=== PATIENT | male | born 1950 | race Hispanic/Latino ===

== ENCOUNTER 2017-11-06 19:49 | Inpatient (IN) | payer BC, MEDICARE ==
[2017-11-06 19:57] VITALS: BMI 20.7
[2017-11-06] MEDS ORDERED: Nitroglycerin 2% Ointment Foilpak UD TOP STA (20:05)
[2017-11-06] MEDS ORDERED: Morphine 2 mg/ml ISec IVP STA ×2 (20:05→22:05)
--- NOTE | 2017-11-06 20:23 | ED PDOC ---
Arrival/HPI - General Chief Complaint: Chest Pain Time Seen by Provider: 11/06/17 19:56 Historian: Patient - Critical Care Critical Care Minutes: 30 minutes - History of Present Illness Narrative History of Present Illness (Text): 11/06/17 20:10 66 year old male, whose PMH includes renal failure, PNA, CAD, and hypertension, renal insufficiency who presents to the emergency department complaining of intermittent chest pain throughout the day. Patient reports pain radiates to his left shoulder and arm. He also states having similar symptoms this past week , but today the chest pain became more persistent.Pt. currently on Zithromax just started by his PMD for pneumonia. Patient denies shortness of breath, fever , chills, nausea, vomiting, diarrhea, cough, or other complaints. Time/Duration: < week Symptom Onset: Gradual Symptom Course: Worsening Past Medical History - Provider Review Nursing Documentation Reviewed: Yes - Infectious Disease Hx of Infectious Diseases: None - Tetanus Immunization Tetanus Immunization: Unknown - Cardiac Hx Hypertension: Yes - Pulmonary Hx Respiratory Disorders: Yes Hx Pneumonia: Yes (DOUBLE PNEUMONIA 10-17-14) - Neurological Hx Paralysis: No (HX PAST R HEMIPARESIS) - HEENT Hx HEENT Disorder: (WEARS RX GLASSES) - Renal Hx Renal Failure: Yes - Hematological/Oncological Hx Blood Transfusions: No Hx Blood Transfusion Reaction: No - Integumentary Hx Dermatological Disorder: No - Musculoskeletal/Rheumatological Hx Musculoskeletal Disorders: No - Gastrointestinal Hx Gastrointestinal Disorders: Yes (GI BLEED 01-11-15) - Genitourinary/Gynecological Hx Genitourinary Disorders: No - Psychiatric Hx Emotional Abuse: No Hx Physical Abuse: No Hx Substance Use: No - Past Surgical History Past Surgical History: No Previous - Anesthesia Hx Anesthesia Reactions: No Hx Malignant Hyperthermia: No - Suicidal Assessment Feels Threatened In Home Enviroment: No Family/Social History - Physician Review Nursing Documentation Reviewed: Yes Family/Social History: Unknown Family HX Smoking Status: Former Smoker Hx Alcohol Use: No Hx Substance Use: No Hx Substance Use Treatment: No Allergies/Home Meds Allergies/Adverse Reactions: Allergies azithromycin [From Zithromax] Allergy (Severe, Verified 07/29/15 09:57) SWELLING UNKNOWN ANTIBIOTIC Allergy (Uncoded 08/07/15 07:03) SHORTNESS OF BREATH Home Medications: Home Meds Medication Instructions Recorded Confirmed Carvedilol [Coreg] 6.25 mg PO BID 07/29/15 08/17/17 LORazepam [Ativan] 0.5 mg PO DAILY PRN 08/07/15 08/17/17 Calcium Acetate [Phoslo] 667 mg PO DAILY 08/17/17 08/17/17 Sodium Bicarbonate 325 mg PO DAILY 08/17/17 08/17/17 Review of Systems - Physician Review All systems were reviewed & negative as marked: Yes - Review of Systems Constitutional: absent: Fevers Respiratory: absent: SOB Cardiovascular: Chest Pain (radiates to left shoulder and arm ) Gastrointestinal: absent: Vomiting Physical Exam Vital Signs Reviewed: Yes Vital Signs Temp Pulse Resp BP Pulse Ox 11/06/17 23:25 97.8 F 108 H 18 170/82 H 95 11/06/17 23:10 97.8 F 115 H 24 170/82 H 80 L 11/06/17 22:00 103 H 18 169/92 H 96 11/06/17 21:40 86 20 158/71 H 94 L 11/06/17 21:20 88 18 169/92 H 95 11/06/17 21:00 87 18 160/63 H 95 11/06/17 20:37 96 H 11/06/17 20:00 97 H 18 161/73 H 97 11/06/17 19:57 97.6 F 110 H 19 185/92 H 99 Temperature: Afebrile Blood Pressure: Hypertensive Pulse: Tachycardic Respiratory Rate: Normal Appearance: Positive for: Well-Appearing, Non-Toxic, Comfortable Pain Distress: None Mental Status: Positive for: Alert and Oriented X 3 - Systems Exam Head: Present: Atraumatic, Normocephalic Pupils: Present: PERRL Extroacular Muscles: Present: EOMI Conjunctiva: Present: Normal Ears: Present: NORMAL TM Pharnyx: Present: Normal Neck: Present: Normal Range of Motion Respiratory/Chest: Present: Good Air Exchange, Rhonchi (right lung field). No: Respiratory Distress, Accessory Muscle Use, Wheezes, Decreased Breath Sounds, Rales, Retracting Cardiovascular: Present: Tachycardic. No: Regular Rate and Rhythm, Murmurs Abdomen: Present: Normal Bowel Sounds. No: Tenderness, Distention, Peritoneal Signs, Rebound, Guarding Lower Extremity: Present: Normal Inspection, NORMAL PULSES, Normal ROM, Neurovascularly Intact, Capillary Refill < 2 s. No: Edema, Gopal's Sign, Erythema, Deformity Neurological: Present: GCS=15, CN II-XII Intact, Speech Normal, Motor Func Grossly Intact, Normal Sensory Function Skin: Present: Warm, Dry, Normal Color. No: Rashes Psychiatric: Present: Alert, Oriented x 3, Normal Insight, Normal Concentration Medical Decision Making ED Course and Treatment: 11/06/17 Impression: 66 year old male with tachycardia complaining of persistent chest pain. Plan: -- EKG -- Chest X-ray -- Labs -- Aspirin, Metoprolol, Morphine, Nitroglycerin -- Reassess and disposition Progress Notes: EKG: Ordered, reviewed, and independently interpreted the EKG. Rate : 111 BPM Rhythm : tachycardia Interpretation : ST depression lateral leads. 11/06/17 21:[address] Gao, requests ICU evaluation. Pt will require transfusion, antibiotics, and monitoring, renal/cardiac consults 11/06/17 21:[address] Mora, block greaser, who will evaluate pt in ER, accepts for ICU admission. Pt will be admitted to the ICU for ACS, renal failure, pneumonia, and anemia under Dr. Gao's service. - Lab Interpretations Lab Results: 11/06/17 20:23 11/06/17 20:23 Lab Results 11/06/17 22:00: Blood Type B POSITIVE, Antibody Screen Negative, Crossmatch See Detail, BBK History Checked Patient has bt 11/06/17 22:00: pO2 224 H, VBG pH 7.26 L, VBG pCO2 32.0 L, VBG HCO3 14.4 L, VBG Total CO2 15.4 L, VBG O2 Sat (Calc) 100.1 H, VBG Base Excess -11.5 L, VBG Potassium 7.4 H*, Glucose 95, Lactate 0.8, FiO2 21.0, Sodium 135.0, Chloride 109.0 H, Venous Blood Potassium 7.4 H* 11/06/17 20:23: NT-Pro-B Natriuret Pep 29950 H 11/06/17 20:23: D-Dimer, Quantitative 576 H 11/06/17 20:23: WBC 10.1 D, RBC 2.56 L, Hgb 7.7 L, Hct 22.2 L, MCV 86.7, MCH 30.1, MCHC 34.7, RDW 13.6, Plt Count 356, MPV 8.4 11/06/17 20:23: Sodium 140, Potassium 5.2 H, Chloride 107, Carbon Dioxide 13 L, Anion Gap 25 H, BUN 94 H, Creatinine 10.0 H*, Est GFR ( Amer) 6, Est GFR (Non-Af Amer) 5, Random Glucose 114 H, Calcium 8.9, Total Bilirubin 0.6, AST 12 L, ALT 15, Alkaline Phosphatase 72, Lactate Dehydrogenase 467, Total Creatine Kinase 46, Troponin I 0.01 D, Total Protein 7.4, Albumin 4.4, Globulin 3.0, Albumin/Globulin Ratio 1.4 11/06/17 20:23: PT 10.7, INR 0.94, APTT 31.2 I have reviewed the lab results: Yes - RAD Interpretation Radiology Orders: 11/06/17 20:06 CHEST PORTABLE [RAD] Stat Director Of Land: Radiologist - EKG Interpretation Interpreted by ED Physician: Yes Type: 12 lead EKG - Medication Orders Current Medication Orders: Albuterol/Ipratropium (Duoneb 3 Mg/0.5 Mg (3 Ml) Ud) 3 ml IH [id number] IRMA Last Admin: 11/07/17 04:02 Dose: 3 ml Aspirin (Aspirin Chewable) 81 mg PO DAILY IRMA Vancomycin HCl (Vancomycin 500mg In Ns) 500 mg in 100 mls @ 200 mls/hr IVPB DAILY IRMA PRN Reason: Protocol Piperacillin Sod/Tazobactam Sod (Zosyn 2.25 Gm In 0.9% 100 Ml) 2.25 gm in 100 mls @ 100 mls/hr IVPB Q8H IRMA PRN Reason: Protocol Stop: 11/07/17 09:14 Last Admin: 11/07/17 03:59 Dose: 100 mls/hr eMAR Start Stop Document 11/07/17 03:59 PD (Rec: 11/07/17 03:59 PD [id number]) Intravenous Solution Start Date 11/07/17 Start Time 03:59 Labetalol HCl (Trandate) 5 mg IV Q6H PRN PRN Reason: Systolic Blood Pressure Morphine Sulfate (Morphine) 2 mg IVP Q4H PRN PRN Reason: Pain, severe (8-10) Pantoprazole Sodium (Protonix Inj) 40 mg IVP DAILY IRMA Discontinued Medications Aspirin (Aspirin) 325 mg PO ONCE STA Stop: 11/06/17 20:06 Last Admin: 11/06/17 20:37 Dose: 325 mg Ceftriaxone Sodium (Rocephin 1 Gram Ivpb) 1 gm in 100 mls @ 200 mls/hr IV ONCE STA PRN Reason: Protocol Stop: 11/06/17 22:00 Last Admin: 11/06/17 22:00 Dose: 200 mls/hr eMAR Start Stop Document 11/06/17 22:00 (Rec: 11/06/17 22:26 [id number] Intravenous Solution Start Date 11/06/17 Start Time 21:45 Vancomycin HCl (Vancomycin 1gm) 1 gm in 250 mls @ 167 mls/hr IVPB ONCE ONE PRN Reason: Protocol Stop: 11/07/17 05:14 Last Admin: 11/07/17 03:53 Dose: 167 mls/hr eMAR Start Stop Document 11/07/17 03:53 PD (Rec: 11/07/17 03:53 PD [id number]) Intravenous Solution Start Date 11/07/17 Start Time 03:53 Metoprolol Tartrate (Lopressor) 25 mg PO ONCE STA Stop: 11/06/17 20:06 Last Admin: 11/06/17 20:37 Dose: 25 mg MAR Pulse and Blood Pressure Document 11/06/17 20:37 (Rec: 11/06/17 20:37 [id number]) Pulse Pulse Rate (60-90) 96 Morphine Sulfate (Morphine) 2 mg IVP STAT STA Stop: 11/06/17 20:06 Last Admin: 11/06/17 20:36 Dose: 2 mg MAR Pain Assessment Document 11/06/17 20:36 (Rec: 11/06/17 20:37 [id number]) Pain Reassessment Is this a pain reassessment? Yes IVP Administration Document 11/06/17 20:36 (Rec: 11/06/17 20:37 [id number]) Charges for Administration # of IVP Administrations 1 Morphine Sulfate (Morphine) 2 mg IVP STAT STA Stop: 11/06/17 22:06 Last Admin: 11/06/17 22:05 Dose: 2 mg MAR Pain Assessment Document 11/06/17 22:05 (Rec: 11/07/17 05:23 RG [id number]) Pain Reassessment Is this a pain reassessment? Yes Sleep Is patient sleeping during reassessment? No Presence of Pain Presence of Pain Yes Pain Scale Used Pain Scale Used Numeric Location Left, Right or Bilateral Bilateral Upper or Lower Upper Pain Location Body Site Chest Description Description Pressure Intensity of Pain at present 6 Pain Behavior Rubbing Site IVP Administration Document 11/06/17 22:05 RG (Rec: 11/07/17 05:23 RG [id number]) Charges for Administration # of IVP Administrations 1 Nitroglycerin (Nitro-Bid 2% Oint) 1 ea TOP ONCE STA Stop: 11/06/17 20:06 Last Admin: 11/06/17 20:37 Dose: 1 ea Sodium Bicarbonate (Sodium Bicarbonate 8.4% (50 Meq) Syringe) 50 meq IVP ONCE ONE Stop: 11/06/17 22:47 Last Admin: 11/06/17 23:20 Dose: 50 meq IVP Administration Document 11/06/17 23:20 RG (Rec: 11/06/17 23:27 [facility]-[id number]) Charges for Administration # of IVP Administrations 1 - Scribe Statement The provider has reviewed the documentation as recorded by the Leydi Hager Provider Scribe Attestation: All medical record entries made by the Scribe were at my direction and personally dictated by me. I have reviewed the chart and agree that the record accurately reflects my personal performance of the history, physical exam, medical decision making, and the department course for this patient. I have also personally directed, reviewed, and agree with the discharge instructions and disposition. Disposition/Present on Arrival - Present on Arrival Any Indicators Present on Arrival: No History of DVT/PE: No History of Uncontrolled Diabetes: No Urinary Catheter: No History of Decub. Ulcer: No History Surgical Site Infection Following: None - Disposition Have Diagnosis and Disposition been Completed?: Yes Diagnosis: Acute coronary syndrome, Acute renal failure (ARF), Pneumonia, Anemia Disposition: HOSPITALIZED Disposition Time: 22:05 Patient Plan: Admission Condition: SERIOUS
[2017-11-06 20:51] LABS: HEMOGLOBIN 7.7 g/dL (14.0-18.0); MEAN CELL VOLUME 86.7 fl (80.0-105.0); MEAN CORPUSCULAR HEMOGLOBIN 30.1 pg (25.0-35.0); MEAN CORPUSCULAR HGB CONC 34.7 g/dl (31.0-37.0); MEAN PLATELET VOLUME 8.4 fl (7.0-11.0); RBC 2.56 10^6/uL (3.5-6.1); RED CELL DISTRIBUTION WIDTH 13.6 % (11.5-14.5); WHITE BLOOD COUNT 10.1 10^3/ul (4.5-11.0)
[2017-11-06 20:58] LABS: TROPONIN I 0.01 ng/mL
[2017-11-06 21:08] LABS: ALB/GLOB RATIO 1.4 (1.1-1.8); ALBUMIN 4.4 g/dL (3.0-4.8); CALCIUM 8.9 mg/dL (8.4-10.5)
[2017-11-06 21:10] LABS: INR 0.94 (0.93-1.08); PARTIAL THROMBOPLASTIN TIME 31.2 Seconds (25.1-36.5); PROTHROMBIN TIME 10.7 SECONDS (9.4-12.5)
[2017-11-06] MEDS ORDERED: cefTRIAXone 1 gm 1 GM/100 ML BAG IV STA (21:31)
[2017-11-06 22:18] LABS: VENOUS BLOOD GAS BASE EXCESS -11.5 mmol/L (0.0-2.0); VENOUS BLOOD GAS PO2 224 mm/Hg (30-55); VENOUS BLOOD PH 7.26 (7.32-7.43)
[2017-11-06] MEDS ORDERED: Sodium Bicarbonate (8.4%) 50 Meq Syringe IVP ONE (22:46)
[2017-11-06] MEDS ORDERED: Albuterol-Ipratrop 3 mg / 0.5 (3 ml) UD ONE (23:13)
--- NOTE | 2017-11-06 23:17 | CP.PCM.HP ---
<Landon Ford - Last Filed: 11/07/17 06:21> History of Present Illness - History of Present Illness History of Present Illness: Landon Ford D.O. PGY-1, Internal Medicine Resident, History and Physical Note for Dr Mora. 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 Today the pt had 5- 6 episodes of chest pain which each last about 2-3 mins. These episodes have become increasingly worse. Previously the pain was relieved with Alleve, this did not help today, which prompted him to come to the ED. Pt reports pain is relieved in the ED by morphine, he was also given nitro. Pt states these episodes are also associated with SOB and diaphoresis, pt is dry heaving during the hisoty and physical. He reports nausea and requests an emesis basin. Pt reports that a similar but less intense episode occurred about 2 months ago. Pt has been coughing up about a teaspoon of blood for the past 3 days. Pt denies numbness, tingling, abdominal pain, BRBPR, subjective fever. Pt was treated for double PNA in September 2014. In December 2014 pt admitted to [facility] with Kidney failure. He was found to be anemic at that time and transfused 2 units of blood. At this time, his AV fistula was put in. Shortly after this pt had a left frontotemporal intraparenchymal hemorrhage resulting in right arm and leg weakness. A kidney bioptsy was done and the pt was then diagnosed with Lynnette's. 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 In January 2015 pt received dialysis at [facility] where he received dialysis twice a week. In October 2016 pt moved back to [place] and went for dialysis, the residential mortgage manager said pt "levels are not bad enough to require dialysis". PMH: renal failure, PNA, CAD, hypertension, and Lynnette's, hemorrhagic stroke PSH: fistula left arm, cataract eye surgery 2016 Social: lives with in [place], 75 pack year smoker quit 3 years ago, quit drinking 7 years ago, no illegal drugs Family History: mother 2017, cancer, polyps, HTN, DM, heart condition. Father: Allergies: Moxifloxin - achilles tendonitis, possibly Azithromycin - ear fullness/ear pain PMD: Dr Anatoly Gao [facility] Vat Worker: Dr Diane Zacarias Fistula Surgeon: Jim Present on Admission - Present on Admission Any Indicators Present on Admission: No Review of Systems - Review of Systems Systems not reviewed;Unavailable: Respiratory Distress - Constitutional Constitutional: Excessive Sweating. absent: Headache - EENT Eyes: absent: Blurred Vision Ears: absent: Decreased Hearing - Cardiovascular Cardiovascular: Chest Pain, Chest Pain at Rest, Diaphoresis, Dyspnea, Rapid Heart Rate - Respiratory Respiratory: Hemoptysis - Gastrointestinal Gastrointestinal: Nausea. absent: Abdominal Pain, Change in Stool Character, Diarrhea Past Patient History - Infectious Disease Hx of Infectious Diseases: None - Tetanus Immunizations Tetanus Immunization: Unknown - Past Social History Smoking Status: Former Smoker - CARDIAC Hx Hypertension: Yes - PULMONARY Hx Respiratory Disorders: Yes Hx Pneumonia: Yes (DOUBLE PNEUMONIA 10-17-14) - NEUROLOGICAL Hx Paralysis: No (HX PAST R HEMIPARESIS) - HEENT Hx HEENT Problems: (WEARS RX GLASSES) - RENAL Hx Renal Failure: Yes - HEMATOLOGICAL/ONCOLOGICAL Hx Blood Transfusions: No Hx Blood Transfusion Reaction: No - INTEGUMENTARY Hx Dermatological Problems: No - MUSCULOSKELETAL/RHEUMATOLOGICAL Hx Musculoskeletal Disorders: No - GASTROINTESTINAL Hx Gastrointestinal Disorders: Yes (GI BLEED 01-11-15) - GENITOURINARY/GYNECOLOGICAL Hx Genitourinary Disorders: No - PSYCHIATRIC Hx Emotional Abuse: No Hx Physical Abuse: No Hx Substance Use: No - SURGICAL HISTORY Hx Surgeries: Yes (TONSILLECTOMY) - ANESTHESIA Hx Anesthesia Reactions: No Hx Malignant Hyperthermia: No Meds Allergies/Adverse Reactions: Allergies Allergy/AdvReac Type Severity Reaction Status Date / Time azithromycin [From Zithromax] Allergy Severe SWELLING Verified 07/29/15 09:57 UNKNOWN ANTIBIOTIC Allergy SHORTNESS Uncoded 08/07/15 07:03 OF BREATH Physical Exam - Constitutional Appears: In Acute Distress - Head Exam Head Exam: ATRAUMATIC, NORMOCEPHALIC - Eye Exam Eye Exam: EOMI, PERRL - ENT Exam ENT Exam: Mucous Membranes Moist - Neck Exam Neck exam: Positive for: Full Rom, Normal Inspection - Respiratory Exam Respiratory Exam: NORMAL BREATHING PATTERN - Cardiovascular Exam Cardiovascular Exam: Tachycardia, REGULAR RHYTHM, +S2 - GI/Abdominal Exam GI & Abdominal Exam: Normal Bowel Sounds, Soft - Extremities Exam Extremities exam: Positive for: normal inspection - Neurological Exam Neurological exam: Alert, CN II-XII Intact, Oriented x3 - Psychiatric Exam Psychiatric exam: Normal Affect - Skin Skin Exam: Normal Color Results - Vital Signs Recent Vital Signs: Last Vital Signs Temp 97.6 F 11/06/17 19:57 Pulse 96 H 11/06/17 20:37 Resp 19 11/06/17 19:57 BP 185/92 H 11/06/17 19:57 Pulse Ox 99 11/06/17 19:57 - Labs Result Diagrams: 11/06/17 20:23 11/06/17 20:23 Assessment & Plan - Assessment and Plan (Free Text) Assessment: Pt is a 66 year old male with a PMH that includes renal failure, PNA, CAD, hypertension, and Lynnette's who presents to the emergency department complaining of 9/10 intermittent crushing left-sided chest pain, occurring at rest, which radiates to his left shoulder, arm, and jaw which first began 3 days. Plan: Neuro: -AOx3 Cardio: -Chest Pain, rule out ACS -Troponins: 0.01, continue to trend -CKMB: -EKG: -ProBNP 73099 -HTN, start Labetalol 5mg IV q6 prn when Sys >160, hold when HR <55 -will consider nitro drip if blood pressure cannot be controlled -Ordered TSH, Lipid panel, A1C -Begin ASA 81mg -cardio consulted, Dr Palumbo Pulm: -Hemoptysis -Hypoxia -possible PE -D-Dimer elevated, 576 -unable to order CT because of pt renal failure -V/Q scan: Nuclear Plant Construction Worker discussed with radiologist who stated likely low probability for PE however study not very reliable - however patient with hx of hemorrhagic stroke thus will hold therapeutic PE treatment at this time. -start duoneb -Stat Duplex scan, to rule out DVT -VBG ordered Renal: -Uremic Renal Failure -Metabolic Acidosis -Cr 10 -pt not currently on HD -Nuclear Plant Construction Worker, Dr Mora, discussed with residential mortgage manager Dr Zacarias who stated emergent dialysis not necessary overnight and that patient will receive HD in the morning. -strict I+O -Nephrology consulted, Dr Zacarias ID: -[id number] -start vanc and zosyn -Procal: -blood cultures ordered -urine c/s ordered -MRSA ordered Heme: -Anemic, Hgb 7.7, transfuse 2 units -likely of chronic disease, likely component of Anemia of renal disease -FOBT: -Iron panel: -reticulocyte count: dispo: <Jonas Mora MD - Last Filed: 11/07/17 09:15> Results - Vital Signs Recent Vital Signs: Last Vital Signs Temp 97.6 F 11/07/17 02:03 Pulse 80 11/07/17 06:14 Resp 20 11/07/17 07:15 BP 180/84 H 11/07/17 06:14 Pulse Ox 95 11/06/17 23:25 - Labs Result Diagrams: 11/07/17 05:50 11/07/17 05:50 Labs: Laboratory Results - last 24 hr 11/06/17 11/06/17 11/07/17 23:24 23:42 05:45 WBC RBC Hgb Hct MCV MCH MCHC RDW Plt Count MPV Gran % Lymph % (Auto) [place] % (Auto) Eos % (Auto) Baso % (Auto) Gran # Lymph # (Auto) [place] # (Auto) Eos # (Auto) Baso # (Auto) Neutrophils % (Manual) Lymphocytes % (Manual) Monocytes % (Manual) Platelet Evaluation Retic Count pCO2 28 L pO2 66.0 L HCO3 16.2 L ABG pH 7.37 ABG Total CO2 17.1 L ABG O2 Saturation 97.3 ABG Base Excess -7.6 L ABG Potassium 4.6 VBG pH VBG pCO2 VBG HCO3 VBG Total CO2 VBG O2 Sat (Calc) VBG Base Excess VBG Potassium Sodium 139.0 Chloride 109.0 H Glucose 144 H Lactate 1.0 FiO2 100.0 Potassium Carbon Dioxide Anion Gap BUN Creatinine Est GFR ( Amer) Est GFR (Non-Af Amer) Random Glucose Calcium Phosphorus Magnesium Iron TIBC % Saturation Total Bilirubin AST ALT Alkaline Phosphatase Troponin I NT-Pro-B Natriuret Pep Total Protein Albumin Globulin Albumin/Globulin Ratio Triglycerides Cholesterol LDL Cholesterol Direct HDL Cholesterol Free T4 1.69 TSH 3rd Generation 1.20 Arterial Blood Potassium 4.6 Venous Blood Potassium Urine Color Yellow Urine Appearance Clear Urine pH 6.5 Ur Specific [place] 1.015 Urine Protein 100 H Urine Glucose (UA) 100 H Urine Ketones Negative Urine Blood Trace-intact H Urine Nitrate Negative Urine Bilirubin Negative Urine Urobilinogen 0.2 Ur Leukocyte Esterase Negative Urine RBC 0 - 2 Urine WBC 0 - 2 Ur Epithelial Cells 0 - 2 Urine Bacteria Rare 11/07/17 11/07/17 11/07/17 05:45 05:50 05:50 WBC 16.4 H D RBC 3.71 Hgb 11.1 L D Hct 31.8 L MCV 85.7 MCH 29.9 MCHC 34.9 RDW 14.4 Plt Count 342 MPV 8.9 Gran % 90.6 H Lymph % (Auto) 7.0 L [place] % (Auto) 2.1 Eos % (Auto) 0.1 L Baso % (Auto) 0.2 Gran # 14.84 H Lymph # (Auto) 1.1 L [place] # (Auto) 0.3 Eos # (Auto) 0.0 Baso # (Auto) 0.04 Neutrophils % (Manual) 92 H Lymphocytes % (Manual) 7 L Monocytes % (Manual) 1 Platelet Evaluation Normal Retic Count 1.43 pCO2 pO2 HCO3 ABG pH ABG Total CO2 ABG O2 Saturation ABG Base Excess ABG Potassium VBG pH VBG pCO2 VBG HCO3 VBG Total CO2 VBG O2 Sat (Calc) VBG Base Excess VBG Potassium Sodium 143 Chloride 108 H Glucose Lactate FiO2 Potassium 5.6 H* Carbon Dioxide 16 L Anion Gap 25 H BUN 93 H Creatinine 9.5 H* Est GFR ( Amer) 7 Est GFR (Non-Af Amer) 6 Random Glucose 134 H Calcium 8.8 Phosphorus 5.4 H Magnesium 2.0 Iron 135 TIBC 250 L % Saturation 54 Total Bilirubin 1.0 AST 24 ALT 14 Alkaline Phosphatase 74 Troponin I 0.16 H* D NT-Pro-B Natriuret Pep 14193 H Total Protein 7.7 Albumin 4.5 Globulin 3.3 Albumin/Globulin Ratio 1.4 Triglycerides 111 Cholesterol 223 H LDL Cholesterol Direct 120 HDL Cholesterol 44 Free T4 TSH 3rd Generation Arterial Blood Potassium Venous Blood Potassium Urine Color Urine Appearance Urine pH Ur Specific [place] Urine Protein Urine Glucose (UA) Urine Ketones Urine Blood Urine Nitrate Urine Bilirubin Urine Urobilinogen Ur Leukocyte Esterase Urine RBC Urine WBC Ur Epithelial Cells Urine Bacteria 11/07/17 06:18 WBC RBC Hgb Hct MCV MCH MCHC RDW Plt Count MPV Gran % Lymph % (Auto) [place] % (Auto) Eos % (Auto) Baso % (Auto) Gran # Lymph # (Auto) [place] # (Auto) Eos # (Auto) Baso # (Auto) Neutrophils % (Manual) Lymphocytes % (Manual) Monocytes % (Manual) Platelet Evaluation Retic Count pCO2 pO2 42 HCO3 ABG pH ABG Total CO2 ABG O2 Saturation ABG Base Excess ABG Potassium VBG pH 7.23 L VBG pCO2 39.0 L VBG HCO3 16.3 L VBG Total CO2 17.5 L VBG O2 Sat (Calc) 81.3 H VBG Base Excess -10.6 L VBG Potassium 5.6 H Sodium 138.0 Chloride 109.0 H Glucose 141 H Lactate 1.1 FiO2 21.0 Potassium Carbon Dioxide Anion Gap BUN Creatinine Est GFR ( Amer) Est GFR (Non-Af Amer) Random Glucose Calcium Phosphorus Magnesium Iron TIBC % Saturation Total Bilirubin AST ALT Alkaline Phosphatase Troponin I NT-Pro-B Natriuret Pep Total Protein Albumin Globulin Albumin/Globulin Ratio Triglycerides Cholesterol LDL Cholesterol Direct HDL Cholesterol Free T4 TSH 3rd Generation Arterial Blood Potassium Venous Blood Potassium 5.6 H Urine Color Urine Appearance Urine pH Ur Specific [place] Urine Protein Urine Glucose (UA) Urine Ketones Urine Blood Urine Nitrate Urine Bilirubin Urine Urobilinogen Ur Leukocyte Esterase Urine RBC Urine WBC Ur Epithelial Cells Urine Bacteria Addendum Addendum: PLEASE DISREGARD THIS H&P AND INSTEAD REFER TO ICU CONSULT NOTE
[2017-11-06 23:27] LABS: ARTERIAL BLOOD GAS HCO3 16.2 mmol/L (21-28); ARTERIAL BLOOD GAS O2 SAT 97.3 % (95-98); ARTERIAL BLOOD GAS PCO2 28 mm/Hg (35-45); ARTERIAL BLOOD GAS PH 7.37 (7.35-7.45); ARTERIAL BLOOD GAS TCO2 17.1 mmol.L (22-28)
[2017-11-06] MEDS ORDERED: Labetalol 5 mg/ml Inj 20ML IV PRN (23:55)
[2017-11-07] MEDS ORDERED: Vancomycin 1gm in NS 250ml 1 GM/250 ML BAG IVPB ONE ×2 (00:11→03:45)
[2017-11-07 01:57] LABS: PH,URINE 6.5 (4.7-8.0); URINE APPEARANCE CLEAR (CLEAR); URINE BILIRUBIN NEGATIVE (NEGATIVE); URINE BLOOD TRACE-INTACT (NEGATIVE); URINE COLOR YELLOW (YELLOW); URINE GLUCOSE (UA) 100 mg/dL (NEGATIVE); URINE LEUKOCYTE ESTERASE NEGATIVE Leu/uL (NEGATIVE); URINE PROTEIN 100 mg/dL (<30 mg/dL); URINE UROBILINOGEN 0.2 E.U./dL (<1 E.U./dL)
[2017-11-07 02:17] LABS: URINE BACTERIA RARE (NEG); URINE EPITHELIAL CELLS 0 - 2 /hpf (0-5); URINE RBC 0 - 2 /hpf (0-2); URINE WBC 0 - 2 /hpf (0-6)
[2017-11-07] MEDS: Piperacillin/Tazobact 2.25gm 2.25 GM/100 ML BAG IVPB SCH ×2 (03:59→12:56)
[2017-11-07] MEDS: Albuterol-Ipratrop 3 mg / 0.5 (3 ml) UD IH SCH ×6 (04:02→23:47)
[2017-11-07 06:47] LABS: VENOUS BLOOD GAS BASE EXCESS -10.6 mmol/L (0.0-2.0); VENOUS BLOOD GAS PO2 42 mm/Hg (30-55); VENOUS BLOOD PH 7.23 (7.32-7.43)
--- NOTE | 2017-11-07 06:48 | CP.PCM.CON ---
<Landon Ford - Last Filed: 11/07/17 06:49> History of Present Illness - History of Present Illness History of Present Illness: Landon Ford D.O. PGY-1, Internal Medicine Resident, consult Note for Dr Mora. 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 Today the pt had 5- 6 episodes of chest pain which each last about 2-3 mins. These episodes have become increasingly worse. Previously the pain was relieved with Alleve, this did not help today, which prompted him to come to the ED. Pt reports pain is relieved in the ED by morphine, he was also given nitro. Pt states these episodes are also associated with SOB and diaphoresis, pt is dry heaving during the hisoty and physical. He reports nausea and requests an emesis basin. Pt reports that a similar but less intense episode occurred about 2 months ago. Pt has been coughing up about a teaspoon of blood for the past 3 days. Pt denies numbness, tingling, abdominal pain, BRBPR, subjective fever. Pt was treated for double PNA in September 2014. In December 2014 pt admitted to [facility] with Kidney failure. He was found to be anemic at that time and transfused 2 units of blood. At this time, his AV fistula was put in. Shortly after this pt had a left frontotemporal intraparenchymal hemorrhage resulting in right arm and leg weakness. A kidney bioptsy was done and the pt was then diagnosed with Lynnette's. 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 In January 2015 pt received dialysis at [facility] where he received dialysis twice a week. In October 2016 pt moved back to [place] and went for dialysis, the railroad repairer said pt "levels are not bad enough to require dialysis". PMH: renal failure, PNA, CAD, hypertension, and Lynnette's, hemorrhagic stroke PSH: fistula left arm, cataract eye surgery 2016 Social: lives with in [place], 75 pack year smoker quit 3 years ago, quit drinking 7 years ago, no illegal drugs Family History: mother 2016, cancer, polyps, HTN, DM, heart condition. Father: Allergies: Moxifloxin - achilles tendonitis, possibly Azithromycin - ear fullness/ear pain PMD: Dr Anatoly Gao Insurance Processing Clerk: Dr Diane Zacarias Fistula Surgeon: Jim Present on Admission - Present on Admission Any Indicators Present on Admission: No Review of Systems - Review of Systems Systems not reviewed;Unavailable: Respiratory Distress - Constitutional Constitutional: Excessive Sweating. absent: Headache - EENT Eyes: absent: Blurred Vision Ears: absent: Decreased Hearing - Cardiovascular Cardiovascular: Chest Pain, Chest Pain at Rest, Diaphoresis, Dyspnea, Rapid Heart Rate - Respiratory Respiratory: Hemoptysis - Gastrointestinal Gastrointestinal: Nausea. absent: Abdominal Pain, Change in Stool Character, Diarrhea Past Patient History - Infectious Disease Hx of Infectious Diseases: None - Tetanus Immunizations Tetanus Immunization: Unknown - Past Social History Smoking Status: Former Smoker - CARDIAC Hx Hypertension: Yes - PULMONARY Hx Respiratory Disorders: Yes Hx Pneumonia: Yes (DOUBLE PNEUMONIA 10-17-14) - NEUROLOGICAL Hx Paralysis: No (HX PAST R HEMIPARESIS) - HEENT Hx HEENT Problems: (WEARS RX GLASSES) - RENAL Hx Renal Failure: Yes - HEMATOLOGICAL/ONCOLOGICAL Hx Blood Transfusions: No Hx Blood Transfusion Reaction: No - INTEGUMENTARY Hx Dermatological Problems: No - MUSCULOSKELETAL/RHEUMATOLOGICAL Hx Musculoskeletal Disorders: No - GASTROINTESTINAL Hx Gastrointestinal Disorders: Yes (GI BLEED 01-11-15) - GENITOURINARY/GYNECOLOGICAL Hx Genitourinary Disorders: No - PSYCHIATRIC Hx Emotional Abuse: No Hx Physical Abuse: No Hx Substance Use: No - SURGICAL HISTORY Hx Surgeries: Yes (TONSILLECTOMY) - ANESTHESIA Hx Anesthesia Reactions: No Hx Malignant Hyperthermia: No Meds Allergies/Adverse Reactions: Allergies Allergy/AdvReac Type Severity Reaction Status Date / Time azithromycin [From Zithromax] Allergy Severe SWELLING Verified 07/29/15 09:57 UNKNOWN ANTIBIOTIC Allergy SHORTNESS Uncoded 08/07/15 07:03 OF BREATH Physical Exam - Constitutional Appears: In Acute Distress - Head Exam Head Exam: ATRAUMATIC, NORMOCEPHALIC - Eye Exam Eye Exam: EOMI, PERRL - ENT Exam ENT Exam: Mucous Membranes Moist - Neck Exam Neck exam: Positive for: Full Rom, Normal Inspection - Respiratory Exam Respiratory Exam: NORMAL BREATHING PATTERN - Cardiovascular Exam Cardiovascular Exam: Tachycardia, REGULAR RHYTHM, +S2 - GI/Abdominal Exam GI & Abdominal Exam: Normal Bowel Sounds, Soft - Extremities Exam Extremities exam: Positive for: normal inspection - Neurological Exam Neurological exam: Alert, CN II-XII Intact, Oriented x3 - Psychiatric Exam Psychiatric exam: Normal Affect - Skin Skin Exam: Normal Color Results - Vital Signs Recent Vital Signs: Last Vital Signs Temp 97.6 F 11/06/17 19:57 Pulse 96 H 11/06/17 20:37 Resp 19 11/06/17 19:57 BP 185/92 H 11/06/17 19:57 Pulse Ox 99 11/06/17 19:57 - Labs Result Diagrams: 11/06/17 20:23 11/06/17 20:23 Assessment & Plan - Assessment and Plan (Free Text) Assessment: Pt is a 66 year old male with a PMH that includes renal failure, PNA, CAD, hypertension, and Lynnette's who presents to the emergency department complaining of 9/10 intermittent crushing left-sided chest pain, occurring at rest, which radiates to his left shoulder, arm, and jaw which first began 3 days. Plan: Neuro: -AOx3 Cardio: -Chest Pain, rule out ACS -Troponins: 0.01, continue to trend -CKMB: -EKG: -ProBNP 74585 -HTN, start Labetalol 5mg IV q6 prn when Sys >160, hold when HR <55 -will consider nitro drip if blood pressure cannot be controlled -Ordered TSH, Lipid panel, A1C -Begin ASA 81mg -cardio consulted, Dr Palumbo Pulm: -Hemoptysis -Hypoxia -possible PE -D-Dimer elevated, 576 -unable to order CT because of pt renal failure -V/Q scan: Exhibit Artist discussed with radiologist who stated likely low probability for PE however study not very reliable - however patient with hx of hemorrhagic stroke thus will hold therapeutic PE treatment at this time. -start duoneb -Stat Duplex scan, to rule out DVT -VBG ordered Renal: -Uremic Renal Failure -Metabolic Acidosis -Cr 10 -pt not currently on HD -Exhibit Artist, Dr Mora, discussed with railroad repairer Dr Zacarias who stated emergent dialysis not necessary overnight and that patient will receive HD in the morning. -strict I+O -Nephrology consulted, Dr Zacarias ID: -Sepsis -start vanc and zosyn -Procal: -blood cultures ordered -urine c/s ordered -MRSA ordered Heme: -Anemic, Hgb 7.7, transfuse 2 units -likely of chronic disease, likely component of Anemia of renal disease -FOBT: -Iron panel: -reticulocyte count: dispo: Past Patient History - Infectious Disease Hx of Infectious Diseases: None - Tetanus Immunizations Tetanus Immunization: Unknown - Past Social History Smoking Status: Former Smoker - CARDIAC Hx Hypertension: Yes - PULMONARY Hx Respiratory Disorders: Yes Hx Pneumonia: Yes (DOUBLE PNEUMONIA 10-17-14) - NEUROLOGICAL Hx Paralysis: No (HX PAST R HEMIPARESIS) - HEENT Hx HEENT Problems: (WEARS RX GLASSES) - RENAL Hx Renal Failure: Yes - HEMATOLOGICAL/ONCOLOGICAL Hx Blood Transfusions: No Hx Blood Transfusion Reaction: No - INTEGUMENTARY Hx Dermatological Problems: No - MUSCULOSKELETAL/RHEUMATOLOGICAL Hx Musculoskeletal Disorders: No - GASTROINTESTINAL Hx Gastrointestinal Disorders: Yes (GI BLEED 01-11-15) - GENITOURINARY/GYNECOLOGICAL Hx Genitourinary Disorders: No - PSYCHIATRIC Hx Emotional Abuse: No Hx Physical Abuse: No Hx Substance Use: No - SURGICAL HISTORY Hx Surgeries: Yes (TONSILLECTOMY) - ANESTHESIA Hx Anesthesia Reactions: No Hx Malignant Hyperthermia: No Meds Allergies/Adverse Reactions: Allergies Allergy/AdvReac Type Severity Reaction Status Date / Time azithromycin [From Zithromax] Allergy Severe SWELLING Verified 07/29/15 09:57 UNKNOWN ANTIBIOTIC Allergy SHORTNESS Uncoded 08/07/15 07:03 OF BREATH - Medications Medications: Current Medications Albuterol/Ipratropium (Duoneb 3 Mg/0.5 Mg (3 Ml) Ud) 3 ml IH [id number] [facility] Last Admin: 11/07/17 04:02 Dose: 3 ml Aspirin (Aspirin Chewable) 81 mg PO DAILY [facility] Vancomycin HCl (Vancomycin 500mg In Ns) 500 mg in 100 mls @ 200 mls/hr IVPB DAILY [facility] PRN Reason: Protocol Piperacillin Sod/Tazobactam Sod (Zosyn 2.25 Gm In 0.9% 100 Ml) 2.25 gm in 100 mls @ 100 mls/hr IVPB Q8H [facility] PRN Reason: Protocol Stop: 11/07/17 09:14 Last Admin: 11/07/17 03:59 Dose: 100 mls/hr Labetalol HCl (Trandate) 5 mg IV Q6H PRN PRN Reason: Systolic Blood Pressure Last Admin: 11/07/17 06:14 Dose: 5 mg Morphine Sulfate (Morphine) 2 mg IVP Q4H PRN PRN Reason: Pain, severe (8-10) Pantoprazole Sodium (Protonix Inj) 40 mg IVP DAILY [facility] Results - Vital Signs Recent Vital Signs: Last Vital Signs Temp 97.6 F 11/07/17 02:03 Pulse 80 11/07/17 06:14 Resp 15 11/07/17 02:03 BP 180/84 H 11/07/17 06:14 Pulse Ox 95 11/06/17 23:25 - Labs Result Diagrams: 11/06/17 20:23 11/06/17 20:23 Labs: Laboratory Results - last 24 hr 11/06/17 11/06/17 23:24 23:42 pCO2 28 L pO2 66.0 L HCO3 16.2 L ABG pH 7.37 ABG Total CO2 17.1 L ABG O2 Saturation 97.3 ABG Base Excess -7.6 L ABG Potassium 4.6 Sodium 139.0 Chloride 109.0 H Glucose 144 H Lactate 1.0 FiO2 100.0 Arterial Blood Potassium 4.6 Urine Color Yellow Urine Appearance Clear Urine pH 6.5 Ur Specific [place] 1.015 Urine Protein 100 H Urine Glucose (UA) 100 H Urine Ketones Negative Urine Blood Trace-intact H Urine Nitrate Negative Urine Bilirubin Negative Urine Urobilinogen 0.2 Ur Leukocyte Esterase Negative Urine RBC 0 - 2 Urine WBC 0 - 2 Ur Epithelial Cells 0 - 2 Urine Bacteria Rare <Abby DICK,Jonas - Last Filed: 11/07/17 09:11> Meds - Medications Medications: Current Medications Albuterol/Ipratropium (Duoneb 3 Mg/0.5 Mg (3 Ml) Ud) 3 ml [id number] [facility] Last Admin: 11/07/17 07:17 Dose: 3 ml Aspirin (Aspirin Chewable) 81 mg PO DAILY [facility] Vancomycin HCl (Vancomycin 500mg In Ns) 500 mg in 100 mls @ 200 mls/hr IVPB DAILY [facility] PRN Reason: Protocol Cefepime HCl (Maxipime 1gm) 1 gm in 100 mls @ 100 mls/hr IVPB Q24H [facility] PRN Reason: Protocol Doxycycline Hyclate 100 mg/ (Sodium Chloride) 100 mls @ 100 mls/hr IVPB Q12 [facility] PRN Reason: Protocol Labetalol HCl (Trandate) 5 mg IV Q6H PRN PRN Reason: Systolic Blood Pressure Last Admin: 11/07/17 06:14 Dose: 5 mg Methylprednisolone (Solu-Medrol) 20 mg IVP Q12 [facility] Morphine Sulfate (Morphine) 2 mg IVP Q4H PRN PRN Reason: Pain, severe (8-10) Pantoprazole Sodium (Protonix Inj) 40 mg IVP DAILY [facility] Results - Vital Signs Recent Vital Signs: Last Vital Signs Temp 97.6 F 11/07/17 02:03 Pulse 80 11/07/17 06:14 Resp 20 11/07/17 07:15 BP 180/84 H 11/07/17 06:14 Pulse Ox 95 11/06/17 23:25 - Labs Result Diagrams: 11/07/17 05:50 11/07/17 05:50 Labs: Laboratory Results - last 24 hr 11/06/17 11/06/17 11/07/17 23:24 23:42 05:45 WBC RBC Hgb Hct MCV MCH MCHC RDW Plt Count MPV Gran % Lymph % (Auto) [place] % (Auto) Eos % (Auto) Baso % (Auto) Gran # Lymph # (Auto) [place] # (Auto) Eos # (Auto) Baso # (Auto) Neutrophils % (Manual) Lymphocytes % (Manual) Monocytes % (Manual) Platelet Evaluation Retic Count pCO2 28 L pO2 66.0 L HCO3 16.2 L ABG pH 7.37 ABG Total CO2 17.1 L ABG O2 Saturation 97.3 ABG Base Excess -7.6 L ABG Potassium 4.6 VBG pH VBG pCO2 VBG HCO3 VBG Total CO2 VBG O2 Sat (Calc) VBG Base Excess VBG Potassium Sodium 139.0 Chloride 109.0 H Glucose 144 H Lactate 1.0 FiO2 100.0 Potassium Carbon Dioxide Anion Gap BUN Creatinine Est GFR ( Amer) Est GFR (Non-Af Amer) Random Glucose Calcium Phosphorus Magnesium Iron TIBC % Saturation Total Bilirubin AST ALT Alkaline Phosphatase Troponin I NT-Pro-B Natriuret Pep Total Protein Albumin Globulin Albumin/Globulin Ratio Triglycerides Cholesterol LDL Cholesterol Direct HDL Cholesterol Free T4 1.69 TSH 3rd Generation 1.20 Arterial Blood Potassium 4.6 Venous Blood Potassium Urine Color Yellow Urine Appearance Clear Urine pH 6.5 Ur Specific [place] 1.015 Urine Protein 100 H Urine Glucose (UA) 100 H Urine Ketones Negative Urine Blood Trace-intact H Urine Nitrate Negative Urine Bilirubin Negative Urine Urobilinogen 0.2 Ur Leukocyte Esterase Negative Urine RBC 0 - 2 Urine WBC 0 - 2 Ur Epithelial Cells 0 - 2 Urine Bacteria Rare 11/07/17 11/07/17 11/07/17 05:45 05:50 05:50 WBC 16.4 H D RBC 3.71 Hgb 11.1 L D Hct 31.8 L MCV 85.7 MCH 29.9 MCHC 34.9 RDW 14.4 Plt Count 342 MPV 8.9 Gran % 90.6 H Lymph % (Auto) 7.0 L [place] % (Auto) 2.1 Eos % (Auto) 0.1 L Baso % (Auto) 0.2 Gran # 14.84 H Lymph # (Auto) 1.1 L [place] # (Auto) 0.3 Eos # (Auto) 0.0 Baso # (Auto) 0.04 Neutrophils % (Manual) 92 H Lymphocytes % (Manual) 7 L Monocytes % (Manual) 1 Platelet Evaluation Normal Retic Count 1.43 pCO2 pO2 HCO3 ABG pH ABG Total CO2 ABG O2 Saturation ABG Base Excess ABG Potassium VBG pH VBG pCO2 VBG HCO3 VBG Total CO2 VBG O2 Sat (Calc) VBG Base Excess VBG Potassium Sodium 143 Chloride 108 H Glucose Lactate FiO2 Potassium 5.6 H* Carbon Dioxide 16 L Anion Gap 25 H BUN 93 H Creatinine 9.5 H* Est GFR ( Amer) 7 Est GFR (Non-Af Amer) 6 Random Glucose 134 H Calcium 8.8 Phosphorus 5.4 H Magnesium 2.0 Iron 135 TIBC 250 L % Saturation 54 Total Bilirubin 1.0 AST 24 ALT 14 Alkaline Phosphatase 74 Troponin I 0.16 H* D NT-Pro-B Natriuret Pep 24854 H Total Protein 7.7 Albumin 4.5 Globulin 3.3 Albumin/Globulin Ratio 1.4 Triglycerides 111 Cholesterol 223 H LDL Cholesterol Direct 120 HDL Cholesterol 44 Free T4 TSH 3rd Generation Arterial Blood Potassium Venous Blood Potassium Urine Color Urine Appearance Urine pH Ur Specific [place] Urine Protein Urine Glucose (UA) Urine Ketones Urine Blood Urine Nitrate Urine Bilirubin Urine Urobilinogen Ur Leukocyte Esterase Urine RBC Urine WBC Ur Epithelial Cells Urine Bacteria 11/07/17 06:18 WBC RBC Hgb Hct MCV MCH MCHC RDW Plt Count MPV Gran % Lymph % (Auto) [place] % (Auto) Eos % (Auto) Baso % (Auto) Gran # Lymph # (Auto) [place] # (Auto) Eos # (Auto) Baso # (Auto) Neutrophils % (Manual) Lymphocytes % (Manual) Monocytes % (Manual) Platelet Evaluation Retic Count pCO2 pO2 42 HCO3 ABG pH ABG Total CO2 ABG O2 Saturation ABG Base Excess ABG Potassium VBG pH 7.23 L VBG pCO2 39.0 L VBG HCO3 16.3 L VBG Total CO2 17.5 L VBG O2 Sat (Calc) 81.3 H VBG Base Excess -10.6 L VBG Potassium 5.6 H Sodium 138.0 Chloride 109.0 H Glucose 141 H Lactate 1.1 FiO2 21.0 Potassium Carbon Dioxide Anion Gap BUN Creatinine Est GFR ( Amer) Est GFR (Non-Af Amer) Random Glucose Calcium Phosphorus Magnesium Iron TIBC % Saturation Total Bilirubin AST ALT Alkaline Phosphatase Troponin I NT-Pro-B Natriuret Pep Total Protein Albumin Globulin Albumin/Globulin Ratio Triglycerides Cholesterol LDL Cholesterol Direct HDL Cholesterol Free T4 TSH 3rd Generation Arterial Blood Potassium Venous Blood Potassium 5.6 H Urine Color Urine Appearance Urine pH Ur Specific [place] Urine Protein Urine Glucose (UA) Urine Ketones Urine Blood Urine Nitrate Urine Bilirubin Urine Urobilinogen Ur Leukocyte Esterase Urine RBC Urine WBC Ur Epithelial Cells Urine Bacteria Attending/Attestation - Attestation I have personally seen and examined this patient.: Yes I have fully participated in the care of the patient.: Yes I have reviewed all pertinent clinical information: Yes Notes (Text): -I agree with the above ICU consult note completed by the resident physician with the following additions and/or changes: IMPRESSION: 1. Uremic Renal Failure (acute on chronic)(likely due to lack of HD for past year) 2. Metabolic Acidosis with Increased Anion Gap (due to uremia +/- sepsis) 3. Unstable Angina 4. Sepsis (due to pneumonia) 4. Bilateral Pneumonia (R>L) 5. Hypoxia (ddx: pneumonia vs acute PE) 6. Acute Hemoptysis (ddx: acute PE vs granulomatosis with polyangitis) 7. Uncontrolled Hypertension 8. Normocytic Anemia (likely due to ESRD) PLAN: -Per nephrology (Dr. Zacarias) recommendations, immediate dialysis overnight unnecessary and will be done in morning. Of note, bruit and thrill both appreciated on patients left arm AVF. Cardiology (Dr. Palumbo) also consulted. Given patients relative contraindication to anticoagulation (due to history of ICH), will not start it empirically (especially since first troponin is negative ). Serial trops and EKGs ordered as well as daily ASA. V/Q scan shows low probability for PE (bilateral leg Doppler U/S still pending). 2units PRBCs ordered in ED for symptomatic relief of anemia. High flow oxygen for hypoxia treatment as well as empiric IV Antibiotics (with almonte-cultures and procalcitonin sent) and Duo-nebs ATC Q4hrs. PRN IV Labetalol for blood pressure control overnight. Will start Nicardipine or NTG drip if needed. Appreciate both cardiology and nephrology assistance.
[2017-11-07 06:56] LABS: ALB/GLOB RATIO 1.4 (1.1-1.8); ALBUMIN 4.5 g/dL (3.0-4.8); CALCIUM 8.8 mg/dL (8.4-10.5)
[2017-11-07 07:06] LABS: FREE T4 1.69 ng/dL (0.78-2.19)
[2017-11-07 07:10] LABS: IRON 135 ug/dL (45-180)
[2017-11-07 07:12] LABS: TROPONIN I 0.16 ng/mL
[2017-11-07 07:19] LABS: % IRON SATURATION 54 % (20-55); TOTAL IRON BINDING CAPACITY 250 ug/dL (261-462)
[2017-11-07 07:52] LABS: BASO # 0.04 K/mm3 (0.0-2.0); BASO % 0.2 % (0.0-3.0); EOS % 0.1 % (1.5-5.0); GRAN # 14.84 (1.4-6.5); GRAN % 90.6 % (50.0-68.0); LYMPH # 1.1 (1.2-3.4); MEAN CELL VOLUME 85.7 fl (80.0-105.0); MEAN CORPUSCULAR HEMOGLOBIN 29.9 pg (25.0-35.0); MEAN CORPUSCULAR HGB CONC 34.9 g/dl (31.0-37.0); MEAN PLATELET VOLUME 8.9 fl (7.0-11.0); MONO # 0.3 (0.1-0.6); MONO % 2.1 % (1.0-6.0); PLATELET COUNT 342 10^3/uL (120.0-450.0); RBC 3.71 10^6/uL (3.5-6.1); RED CELL DISTRIBUTION WIDTH 14.4 % (11.5-14.5); WHITE BLOOD COUNT 16.4 10^3/ul (4.5-11.0)
[2017-11-07 07:53] LABS: HEMOGLOBIN 11.1 g/dL (14.0-18.0)
[2017-11-07] MEDS ORDERED: Dextrose 50% SYRINGE Inj (50 ml) IVP ONE (07:58)
[2017-11-07] MEDS ORDERED: Insulin Regular 1 UNITS/0.01 ML ML SC STA (07:58)
[2017-11-07 08:20] LABS: LYMPHOCYTE 7 % (22.0-35.0); MONOCYTE 1 % (1.0-6.0); NEUTROPHIL 92 % (50.0-70.0); PLATELET ESTIMATE NORMAL (NORMAL)
--- NOTE | 2017-11-07 08:53 | RAD ---
Date of service: 11/06/2017 HISTORY: pain COMPARISON: 06/08/2016 FINDINGS: LUNGS: There is a diffuse interstitial and alveolar infiltrate in the right lung consistent with pneumonia. The left lung is clear PLEURA: No significant pleural effusion identified, no pneumothorax apparent. CARDIOVASCULAR: Normal. OSSEOUS STRUCTURES: No significant abnormalities. VISUALIZED UPPER ABDOMEN: Normal. OTHER FINDINGS: None. IMPRESSION: There is a diffuse interstitial and alveolar infiltrate in the right lung consistent with pneumonia. The left lung is clear
[2017-11-07] MEDS ORDERED: Cefepime 1gm in NS 100ml 1 GM/100 ML BAG IVPB SCH (09:00)
[2017-11-07] MEDS: Cefepime 1gm in NS 100ml 1 GM/100 ML BAG IVPB SCH (09:06)
[2017-11-07] MEDS ORDERED: Vancomycin 500mg in NS 500 MG/100 ML BAG IVPB SCH (10:00)
[2017-11-07] MEDS ORDERED: Azithromycin 500MG/NS 250ml 500 MG/250 ML BAG IVPB SCH (10:00)
[2017-11-07] MEDS: Linezolid 600 mg in D5W 300 ml 600 MG/300 ML BAG IVPB SCH ×2 (10:15→21:33)
[2017-11-07] MEDS: MethylPREDNISolone 40 mg Vial IVP SCH ×2 (10:15→21:31)
--- NOTE | 2017-11-07 10:16 | CARD ---
APPROVED REPORT Date of service: 11/07/2017 EKG Measurement Heart [id number] ID [id number] <Conclusion> Sinus rhythm. Non Specific ST_T Changes.
--- NOTE | 2017-11-07 11:06 | CARD ---
APPROVED REPORT Date of service: 11/07/2017 EKG Measurement Heart [id number] <Conclusion> Normal sinus rhythm Normal ECG
--- NOTE | 2017-11-07 11:39 | CP.CCUPN ---
<Chemo Petersen - Last Filed: 11/07/17 13:16> CCU Subjective - Physician Review Subjective (Free Text): Chemo Petersen, PGY1 Critical Care Progress Note for Dr. Pickard Patient was seen and examined at bedside this morning. Patient was on High Flow oxygen (42%). Patient denied fever, lightheadedness, dizziness, weakness, chest pain, shortness of breath, abdominal pain, dysuria, hematuria. Patient had an episode of one teaspoon of hemoptysis earlier in the morning and had one episode of vomiting after breakfast. A Full 12 point ROS was reviewed and unremarkable except as stated above. CCU Objective - Vital Signs / Intake & Output Intake and Output (Last 8hrs): Intake & Output 11/06/17 11/07/17 11/07/17 22:59 06:59 14:59 Intake Total 953 Output Total 450 Balance 503 Weight 67.132 kg Intake: IV 953 Right Forearm 953 Output: Urine 450 Urine, Voided 450 Other: # Voids Urine, Voided 2 - Physical Exam Head: Positive for: Atraumatic, Normocephalic Pupils: Positive for: PERRL Extroacular Muscles: Positive for: EOMI Conjunctiva: Positive for: Normal Ears: Positive for: NORMAL TM Mouth: Positive for: Moist Mucous Membranes Pharnyx: Positive for: Normal Nose (External): Positive for: Other (High Flow oxygen (42%)) Neck: Positive for: Normal Range of Motion Respiratory/Chest: Positive for: Good Air Exchange, Other (Diffuse crackles bilaterally ). Negative for: Respiratory Distress, Accessory Muscle Use, Wheezes, Decreased Breath Sounds, Rales, Retracting Cardiovascular: Positive for: Regular Rate and Rhythm, Normal S1, S2. Negative for: Murmurs Abdomen: Positive for: Normal Bowel Sounds. 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 Negative for: Cyanosis, Edema Lower Extremity: Positive for: Normal Inspection, NORMAL PULSES, Normal ROM, Neurovascularly Intact, Capillary Refill < 2 s. Negative for: Edema, CALF TENDERNESS, Gopal's Sign, Erythema, Deformity Neurological: Positive for: Speech Normal Skin: Positive for: Warm, Dry, Normal Color. Negative for: Rashes Psychiatric: Positive for: Alert, Oriented x 3 - Medications Active Medications: Active Medications Generic Name Dose Route Start Last Admin Trade Name Freq PRN Reason Stop Dose Admin Albuterol/Ipratropium 3 ml 11/07/17 03:30 11/07/17 07:17 Duoneb 3 Mg/0.5 Mg (3 Ml) Ud IH 3 ml [id number] IRMA Administration Aspirin 81 mg 11/07/17 10:00 11/07/17 10:14 Aspirin Chewable PO 81 mg DAILY IRMA Administration Atorvastatin Calcium 40 mg 11/07/17 17:00 Lipitor PO DIN IRMA Cefepime HCl 1 gm in 100 mls @ 100 mls/hr 11/07/17 09:00 11/07/17 09:06 Maxipime 1gm IVPB 100 mls/hr Q24H IRMA Administration Protocol Doxycycline Hyclate 100 mg/ 100 mls @ 100 mls/hr 11/07/17 10:00 11/07/17 10: 16 Sodium Chloride IVPB 100 mls/hr Q12 IRMA Administration Protocol Linezolid 600 mg in 300 mls @ 200 mls/hr 11/07/17 10:00 11/07/17 10:15 Zyvox 600mg/300ml D5w IVPB 11/14/17 10:01 200 mls/hr Q12 IRMA Administration Protocol Labetalol HCl 5 mg 11/06/17 23:55 11/07/17 06:14 Trandate IV 5 mg Q6H PRN Administration Systolic Blood Pressure Methylprednisolone 20 mg 11/07/17 10:00 11/07/17 10:15 Solu-Medrol IVP 20 mg Q12 IRMA Administration Morphine Sulfate 2 mg 11/06/17 23:59 Morphine IVP Q4H PRN Pain, severe (8-10) Pantoprazole Sodium 40 mg 11/07/17 10:00 11/07/17 10:15 Protonix Inj IVP 40 mg DAILY IRMA Administration - Patient Studies Lab Studies: Lab Studies 11/07/17 11/07/17 11/07/17 Range/Units 06:18 05:50 05:50 WBC 16.4 H D (4.5-11.0) 10^3/ul RBC 3.71 (3.5-6.1) 10^6/uL Hgb 11.1 L D (14.0-18.0) g/dL Hct 31.8 L (42.0-52.0) % MCV 85.7 (80.0-105.0) fl MCH 29.9 (25.0-35.0) pg MCHC 34.9 (31.0-37.0) g/dl RDW 14.4 (11.5-14.5) % Plt Count 342 (120.0-450.0) 10^3/uL MPV 8.9 (7.0-11.0) fl Gran % 90.6 H (50.0-68.0) % Lymph % (Auto) 7.0 L (22.0-35.0) % [place] % (Auto) 2.1 (1.0-6.0) % Eos % (Auto) 0.1 L (1.5-5.0) % Baso % (Auto) 0.2 (0.0-3.0) % Gran # 14.84 H (1.4-6.5) Lymph # (Auto) 1.1 L (1.2-3.4) [place] # (Auto) 0.3 (0.1-0.6) Eos # (Auto) 0.0 (0.0-0.7) Baso # (Auto) 0.04 (0.0-2.0) K/mm3 Neutrophils % (Manual) 92 H (50.0-70.0) % Lymphocytes % (Manual) 7 L (22.0-35.0) % Monocytes % (Manual) 1 (1.0-6.0) % Platelet Evaluation Normal (NORMAL) ESR 50 H (0.00-15.0) mm/hr Retic Count 1.43 (0.5-1.5) % pCO2 (35-45) mm/Hg pO2 42 (80-100) mm/Hg HCO3 (21-28) mmol/L ABG pH (7.35-7.45) ABG Total CO2 (22-28) mmol.L ABG O2 Saturation (95-98) % ABG Base Excess (-2.0-3.0) mmol/L ABG Potassium (3.6-5.2) mmol/L VBG pH 7.23 L (7.32-7.43) VBG pCO2 39.0 L (40-60) VBG HCO3 16.3 L (21-28) mmol/l VBG Total CO2 17.5 L (22-28) mmol.L VBG O2 Sat (Calc) 81.3 H (40-65) % VBG Base Excess -10.6 L (0.0-2.0) mmol/L VBG Potassium 5.6 H (3.6-5.2) mmol/L Sodium 138.0 (132-148) mmol/L Chloride 109.0 H (98-107) mmol/L Glucose 141 H (75-110) mg/dl Lactate 1.1 (0.7-2.1) mmol/L FiO2 21.0 % Potassium (3.6-5.0) mmol/L Carbon Dioxide (21-33) mmol/L Anion Gap (10-20) BUN (7-21) mg/dL Creatinine (0.8-1.5) mg/dl Est GFR ( Amer) Est GFR (Non-Af Amer) Random Glucose (70-110) mg/dL Calcium (8.4-10.5) mg/dL Phosphorus (2.5-4.5) mg/dL Magnesium (1.7-2.2) mg/dL Iron (45-180) ug/dL TIBC (261-462) ug/dL % Saturation (20-55) % Total Bilirubin (0.2-1.3) mg/dL AST (17-59) U/L ALT (7-56) U/L Alkaline Phosphatase (38-126) U/L Total Creatine Kinase (35-230) U/L CK-MB (CK-2) % Troponin I ng/mL NT-Pro-B Natriuret Pep (0-450) pg/mL Total Protein (5.8-8.3) g/dL Albumin (3.0-4.8) g/dL Globulin gm/dL Albumin/Globulin Ratio (1.1-1.8) Triglycerides (35-160) mg/dL Cholesterol (130-200) mg/dL LDL Cholesterol Direct (0-129) mg/dL HDL Cholesterol (29-60) mg/dL Free T4 (0.78-2.19) ng/dL TSH 3rd Generation (0.46-4.68) mIU/mL Arterial Blood Potassium (3.6-5.2) mmol/L Venous Blood Potassium 5.6 H (3.6-5.2) mmol/L Urine Color (YELLOW) Urine Appearance (CLEAR) Urine pH (4.7-8.0) Ur Specific [place] (1.005-1.035) Urine Protein (<30 mg/dL) mg/dL Urine Glucose (UA) (NEGATIVE) mg/dL Urine Ketones (NEGATIVE) mg/dL Urine Blood (NEGATIVE) Urine Nitrate (NEGATIVE) Urine Bilirubin (NEGATIVE) Urine Urobilinogen (<1 E.U./dL) E.U./dL Ur Leukocyte Esterase (NEGATIVE) Derik/uL Urine RBC (0-2) /hpf Urine WBC (0-6) /hpf Ur Epithelial Cells (0-5) /hpf Urine Bacteria (NEG) 11/07/17 11/07/17 11/07/17 Range/Units 05:50 05:45 05:45 WBC (4.5-11.0) 10^3/ul RBC (3.5-6.1) 10^6/uL Hgb (14.0-18.0) g/dL Hct (42.0-52.0) % MCV (80.0-105.0) fl MCH (25.0-35.0) pg MCHC (31.0-37.0) g/dl RDW (11.5-14.5) % Plt Count (120.0-450.0) 10^3/uL MPV (7.0-11.0) fl Gran % (50.0-68.0) % Lymph % (Auto) (22.0-35.0) % [place] % (Auto) (1.0-6.0) % Eos % (Auto) (1.5-5.0) % Baso % (Auto) (0.0-3.0) % Gran # (1.4-6.5) Lymph # (Auto) (1.2-3.4) [place] # (Auto) (0.1-0.6) Eos # (Auto) (0.0-0.7) Baso # (Auto) (0.0-2.0) K/mm3 Neutrophils % (Manual) (50.0-70.0) % Lymphocytes % (Manual) (22.0-35.0) % Monocytes % (Manual) (1.0-6.0) % Platelet Evaluation (NORMAL) ESR (0.00-15.0) mm/hr Retic Count (0.5-1.5) % pCO2 (35-45) mm/Hg pO2 (80-100) mm/Hg HCO3 (21-28) mmol/L ABG pH (7.35-7.45) ABG Total CO2 (22-28) mmol.L ABG O2 Saturation (95-98) % ABG Base Excess (-2.0-3.0) mmol/L ABG Potassium (3.6-5.2) mmol/L VBG pH (7.32-7.43) VBG pCO2 (40-60) VBG HCO3 (21-28) mmol/l VBG Total CO2 (22-28) mmol.L VBG O2 Sat (Calc) (40-65) % VBG Base Excess (0.0-2.0) mmol/L VBG Potassium (3.6-5.2) mmol/L Sodium 143 (132-148) mmol/L Chloride 108 H (98-107) mmol/L Glucose (75-110) mg/dl Lactate (0.7-2.1) mmol/L FiO2 % Potassium 5.6 H* (3.6-5.0) mmol/L Carbon Dioxide 16 L (21-33) mmol/L Anion Gap 25 H (10-20) BUN 93 H (7-21) mg/dL Creatinine 9.5 H* (0.8-1.5) mg/dl Est GFR ( Amer) 7 Est GFR (Non-Af Amer) 6 Random Glucose 134 H (70-110) mg/dL Calcium 8.8 (8.4-10.5) mg/dL Phosphorus 5.4 H (2.5-4.5) mg/dL Magnesium 2.0 (1.7-2.2) mg/dL Iron 135 (45-180) ug/dL TIBC 250 L (261-462) ug/dL % Saturation 54 (20-55) % Total Bilirubin 1.0 (0.2-1.3) mg/dL AST 24 (17-59) U/L ALT 14 (7-56) U/L Alkaline Phosphatase 74 (38-126) U/L Total Creatine Kinase 59 (35-230) U/L CK-MB (CK-2) % Cancelled Troponin I 0.16 H* D ng/mL NT-Pro-B Natriuret Pep 56989 H (0-450) pg/mL Total Protein 7.7 (5.8-8.3) g/dL Albumin 4.5 (3.0-4.8) g/dL Globulin 3.3 gm/dL Albumin/Globulin Ratio 1.4 (1.1-1.8) Triglycerides 111 (35-160) mg/dL Cholesterol 223 H (130-200) mg/dL LDL Cholesterol Direct 120 (0-129) mg/dL HDL Cholesterol 44 (29-60) mg/dL Free T4 1.69 (0.78-2.19) ng/dL TSH 3rd Generation 1.20 (0.46-4.68) mIU/mL Arterial Blood Potassium (3.6-5.2) mmol/L Venous Blood Potassium (3.6-5.2) mmol/L Urine Color (YELLOW) Urine Appearance (CLEAR) Urine pH (4.7-8.0) Ur Specific [place] (1.005-1.035) Urine Protein (<30 mg/dL) mg/dL Urine Glucose (UA) (NEGATIVE) mg/dL Urine Ketones (NEGATIVE) mg/dL Urine Blood (NEGATIVE) Urine Nitrate (NEGATIVE) Urine Bilirubin (NEGATIVE) Urine Urobilinogen (<1 E.U./dL) E.U./dL Ur Leukocyte Esterase (NEGATIVE) Derik/uL Urine RBC (0-2) /hpf Urine WBC (0-6) /hpf Ur Epithelial Cells (0-5) /hpf Urine Bacteria (NEG) 11/06/17 11/06/17 Range/Units 23:42 23:24 WBC (4.5-11.0) 10^3/ul RBC (3.5-6.1) 10^6/uL Hgb (14.0-18.0) g/dL Hct (42.0-52.0) % MCV (80.0-105.0) fl MCH (25.0-35.0) pg MCHC (31.0-37.0) g/dl RDW (11.5-14.5) % Plt Count (120.0-450.0) 10^3/uL MPV (7.0-11.0) fl Gran % (50.0-68.0) % Lymph % (Auto) (22.0-35.0) % [place] % (Auto) (1.0-6.0) % Eos % (Auto) (1.5-5.0) % Baso % (Auto) (0.0-3.0) % Gran # (1.4-6.5) Lymph # (Auto) (1.2-3.4) [place] # (Auto) (0.1-0.6) Eos # (Auto) (0.0-0.7) Baso # (Auto) (0.0-2.0) K/mm3 Neutrophils % (Manual) (50.0-70.0) % Lymphocytes % (Manual) (22.0-35.0) % Monocytes % (Manual) (1.0-6.0) % Platelet Evaluation (NORMAL) ESR (0.00-15.0) mm/hr Retic Count (0.5-1.5) % pCO2 28 L (35-45) mm/Hg pO2 66.0 L (80-100) mm/Hg HCO3 16.2 L (21-28) mmol/L ABG pH 7.37 (7.35-7.45) ABG Total CO2 17.1 L (22-28) mmol.L ABG O2 Saturation 97.3 (95-98) % ABG Base Excess -7.6 L (-2.0-3.0) mmol/L ABG Potassium 4.6 (3.6-5.2) mmol/L VBG pH (7.32-7.43) VBG pCO2 (40-60) VBG HCO3 (21-28) mmol/l VBG Total CO2 (22-28) mmol.L VBG O2 Sat (Calc) (40-65) % VBG Base Excess (0.0-2.0) mmol/L VBG Potassium (3.6-5.2) mmol/L Sodium 139.0 (132-148) mmol/L Chloride 109.0 H (98-107) mmol/L Glucose 144 H (75-110) mg/dl Lactate 1.0 (0.7-2.1) mmol/L FiO2 100.0 % Potassium (3.6-5.0) mmol/L Carbon Dioxide (21-33) mmol/L Anion Gap (10-20) BUN (7-21) mg/dL Creatinine (0.8-1.5) mg/dl Est GFR ( Amer) Est GFR (Non-Af Amer) Random Glucose (70-110) mg/dL Calcium (8.4-10.5) mg/dL Phosphorus (2.5-4.5) mg/dL Magnesium (1.7-2.2) mg/dL Iron (45-180) ug/dL TIBC (261-462) ug/dL % Saturation (20-55) % Total Bilirubin (0.2-1.3) mg/dL AST (17-59) U/L ALT (7-56) U/L Alkaline Phosphatase (38-126) U/L Total Creatine Kinase (35-230) U/L CK-MB (CK-2) % Troponin I ng/mL NT-Pro-B Natriuret Pep (0-450) pg/mL Total Protein (5.8-8.3) g/dL Albumin (3.0-4.8) g/dL Globulin gm/dL Albumin/Globulin Ratio (1.1-1.8) Triglycerides (35-160) mg/dL Cholesterol (130-200) mg/dL LDL Cholesterol Direct (0-129) mg/dL HDL Cholesterol (29-60) mg/dL Free T4 (0.78-2.19) ng/dL TSH 3rd Generation (0.46-4.68) mIU/mL Arterial Blood Potassium 4.6 (3.6-5.2) mmol/L Venous Blood Potassium (3.6-5.2) mmol/L Urine Color Yellow (YELLOW) Urine Appearance Clear (CLEAR) Urine pH 6.5 (4.7-8.0) Ur Specific [place] 1.015 (1.005-1.035) Urine Protein 100 H (<30 mg/dL) mg/dL Urine Glucose (UA) 100 H (NEGATIVE) mg/dL Urine Ketones Negative (NEGATIVE) mg/dL Urine Blood Trace-intact H (NEGATIVE) Urine Nitrate Negative (NEGATIVE) Urine Bilirubin Negative (NEGATIVE) Urine Urobilinogen 0.2 (<1 E.U./dL) E.U./dL Ur Leukocyte Esterase Negative (NEGATIVE) Derik/uL Urine RBC 0 - 2 (0-2) /hpf Urine WBC 0 - 2 (0-6) /hpf Ur Epithelial Cells 0 - 2 (0-5) /hpf Urine Bacteria Rare (NEG) Laboratory Results - last 24 hr 11/06/17 11/06/17 11/07/17 23:24 23:42 05:45 WBC RBC Hgb Hct MCV MCH MCHC RDW Plt Count MPV Gran % Lymph % (Auto) [place] % (Auto) Eos % (Auto) Baso % (Auto) Gran # Lymph # (Auto) [place] # (Auto) Eos # (Auto) Baso # (Auto) Neutrophils % (Manual) Lymphocytes % (Manual) Monocytes % (Manual) Platelet Evaluation ESR Retic Count pCO2 28 L pO2 66.0 L HCO3 16.2 L ABG pH 7.37 ABG Total CO2 17.1 L ABG O2 Saturation 97.3 ABG Base Excess -7.6 L ABG Potassium 4.6 VBG pH VBG pCO2 VBG HCO3 VBG Total CO2 VBG O2 Sat (Calc) VBG Base Excess VBG Potassium Sodium 139.0 Chloride 109.0 H Glucose 144 H Lactate 1.0 FiO2 100.0 Potassium Carbon Dioxide Anion Gap BUN Creatinine Est GFR ( Amer) Est GFR (Non-Af Amer) Random Glucose Calcium Phosphorus Magnesium Iron TIBC % Saturation Total Bilirubin AST ALT Alkaline Phosphatase Total Creatine Kinase CK-MB (CK-2) % Troponin I NT-Pro-B Natriuret Pep Total Protein Albumin Globulin Albumin/Globulin Ratio Triglycerides Cholesterol LDL Cholesterol Direct HDL Cholesterol Free T4 1.69 TSH 3rd Generation 1.20 Arterial Blood Potassium 4.6 Venous Blood Potassium Urine Color Yellow Urine Appearance Clear Urine pH 6.5 Ur Specific [place] 1.015 Urine Protein 100 H Urine Glucose (UA) 100 H Urine Ketones Negative Urine Blood Trace-intact H Urine Nitrate Negative Urine Bilirubin Negative Urine Urobilinogen 0.2 Ur Leukocyte Esterase Negative Urine RBC 0 - 2 Urine WBC 0 - 2 Ur Epithelial Cells 0 - 2 Urine Bacteria Rare 11/07/17 11/07/17 11/07/17 05:45 05:50 05:50 WBC 16.4 H D RBC 3.71 Hgb 11.1 L D Hct 31.8 L MCV 85.7 MCH 29.9 MCHC 34.9 RDW 14.4 Plt Count 342 MPV 8.9 Gran % 90.6 H Lymph % (Auto) 7.0 L [place] % (Auto) 2.1 Eos % (Auto) 0.1 L Baso % (Auto) 0.2 Gran # 14.84 H Lymph # (Auto) 1.1 L [place] # (Auto) 0.3 Eos # (Auto) 0.0 Baso # (Auto) 0.04 Neutrophils % (Manual) 92 H Lymphocytes % (Manual) 7 L Monocytes % (Manual) 1 Platelet Evaluation Normal ESR Retic Count 1.43 pCO2 pO2 HCO3 ABG pH ABG Total CO2 ABG O2 Saturation ABG Base Excess ABG Potassium VBG pH VBG pCO2 VBG HCO3 VBG Total CO2 VBG O2 Sat (Calc) VBG Base Excess VBG Potassium Sodium 143 Chloride 108 H Glucose Lactate FiO2 Potassium 5.6 H* Carbon Dioxide 16 L Anion Gap 25 H BUN 93 H Creatinine 9.5 H* Est GFR ( Amer) 7 Est GFR (Non-Af Amer) 6 Random Glucose 134 H Calcium 8.8 Phosphorus 5.4 H Magnesium 2.0 Iron 135 TIBC 250 L % Saturation 54 Total Bilirubin 1.0 AST 24 ALT 14 Alkaline Phosphatase 74 Total Creatine Kinase 59 CK-MB (CK-2) % Cancelled Troponin I 0.16 H* D NT-Pro-B Natriuret Pep 67475 H Total Protein 7.7 Albumin 4.5 Globulin 3.3 Albumin/Globulin Ratio 1.4 Triglycerides 111 Cholesterol 223 H LDL Cholesterol Direct 120 HDL Cholesterol 44 Free T4 TSH 3rd Generation Arterial Blood Potassium Venous Blood Potassium Urine Color Urine Appearance Urine pH Ur Specific [place] Urine Protein Urine Glucose (UA) Urine Ketones Urine Blood Urine Nitrate Urine Bilirubin Urine Urobilinogen Ur Leukocyte Esterase Urine RBC Urine WBC Ur Epithelial Cells Urine Bacteria 11/07/17 11/07/17 05:50 06:18 WBC RBC Hgb Hct MCV MCH MCHC RDW Plt Count MPV Gran % Lymph % (Auto) [place] % (Auto) Eos % (Auto) Baso % (Auto) Gran # Lymph # (Auto) [place] # (Auto) Eos # (Auto) Baso # (Auto) Neutrophils % (Manual) Lymphocytes % (Manual) Monocytes % (Manual) Platelet Evaluation ESR 50 H Retic Count pCO2 pO2 42 HCO3 ABG pH ABG Total CO2 ABG O2 Saturation ABG Base Excess ABG Potassium VBG pH 7.23 L VBG pCO2 39.0 L VBG HCO3 16.3 L VBG Total CO2 17.5 L VBG O2 Sat (Calc) 81.3 H VBG Base Excess -10.6 L VBG Potassium 5.6 H Sodium 138.0 Chloride 109.0 H Glucose 141 H Lactate 1.1 FiO2 21.0 Potassium Carbon Dioxide Anion Gap BUN Creatinine Est GFR ( Amer) Est GFR (Non-Af Amer) Random Glucose Calcium Phosphorus Magnesium Iron TIBC % Saturation Total Bilirubin AST ALT Alkaline Phosphatase Total Creatine Kinase CK-MB (CK-2) % Troponin I NT-Pro-B Natriuret Pep Total Protein Albumin Globulin Albumin/Globulin Ratio Triglycerides Cholesterol LDL Cholesterol Direct HDL Cholesterol Free T4 TSH 3rd Generation Arterial Blood Potassium Venous Blood Potassium 5.6 H Urine Color Urine Appearance Urine pH Ur Specific [place] Urine Protein Urine Glucose (UA) Urine Ketones Urine Blood Urine Nitrate Urine Bilirubin Urine Urobilinogen Ur Leukocyte Esterase Urine RBC Urine WBC Ur Epithelial Cells Urine Bacteria EKG/Cardiology Studies: Cardiology / EKG Studies 11/07/17 04:00 EKG [ELECTROCARDIOGRAM] Routine Comment: Reason For Exam: chest pain 11/07/17 12:00 EKG [ELECTROCARDIOGRAM] DAILY Comment: Reason For Exam: chest pain Review of Systems - Review of Systems All systems: reviewed and no additional remarkable complaints except (as per HPI.) Critical Care Progress Note - Extremities/Vascular Does the Patient have a Central Venous Catheter?: No Does the Patient need a Central Venous Catheter?: No Does the Patient have a [place] Catheter?: No Does the Patient need a [place] Catheter?: No - Prophylaxis GI Prophylaxis GI: PPI - Prophylaxis DVT Prophylaxis DVT: Ambulatory - Nutrition Nutrition: Nutrition Category Date Time Status Heart Healthy Diet [DIET] Diets 11/07/17 Breakfast Active Assessment/Plan - Assessment and Plan (Free Text) Assessment: Patient is a 66 y/o M with PMHx of Lynnette's Granulomatosis, Renal failure ( previously on HD one year ago), CAD, HTN, and history of PNA who presented to the ED c/o worsening left-sided intermittent crushing chest pain occurring at rest. Patient has also been coughing up a teaspoon of blood x3 days prior to admission. Patient was admitted to [facility] [place] in December 2014 where he was found to be in kidney failure and received an AV fistula for hemod[facility] 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 During recent admission, patient had V/Q scan that indicated low probability for DVT/PE. However, CXR showed diffuse infiltrate on the right lung consistent with pneumonia and clear left lung. Patient also presented with low Hgb (7.7) and was transfused x2 pRBCs. Patient has been admitted to the ICU for management of community acquired pneumonia and renal failure. Patient does not have any acute issues at this time and is safe for transfer to telemetry. Plan: Neuro: - AAOx3 - Maintain normothermia Cardio: - No complaints of chest pain at this time - Troponins elevated (.16) possible due to renal failure, cannot r/o cardiac origin - EKG (11/07): NSR, no ST elevations, depression, or T wave inversion. - f/u ECHO - c/w Labetalol 5mg for BP control - f/u TSH, Lipid panel, A1C - c/w ASA 80 mg - Cardio consulted (Dr Palumbo), f/u recs - ProBNP [id number] Pulm: - Likely Community Acquired Pneumonia (CAP) - Consider pulmonary consult to r/o Diffuse Alveolar Hemorrhage 2/2 Lynnette's in the setting of hemoptysis - CXR (11/06): diffuse infiltrate on R-lung consistent with Pneumonia. Left lung clear. - V/Q scan (11/06): low probability for PE - ABG and VBG within normal limits - Maintain SaO2 > 92% - c/w High Flow oxygen - c/w duoneb - c/w antibiotic coverage GI: - Protonix ppx - HHD Renal: - Uremic Renal Failure - Monitor K: recent was 5.6 - BUN/Cr 93/9.5 - Patient not currently on HD but as per nephro, emergent dialysis not required at this time. - Nephro (Dr. Zacarias) consulted, f/u recs - Patient is making urine: 450 cc/24h ID: - c/w vanc and zosyn - pancultures: pending result - MRSA ordered Heme: - Anemic, Hgb 7.7, given x2 pRBCs, new H/H is 11.1/31.8 - Anemia likely due to Anemia of renal disease - Patient is not actively bleeding - f/u FOBT, Iron panel, retic count Endo: - Maintain euglycemia Dispo: Patient does not have any acute issues at this time. Patient is hemodynamically stable and safe for transfer to telemetry. Case was reviewed and discussed with Attending Physician Dr. Pickard. <Toro Pickard - Last Filed: 11/07/17 15:48> CCU Objective - Vital Signs / Intake & Output Intake and Output (Last 8hrs): Intake & Output 11/07/17 11/07/17 11/07/17 06:59 14:59 22:59 Intake Total 953 Output Total 450 Balance 503 Weight 148 lb Intake: IV 953 Right Forearm 953 Output: Urine 450 Urine, Voided 450 Other: # Voids Urine, Voided 2 - Medications Active Medications: Active Medications Generic Name Dose Route Start Last Admin Trade Name Freq PRN Reason Stop Dose Admin Albuterol/Ipratropium 3 ml 11/07/17 03:30 11/07/17 15:37 Duoneb 3 Mg/0.5 Mg (3 Ml) Ud IH 3 ml [id number] IRMA Administration Aspirin 81 mg 11/07/17 10:00 11/07/17 10:14 Aspirin Chewable PO 81 mg DAILY IRMA Administration Atorvastatin Calcium 40 mg 11/07/17 17:00 Lipitor PO DIN IRMA Cefepime HCl 1 gm in 100 mls @ 100 mls/hr 11/07/17 09:00 11/07/17 09:06 Maxipime 1gm IVPB 100 mls/hr Q24H IRMA Administration Protocol Doxycycline Hyclate 100 mg/ 100 mls @ 100 mls/hr 11/07/17 10:00 11/07/17 10: 16 Sodium Chloride IVPB 100 mls/hr Q12 IRMA Administration Protocol Linezolid 600 mg in 300 mls @ 200 mls/hr 11/07/17 10:00 11/07/17 10:15 Zyvox 600mg/300ml D5w IVPB 11/14/17 10:01 200 mls/hr Q12 IRMA Administration Protocol Labetalol HCl 5 mg 11/06/17 23:55 11/07/17 06:14 Trandate IV 5 mg Q6H PRN Administration Systolic Blood Pressure Methylprednisolone 20 mg 11/07/17 10:00 11/07/17 10:15 Solu-Medrol IVP 20 mg Q12 IRMA Administration Morphine Sulfate 2 mg 11/06/17 23:59 Morphine IVP Q4H PRN Pain, severe (8-10) Pantoprazole Sodium 40 mg 11/08/17 07:30 Protonix Ec Tab PO ACB IRMA - Patient Studies Lab Studies: Lab Studies 11/07/17 11/07/17 11/07/17 Range/Units 08:22 06:18 05:50 WBC (4.5-11.0) 10^3/ul RBC (3.5-6.1) 10^6/uL Hgb (14.0-18.0) g/dL Hct (42.0-52.0) % MCV (80.0-105.0) fl MCH (25.0-35.0) pg MCHC (31.0-37.0) g/dl RDW (11.5-14.5) % Plt Count (120.0-450.0) 10^3/uL MPV (7.0-11.0) fl Gran % (50.0-68.0) % Lymph % (Auto) (22.0-35.0) % [place] % (Auto) (1.0-6.0) % Eos % (Auto) (1.5-5.0) % Baso % (Auto) (0.0-3.0) % Gran # (1.4-6.5) Lymph # (Auto) (1.2-3.4) [place] # (Auto) (0.1-0.6) Eos # (Auto) (0.0-0.7) Baso # (Auto) (0.0-2.0) K/mm3 Neutrophils % (Manual) (50.0-70.0) % Lymphocytes % (Manual) (22.0-35.0) % Monocytes % (Manual) (1.0-6.0) % Platelet Evaluation (NORMAL) ESR 50 H (0.00-15.0) mm/hr Retic Count (0.5-1.5) % pCO2 (35-45) mm/Hg pO2 42 (80-100) mm/Hg HCO3 (21-28) mmol/L ABG pH (7.35-7.45) ABG Total CO2 (22-28) mmol.L ABG O2 Saturation (95-98) % ABG Base Excess (-2.0-3.0) mmol/L ABG Potassium (3.6-5.2) mmol/L VBG pH 7.23 L (7.32-7.43) VBG pCO2 39.0 L (40-60) VBG HCO3 16.3 L (21-28) mmol/l VBG Total CO2 17.5 L (22-28) mmol.L VBG O2 Sat (Calc) 81.3 H (40-65) % VBG Base Excess -10.6 L (0.0-2.0) mmol/L VBG Potassium 5.6 H (3.6-5.2) mmol/L Sodium 138.0 (132-148) mmol/L Chloride 109.0 H (98-107) mmol/L Glucose 141 H (75-110) mg/dl Lactate 1.1 (0.7-2.1) mmol/L FiO2 21.0 % Potassium (3.6-5.0) mmol/L Carbon Dioxide (21-33) mmol/L Anion Gap (10-20) BUN (7-21) mg/dL Creatinine (0.8-1.5) mg/dl Est GFR ( Amer) Est GFR (Non-Af Amer) Random Glucose (70-110) mg/dL Hemoglobin A1c (4.2-6.5) % Calcium (8.4-10.5) mg/dL Phosphorus (2.5-4.5) mg/dL Magnesium (1.7-2.2) mg/dL Iron (45-180) ug/dL TIBC (261-462) ug/dL % Saturation (20-55) % Ferritin ng/mL Total Bilirubin (0.2-1.3) mg/dL AST (17-59) U/L ALT (7-56) U/L Alkaline Phosphatase (38-126) U/L Total Creatine Kinase (35-230) U/L CK-MB (CK-2) % Troponin I ng/mL C-Reactive Protein 8.80 (0.0-9.9) mg/L NT-Pro-B Natriuret Pep (0-450) pg/mL Total Protein (5.8-8.3) g/dL Albumin (3.0-4.8) g/dL Globulin gm/dL Albumin/Globulin Ratio (1.1-1.8) Triglycerides (35-160) mg/dL Cholesterol (130-200) mg/dL LDL Cholesterol Direct (0-129) mg/dL HDL Cholesterol (29-60) mg/dL Free T4 (0.78-2.19) ng/dL TSH 3rd Generation (0.46-4.68) mIU/mL Arterial Blood Potassium (3.6-5.2) mmol/L Venous Blood Potassium 5.6 H (3.6-5.2) mmol/L Urine Color (YELLOW) Urine Appearance (CLEAR) Urine pH (4.7-8.0) Ur Specific [place] (1.005-1.035) Urine Protein (<30 mg/dL) mg/dL Urine Glucose (UA) (NEGATIVE) mg/dL Urine Ketones (NEGATIVE) mg/dL Urine Blood (NEGATIVE) Urine Nitrate (NEGATIVE) Urine Bilirubin (NEGATIVE) Urine Urobilinogen (<1 E.U./dL) E.U./dL Ur Leukocyte Esterase (NEGATIVE) Derik/uL Urine RBC (0-2) /hpf Urine WBC (0-6) /hpf Ur Epithelial Cells (0-5) /hpf Urine Bacteria (NEG) 11/07/17 11/07/17 11/07/17 Range/Units 05:50 05:50 05:45 WBC 16.4 H D (4.5-11.0) 10^3/ul RBC 3.71 (3.5-6.1) 10^6/uL Hgb 11.1 L D (14.0-18.0) g/dL Hct 31.8 L (42.0-52.0) % MCV 85.7 (80.0-105.0) fl MCH 29.9 (25.0-35.0) pg MCHC 34.9 (31.0-37.0) g/dl RDW 14.4 (11.5-14.5) % Plt Count 342 (120.0-450.0) 10^3/uL MPV 8.9 (7.0-11.0) fl Gran % 90.6 H (50.0-68.0) % Lymph % (Auto) 7.0 L (22.0-35.0) % [place] % (Auto) 2.1 (1.0-6.0) % Eos % (Auto) 0.1 L (1.5-5.0) % Baso % (Auto) 0.2 (0.0-3.0) % Gran # 14.84 H (1.4-6.5) Lymph # (Auto) 1.1 L (1.2-3.4) [place] # (Auto) 0.3 (0.1-0.6) Eos # (Auto) 0.0 (0.0-0.7) Baso # (Auto) 0.04 (0.0-2.0) K/mm3 Neutrophils % (Manual) 92 H (50.0-70.0) % Lymphocytes % (Manual) 7 L (22.0-35.0) % Monocytes % (Manual) 1 (1.0-6.0) % Platelet Evaluation Normal (NORMAL) ESR (0.00-15.0) mm/hr Retic Count 1.43 (0.5-1.5) % pCO2 (35-45) mm/Hg pO2 (80-100) mm/Hg HCO3 (21-28) mmol/L ABG pH (7.35-7.45) ABG Total CO2 (22-28) mmol.L ABG O2 Saturation (95-98) % ABG Base Excess (-2.0-3.0) mmol/L ABG Potassium (3.6-5.2) mmol/L VBG pH (7.32-7.43) VBG pCO2 (40-60) VBG HCO3 (21-28) mmol/l VBG Total CO2 (22-28) mmol.L VBG O2 Sat (Calc) (40-65) % VBG Base Excess (0.0-2.0) mmol/L VBG Potassium (3.6-5.2) mmol/L Sodium 143 (132-148) mmol/L Chloride 108 H (98-107) mmol/L Glucose (75-110) mg/dl Lactate (0.7-2.1) mmol/L FiO2 % Potassium 5.6 H* (3.6-5.0) mmol/L Carbon Dioxide 16 L (21-33) mmol/L Anion Gap 25 H (10-20) BUN 93 H (7-21) mg/dL Creatinine 9.5 H* (0.8-1.5) mg/dl Est GFR ( Amer) 7 Est GFR (Non-Af Amer) 6 Random Glucose 134 H (70-110) mg/dL Hemoglobin A1c (4.2-6.5) % Calcium 8.8 (8.4-10.5) mg/dL Phosphorus 5.4 H (2.5-4.5) mg/dL Magnesium 2.0 (1.7-2.2) mg/dL Iron 135 (45-180) ug/dL TIBC 250 L (261-462) ug/dL % Saturation 54 (20-55) % Ferritin 872.0 ng/mL Total Bilirubin 1.0 (0.2-1.3) mg/dL AST 24 (17-59) U/L ALT 14 (7-56) U/L Alkaline Phosphatase 74 (38-126) U/L Total Creatine Kinase 59 (35-230) U/L CK-MB (CK-2) % Cancelled Troponin I 0.16 H* D ng/mL C-Reactive Protein (0.0-9.9) mg/L NT-Pro-B Natriuret Pep 02277 H (0-450) pg/mL Total Protein 7.7 (5.8-8.3) g/dL Albumin 4.5 (3.0-4.8) g/dL Globulin 3.3 gm/dL Albumin/Globulin Ratio 1.4 (1.1-1.8) Triglycerides 111 (35-160) mg/dL Cholesterol 223 H (130-200) mg/dL LDL Cholesterol Direct 120 (0-129) mg/dL HDL Cholesterol 44 (29-60) mg/dL Free T4 (0.78-2.19) ng/dL TSH 3rd Generation (0.46-4.68) mIU/mL Arterial Blood Potassium (3.6-5.2) mmol/L Venous Blood Potassium (3.6-5.2) mmol/L Urine Color (YELLOW) Urine Appearance (CLEAR) Urine pH (4.7-8.0) Ur Specific [place] (1.005-1.035) Urine Protein (<30 mg/dL) mg/dL Urine Glucose (UA) (NEGATIVE) mg/dL Urine Ketones (NEGATIVE) mg/dL Urine Blood (NEGATIVE) Urine Nitrate (NEGATIVE) Urine Bilirubin (NEGATIVE) Urine Urobilinogen (<1 E.U./dL) E.U./dL Ur Leukocyte Esterase (NEGATIVE) Derik/uL Urine RBC (0-2) /hpf Urine WBC (0-6) /hpf Ur Epithelial Cells (0-5) /hpf Urine Bacteria (NEG) 11/07/17 11/07/17 11/06/17 Range/Units 05:45 05:45 23:42 WBC (4.5-11.0) 10^3/ul RBC (3.5-6.1) 10^6/uL Hgb (14.0-18.0) g/dL Hct (42.0-52.0) % MCV (80.0-105.0) fl MCH (25.0-35.0) pg MCHC (31.0-37.0) g/dl RDW (11.5-14.5) % Plt Count (120.0-450.0) 10^3/uL MPV (7.0-11.0) fl Gran % (50.0-68.0) % Lymph % (Auto) (22.0-35.0) % [place] % (Auto) (1.0-6.0) % Eos % (Auto) (1.5-5.0) % Baso % (Auto) (0.0-3.0) % Gran # (1.4-6.5) Lymph # (Auto) (1.2-3.4) [place] # (Auto) (0.1-0.6) Eos # (Auto) (0.0-0.7) Baso # (Auto) (0.0-2.0) K/mm3 Neutrophils % (Manual) (50.0-70.0) % Lymphocytes % (Manual) (22.0-35.0) % Monocytes % (Manual) (1.0-6.0) % Platelet Evaluation (NORMAL) ESR (0.00-15.0) mm/hr Retic Count (0.5-1.5) % pCO2 (35-45) mm/Hg pO2 (80-100) mm/Hg HCO3 (21-28) mmol/L ABG pH (7.35-7.45) ABG Total CO2 (22-28) mmol.L ABG O2 Saturation (95-98) % ABG Base Excess (-2.0-3.0) mmol/L ABG Potassium (3.6-5.2) mmol/L VBG pH (7.32-7.43) VBG pCO2 (40-60) VBG HCO3 (21-28) mmol/l VBG Total CO2 (22-28) mmol.L VBG O2 Sat (Calc) (40-65) % VBG Base Excess (0.0-2.0) mmol/L VBG Potassium (3.6-5.2) mmol/L Sodium (132-148) mmol/L Chloride (98-107) mmol/L Glucose (75-110) mg/dl Lactate (0.7-2.1) mmol/L FiO2 % Potassium (3.6-5.0) mmol/L Carbon Dioxide (21-33) mmol/L Anion Gap (10-20) BUN (7-21) mg/dL Creatinine (0.8-1.5) mg/dl Est GFR ( Amer) Est GFR (Non-Af Amer) Random Glucose (70-110) mg/dL Hemoglobin A1c 5.3 (4.2-6.5) % Calcium (8.4-10.5) mg/dL Phosphorus (2.5-4.5) mg/dL Magnesium (1.7-2.2) mg/dL Iron (45-180) ug/dL TIBC (261-462) ug/dL % Saturation (20-55) % Ferritin ng/mL Total Bilirubin (0.2-1.3) mg/dL AST (17-59) U/L ALT (7-56) U/L Alkaline Phosphatase (38-126) U/L Total Creatine Kinase (35-230) U/L CK-MB (CK-2) % Troponin I ng/mL C-Reactive Protein (0.0-9.9) mg/L NT-Pro-B Natriuret Pep (0-450) pg/mL Total Protein (5.8-8.3) g/dL Albumin (3.0-4.8) g/dL Globulin gm/dL Albumin/Globulin Ratio (1.1-1.8) Triglycerides (35-160) mg/dL Cholesterol (130-200) mg/dL LDL Cholesterol Direct (0-129) mg/dL HDL Cholesterol (29-60) mg/dL Free T4 1.69 (0.78-2.19) ng/dL TSH 3rd Generation 1.20 (0.46-4.68) mIU/mL Arterial Blood Potassium (3.6-5.2) mmol/L Venous Blood Potassium (3.6-5.2) mmol/L Urine Color Yellow (YELLOW) Urine Appearance Clear (CLEAR) Urine pH 6.5 (4.7-8.0) Ur Specific [place] 1.015 (1.005-1.035) Urine Protein 100 H (<30 mg/dL) mg/dL Urine Glucose (UA) 100 H (NEGATIVE) mg/dL Urine Ketones Negative (NEGATIVE) mg/dL Urine Blood Trace-intact H (NEGATIVE) Urine Nitrate Negative (NEGATIVE) Urine Bilirubin Negative (NEGATIVE) Urine Urobilinogen 0.2 (<1 E.U./dL) E.U./dL Ur Leukocyte Esterase Negative (NEGATIVE) Derik/uL Urine RBC 0 - 2 (0-2) /hpf Urine WBC 0 - 2 (0-6) /hpf Ur Epithelial Cells 0 - 2 (0-5) /hpf Urine Bacteria Rare (NEG) 11/06/17 Range/Units 23:24 WBC (4.5-11.0) 10^3/ul RBC (3.5-6.1) 10^6/uL Hgb (14.0-18.0) g/dL Hct (42.0-52.0) % MCV (80.0-105.0) fl MCH (25.0-35.0) pg MCHC (31.0-37.0) g/dl RDW (11.5-14.5) % Plt Count (120.0-450.0) 10^3/uL MPV (7.0-11.0) fl Gran % (50.0-68.0) % Lymph % (Auto) (22.0-35.0) % [place] % (Auto) (1.0-6.0) % Eos % (Auto) (1.5-5.0) % Baso % (Auto) (0.0-3.0) % Gran # (1.4-6.5) Lymph # (Auto) (1.2-3.4) [place] # (Auto) (0.1-0.6) Eos # (Auto) (0.0-0.7) Baso # (Auto) (0.0-2.0) K/mm3 Neutrophils % (Manual) (50.0-70.0) % Lymphocytes % (Manual) (22.0-35.0) % Monocytes % (Manual) (1.0-6.0) % Platelet Evaluation (NORMAL) ESR (0.00-15.0) mm/hr Retic Count (0.5-1.5) % pCO2 28 L (35-45) mm/Hg pO2 66.0 L (80-100) mm/Hg HCO3 16.2 L (21-28) mmol/L ABG pH 7.37 (7.35-7.45) ABG Total CO2 17.1 L (22-28) mmol.L ABG O2 Saturation 97.3 (95-98) % ABG Base Excess -7.6 L (-2.0-3.0) mmol/L ABG Potassium 4.6 (3.6-5.2) mmol/L VBG pH (7.32-7.43) VBG pCO2 (40-60) VBG HCO3 (21-28) mmol/l VBG Total CO2 (22-28) mmol.L VBG O2 Sat (Calc) (40-65) % VBG Base Excess (0.0-2.0) mmol/L VBG Potassium (3.6-5.2) mmol/L Sodium 139.0 (132-148) mmol/L Chloride 109.0 H (98-107) mmol/L Glucose 144 H (75-110) mg/dl Lactate 1.0 (0.7-2.1) mmol/L FiO2 100.0 % Potassium (3.6-5.0) mmol/L Carbon Dioxide (21-33) mmol/L Anion Gap (10-20) BUN (7-21) mg/dL Creatinine (0.8-1.5) mg/dl Est GFR ( Amer) Est GFR (Non-Af Amer) Random Glucose (70-110) mg/dL Hemoglobin A1c (4.2-6.5) % Calcium (8.4-10.5) mg/dL Phosphorus (2.5-4.5) mg/dL Magnesium (1.7-2.2) mg/dL Iron (45-180) ug/dL TIBC (261-462) ug/dL % Saturation (20-55) % Ferritin ng/mL Total Bilirubin (0.2-1.3) mg/dL AST (17-59) U/L ALT (7-56) U/L Alkaline Phosphatase (38-126) U/L Total Creatine Kinase (35-230) U/L CK-MB (CK-2) % Troponin I ng/mL C-Reactive Protein (0.0-9.9) mg/L NT-Pro-B Natriuret Pep (0-450) pg/mL Total Protein (5.8-8.3) g/dL Albumin (3.0-4.8) g/dL Globulin gm/dL Albumin/Globulin Ratio (1.1-1.8) Triglycerides (35-160) mg/dL Cholesterol (130-200) mg/dL LDL Cholesterol Direct (0-129) mg/dL HDL Cholesterol (29-60) mg/dL Free T4 (0.78-2.19) ng/dL TSH 3rd Generation (0.46-4.68) mIU/mL Arterial Blood Potassium 4.6 (3.6-5.2) mmol/L Venous Blood Potassium (3.6-5.2) mmol/L Urine Color (YELLOW) Urine Appearance (CLEAR) Urine pH (4.7-8.0) Ur Specific [place] (1.005-1.035) Urine Protein (<30 mg/dL) mg/dL Urine Glucose (UA) (NEGATIVE) mg/dL Urine Ketones (NEGATIVE) mg/dL Urine Blood (NEGATIVE) Urine Nitrate (NEGATIVE) Urine Bilirubin (NEGATIVE) Urine Urobilinogen (<1 E.U./dL) E.U./dL Ur Leukocyte Esterase (NEGATIVE) Derik/uL Urine RBC (0-2) /hpf Urine WBC (0-6) /hpf Ur Epithelial Cells (0-5) /hpf Urine Bacteria (NEG) Laboratory Results - last 24 hr 11/06/17 11/06/17 11/07/17 23:24 23:42 05:45 WBC RBC Hgb Hct MCV MCH MCHC RDW Plt Count MPV Gran % Lymph % (Auto) [place] % (Auto) Eos % (Auto) Baso % (Auto) Gran # Lymph # (Auto) [place] # (Auto) Eos # (Auto) Baso # (Auto) Neutrophils % (Manual) Lymphocytes % (Manual) Monocytes % (Manual) Platelet Evaluation ESR Retic Count pCO2 28 L pO2 66.0 L HCO3 16.2 L ABG pH 7.37 ABG Total CO2 17.1 L ABG O2 Saturation 97.3 ABG Base Excess -7.6 L ABG Potassium 4.6 VBG pH VBG pCO2 VBG HCO3 VBG Total CO2 VBG O2 Sat (Calc) VBG Base Excess VBG Potassium Sodium 139.0 Chloride 109.0 H Glucose 144 H Lactate 1.0 FiO2 100.0 Potassium Carbon Dioxide Anion Gap BUN Creatinine Est GFR ( Amer) Est GFR (Non-Af Amer) Random Glucose Hemoglobin A1c 5.3 Calcium Phosphorus Magnesium Iron TIBC % Saturation Ferritin Total Bilirubin AST ALT Alkaline Phosphatase Total Creatine Kinase CK-MB (CK-2) % Troponin I C-Reactive Protein NT-Pro-B Natriuret Pep Total Protein Albumin Globulin Albumin/Globulin Ratio Triglycerides Cholesterol LDL Cholesterol Direct HDL Cholesterol Free T4 TSH 3rd Generation Arterial Blood Potassium 4.6 Venous Blood Potassium Urine Color Yellow Urine Appearance Clear Urine pH 6.5 Ur Specific [place] 1.015 Urine Protein 100 H Urine Glucose (UA) 100 H Urine Ketones Negative Urine Blood Trace-intact H Urine Nitrate Negative Urine Bilirubin Negative Urine Urobilinogen 0.2 Ur Leukocyte Esterase Negative Urine RBC 0 - 2 Urine WBC 0 - 2 Ur Epithelial Cells 0 - 2 Urine Bacteria Rare 11/07/17 11/07/17 11/07/17 05:45 05:45 05:50 WBC RBC Hgb Hct MCV MCH MCHC RDW Plt Count MPV Gran % Lymph % (Auto) [place] % (Auto) Eos % (Auto) Baso % (Auto) Gran # Lymph # (Auto) [place] # (Auto) Eos # (Auto) Baso # (Auto) Neutrophils % (Manual) Lymphocytes % (Manual) Monocytes % (Manual) Platelet Evaluation ESR Retic Count pCO2 pO2 HCO3 ABG pH ABG Total CO2 ABG O2 Saturation ABG Base Excess ABG Potassium VBG pH VBG pCO2 VBG HCO3 VBG Total CO2 VBG O2 Sat (Calc) VBG Base Excess VBG Potassium Sodium 143 Chloride 108 H Glucose Lactate FiO2 Potassium 5.6 H* Carbon Dioxide 16 L Anion Gap 25 H BUN 93 H Creatinine 9.5 H* Est GFR ( Amer) 7 Est GFR (Non-Af Amer) 6 Random Glucose 134 H Hemoglobin A1c Calcium 8.8 Phosphorus 5.4 H Magnesium 2.0 Iron 135 TIBC 250 L % Saturation 54 Ferritin 872.0 Total Bilirubin 1.0 AST 24 ALT 14 Alkaline Phosphatase 74 Total Creatine Kinase 59 CK-MB (CK-2) % Cancelled Troponin I 0.16 H* D C-Reactive Protein NT-Pro-B Natriuret Pep 74593 H Total Protein 7.7 Albumin 4.5 Globulin 3.3 Albumin/Globulin Ratio 1.4 Triglycerides 111 Cholesterol 223 H LDL Cholesterol Direct 120 HDL Cholesterol 44 Free T4 1.69 TSH 3rd Generation 1.20 Arterial Blood Potassium Venous Blood Potassium Urine Color Urine Appearance Urine pH Ur Specific [place] Urine Protein Urine Glucose (UA) Urine Ketones Urine Blood Urine Nitrate Urine Bilirubin Urine Urobilinogen Ur Leukocyte Esterase Urine RBC Urine WBC Ur Epithelial Cells Urine Bacteria 11/07/17 11/07/17 11/07/17 05:50 05:50 06:18 WBC 16.4 H D RBC 3.71 Hgb 11.1 L D Hct 31.8 L MCV 85.7 MCH 29.9 MCHC 34.9 RDW 14.4 Plt Count 342 MPV 8.9 Gran % 90.6 H Lymph % (Auto) 7.0 L [place] % (Auto) 2.1 Eos % (Auto) 0.1 L Baso % (Auto) 0.2 Gran # 14.84 H Lymph # (Auto) 1.1 L [place] # (Auto) 0.3 Eos # (Auto) 0.0 Baso # (Auto) 0.04 Neutrophils % (Manual) 92 H Lymphocytes % (Manual) 7 L Monocytes % (Manual) 1 Platelet Evaluation Normal ESR 50 H Retic Count 1.43 pCO2 pO2 42 HCO3 ABG pH ABG Total CO2 ABG O2 Saturation ABG Base Excess ABG Potassium VBG pH 7.23 L VBG pCO2 39.0 L VBG HCO3 16.3 L VBG Total CO2 17.5 L VBG O2 Sat (Calc) 81.3 H VBG Base Excess -10.6 L VBG Potassium 5.6 H Sodium 138.0 Chloride 109.0 H Glucose 141 H Lactate 1.1 FiO2 21.0 Potassium Carbon Dioxide Anion Gap BUN Creatinine Est GFR ( Amer) Est GFR (Non-Af Amer) Random Glucose Hemoglobin A1c Calcium Phosphorus Magnesium Iron TIBC % Saturation Ferritin Total Bilirubin AST ALT Alkaline Phosphatase Total Creatine Kinase CK-MB (CK-2) % Troponin I C-Reactive Protein NT-Pro-B Natriuret Pep Total Protein Albumin Globulin Albumin/Globulin Ratio Triglycerides Cholesterol LDL Cholesterol Direct HDL Cholesterol Free T4 TSH 3rd Generation Arterial Blood Potassium Venous Blood Potassium 5.6 H Urine Color Urine Appearance Urine pH Ur Specific [place] Urine Protein Urine Glucose (UA) Urine Ketones Urine Blood Urine Nitrate Urine Bilirubin Urine Urobilinogen Ur Leukocyte Esterase Urine RBC Urine WBC Ur Epithelial Cells Urine Bacteria 11/07/17 08:22 WBC RBC Hgb Hct MCV MCH MCHC RDW Plt Count MPV Gran % Lymph % (Auto) [place] % (Auto) Eos % (Auto) Baso % (Auto) Gran # Lymph # (Auto) [place] # (Auto) Eos # (Auto) Baso # (Auto) Neutrophils % (Manual) Lymphocytes % (Manual) Monocytes % (Manual) Platelet Evaluation ESR Retic Count pCO2 pO2 HCO3 ABG pH ABG Total CO2 ABG O2 Saturation ABG Base Excess ABG Potassium VBG pH VBG pCO2 VBG HCO3 VBG Total CO2 VBG O2 Sat (Calc) VBG Base Excess VBG Potassium Sodium Chloride Glucose Lactate FiO2 Potassium Carbon Dioxide Anion Gap BUN Creatinine Est GFR ( Amer) Est GFR (Non-Af Amer) Random Glucose Hemoglobin A1c Calcium Phosphorus Magnesium Iron TIBC % Saturation Ferritin Total Bilirubin AST ALT Alkaline Phosphatase Total Creatine Kinase CK-MB (CK-2) % Troponin I C-Reactive Protein 8.80 NT-Pro-B Natriuret Pep Total Protein Albumin Globulin Albumin/Globulin Ratio Triglycerides Cholesterol LDL Cholesterol Direct HDL Cholesterol Free T4 TSH 3rd Generation Arterial Blood Potassium Venous Blood Potassium Urine Color Urine Appearance Urine pH Ur Specific [place] Urine Protein Urine Glucose (UA) Urine Ketones Urine Blood Urine Nitrate Urine Bilirubin Urine Urobilinogen Ur Leukocyte Esterase Urine RBC Urine WBC Ur Epithelial Cells Urine Bacteria EKG/Cardiology Studies: Cardiology / EKG Studies 11/07/17 04:00 EKG [ELECTROCARDIOGRAM] Routine Comment: Reason For Exam: chest pain 11/07/17 12:00 EKG [ELECTROCARDIOGRAM] DAILY Comment: Reason For Exam: chest pain Critical Care Progress Note - Nutrition Nutrition: Nutrition Category Date Time Status Heart Healthy Diet [DIET] Diets 11/07/17 Breakfast Active Attending/Attestation - Attestation I have fully participated in the care of the patient.: Yes I have reviewed all pertinent clinical information: Yes Notes (Text): 11/07/17 15:43 66 yo male with cardiac pain, but only mild trop elevation and no ischemic changes on ECG, on asa, bb, statins. TAC is withheld due to recent mild hemoptysis, cardio--no intervention, echo is pending. B/l infiltrate (R>L)--> CAP vs DAH, vs CHF. Abx, septic workup, rheumo screen, small dose steroids-->if clinics worsened despite abx and septic w/u is non-diagnostic-->will consider pulse dose steroids, BAL. Meanwhile, will touch base with nephro about declining renal function. Echo is pending ccm time 40 min
--- NOTE | 2017-11-07 12:35 | CARD ---
APPROVED REPORT Date of service: 11/06/2017 EKG Measurement Heart [id number] <Conclusion> Sinus tachycardia Rightward axis ST depression, consider subendocardial injury or digitalis effect Abnormal ECG
--- NOTE | 2017-11-07 13:39 | NM ---
Date of service: 11/06/2017 COMPARISON: November 06, 2017. Chest x-ray TECHNIQUE: 35.0 mCi technetium 99-m DTPA aerosol. 4.0 mCI technetium 99-m MAA administered intravenously. FINDINGS: VENTILATION COMPONENT: Markedly heterogeneous ventilation particularly in the right lung corresponding to findings on recent chest radiograph Retention of radionuclide in the tracheobronchial tree and ingestion of radionuclide in the stomach, incidental findings PERFUSION COMPONENT: Heterogeneous distribution of radionuclide. No geographic, segmental, lobar abnormalities apparent on the present examination. IMPRESSION: Low probability ventilation perfusion scan for pulmonary embolism.
--- NOTE | 2017-11-07 14:09 | CP.PCM.CON ---
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 He also had chills but denies having outright fever. He saw his PMD about 3 days ago and was prescribed unrecalled antibiotics which apparently did not help him. He denies travel outside of [place] in the past 3 months, has not been out of the country in his lifetime, denies animal contacts, has not been to wooded areas, denies insect or tick bites. He denies known TB contacts. He has a girlfriend who just arrived from [facility] after he started having symptoms. He denies night sweats, no chronic cough, no weight loss, no headache or dizziness, no nausea or vomiting, no abdominal pain, no sore throat, no rhinorrhea, no diarrhea, no dysuria. CXR is showing left sided infiltrates. Infectious diseases consult is requested to further evaluate and manage. Review of Systems - Review of Systems All systems: reviewed and no additional remarkable complaints except (as per HPI ) Past Patient History - Infectious Disease Hx of Infectious Diseases: None - Tetanus Immunizations Tetanus Immunization: Unknown - Past Social History Smoking Status: Former Smoker - CARDIAC Hx Hypertension: Yes - PULMONARY Hx Respiratory Disorders: Yes Hx Pneumonia: Yes (DOUBLE PNEUMONIA 10-17-14) - NEUROLOGICAL Hx Paralysis: No (HX PAST R HEMIPARESIS) - HEENT Hx HEENT Problems: (WEARS RX GLASSES) - RENAL Hx Renal Failure: Yes - HEMATOLOGICAL/ONCOLOGICAL Hx Blood Transfusions: No Hx Blood Transfusion Reaction: No - INTEGUMENTARY Hx Dermatological Problems: No - MUSCULOSKELETAL/RHEUMATOLOGICAL Hx Musculoskeletal Disorders: No - GASTROINTESTINAL Hx Gastrointestinal Disorders: Yes (GI BLEED 01-11-15) - GENITOURINARY/GYNECOLOGICAL Hx Genitourinary Disorders: No - PSYCHIATRIC Hx Emotional Abuse: No Hx Physical Abuse: No Hx Substance Use: No - SURGICAL HISTORY Hx Surgeries: Yes (TONSILLECTOMY) - ANESTHESIA Hx Anesthesia Reactions: No Hx Malignant Hyperthermia: No Meds Allergies/Adverse Reactions: Allergies Allergy/AdvReac Type Severity Reaction Status Date / Time azithromycin [From Zithromax] Allergy Severe SWELLING Verified 07/29/15 09:57 UNKNOWN ANTIBIOTIC Allergy SHORTNESS Uncoded 08/07/15 07:03 OF BREATH - Medications Medications: Current Medications Albuterol/Ipratropium (Duoneb 3 Mg/0.5 Mg (3 Ml) Ud) 3 ml IH [id number] IRMA Last Admin: 11/07/17 07:17 Dose: 3 ml Aspirin (Aspirin Chewable) 81 mg PO DAILY IRMA Vancomycin HCl (Vancomycin 500mg In Ns) 500 mg in 100 mls @ 200 mls/hr IVPB DAILY IRMA PRN Reason: Protocol Cefepime HCl (Maxipime 1gm) 1 gm in 100 mls @ 100 mls/hr IVPB Q24H IRMA PRN Reason: Protocol Last Admin: 11/07/17 09:06 Dose: 100 mls/hr Doxycycline Hyclate 100 mg/ (Sodium Chloride) 100 mls @ 100 mls/hr IVPB Q12 IRMA PRN Reason: Protocol Labetalol HCl (Trandate) 5 mg IV Q6H PRN PRN Reason: Systolic Blood Pressure Last Admin: 11/07/17 06:14 Dose: 5 mg Methylprednisolone (Solu-Medrol) 20 mg IVP Q12 IRMA Morphine Sulfate (Morphine) 2 mg IVP Q4H PRN PRN Reason: Pain, severe (8-10) Pantoprazole Sodium (Protonix Inj) 40 mg IVP DAILY [facility] Physical Exam - Constitutional Appears: Chronically Ill, Other (on high flow oxygen) - Head Exam Head Exam: NORMAL INSPECTION - Neck Exam Neck exam: Negative for: Meningismus - Respiratory Exam Respiratory Exam: Decreased Breath Sounds, Rales (on the left lung reese) - Cardiovascular Exam Cardiovascular Exam: +S1, +S2 - GI/Abdominal Exam GI & Abdominal Exam: Soft. absent: Tenderness Results - Vital Signs Recent Vital Signs: Last Vital Signs Temp 97.6 F 11/07/17 02:03 Pulse 80 11/07/17 06:14 Resp 20 11/07/17 07:15 BP 180/84 H 11/07/17 06:14 Pulse Ox 95 11/06/17 23:25 - Labs Result Diagrams: 11/07/17 05:50 11/07/17 05:50 Labs: Laboratory Results - last 24 hr 11/06/17 11/06/1718 23:24 23:42 05:45 WBC RBC Hgb Hct MCV MCH MCHC RDW Plt Count MPV Gran % Lymph % (Auto) Lincoln % (Auto) Eos % (Auto) Baso % (Auto) Gran # Lymph # (Auto) Lincoln # (Auto) Eos # (Auto) Baso # (Auto) Neutrophils % (Manual) Lymphocytes % (Manual) Monocytes % (Manual) Platelet Evaluation ESR Retic Count pCO2 28 L pO2 66.0 L HCO3 16.2 L ABG pH 7.37 ABG Total CO2 17.1 L ABG O2 Saturation 97.3 ABG Base Excess -7.6 L ABG Potassium 4.6 VBG pH VBG pCO2 VBG HCO3 VBG Total CO2 VBG O2 Sat (Calc) VBG Base Excess VBG Potassium Sodium 139.0 Chloride 109.0 H Glucose 144 H Lactate 1.0 FiO2 100.0 Potassium Carbon Dioxide Anion Gap BUN Creatinine Est GFR ( Amer) Est GFR (Non-Af Amer) Random Glucose Calcium Phosphorus Magnesium Iron TIBC % Saturation Total Bilirubin AST ALT Alkaline Phosphatase Troponin I NT-Pro-B Natriuret Pep Total Protein Albumin Globulin Albumin/Globulin Ratio Triglycerides Cholesterol LDL Cholesterol Direct HDL Cholesterol Free T4 1.69 TSH 3rd Generation 1.20 Arterial Blood Potassium 4.6 Venous Blood Potassium Urine Color Yellow Urine Appearance Clear Urine pH 6.5 Ur Specific Lebec 1.015 Urine Protein 100 H Urine Glucose (UA) 100 H Urine Ketones Negative Urine Blood Trace-intact H Urine Nitrate Negative Urine Bilirubin Negative Urine Urobilinogen 0.2 Ur Leukocyte Esterase Negative Urine RBC 0 - 2 Urine WBC 0 - 2 Ur Epithelial Cells 0 - 2 Urine Bacteria Rare 11/07/17 11/07/17 11/07/17 05:45 05:50 05:50 WBC 16.4 H D RBC 3.71 Hgb 11.1 L D Hct 31.8 L MCV 85.7 MCH 29.9 MCHC 34.9 RDW 14.4 Plt Count 342 MPV 8.9 Gran % 90.6 H Lymph % (Auto) 7.0 L Lincoln % (Auto) 2.1 Eos % (Auto) 0.1 L Baso % (Auto) 0.2 Gran # 14.84 H Lymph # (Auto) 1.1 L Lincoln # (Auto) 0.3 Eos # (Auto) 0.0 Baso # (Auto) 0.04 Neutrophils % (Manual) 92 H Lymphocytes % (Manual) 7 L Monocytes % (Manual) 1 Platelet Evaluation Normal ESR Retic Count 1.43 pCO2 pO2 HCO3 ABG pH ABG Total CO2 ABG O2 Saturation ABG Base Excess ABG Potassium VBG pH VBG pCO2 VBG HCO3 VBG Total CO2 VBG O2 Sat (Calc) VBG Base Excess VBG Potassium Sodium 143 Chloride 108 H Glucose Lactate FiO2 Potassium 5.6 H* Carbon Dioxide 16 L Anion Gap 25 H BUN 93 H Creatinine 9.5 H* Est GFR ( Amer) 7 Est GFR (Non-Af Amer) 6 Random Glucose 134 H Calcium 8.8 Phosphorus 5.4 H Magnesium 2.0 Iron 135 TIBC 250 L % Saturation 54 Total Bilirubin 1.0 AST 24 ALT 14 Alkaline Phosphatase 74 Troponin I 0.16 H* D NT-Pro-B Natriuret Pep 27007 H Total Protein 7.7 Albumin 4.5 Globulin 3.3 Albumin/Globulin Ratio 1.4 Triglycerides 111 Cholesterol 223 H LDL Cholesterol Direct 120 HDL Cholesterol 44 Free T4 TSH 3rd Generation Arterial Blood Potassium Venous Blood Potassium Urine Color Urine Appearance Urine pH Ur Specific [place]bec Urine Protein Urine Glucose (UA) Urine Ketones Urine Blood Urine Nitrate Urine Bilirubin Urine Urobilinogen Ur Leukocyte Esterase Urine RBC Urine WBC Ur Epithelial Cells Urine Bacteria 11/07/17 11/07/17 05:50 06:18 WBC RBC Hgb Hct MCV MCH MCHC RDW Plt Count MPV Gran % Lymph % (Auto) Lincoln % (Auto) Eos % (Auto) Baso % (Auto) Gran # Lymph # (Auto) Lincoln # (Auto) Eos # (Auto) Baso # (Auto) Neutrophils % (Manual) Lymphocytes % (Manual) Monocytes % (Manual) Platelet Evaluation ESR 50 H Retic Count pCO2 pO2 42 HCO3 ABG pH ABG Total CO2 ABG O2 Saturation ABG Base Excess ABG Potassium VBG pH 7.23 L VBG pCO2 39.0 L VBG HCO3 16.3 L VBG Total CO2 17.5 L VBG O2 Sat (Calc) 81.3 H VBG Base Excess -10.6 L VBG Potassium 5.6 H Sodium 138.0 Chloride 109.0 H Glucose 141 H Lactate 1.1 FiO2 21.0 Potassium Carbon Dioxide Anion Gap BUN Creatinine Est GFR ( Amer) Est GFR (Non-Af Amer) Random Glucose Calcium Phosphorus Magnesium Iron TIBC % Saturation Total Bilirubin AST ALT Alkaline Phosphatase Troponin I NT-Pro-B Natriuret Pep Total Protein Albumin Globulin Albumin/Globulin Ratio Triglycerides Cholesterol LDL Cholesterol Direct HDL Cholesterol Free T4 TSH 3rd Generation Arterial Blood Potassium Venous Blood Potassium 5.6 H Urine Color Urine Appearance Urine pH Ur Specific [place] Urine Protein Urine Glucose (UA) Urine Ketones Urine Blood Urine Nitrate Urine Bilirubin Urine Urobilinogen Ur Leukocyte Esterase Urine RBC Urine WBC Ur Epithelial Cells Urine Bacteria Assessment & Plan - Assessment and Plan (Free Text) Plan: Assessment Severe sepsis with hypoxic respiratory failure due to left sided severe community-acquired pneumonia Christopher's granulomatosis with renal failure now on dialysis history of CVA history of pneumonia CAD HTN significant smoking history Plan Started Zyvox, Cefepime and Doxycycline pending blood, sputum cx, PCT, urine Legionella Ag; reviewed CXR - will get CT chest as well patient has blood in sputum but his history and presentation makes TB unlikely will monitor clinical response
[2017-11-07] MEDS: Nitroglycerin 2% Ointment Foilpak UD TOP SCH ×2 (16:57→21:31)
--- NOTE | 2017-11-07 18:39 | US ---
HISTORY: Leg pain and swelling. Evaluate for DVT PHYSICIAN(S): Mark Mosley MD. TECHNIQUE: Duplex sonography and color-flow Doppler with graded compression were used to evaluate the deep venous systems of both lower extremities. FINDINGS: The visualized deep venous systems of both lower extremities are sonographically normal and compressible. Normal wave forms and augmentation are seen. There is no sonographic evidence for deep venous thrombosis in the visualized segments of both lower extremities. IMPRESSION: No sonographic evidence for deep venous thrombosis in the visualized segments of both lower extremities.
--- NOTE | 2017-11-07 19:05 | CARD ---
APPROVED REPORT Date of service: 11/07/2017 EXAM: Two-dimensional and M-mode echocardiogram with Doppler and color Doppler. INDICATION Congestive Heart Failure 2D DIMENSIONS Left Atrium (2D)4.0 (1.6-4.0cm)IVSd1.2 (0.7-1.1cm) LVDd5.9 (3.9-5.9cm)PWd1.2 (0.7-1.1cm) LVDs4.6 (2.5-4.0cm)FS (%) 21.7 % LVEF (%)43.2 (>50%) M-Mode DIMENSIONS Aortic Root2.80 (2.2-3.7cm)Aortic Cusp Exc.2.10 (1.5-2.0cm) Aortic Valve AoV Peak [id number]/Kenny Peak GR.10mmHg Mitral Valve E/A ratio0.0 TDI E/Lateral E'0.0E/Medial E'0.0 Tricuspid Valve TR Peak [id number] [id number] Peak Gr.48mmHg [id number] LEFT VENTRICLE The left ventricle is normal size. There is mild concentric left ventricular hypertrophy. The systolic function is mildly impaired.EF-45% There is mild to moderate hypokinesis in the apical anterior wall. The left ventricular diastolic function is normal. No left ventricle thrombus noted on this study. There is no ventricular septal defect visualized. There is no left ventricular aneurysm. There is no mass noted in the left ventricle. RIGHT VENTRICLE The right ventricle is normal size. There is normal right ventricular wall thickness. The right ventricular systolic function is normal. ATRIA The left atrium is mildly dilated. The right atrium size is normal. The interatrial septum is intact with no evidence for an atrial septal defect. AORTIC VALVE The aortic valve is thickened but opens well. There is trace to mild aortic regurgitation. There is no aortic valvular stenosis. There is no aortic valvular vegetation. MITRAL VALVE The mitral valve is thickened but opens well. Mitral regurgitation is mild to moderate. There is no mitral valve stenosis. There is no evidence of mitral valve prolapse. TRICUSPID VALVE The tricuspid valve leaflets are thickened , but open well. There is moderate tricuspid regurgitation.RVSP-58 mofHg. There is no tricuspid valve stenosis. There is no tricuspid valve prolapse or vegetation. PULMONIC VALVE The pulmonary valve is normal in structure. There is trace pulmonic valvular regurgitation. There is no pulmonic valvular stenosis. GREAT VESSELS The aortic root is normal in size. The ascending aorta is normal in size. The pulmonary artery is normal. The IVC is normal in size and collapses >50% with inspiration. PERICARDIAL EFFUSION There is no pleural effusion. There is no pericardial effusion. <Conclusion> The left ventricle is normal size. There is mild concentric left ventricular hypertrophy. The systolic function is mildly impaired.EF-45% There is trace to mild aortic regurgitation. Mitral regurgitation is mild to moderate. There is moderate tricuspid regurgitation.RVSP-58 mofHg. The IVC is normal in size and collapses >50% with inspiration. There is no pericardial effusion. No thrombus or vegetation noted.
[2017-11-07] MEDS ORDERED: Albuterol 0.083% Inhal Sol (2.5 mg/3 mL) UD IH STA (20:00)
[2017-11-07 20:45] LABS: TROPONIN I 0.09 ng/mL
--- NOTE | 2017-11-07 23:52 | CON ---
DATE: 11/07/2017 HISTORY OF PRESENT ILLNESS: This is a 66-year-old gentleman with history of Christopher granulomatosis diagnosed in 2015 after kidney biopsy performed here at [facility] and pathology reviewed. The patient has been treated with cyclophosphamide orally (unclear if completed course, but has not been on maintenance immunosuppresives anyway) and was under care of Dr. Zacarias and Dr. Gao. He did undergo hemodialysis for a certain period of time; however, later on, he was lost to follow up as he relocated to [place] and stopped HD for more then a year. Surprisingly, his renal function was maintained somehow without maintainance immunosupression and without HD. He does have a history of coronary artery disease as well. Three days ago, he had an episode of mild hemoptysis which was treated with erythromycin and it cleared. Starting about a day after, he experienced some pressure-like left-sided chest pain which was episodic and each episode lasted 2 to 3 minutes. It was radiating to the back and left shoulder. It was alleviated with Aleve and taking a short period of rest. However, yesterday the pain became more frequent and did not go away with Aleve or rest. He was advised to go to [facility] ER by his girlfriend. Here at [facility], he was found to have bilateral pneumonia with right more than left, and even though initial troponin level was negative, the second troponin value came back slightly elevated. At the present time, he is pain free, and Cardiology service (Dr. Palumbo), recommended no cardiac intervention. No fever, no chills, no sweats. No nausea, no vomiting, no diarrhea, no constipation. Of note, even though his creatinine was found to be highly elevated, he is voiding well and does not have signs of end-organ dysfunction due to uremia. PAST MEDICAL HISTORY: Christopher granulomatosis with some renal insufficiency, and coronary artery disease. FAMILY HISTORY: Noncontributory. ALLERGIES: AZITHROMYCIN. SOCIAL HISTORY: The patient is an ex-smoker. No alcohol or illicit drug abuse. HOME MEDICATION: Coreg, PhosLo, sodium bicarbonate. FAMILY HISTORY: Noncontributory. REVIEW OF SYSTEM: Review of 12-organ system other than mentioned in history of present illness is negative. PHYSICAL EXAMINATION: VITAL SIGNS: The patient is on high-flow 50 liters per minute and FiO2 of 40% high flow oxygen saturation 94% to 95%. LABORATORY DATA: WBC 16.4, hemoglobin 11.1, platelet count 342. His ESR is slightly elevated up to 15. Sodium 143, potassium 5.6, chloride 108, carbon dioxide 16, BUN 93, creatinine 9.5, glucose 134. Troponin 0.16. ProBNP 21,100. Blood potassium 5.6, down from 7.4. VBG showed lactic acid 1.1. ABG is 7.37, with pCO2 of 28. INR 0.94. D-dimer is 576. Of note, the patient has a V/Q scan which was low probability, and lower extremities venous Doppler which was negative for DVT. Urinalysis showed negativity for leukocyte esterase and nitrates, 100 protein, 100 glucose, 0 to 2 rbc's and wbc's, and epithelial cells. DIAGNOSTICS: Chest x-ray showed bilateral infiltrates, right more than left. Bedside echocardiogram showed fairly preserved left ventricular systolic function; however, formal echocardiogram is pending. IVC is collapsed with inspiration more than 60%. Right ventricle appears to be having preserved systolic function and not dilated. MEDICATIONS: That was started in the hospital includes DuoNeb, aspirin, doxycycline, labetalol p.r.n., cefepime, Solu-Medrol 20 mg IV every 12, morphine p.r.n., Protonix, Zyvox. ASSESSMENT AND PLAN: This is a 66-year-old gentleman who presented with what appears to be cardiac chest pain with very minor elevation of the troponin without specific ischemic changes on EKG. At present time, chest pain has gone. Cardiology service is following the patient and the patient was put on aspirin and beta-blockers. Due to recent episode of mild hemoptysis, therapeutic anticoagulation was withheld. The patient is on statins as well. Echocardiogram is pending. Other problems that the patient has, include community-acquired pneumonia with bilateral infiltrate visible on chest x-ray with right more than left. I will proceed with cefepime and doxycycline. I agree with linezolid. Blood and urine culture were ordered. Urine for Legionella and streptococcal antigen were ordered. Infectious Disease service is following the patient as well. Procalcitonin is pending. Possibility of noninfectious etiology of infiltrate cannot be ruled out as well. However, as the patient is clinically and respiratory-ruiz fairly stable, I have low suspicion for diffuse alveolar hemorrhage even though the patient carries diagnosis of Christopher granulomatosis. 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 I will discuss with Dr. Zacarias need to review slides from renal biopsy 3 years ago by pathologist again and if diagnosis is in doubt consider to re-do biopsy. That however will be deferred to nephrology and PMD service. I will order rheumatoid factor, EVELIA and ESR as a rheumatology screen as well. I will start the patient on low dose Solu-Medrol forpresumed severe community-acquired pneumonia. The patient does not require high FiO2 supplementation, very comfortable, protecting airways,talks full sentences, is not in respiratory distress. From my perspective,he would be okay downgrading to telemetry, especially provided that cardiology service does not plan on doing cardiac cath. We will continue targeteuvolemia, euglycemia, and normothermia, and oxygen saturation more than 90%. ccm time 40 min Toro Pickard MD NISHA
--- NOTE | 2017-11-08 01:17 | CON ---
DATE: 11/07/2017 REASON FOR CONSULTATION: Shortness of breath, chest tightness, severe anemia, advanced chronic kidney disease stage 5/ESRD. HISTORY OF PRESENTING ILLNESS: A 66-year-old male, known to me from prior dialysis. The patient has a history of rapidly progressive glomerulonephritis. The patient was on dialysis. One year ago, the patient stopped coming to dialysis. He presented to the emergency room yesterday with complaints of some left-sided chest pain, left arm pain, some shortness of breath. In the emergency room, he was found to have hemoglobin of 7.7, potassium of 5.2, BUN of 94 and a creatinine of 10. Consultation is requested for advanced renal insufficiency, hyperkalemia. PAST MEDICAL AND SURGICAL HISTORY: Rapidly progressive glomerulonephritis, pneumonia, CAD, hypertension, ESRD, severe anemia, left AV fistula, cataract surgery in 2016. FAMILY HISTORY: History of hypertension, diabetes, heart condition in mother. SOCIAL HISTORY: [id number] smoking history, quit 3 years ago, alcohol use in the past. ALLERGIES: MOXIFLOXACIN. MEDICATIONS AT HOME: Coreg 6.25 b.i.d. REVIEW OF SYSTEMS: All systems reviewed. Pertinent positives are mentioned in the history of presenting illness, rest unremarkable. PHYSICAL EXAMINATION: GENERAL: Elderly male, lying in the bed in the CCU in mild respiratory distress. VITAL SIGNS: Blood pressure 170/82, heart rate 82, respiratory rate 20, temperature 97.6. HEENT: Normocephalic, atraumatic. Positive pallor. NECK: Supple. No JVD. LUNGS: Bilateral rhonchi. Bilateral equal expansion. Bilateral basal rales. HEART: S1 and S2. Regular rate and rhythm. No murmur. No rub. ABDOMEN: Obese, distended, soft, nontender. Bowel sounds present. EXTREMITIES: No lower extremity edema. INTAKE AND OUTPUT: 953/415. LABORATORY DATA: WBC 16, hemoglobin 11, hematocrit 32, platelets 342. Sodium 143, potassium 5.6, chloride 108, CO2 of 16, BUN 93, creatinine 9.5, glucose 134, calcium 8.8, phosphorus 5.4, magnesium 2, iron saturation 54, iron 135, ferritin 872, troponin 0.16, BNP 21,100. CURRENT MEDICATIONS: Hydralazine 25 t.i.d., aspirin 81, doxycycline 100 every 12, DuoNeb, Imdur 60, Lipitor 40, cefepime 1 g daily, morphine, amlodipine 10, Protonix 40, Solu-Medrol 20, Trandate 5, Zyvox 600. ASSESSMENT: 1. Chronic kidney disease 5/end-stage renal disease. The patient discontinued dialysis on his own 1 year ago. 2. Hyperkalemia. 3. Chest pain/acute coronary syndrome. 4. Severe uncontrolled hypertension. 5. Anion gp metabolic acidosis. 6. Severe anemia, status post 2 units of blood transfusion. 7. Hemoptysis, hypoxia, ? pulmonary embolism. PLAN: 1. Long discussion with the patient regarding importance of compliance with dialysis. I have discussed with him that he needs dialysis 3 times a week. The patient has a very poor understanding or is very stubborn. He thinks that he does not need dialysis. He reports that he has been okay for 1 year without dialysis. His creatinine has been hanging around at 7. Only lately in the last 1 week, he is feeling bad. So he will come for dialysis once a month if necessary. 2. Treat hyperkalemia with albuterol. 3. Start sodium bicarbonate. 4. Continue hydralazine for BP control. 5. The patient is willing for dialysis intermittently, so we will arrange for dialysis tomorrow. 6. Management of acute coronary syndrome as per Cardiology. 7. Continue empiric antibiotics as per ID recommendations. 8. Dose all antibiotics for creatinine clearance less than 10. 9. Case discussed with Dialysis staff, ICU staff, ICU care professionals last night. Thank you for the courtesy of this consultation. More than 35 minutes spent in the care of this critically ill patient. Diane Zacarias MD
--- NOTE | 2017-11-08 03:27 | CON ---
DATE: 11/07/2017 REASON FOR CONSULTATION: Followup cardiac evaluation, admitted with chest pain, acute kidney injury, severe anemia, borderline troponin positive. BRIEF CLINICAL HISTORY: This is a 66-year-old male with a past medical history significant for chronic renal insufficiency, coronary artery disease, hypertension, hyperlipidemia, history of end-stage renal disease on dialysis, dialyzed for 2 years and off dialysis for more than 1 year, admitted with left-sided chest pain, shortness of breath, pain in the left shoulder and arm, found to be severely anemic, and acute kidney injury and chronic renal insufficiency. Patient recently had bronchitis, is being treated with Zithromax. Denies any dyspnea on exertion or chest pain on exertion prior to this event. PAST MEDICAL HISTORY: Significant for coronary artery disease, history of end-stage renal disease, on dialysis for 2 years and off dialysis since more than 1 year ago, Christopher granulomatosis, pneumonia, COPD. SOCIAL HISTORY: Denies any smoking. Denies any history of alcohol abuse. Quit smoking many years ago. CURRENT MEDICATIONS: Patient was taking at home sodium bicarbonate, Ativan, Coreg 6.25 mg, and PhosLo. RECENT CARDIAC WORKUP: As follows, patient had stress test, nuclear, 08/17/2017, by Dr. Massey, that shows probably abnormal myocardial perfusion study, fixed apical defect since the previous injury, ejection fraction 50%. No reversible ischemia noted. Patient had echocardiography done on 01/16/2015 that showed normal LV size, trace aortic incompetence, mild mitral regurgitation, mild to moderate tricuspid regurgitation, RV systolic pressure 58 suggestive of pulmonary hypertension, read by Dr. Judd. REVIEW OF SYSTEMS: As per HPI. PHYSICAL EXAMINATION: VITAL SIGNS: Height of the patient is 5 feet 9 inches, weight of the patient is 148 pounds, body mass index 21.9 kg/m2. Temperature afebrile, heart rate , blood pressure 180/84. HEENT: PERRLA. Extraocular muscles intact. NECK: Supple. No carotid bruit or thyromegaly. CHEST: Clear to auscultation. HEART: S1 and S2, regular. ABDOMEN: Soft. EXTREMITIES: Clubbing and cyanosis negative. LABORATORY DATA: EKG shows sinus tachycardia, ST-T changes consistent with ischemia. Blood workup as follows. hematocrit 31.8, platelet count 342. Chemistry shows sodium 140, potassium 5, chloride 108, carbon dioxide 16, anion gap of 25, BUN 90, creatinine 9.5. Troponin first 0.01, repeat troponin 0.16, BNP 21,100. IMPRESSION: Borderline troponin positive, could be secondary to non-ST segment myocardial infarction, acute coronary syndrome versus secondary to chronic renal insufficiency, acute kidney injury and chronic renal insufficiency. History of dialysis 2 years ago, diabetes, hypertension, hyperlipidemia, multivessel coronary artery disease, though recent stress test a month ago was fixed defect. RECOMMENDATIONS: Follow up BUN and creatinine. Follow up troponin trend. If the troponin trend keeps mounting or patient develops chest pain, consider cardiac catheterization; otherwise, we will wait till the patient either starts dialysis or renal function improve. Discussed with the patient at length. Continue Coreg, continue beta-yordy. We will follow with you. We will get echo to assess LV function, lipid profile, TSH, hemoglobin A1c. In the interim, continue baby aspirin, continue Coreg or metoprolol. Patient was at home on Coreg; now, we started metoprolol, we will leave it for now. Patient is severely anemic, status post multiple transfusions. Stool guaiac to rule out any acute bleeding. Further recommendations depending on hospital course. If the active bleeding is ruled out and renal function improves, consider cardiac catheterization. Otherwise, we will treat medically. We will follow with you. We will also start low dose nitrate. They will put half an inch of nitro paste tonight and an inch of nitro paste starting from tomorrow. We will repeat troponin in the morning. We will get EKG in the morning as well. Thank you, Dr. Gao, for providing us the opportunity in taking care of the patient, Robel Mckeon. Eleno Palumbo MD
[2017-11-08] MEDS: Albuterol-Ipratrop 3 mg / 0.5 (3 ml) UD IH SCH ×2 (04:48→07:13)
[2017-11-08 06:21] LABS: BASO # 0.01 K/mm3 (0.0-2.0); BASO % 0.1 % (0.0-3.0); GRAN # 9.82 (1.4-6.5); GRAN % 92.5 % (50.0-68.0); LYMPH # 0.7 (1.2-3.4); LYMPH % 6.2 % (22.0-35.0); MEAN CELL VOLUME 85.5 fl (80.0-105.0); MEAN CORPUSCULAR HEMOGLOBIN 29.4 pg (25.0-35.0); MEAN CORPUSCULAR HGB CONC 34.4 g/dl (31.0-37.0); MEAN PLATELET VOLUME 8.6 fl (7.0-11.0); MONO # 0.1 (0.1-0.6); MONO % 1.2 % (1.0-6.0); RBC 2.82 10^6/uL (3.5-6.1); RED CELL DISTRIBUTION WIDTH 14.9 % (11.5-14.5); WHITE BLOOD COUNT 10.6 10^3/ul (4.5-11.0)
[2017-11-08 06:26] LABS: HEMOGLOBIN 8.3 g/dL (14.0-18.0)
[2017-11-08 06:55] LABS: TROPONIN I 0.06 ng/mL
[2017-11-08 07:30] LABS: ALB/GLOB RATIO 1.3 (1.1-1.8); ALBUMIN 3.4 g/dL (3.0-4.8); CALCIUM 8.3 mg/dL (8.4-10.5)
[2017-11-08] MEDS: Pantoprazole 40 mg EC Tab PO SCH (08:04)
--- NOTE | 2017-11-08 09:23 | CARD ---
APPROVED REPORT Date of service: 11/08/2017 EKG Measurement Heart [id number] <Conclusion> Normal sinus rhythm Normal ECG
[2017-11-08] MEDS: MethylPREDNISolone 40 mg Vial IVP SCH ×2 (09:46→23:02)
[2017-11-08] MEDS: Linezolid 600 mg in D5W 300 ml 600 MG/300 ML BAG IVPB SCH (09:48)
[2017-11-08] MEDS ORDERED: Albuterol-Ipratrop 3 mg / 0.5 (3 ml) UD IH PRN (10:15)
[2017-11-08] MEDS ORDERED: Nitroglycerin 50mg in D5W 50 MG/250 ML BOTTLE IV ONE (10:26)
[2017-11-08] MEDS ORDERED: Nitroglycerin 50mg in D5W 50 MG/250 ML BOTTLE IV PRN (10:38)
--- NOTE | 2017-11-08 12:44 | CON ---
DATE: HISTORY OF PRESENT ILLNESS: This is a 66-year-old gentleman in the intensive care unit. He is feeling better today. The patient has a diagnosis of Christopher's granulomatosis diagnosis in 2014. He had a kidney biopsy at that time. He has been followed by Dr. Zacarias. He was on cyclophosphamide in the past. He need a dialysis for short period of time, but improved. He came to the hospital with chest pain of unknown etiology. It was thought to be cardiac syndrome. The patient has a history of coronary artery disease. More recently, the patient had a history of mild hemoptysis, which resolved with the institution of antibiotic using erythromycin. The patient is comfortable at this time. Chest pain is resolved. The etiology of the patient's problem needs further evaluation. Cardiology, Dr. Palumbo has been seeing this patient. His hemoptysis has resolved. The patient is comfortable in the intensive care unit. PAST HISTORY: As described above: 1. Christopher's granulomatosis. 2. Renal insufficiency. 3. Coronary artery disease. FAMILY HISTORY: Noncontributory. SOCIAL HISTORY: Former smoker. No alcohol or illicit drugs. HOME MEDICATIONS: Coreg, sodium bicarbonate, PhosLo. REVIEW OF SYSTEMS: No additional findings noted other than described above of chest discomfort, history of hemoptysis and shortness of breath. All other systems negative. PHYSICAL EXAMINATION: GENERAL: The patient is comfortable, in no acute distress. VITAL SIGNS: He is on room air and his saturation is 96%, blood pressure 120/70, heart rate 70, respiratory rate 16. NECK: Supple. No jugular venous tension. No lymphadenopathy. No bruit. No JVD. CHEST: Minimal rhonchi throughout both lung reese. No wheezing appreciated. HEART: Regular rhythm. S1, S2. Soft systolic ejection murmur at the lower left sternal border. ABDOMEN: Soft. Bowel sounds normoactive without mass, guarding, rebound, organomegaly. EXTREMITIES: No clubbing, cyanosis or edema. There is no Homans sign. Lymphadenopathy is not present. NEUROLOGIC: Awake, alert, oriented. No focal findings. LABORATORY DATA: Shows a white count of 16,000, sed rate of 15. Electrolytes are normal. BNP 21,000. ABG originally pH 7.37, pCO2 of 28, pO2 of 87, D-dimer 576. V/Q scan was done which showed no evidence of pulmonary embolism. Extremity showed Dopplers were negative for DVT. Chest x-ray, bilateral pulmonary infiltrates, left greater than right. Acute infection versus chronic Christopher's granulomatosis. ASSESSMENT: 1. Status post hemoptysis. 2. Christopher's granulomatosis. 3. Chronic renal insufficiency with elevated BNP 4. Community-acquired pneumonia, bilateral infiltrates. PLAN: Continue vigorous antibiotic therapy, inhalation treatments as required. Further evaluation of the Christopher's is essential. Since the patient is now in this area, we will suggest further pulmonary intervention as necessary. A CAT scan of the chest when he is more stable and out of the intensive care unit is appropriate. We will follow closely with you and decide on the need for further intervention based on clinical findings. Theo Kaufman MD [facility]
--- NOTE | 2017-11-08 13:03 | PN ---
DATE: 11/08/2017 REASON FOR THE CONSULTATION AND FOLLOWUP: Cardiac evaluation, admitted with chest pain, borderline troponin positive, acute kidney injury, severe anemia. SUBJECTIVE: The patient denies any chest pain. After I saw, the patient had a pain in the left arm, radiated to shoulder and the chest. EKG showed no acute ST-T changes noted. OBJECTIVE: GENERAL: Not in any apparent distress, awaiting to go for dialysis today possibly. VITAL SIGNS: Temperature is afebrile, heart rate 84, blood pressure 123/40. HEENT: PERRLA. Extraocular muscles intact. NECK: Supple. No carotid bruits or thyromegaly. CHEST: Clear to auscultation. HEART: S1 and S2 regular. ABDOMEN: Soft. EXTREMITIES: Clubbing and cyanosis negative. LABORATORY DATA: Blood workup: WBC 10.6, hemoglobin 8.3, hematocrit 24.1, platelet count 279. Chemistry shows sodium 130, potassium 5.2, chloride 106, carbon dioxide 15, anion gap of 21, BUN 97, creatinine 9.7. Troponin 0.06. IMPRESSION: Acute kidney injury on chronic renal insufficiency, rule out gastrointestinal bleed; dropping hemoglobin and hematocrit, status post two units of packed red blood cells, went to 11, now dropped again to 8.4, on for dialysis possibly tomorrow. Had a stress test on 08/17/2017, fixed defect, no reversible ischemia. The patient had an echo on 01/16/2015, showed normal left ventricular size, trace aortic insufficiency, mild mitral regurgitation, [id number] tricuspid regurgitation, right ventricular systolic pressure of 58. The patient had a repeat echocardiography done yesterday that revealed ejection fraction 45%, trace to mild aortic regurgitation, [id number] mitral regurgitation, moderate tricuspid regurgitation, right ventricular systolic pressure of 58. Repeat troponin trend down to 0.06. This morning, the patient had again episode of the chest pain, maximum troponin 0.16. PLAN: To rule out any active GI bleed, the patient has dropping H and H. If guaiac remains negative after the dialysis, consider cardiac catheterization provided if H and H remains stable. In the interim, continue beta-yordy, nitrate and hydralazine p.r.n. We will try to avoid large dose of longstanding antihypertensive medication because the patient is going for dialysis, now the blood pressure is 120. Post dialysis, the patient may drop the blood pressure, so be cautioned with antihypertensive medication. Discussed with the patient, we will start Plavix loading and see if the patient's H and H remains stable, possible cardiac catheterization on because the patient is having recurrent chest pain. We will follow closely. We will repeat EKG in the morning. This morning, EKG looks okay, no acute ST-T changes noted. Eleno Palumbo MD
--- NOTE | 2017-11-08 14:14 | CP.CCUPN ---
<Chemo Petersen - Last Filed: 11/08/17 14:11> CCU Subjective - Physician Review Subjective (Free Text): Chemo Petersen PGY1 Critical Care Progress Note for Dr. Grey Patient was seen and examined at bedside this morning. Patient denied fever, hemoptysis, lightheadedness, dizziness, weakness, shortness of breath, abdominal pain, dysuria, hematuria. Patient did have some chest pain radiating to shoulder, relieved by nitro. Otherwise, no overnight changes. A Full 12 point ROS was reviewed and unremarkable except as stated above. CCU Objective - Vital Signs / Intake & Output Intake and Output (Last 8hrs): Intake & Output 11/07/17 11/08/17 11/08/17 22:59 06:59 14:59 Intake Total 825 600 Output Total 900 350 Balance -75 250 Intake: IV 400 Right Upper arm 400 Oral 825 200 Output: Urine 900 350 Urine, Voided 900 350 Other: # Voids Urine, Voided 4 - Physical Exam Head: Positive for: Atraumatic, Normocephalic Pupils: Positive for: PERRL Extroacular Muscles: Positive for: EOMI Conjunctiva: Positive for: Normal Ears: Positive for: NORMAL TM Mouth: Positive for: Moist Mucous Membranes Pharnyx: Positive for: Normal Nose (External): Positive for: Other (Nasal cannula ) Neck: Positive for: Normal Range of Motion Respiratory/Chest: Positive for: Good Air Exchange, Other (Diffuse crackles bilaterally ). Negative for: Respiratory Distress, Accessory Muscle Use, Wheezes, Decreased Breath Sounds, Rales, Retracting Cardiovascular: Positive for: Regular Rate and Rhythm, Normal S1, S2. Negative for: Murmurs Abdomen: Positive for: Normal Bowel Sounds. 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 Negative for: Cyanosis, Edema Lower Extremity: Positive for: Normal Inspection, NORMAL PULSES, Normal ROM, Neurovascularly Intact, Capillary Refill < 2 s. Negative for: Edema, CALF TENDERNESS, Gopal's Sign, Erythema, Deformity Neurological: Positive for: Speech Normal Skin: Positive for: Warm, Dry, Normal Color. Negative for: Rashes Psychiatric: Positive for: Alert, Oriented x 3 - Medications Active Medications: Active Medications Generic Name Dose Route Start Last Admin Trade Name Freq PRN Reason Stop Dose Admin Albuterol/Ipratropium 3 ml 11/08/17 10:15 Duoneb 3 Mg/0.5 Mg (3 Ml) Ud IH [id number] PRN Shortness of Breath Amlodipine Besylate 10 mg 11/08/17 10:00 11/08/17 09:45 Norvasc PO 10 mg DAILY IRMA Administration Aspirin 81 mg 11/07/17 10:00 11/08/17 09:45 Aspirin Chewable PO 81 mg DAILY IRMA Administration Atorvastatin Calcium 40 mg 11/07/17 17:00 11/07/17 16:57 Lipitor PO 40 mg DIN IRMA Administration Clopidogrel Bisulfate 75 mg 11/09/17 10:00 Plavix PO DAILY IRMA Hydralazine HCl 25 mg 11/08/17 10:00 11/08/17 09:46 Apresoline PO 25 mg TID IRMA Administration Cefepime HCl 1 gm in 100 mls @ 100 mls/hr 11/07/17 09:00 11/07/17 09:06 Maxipime 1gm IVPB 100 mls/hr Q24H IRMA Administration Protocol Doxycycline Hyclate 100 mg/ 100 mls @ 100 mls/hr 11/07/17 10:00 11/08/17 10: 23 Sodium Chloride IVPB 100 mls/hr Q12 IRMA Administration Protocol Linezolid 600 mg in 300 mls @ 200 mls/hr 11/07/17 10:00 11/08/17 09:48 Zyvox 600mg/300ml D5w IVPB 11/14/17 10:01 200 mls/hr Q12 IRMA Administration Protocol Nitroglycerin/Dextrose 50 mg in 250 mls @ 1.5 mls/hr 11/08/17 10:38 Nitroglycerin 50 Mg/250 Ml D5w IV .Q24H PRN chest pain Protocol 5 MCG/MIN Isosorbide Mononitrate 60 mg 11/08/17 10:00 11/08/17 09:45 Imdur PO 60 mg DAILY IRMA Administration Labetalol HCl 5 mg 11/06/17 23:55 11/07/17 06:14 Trandate IV 5 mg Q6H PRN Administration Systolic Blood Pressure Methylprednisolone 20 mg 11/07/17 10:00 11/08/17 09:46 Solu-Medrol IVP 20 mg Q12 IRMA Administration Morphine Sulfate 2 mg 11/06/17 23:59 Morphine IVP Q4H PRN Pain, severe (8-10) Pantoprazole Sodium 40 mg 11/08/17 07:30 11/08/17 08:04 Protonix Ec Tab PO 40 mg ACB IRMA Administration Sodium Bicarbonate 650 mg 11/07/17 22:00 11/08/17 05:31 Sodium Bicarbonate Tab PO 650 mg Q8 IRMA Administration - Patient Studies Lab Studies: Microbiology Studies 11/06/17 23:42 Urine Culture - Final Urine No Growth (<1,000 CFU/ML) 11/06/17 22:20 Blood Culture - Preliminary Blood NO GROWTH AFTER 24 HOURS Lab Studies 11/08/17 11/08/17 11/08/17 Range/Units 10:06 09:46 06:29 WBC (4.5-11.0) 10^3/ul RBC (3.5-6.1) 10^6/uL Hgb (14.0-18.0) g/dL Hct (42.0-52.0) % MCV (80.0-105.0) fl MCH (25.0-35.0) pg MCHC (31.0-37.0) g/dl RDW (11.5-14.5) % Plt Count (120.0-450.0) 10^3/uL MPV (7.0-11.0) fl Gran % (50.0-68.0) % Lymph % (Auto) (22.0-35.0) % Crook % (Auto) (1.0-6.0) % Eos % (Auto) (1.5-5.0) % Baso % (Auto) (0.0-3.0) % Gran # (1.4-6.5) Lymph # (Auto) (1.2-3.4) Crook # (Auto) (0.1-0.6) Eos # (Auto) (0.0-0.7) Baso # (Auto) (0.0-2.0) K/mm3 D-Dimer, Quantitative 770 H (0-243) ng/mL Sodium (132-148) mmol/L Potassium (3.6-5.0) mmol/L Chloride (98-107) mmol/L Carbon Dioxide (21-33) mmol/L Anion Gap (10-20) BUN (7-21) mg/dL Creatinine (0.8-1.5) mg/dl Est GFR ( Amer) Est GFR (Non-Af Amer) Random Glucose (70-110) mg/dL Calcium (8.4-10.5) mg/dL Phosphorus (2.5-4.5) mg/dL Magnesium (1.7-2.2) mg/dL Total Bilirubin (0.2-1.3) mg/dL AST (17-59) U/L ALT (7-56) U/L Alkaline Phosphatase (38-126) U/L Lactate Dehydrogenase (333-699) U/L Total Creatine Kinase (35-230) U/L Troponin I 0.05 ng/mL Total Protein (5.8-8.3) g/dL Albumin (3.0-4.8) g/dL Globulin gm/dL Albumin/Globulin Ratio (1.1-1.8) Rheumatoid Arth Interp (NEGATIVE) Ur L.pneumophila Ag Negative (NEGATIVE) 11/08/17 11/08/17 11/07/17 Range/Units 05:10 05:10 20:14 WBC 10.6 D (4.5-11.0) 10^3/ul RBC 2.82 L (3.5-6.1) 10^6/uL Hgb 8.3 L D (14.0-18.0) g/dL Hct 24.1 L (42.0-52.0) % MCV 85.5 (80.0-105.0) fl MCH 29.4 (25.0-35.0) pg MCHC 34.4 (31.0-37.0) g/dl RDW 14.9 H (11.5-14.5) % Plt Count 279 (120.0-450.0) 10^3/uL MPV 8.6 (7.0-11.0) fl Gran % 92.5 H (50.0-68.0) % Lymph % (Auto) 6.2 L (22.0-35.0) % Crook % (Auto) 1.2 (1.0-6.0) % Eos % (Auto) 0.0 L (1.5-5.0) % Baso % (Auto) 0.1 (0.0-3.0) % Gran # 9.82 H (1.4-6.5) Lymph # (Auto) 0.7 L (1.2-3.4) Crook # (Auto) 0.1 (0.1-0.6) Eos # (Auto) 0.0 (0.0-0.7) Baso # (Auto) 0.01 (0.0-2.0) K/mm3 D-Dimer, Quantitative (0-243) ng/mL Sodium 137 (132-148) mmol/L Potassium 5.2 H (3.6-5.0) mmol/L Chloride 106 (98-107) mmol/L Carbon Dioxide 15 L (21-33) mmol/L Anion Gap 21 H (10-20) BUN 97 H (7-21) mg/dL Creatinine 9.4 H* (0.8-1.5) mg/dl Est GFR ( Amer) 7 Est GFR (Non-Af Amer) 6 Random Glucose 142 H (70-110) mg/dL Calcium 8.3 L (8.4-10.5) mg/dL Phosphorus 5.0 H (2.5-4.5) mg/dL Magnesium 1.8 (1.7-2.2) mg/dL Total Bilirubin 0.5 (0.2-1.3) mg/dL AST 19 (17-59) U/L ALT 17 (7-56) U/L Alkaline Phosphatase 48 (38-126) U/L Lactate Dehydrogenase 444 499 (333-699) U/L Total Creatine Kinase 29 L 51 (35-230) U/L Troponin I 0.06 D 0.09 D ng/mL Total Protein 6.0 (5.8-8.3) g/dL Albumin 3.4 (3.0-4.8) g/dL Globulin 2.6 gm/dL Albumin/Globulin Ratio 1.3 (1.1-1.8) Rheumatoid Arth Interp (NEGATIVE) Ur L.pneumophila Ag (NEGATIVE) 11/07/17 Range/Units 08:20 WBC (4.5-11.0) 10^3/ul RBC (3.5-6.1) 10^6/uL Hgb (14.0-18.0) g/dL Hct (42.0-52.0) % MCV (80.0-105.0) fl MCH (25.0-35.0) pg MCHC (31.0-37.0) g/dl RDW (11.5-14.5) % Plt Count (120.0-450.0) 10^3/uL MPV (7.0-11.0) fl Gran % (50.0-68.0) % Lymph % (Auto) (22.0-35.0) % Crook % (Auto) (1.0-6.0) % Eos % (Auto) (1.5-5.0) % Baso % (Auto) (0.0-3.0) % Gran # (1.4-6.5) Lymph # (Auto) (1.2-3.4) Crook # (Auto) (0.1-0.6) Eos # (Auto) (0.0-0.7) Baso # (Auto) (0.0-2.0) K/mm3 D-Dimer, Quantitative (0-243) ng/mL Sodium (132-148) mmol/L Potassium (3.6-5.0) mmol/L Chloride (98-107) mmol/L Carbon Dioxide (21-33) mmol/L Anion Gap (10-20) BUN (7-21) mg/dL Creatinine (0.8-1.5) mg/dl Est GFR ( Amer) Est GFR (Non-Af Amer) Random Glucose (70-110) mg/dL Calcium (8.4-10.5) mg/dL Phosphorus (2.5-4.5) mg/dL Magnesium (1.7-2.2) mg/dL Total Bilirubin (0.2-1.3) mg/dL AST (17-59) U/L ALT (7-56) U/L Alkaline Phosphatase (38-126) U/L Lactate Dehydrogenase (333-699) U/L Total Creatine Kinase (35-230) U/L Troponin I ng/mL Total Protein (5.8-8.3) g/dL Albumin (3.0-4.8) g/dL Globulin gm/dL Albumin/Globulin Ratio (1.1-1.8) Rheumatoid Arth Interp Negative (NEGATIVE) Ur L.pneumophila Ag (NEGATIVE) Laboratory Results - last 24 hr 11/07/17 11/07/17 11/08/17 08:20 20:14 05:10 WBC 10.6 D RBC 2.82 L Hgb 8.3 L D Hct 24.1 L MCV 85.5 MCH 29.4 MCHC 34.4 RDW 14.9 H Plt Count 279 MPV 8.6 Gran % 92.5 H Lymph % (Auto) 6.2 L Crook % (Auto) 1.2 Eos % (Auto) 0.0 L Baso % (Auto) 0.1 Gran # 9.82 H Lymph # (Auto) 0.7 L Crook # (Auto) 0.1 Eos # (Auto) 0.0 Baso # (Auto) 0.01 D-Dimer, Quantitative Sodium Potassium Chloride Carbon Dioxide Anion Gap BUN Creatinine Est GFR ( Amer) Est GFR (Non-Af Amer) Random Glucose Calcium Phosphorus Magnesium Total Bilirubin AST ALT Alkaline Phosphatase Lactate Dehydrogenase 499 Total Creatine Kinase 51 Troponin I 0.09 D Total Protein Albumin Globulin Albumin/Globulin Ratio Rheumatoid Arth Interp Negative Ur L.pneumophila Ag 11/08/17 11/08/17 11/08/17 05:10 06:29 09:46 WBC RBC Hgb Hct MCV MCH MCHC RDW Plt Count MPV Gran % Lymph % (Auto) Crook % (Auto) Eos % (Auto) Baso % (Auto) Gran # Lymph # (Auto) Crook # (Auto) Eos # (Auto) Baso # (Auto) D-Dimer, Quantitative 770 H Sodium 137 Potassium 5.2 H Chloride 106 Carbon Dioxide 15 L Anion Gap 21 H BUN 97 H Creatinine 9.4 H* Est GFR ( Amer) 7 Est GFR (Non-Af Amer) 6 Random Glucose 142 H Calcium 8.3 L Phosphorus 5.0 H Magnesium 1.8 Total Bilirubin 0.5 AST 19 ALT 17 Alkaline Phosphatase 48 Lactate Dehydrogenase 444 Total Creatine Kinase 29 L Troponin I 0.06 D Total Protein 6.0 Albumin 3.4 Globulin 2.6 Albumin/Globulin Ratio 1.3 Rheumatoid Arth Interp Ur L.pneumophila Ag Negative 11/08/17 10:06 WBC RBC Hgb Hct MCV MCH MCHC RDW Plt Count MPV Gran % Lymph % (Auto) Crook % (Auto) Eos % (Auto) Baso % (Auto) Gran # Lymph # (Auto) Crook # (Auto) Eos # (Auto) Baso # (Auto) D-Dimer, Quantitative Sodium Potassium Chloride Carbon Dioxide Anion Gap BUN Creatinine Est GFR ( Amer) Est GFR (Non-Af Amer) Random Glucose Calcium Phosphorus Magnesium Total Bilirubin AST ALT Alkaline Phosphatase Lactate Dehydrogenase Total Creatine Kinase Troponin I 0.05 Total Protein Albumin Globulin Albumin/Globulin Ratio Rheumatoid Arth Interp Ur L.pneumophila Ag EKG/Cardiology Studies: Cardiology / EKG Studies 11/08/17 07:00 ELECTROCARDIOGRAM Routine Comment: Reason For Exam: CAD PRE OP:: N Does Patient Have a Pacemaker?: No 11/08/17 08:45 EKG [ELECTROCARDIOGRAM] Stat Comment: Reason For Exam: chest pain Does Patient Have a Pacemaker?: No 11/09/17 07:00 ELECTROCARDIOGRAM Routine Comment: Reason For Exam: CAD PRE OP:: N Does Patient Have a Pacemaker?: No Review of Systems - Review of Systems All systems: reviewed and no additional remarkable complaints except (as per HPI.) Critical Care Progress Note - Extremities/Vascular Does the Patient have a Central Venous Catheter?: No Does the Patient need a Central Venous Catheter?: No Does the Patient have a Riojas Catheter?: No Does the Patient need a Riojas Catheter?: No - Prophylaxis GI Prophylaxis GI: PPI - Prophylaxis DVT Prophylaxis DVT: Ambulatory - Nutrition Nutrition: Nutrition Category Date Time Status Heart Healthy Diet [DIET] Diets 11/07/17 Breakfast Active Assessment/Plan - Assessment and Plan (Free Text) Assessment: Patient is a 66 y/o M with PMHx of Lynnette's Granulomatosis, Renal failure ( previously on HD one year ago), CAD, HTN, and history of PNA who presented to the ED c/o worsening left-sided intermittent crushing chest pain occurring at rest. Patient has also been coughing up a teaspoon of blood x3 days prior to admission. Patient was admitted to [facility] [place] in December 2014 where he was found to be in kidney failure and received an AV fistula for hemodialysis (2x per week at [facility]). 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 During recent admission, patient had V/Q scan that indicated low probability for DVT/PE. However, CXR showed diffuse infiltrate on the right lung consistent with pneumonia and clear left lung. Patient also presented with low Hgb (7.7) and was transfused x2 pRBCs. Patient has been admitted to the ICU for management of community acquired pneumonia and renal failure. Patient does not have any acute issues at this time and has been transferred to telemetry. Patient will also be starting on dialysis. Plan: Neuro: - AAOx3 - Maintain normothermia Cardio: - Patient had chest pain, resolved with nitro - EKG (11/08): NSR, no ST elevations or depression - Negative troponins (11/08) - EKG (11/07): NSR, no ST elevations, depression, or T wave inversion. - ECHO: LV normal size. Mild LV hypertrophy. EF 45%. Mild AR. - c/w Labetalol 5mg for BP control - c/w ASA 80 mg - Cardio consulted (Dr Palumbo), f/u recs - ProBNP 23333 Pulm: - Saturating well on nasal cannula - Likely Community Acquired Pneumonia (CAP) - Consider pulmonary consult to r/o Diffuse Alveolar Hemorrhage 2/2 Lynnette's in the setting of hemoptysis - CXR (11/06): diffuse infiltrate on R-lung consistent with Pneumonia. Left lung clear. - V/Q scan (11/06): low probability for PE - ABG and VBG within normal limits - Maintain SaO2 > 92% - c/w duoneb - c/w antibiotic coverage GI: - Protonix ppx - HHD Renal: - Uremic Renal Failure - Scheduled for hemodialysis - Patient will receive dialysis today - Nephro (Dr. 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 Patient has been transferred to telemetry. Patient will also be scheduled for dialysis today. Case was reviewed and discussed with Attending Physician Dr. Grey. <Robel Grey - Last Filed: 11/08/17 14:43> CCU Objective - Vital Signs / Intake & Output Intake and Output (Last 8hrs): Intake & Output 11/07/17 11/08/17 11/08/17 22:59 06:59 14:59 Intake Total 825 600 Output Total 900 350 Balance -75 250 Intake: IV 400 Right Upper arm 400 Oral 825 200 Output: Urine 900 350 Urine, Voided 900 350 Other: # Voids Urine, Voided 4 - Medications Active Medications: Active Medications Generic Name Dose Route Start Last Admin Trade Name Freq PRN Reason Stop Dose Admin Albuterol/Ipratropium 3 ml 11/08/17 10:15 Duoneb 3 Mg/0.5 Mg (3 Ml) Ud IH [id number] PRN Shortness of Breath Amlodipine Besylate 10 mg 11/08/17 10:00 11/08/17 09:45 Norvasc PO 10 mg DAILY IRMA Administration Aspirin 81 mg 11/07/17 10:00 11/08/17 09:45 Aspirin Chewable PO 81 mg DAILY IRMA Administration Atorvastatin Calcium 40 mg 11/07/17 17:00 11/07/17 16:57 Lipitor PO 40 mg DIN IRMA Administration Clopidogrel Bisulfate 75 mg 11/09/17 10:00 Plavix PO DAILY IRMA Hydralazine HCl 25 mg 11/08/17 10:00 11/08/17 09:46 Apresoline PO 25 mg TID IRMA Administration Cefepime HCl 1 gm in 100 mls @ 100 mls/hr 11/07/17 09:00 11/07/17 09:06 Maxipime 1gm IVPB 100 mls/hr Q24H IRMA Administration Protocol Doxycycline Hyclate 100 mg/ 100 mls @ 100 mls/hr 11/07/17 10:00 11/08/17 10: 23 Sodium Chloride IVPB 100 mls/hr Q12 IRMA Administration Protocol Linezolid 600 mg in 300 mls @ 200 mls/hr 11/07/17 10:00 11/08/17 09:48 Zyvox 600mg/300ml D5w IVPB 11/14/17 10:01 200 mls/hr Q12 IRMA Administration Protocol Nitroglycerin/Dextrose 50 mg in 250 mls @ 1.5 mls/hr 11/08/17 10:38 Nitroglycerin 50 Mg/250 Ml D5w IV .Q24H PRN chest pain Protocol 5 MCG/MIN Isosorbide Mononitrate 60 mg 11/08/17 10:00 11/08/17 09:45 Imdur PO 60 mg DAILY IRMA Administration Labetalol HCl 5 mg 11/06/17 23:55 11/07/17 06:14 Trandate IV 5 mg Q6H PRN Administration Systolic Blood Pressure Methylprednisolone 20 mg 11/07/17 10:00 11/08/17 09:46 Solu-Medrol IVP 20 mg Q12 IRMA Administration Morphine Sulfate 2 mg 11/06/17 23:59 Morphine IVP Q4H PRN Pain, severe (8-10) Mupirocin 0 gm 11/08/17 18:00 Bactroban Ointment NS 11/13/17 10:01 BID IRMA Pantoprazole Sodium 40 mg 11/08/17 07:30 11/08/17 08:04 Protonix Ec Tab PO 40 mg ACB IRMA Administration Sodium Bicarbonate 650 mg 11/07/17 22:00 11/08/17 05:31 Sodium Bicarbonate Tab PO 650 mg Q8 IRMA Administration - Patient Studies Lab Studies: Microbiology Studies 11/07/17 00:30 MRSA Culture (Admit) - Final Nose MRSA DETECTED 11/06/17 23:42 Urine Culture - Final Urine No Growth (<1,000 CFU/ML) 11/06/17 22:20 Blood Culture - Preliminary Blood NO GROWTH AFTER 24 HOURS Lab Studies 11/08/17 11/08/17 11/08/17 Range/Units 10:06 09:46 06:29 WBC (4.5-11.0) 10^3/ul RBC (3.5-6.1) 10^6/uL Hgb (14.0-18.0) g/dL Hct (42.0-52.0) % MCV (80.0-105.0) fl MCH (25.0-35.0) pg MCHC (31.0-37.0) g/dl RDW (11.5-14.5) % Plt Count (120.0-450.0) 10^3/uL MPV (7.0-11.0) fl Gran % (50.0-68.0) % Lymph % (Auto) (22.0-35.0) % Crook % (Auto) (1.0-6.0) % Eos % (Auto) (1.5-5.0) % Baso % (Auto) (0.0-3.0) % Gran # (1.4-6.5) Lymph # (Auto) (1.2-3.4) Crook # (Auto) (0.1-0.6) Eos # (Auto) (0.0-0.7) Baso # (Auto) (0.0-2.0) K/mm3 D-Dimer, Quantitative 770 H (0-243) ng/mL Sodium (132-148) mmol/L Potassium (3.6-5.0) mmol/L Chloride (98-107) mmol/L Carbon Dioxide (21-33) mmol/L Anion Gap (10-20) BUN (7-21) mg/dL Creatinine (0.8-1.5) mg/dl Est GFR ( Amer) Est GFR (Non-Af Amer) Random Glucose (70-110) mg/dL Calcium (8.4-10.5) mg/dL Phosphorus (2.5-4.5) mg/dL Magnesium (1.7-2.2) mg/dL Total Bilirubin (0.2-1.3) mg/dL AST (17-59) U/L ALT (7-56) U/L Alkaline Phosphatase (38-126) U/L Lactate Dehydrogenase (333-699) U/L Total Creatine Kinase (35-230) U/L Troponin I 0.05 ng/mL Total Protein (5.8-8.3) g/dL Albumin (3.0-4.8) g/dL Globulin gm/dL Albumin/Globulin Ratio (1.1-1.8) Rheumatoid Arth Interp (NEGATIVE) Ur L.pneumophila Ag Negative (NEGATIVE) 11/08/17 11/08/17 11/07/17 Range/Units 05:10 05:10 20:14 WBC 10.6 D (4.5-11.0) 10^3/ul RBC 2.82 L (3.5-6.1) 10^6/uL Hgb 8.3 L D (14.0-18.0) g/dL Hct 24.1 L (42.0-52.0) % MCV 85.5 (80.0-105.0) fl MCH 29.4 (25.0-35.0) pg MCHC 34.4 (31.0-37.0) g/dl RDW 14.9 H (11.5-14.5) % Plt Count 279 (120.0-450.0) 10^3/uL MPV 8.6 (7.0-11.0) fl Gran % 92.5 H (50.0-68.0) % Lymph % (Auto) 6.2 L (22.0-35.0) % Crook % (Auto) 1.2 (1.0-6.0) % Eos % (Auto) 0.0 L (1.5-5.0) % Baso % (Auto) 0.1 (0.0-3.0) % Gran # 9.82 H (1.4-6.5) Lymph # (Auto) 0.7 L (1.2-3.4) Crook # (Auto) 0.1 (0.1-0.6) Eos # (Auto) 0.0 (0.0-0.7) Baso # (Auto) 0.01 (0.0-2.0) K/mm3 D-Dimer, Quantitative (0-243) ng/mL Sodium 137 (132-148) mmol/L Potassium 5.2 H (3.6-5.0) mmol/L Chloride 106 (98-107) mmol/L Carbon Dioxide 15 L (21-33) mmol/L Anion Gap 21 H (10-20) BUN 97 H (7-21) mg/dL Creatinine 9.4 H* (0.8-1.5) mg/dl Est GFR ( Amer) 7 Est GFR (Non-Af Amer) 6 Random Glucose 142 H (70-110) mg/dL Calcium 8.3 L (8.4-10.5) mg/dL Phosphorus 5.0 H (2.5-4.5) mg/dL Magnesium 1.8 (1.7-2.2) mg/dL Total Bilirubin 0.5 (0.2-1.3) mg/dL AST 19 (17-59) U/L ALT 17 (7-56) U/L Alkaline Phosphatase 48 (38-126) U/L Lactate Dehydrogenase 444 499 (333-699) U/L Total Creatine Kinase 29 L 51 (35-230) U/L Troponin I 0.06 D 0.09 D ng/mL Total Protein 6.0 (5.8-8.3) g/dL Albumin 3.4 (3.0-4.8) g/dL Globulin 2.6 gm/dL Albumin/Globulin Ratio 1.3 (1.1-1.8) Rheumatoid Arth Interp (NEGATIVE) Ur L.pneumophila Ag (NEGATIVE) 11/07/17 Range/Units 08:20 WBC (4.5-11.0) 10^3/ul RBC (3.5-6.1) 10^6/uL Hgb (14.0-18.0) g/dL Hct (42.0-52.0) % MCV (80.0-105.0) fl MCH (25.0-35.0) pg MCHC (31.0-37.0) g/dl RDW (11.5-14.5) % Plt Count (120.0-450.0) 10^3/uL MPV (7.0-11.0) fl Gran % (50.0-68.0) % Lymph % (Auto) (22.0-35.0) % Crook % (Auto) (1.0-6.0) % Eos % (Auto) (1.5-5.0) % Baso % (Auto) (0.0-3.0) % Gran # (1.4-6.5) Lymph # (Auto) (1.2-3.4) Crook # (Auto) (0.1-0.6) Eos # (Auto) (0.0-0.7) Baso # (Auto) (0.0-2.0) K/mm3 D-Dimer, Quantitative (0-243) ng/mL Sodium (132-148) mmol/L Potassium (3.6-5.0) mmol/L Chloride (98-107) mmol/L Carbon Dioxide (21-33) mmol/L Anion Gap (10-20) BUN (7-21) mg/dL Creatinine (0.8-1.5) mg/dl Est GFR ( Amer) Est GFR (Non-Af Amer) Random Glucose (70-110) mg/dL Calcium (8.4-10.5) mg/dL Phosphorus (2.5-4.5) mg/dL Magnesium (1.7-2.2) mg/dL Total Bilirubin (0.2-1.3) mg/dL AST (17-59) U/L ALT (7-56) U/L Alkaline Phosphatase (38-126) U/L Lactate Dehydrogenase (333-699) U/L Total Creatine Kinase (35-230) U/L Troponin I ng/mL Total Protein (5.8-8.3) g/dL Albumin (3.0-4.8) g/dL Globulin gm/dL Albumin/Globulin Ratio (1.1-1.8) Rheumatoid Arth Interp Negative (NEGATIVE) Ur L.pneumophila Ag (NEGATIVE) Laboratory Results - last 24 hr 11/07/17 11/07/17 11/08/17 08:20 20:14 05:10 WBC 10.6 D RBC 2.82 L Hgb 8.3 L D Hct 24.1 L MCV 85.5 MCH 29.4 MCHC 34.4 RDW 14.9 H Plt Count 279 MPV 8.6 Gran % 92.5 H Lymph % (Auto) 6.2 L Crook % (Auto) 1.2 Eos % (Auto) 0.0 L Baso % (Auto) 0.1 Gran # 9.82 H Lymph # (Auto) 0.7 L [place] # (Auto) 0.1 Eos # (Auto) 0.0 Baso # (Auto) 0.01 D-Dimer, Quantitative Sodium Potassium Chloride Carbon Dioxide Anion Gap BUN Creatinine Est GFR ( Amer) Est GFR (Non-Af Amer) Random Glucose Calcium Phosphorus Magnesium Total Bilirubin AST ALT Alkaline Phosphatase Lactate Dehydrogenase 499 Total Creatine Kinase 51 Troponin I 0.09 D Total Protein Albumin Globulin Albumin/Globulin Ratio Rheumatoid Arth Interp Negative Ur L.pneumophila Ag 11/08/17 11/08/17 11/08/17 05:10 06:29 09:46 WBC RBC Hgb Hct MCV MCH MCHC RDW Plt Count MPV Gran % Lymph % (Auto) Crook % (Auto) Eos % (Auto) Baso % (Auto) Gran # Lymph # (Auto) Crook # (Auto) Eos # (Auto) Baso # (Auto) D-Dimer, Quantitative 770 H Sodium 137 Potassium 5.2 H Chloride 106 Carbon Dioxide 15 L Anion Gap 21 H BUN 97 H Creatinine 9.4 H* Est GFR ( Amer) 7 Est GFR (Non-Af Amer) 6 Random Glucose 142 H Calcium 8.3 L Phosphorus 5.0 H Magnesium 1.8 Total Bilirubin 0.5 AST 19 ALT 17 Alkaline Phosphatase 48 Lactate Dehydrogenase 444 Total Creatine Kinase 29 L Troponin I 0.06 D Total Protein 6.0 Albumin 3.4 Globulin 2.6 Albumin/Globulin Ratio 1.3 Rheumatoid Arth Interp Ur L.pneumophila Ag Negative 11/08/17 10:06 WBC RBC Hgb Hct MCV MCH MCHC RDW Plt Count MPV Gran % Lymph % (Auto) Cro[place] % (Auto) Eos % (Auto) Baso % (Auto) Gran # Lymph # (Auto) Crook # (Auto) Eos # (Auto) Baso # (Auto) D-Dimer, Quantitative Sodium Potassium Chloride Carbon Dioxide Anion Gap BUN Creatinine Est GFR ( Amer) Est GFR (Non-Af Amer) Random Glucose Calcium Phosphorus Magnesium Total Bilirubin AST ALT Alkaline Phosphatase Lactate Dehydrogenase Total Creatine Kinase Troponin I 0.05 Total Protein Albumin Globulin Albumin/Globulin Ratio Rheumatoid Arth Interp Ur L.pneumophila Ag EKG/Cardiology Studies: Cardiology / EKG Studies 11/08/17 07:00 ELECTROCARDIOGRAM Routine Comment: Reason For Exam: CAD PRE OP:: N Does Patient Have a Pacemaker?: No 11/08/17 08:45 EKG [ELECTROCARDIOGRAM] Stat Comment: Reason For Exam: chest pain Does Patient Have a Pacemaker?: No 11/09/17 07:00 ELECTROCARDIOGRAM Routine Comment: Reason For Exam: CAD PRE OP:: N Does Patient Have a Pacemaker?: No Critical Care Progress Note - Nutrition Nutrition: Nutrition Category Date Time Status Heart Healthy Diet [DIET] Diets 11/07/17 Breakfast Active Attending/Attestation - Attestation I have personally seen and examined this patient.: Yes I have fully participated in the care of the patient.: Yes I have reviewed all pertinent clinical information: Yes Notes (Text): 11/08/17 14:38 The patient was seen and examined at the bedside. Patient care was discussed with resident Medical records, lab studies, and imaging were reviewed and management issues were discussed and formulated. Last 24H events reviewed. Agree with above treatment plans as outlined in 's note with addition of the following: Respiratory Insufficiency \ Hypoxemia \ Chest Pain \ CKD on HD \ HTN \ Sepsis \ PNA \ -hemodynamic monitoring to maintain MAP>65; f\u serial CE and ECG; continue tridil drip as per cardio team; continue ASA and Plavix -o2 supplementation to maintain Spo2 90-92 Pao2>60; currently on NC; no hemoptysis overnight -continue nebs and steroids -continue Abx as per ID team and f\u cultures -f\u Bun\Cr and U\o; HD today as per renal team -PO diet and aspiration precautions -DVT \ PUD prophylaxis CCM f\u time 26min
[2017-11-08] MEDS: Cefepime 1gm in NS 100ml 1 GM/100 ML BAG IVPB SCH (15:03)
--- NOTE | 2017-11-08 15:30 | CP.PCM.CON ---
<Shorty Maravilla - Last Filed: 11/08/17 17:34> History of Present Illness - History of Present Illness History of Present Illness: PGY-4 GI Fellow Consult Note Mr. Mckeon is a 66 yo WM with h/o Christopher's c/b CKD (previously on HD, recently restarted HD this admission), CAD, HTN, Hemorrhagic CVA who was admitted on 11/06 with complaints of chest pain and hemoptysis. Since admission, he has been treated for CAP, KINGSLEY on CKD requiring HD as well as possible ACS with aspirin and clopidogrel. On admission, his Hgb was 7.7 (not recent lab values, but previously ~8-9 baseline) and he received 2 units PRBCs with hyper-response to 11.1, with subsequent drop to Hgb 8.3. GI consulted for concerns of GI Bleed due to plans for cardiac cath. Pt states that he has never had any EGD/CSPY before. States his last bowel movement was a few days ago and described as dark liao. He states he had an episode of emesis the other day that consisted of his PO food intake and was brown colored. He denies any melena, hematochezia, hematemesis, abd pain. MHx: See above SurgHx: L AVF, cataract Meds: Bicarb, lorazepam, carvedilol, calcium acetate per home med chart review, inpatient meds reviewed FamHx: Mother with CA, h/o polyps SocHx: 75 pack year tobacco abuse, quit 2014; denies EtOH/Illicits All: Moxifloxacin-Achilles tendonitis, Azithromycin - ear pain Past Patient History - Infectious Disease Hx of Infectious Diseases: None - Tetanus Immunizations Tetanus Immunization: Unknown - Past Social History Smoking Status: Former Smoker - CARDIAC Hx Hypertension: Yes - PULMONARY Hx Respiratory Disorders: Yes Hx Pneumonia: Yes (DOUBLE PNEUMONIA 10-17-14) - NEUROLOGICAL Hx Paralysis: No (HX PAST R HEMIPARESIS) - HEENT Hx HEENT Problems: (WEARS RX GLASSES) - RENAL Hx Renal Failure: Yes - HEMATOLOGICAL/ONCOLOGICAL Hx Blood Transfusions: No Hx Blood Transfusion Reaction: No - INTEGUMENTARY Hx Dermatological Problems: No - MUSCULOSKELETAL/RHEUMATOLOGICAL Hx Musculoskeletal Disorders: No - GASTROINTESTINAL Hx Gastrointestinal Disorders: Yes (GI BLEED 01-11-15) - GENITOURINARY/GYNECOLOGICAL Hx Genitourinary Disorders: No - PSYCHIATRIC Hx Emotional Abuse: No Hx Physical Abuse: No Hx Substance Use: No - SURGICAL HISTORY Hx Surgeries: Yes (TONSILLECTOMY) - ANESTHESIA Hx Anesthesia Reactions: No Hx Malignant Hyperthermia: No Meds Allergies/Adverse Reactions: Allergies Allergy/AdvReac Type Severity Reaction Status Date / Time azithromycin [From Zithromax] Allergy Severe SWELLING Verified 07/29/15 09:57 UNKNOWN ANTIBIOTIC Allergy SHORTNESS Uncoded 08/07/15 07:03 OF BREATH - Medications Medications: Current Medications Albuterol/Ipratropium (Duoneb 3 Mg/0.5 Mg (3 Ml) Ud) 3 ml IH [id number] PRN PRN Reason: Shortness of Breath Amlodipine Besylate (Norvasc) 10 mg PO DAILY [facility] Last Admin: 11/08/17 09:45 Dose: 10 mg Aspirin (Aspirin Chewable) 81 mg PO DAILY [facility] Last Admin: 11/08/17 09:45 Dose: 81 mg Atorvastatin Calcium (Lipitor) 40 mg PO DIN [facility] Last Admin: 11/07/17 16:57 Dose: 40 mg Clopidogrel Bisulfate (Plavix) 75 mg PO DAILY [facility] Hydralazine HCl (Apresoline) 25 mg PO TID [facility] Last Admin: 11/08/17 15:03 Dose: 25 mg Cefepime HCl (Maxipime 1gm) 1 gm in 100 mls @ 100 mls/hr IVPB Q24H IRMA PRN Reason: Protocol Last Admin: 11/08/17 15:03 Dose: 100 mls/hr Doxycycline Hyclate 100 mg/ (Sodium Chloride) 100 mls @ 100 mls/hr IVPB Q12 IR[facility] PRN Reason: Protocol Last Admin: 11/08/17 10:23 Dose: 100 mls/hr Linezolid (Zyvox 600mg/300ml D5w) 600 mg in 300 mls @ 200 mls/hr IVPB Q12 IRMA PRN Reason: Protocol Stop: 11/14/17 10:01 Last Admin: 11/08/17 09:48 Dose: 200 mls/hr Nitroglycerin/Dextrose (Nitroglycerin 50 Mg/250 Ml D5w) 50 mg in 250 mls @ 1.5 mls/hr IV .Q24H PRN; Protocol; 5 MCG/MIN PRN Reason: chest pain Isosorbide Mononitrate (Imdur) 60 mg PO DAILY [facility] Last Admin: 11/08/17 09:45 Dose: 60 mg Labetalol HCl (Trandate) 5 mg IV Q6H PRN PRN Reason: Systolic Blood Pressure Last Admin: 11/07/17 06:14 Dose: 5 mg Methylprednisolone (Solu-Medrol) 20 mg IVP Q12 [facility] Last Admin: 11/08/17 09:46 Dose: 20 mg Morphine Sulfate (Morphine) 2 mg IVP Q4H PRN PRN Reason: Pain, severe (8-10) Mupirocin (Bactroban Ointment) 0 gm NS BID [facility] Stop: 11/13/17 10:01 Pantoprazole Sodium (Protonix Ec Tab) 40 mg PO ACB [facility] Last Admin: 11/08/17 08:04 Dose: 40 mg Sodium Bicarbonate (Sodium Bicarbonate Tab) 650 mg PO Q8 [facility] Last Admin: 11/08/17 05:31 Dose: 650 mg Physical Exam - Constitutional Appears: Well, Non-toxic - Head Exam Head Exam: ATRAUMATIC, NORMOCEPHALIC - Eye Exam Eye Exam: EOMI. absent: Conjunctival injection, Scleral icterus - ENT Exam ENT Exam: Mucous Membranes Moist, Normal External Ear Exam - Respiratory Exam Respiratory Exam: NORMAL BREATHING PATTERN. absent: Accessory Muscle Use, Prolonged Expiratory Phase, Respiratory Distress - Cardiovascular Exam Cardiovascular Exam: REGULAR RHYTHM. absent: Bradycardia, Tachycardia - GI/Abdominal Exam GI & Abdominal Exam: Soft. absent: Distended, Firm, Guarding, Rebound, Rigid, Tenderness - Rectal Exam Rectal Exam: Deferred - Neurological Exam Neurological exam: Alert, CN II-XII Intact, Oriented x3 - Psychiatric Exam Psychiatric exam: Normal Affect, Normal Mood - Skin Skin Exam: Intact, Normal Color Additional comments: MANDIE MICHAEL Results - Vital Signs Recent Vital Signs: Last Vital Signs Temp 97.4 F L 11/08/17 04:00 Pulse 94 H 11/08/17 15:03 Resp 17 11/08/17 05:50 BP 147/48 L 11/08/17 15:03 Pulse Ox 98 11/08/17 05:50 - Labs Result Diagrams: 11/08/17 05:10 11/08/17 05:10 Labs: Laboratory Results - last 24 hr 11/07/17 11/07/17 11/08/17 08:20 20:14 05:10 WBC 10.6 D RBC 2.82 L Hgb 8.3 L D Hct 24.1 L MCV 85.5 MCH 29.4 MCHC 34.4 RDW 14.9 H Plt Count 279 MPV 8.6 Gran % 92.5 H Lymph % (Auto) 6.2 L Fallon % (Auto) 1.2 Eos % (Auto) 0.0 L Baso % (Auto) 0.1 Gran # 9.82 H Lymph # (Auto) 0.7 L Fallon # (Auto) 0.1 Eos # (Auto) 0.0 Baso # (Auto) 0.01 D-Dimer, Quantitative Sodium Potassium Chloride Carbon Dioxide Anion Gap BUN Creatinine Est GFR ( Amer) Est GFR (Non-Af Amer) Random Glucose Calcium Phosphorus Magnesium Total Bilirubin AST ALT Alkaline Phosphatase Lactate Dehydrogenase 499 Total Creatine Kinase 51 Troponin I 0.09 D Total Protein Albumin Globulin Albumin/Globulin Ratio Rheumatoid Arth Interp Negative Ur L.pneumophila Ag 11/08/17 11/08/17 11/08/17 05:10 06:29 09:46 WBC RBC Hgb Hct MCV MCH MCHC RDW Plt Count MPV Gran % Lymph % (Auto) Fallon % (Auto) Eos % (Auto) Baso % (Auto) Gran # Lymph # (Auto) Fallon # (Auto) Eos # (Auto) Baso # (Auto) D-Dimer, Quantitative 770 H Sodium 137 Potassium 5.2 H Chloride 106 Carbon Dioxide 15 L Anion Gap 21 H BUN 97 H Creatinine 9.4 H* Est GFR ( Amer) 7 Est GFR (Non-Af Amer) 6 Random Glucose 142 H Calcium 8.3 L Phosphorus 5.0 H Magnesium 1.8 Total Bilirubin 0.5 AST 19 ALT 17 Alkaline Phosphatase 48 Lactate Dehydrogenase 444 Total Creatine Kinase 29 L Troponin I 0.06 D Total Protein 6.0 Albumin 3.4 Globulin 2.6 Albumin/Globulin Ratio 1.3 Rheumatoid Arth Interp Ur L.pneumophila Ag Negative 11/08/17 10:06 WBC RBC Hgb Hct MCV MCH MCHC RDW Plt Count MPV Gran % Lymph % (Auto) Fallon % (Auto) Eos % (Auto) Baso % (Auto) Gran # Lymph # (Auto) Fallon # (Auto) Eos # (Auto) Baso # (Auto) D-Dimer, Quantitative Sodium Potassium Chloride Carbon Dioxide Anion Gap BUN Creatinine Est GFR ( Amer) Est GFR (Non-Af Amer) Random Glucose Calcium Phosphorus Magnesium Total Bilirubin AST ALT Alkaline Phosphatase Lactate Dehydrogenase Total Creatine Kinase Troponin I 0.05 Total Protein Albumin Globulin Albumin/Globulin Ratio Rheumatoid Arth Interp Ur L.pneumophila Ag Assessment & Plan - Assessment and Plan (Free Text) Assessment: # Acute on Chronic Normocytic Anemia: Hgb on admission 7.7 -> 2 units PRBCs -> 11.1 then to 8.3. No previous EGD/CSPY on file. Iron studies not consistent with Fe def anemia. Reticulocyte index 0.7% indicating an inappropriate response to anemia. Therefore, may benefit from EPO though defer to Nephrology. 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 If there is source, pt would likely benefit from bare metal rather than drug eluding stent placement if needed, though defer to cardiology # Possible ACS: Cardiology following and pt loading with clopidogrel today, ASA plans for cath on 11/10. Plan: - Abd/Pelvis CT with PO contrast tonight with gastrograffin - NPO at NM for EGD tomorrow - Monitor Hgb daily - Consider EPO - Continue with PPI ppx Thank you for the consult Pt seen and examined with Dr. Ornelas <Bernabe Ornelas V - Last Filed: 11/08/17 22:25> Meds - Medications Medications: Current Medications Albuterol/Ipratropium (Duoneb 3 Mg/0.5 Mg (3 Ml) Ud) 3 ml IH [id number] PRN PRN Reason: Shortness of Breath Amlodipine Besylate (Norvasc) 10 mg PO DAILY [facility] Last Admin: 11/08/17 09:45 Dose: 10 mg Aspirin (Aspirin Chewable) 81 mg PO DAILY [facility] Last Admin: 11/08/17 09:45 Dose: 81 mg Atorvastatin Calcium (Lipitor) 40 mg PO DIN [facility] Last Admin: 11/08/17 18:14 Dose: 40 mg Calcium Acetate (Phoslo) 667 mg PO WM [facility] Last Admin: 11/08/17 18:28 Dose: 667 mg Clopidogrel Bisulfate (Plavix) 75 mg PO DAILY [facility] Doxycycline Hyclate (Doryx) 100 mg PO Q12 [facility] PRN Reason: Protocol Stop: 11/15/17 22:01 Hydralazine HCl (Apresoline) 25 mg PO TID [facility] Last Admin: 11/08/17 18:25 Dose: 25 mg Cefepime HCl (Maxipime 1gm) 1 gm in 100 mls @ 100 mls/hr IVPB Q24H IRMA PRN Reason: Protocol Last Admin: 11/08/17 15:03 Dose: 100 mls/hr Nitroglycerin/Dextrose (Nitroglycerin 50 Mg/250 Ml D5w) 50 mg in 250 mls @ 1.5 mls/hr IV .Q24H PRN; Protocol; 5 MCG/MIN PRN Reason: chest pain Last Admin: 11/08/17 18:23 Dose: 5 mcg/min, 1.5 mls/hr Isosorbide Mononitrate (Imdur) 60 mg PO DAILY [facility] Last Admin: 11/08/17 09:45 Dose: 60 mg Labetalol HCl (Trandate) 5 mg IV Q6H PRN PRN Reason: Systolic Blood Pressure Last Admin: 11/07/17 06:14 Dose: 5 mg Methylprednisolone (Solu-Medrol) 20 mg IVP Q12 [facility] Last Admin: 11/08/17 09:46 Dose: 20 mg Morphine Sulfate (Morphine) 2 mg IVP Q4H PRN PRN Reason: Pain, severe (8-10) Last Admin: 11/08/17 18:52 Dose: 2 mg Mupirocin (Bactroban Ointment) 0 gm NS BID [facility] Stop: 11/13/17 10:01 Last Admin: 11/08/17 18:14 Dose: 1 oin Pantoprazole Sodium (Protonix Ec Tab) 40 mg PO ACB [facility] Last Admin: 11/08/17 08:04 Dose: 40 mg Results - Vital Signs Recent Vital Signs: Last Vital Signs Temp 97.9 F 11/08/17 16:00 Pulse 107 H 11/08/17 18:25 Resp 17 11/08/17 05:50 BP 164/75 H 11/08/17 18:25 Pulse Ox 98 11/08/17 05:50 - Labs Result Diagrams: 11/08/17 05:10 11/08/17 05:10 Labs: Laboratory Results - last 24 hr 11/07/17 11/08/17 11/08/17 08:20 05:10 05:10 WBC 10.6 D RBC 2.82 L Hgb 8.3 L D Hct 24.1 L MCV 85.5 MCH 29.4 MCHC 34.4 RDW 14.9 H Plt Count 279 MPV 8.6 Gran % 92.5 H Lymph % (Auto) 6.2 L Fallon % (Auto) 1.2 Eos % (Auto) 0.0 L Baso % (Auto) 0.1 Gran # 9.82 H Lymph # (Auto) 0.7 L Fallon # (Auto) 0.1 Eos # (Auto) 0.0 Baso # (Auto) 0.01 D-Dimer, Quantitative Sodium 137 Potassium 5.2 H Chloride 106 Carbon Dioxide 15 L Anion Gap 21 H BUN 97 H Creatinine 9.4 H* Est GFR ( Amer) 7 Est GFR (Non-Af Amer) 6 Random Glucose 142 H Calcium 8.3 L Phosphorus 5.0 H Magnesium 1.8 Total Bilirubin 0.5 AST 19 ALT 17 Alkaline Phosphatase 48 Lactate Dehydrogenase 444 Total Creatine Kinase 29 L Troponin I 0.06 D Total Protein 6.0 Albumin 3.4 Globulin 2.6 Albumin/Globulin Ratio 1.3 Rheumatoid Arth Interp Negative Ur L.pneumophila Ag 11/08/17 11/08/17 11/08/17 06:29 09:46 10:06 WBC RBC Hgb Hct MCV MCH MCHC RDW Plt Count MPV Gran % Lymph % (Auto) Fallon % (Auto) Eos % (Auto) Baso % (Auto) Gran # Lymph # (Auto) Fallon # (Auto) Eos # (Auto) Baso # (Auto) D-Dimer, Quantitative 770 H Sodium Potassium Chloride Carbon Dioxide Anion Gap BUN Creatinine Est GFR ( Amer) Est GFR (Non-Af Amer) Random Glucose Calcium Phosphorus Magnesium Total Bilirubin AST ALT Alkaline Phosphatase Lactate Dehydrogenase Total Creatine Kinase Troponin I 0.05 Total Protein Albumin Globulin Albumin/Globulin Ratio Rheumatoid Arth Interp Ur L.pneumophila Ag Negative 11/08/17 20:30 WBC RBC Hgb Hct MCV MCH MCHC RDW Plt Count MPV Gran % Lymph % (Auto) Fallon % (Auto) Eos % (Auto) Baso % (Auto) Gran # Lymph # (Auto) Fallon # (Auto) Eos # (Auto) Baso # (Auto) D-Dimer, Quantitative Sodium Potassium Chloride Carbon Dioxide Anion Gap BUN Creatinine Est GFR ( Amer) Est GFR (Non-Af Amer) Random Glucose Calcium Phosphorus Magnesium Total Bilirubin AST ALT Alkaline Phosphatase Lactate Dehydrogenase Total Creatine Kinase 43 Troponin I 0.05 Total Protein Albumin Globulin Albumin/Globulin Ratio Rheumatoid Arth Interp Ur L.pneumophila Ag Attending/Attestation - Attestation I have personally seen and examined this patient.: Yes I have fully participated in the care of the patient.: Yes I have reviewed all pertinent clinical information: Yes Notes (Text): This is an addendum to GI consult report dictated by the GI Fellow.The patient was seen and examined earlier. Medical records, lab studies, imagings were reviewed. Last 24 hours events reviewed. Agreed with the above treatment plan as outlined in GI Fellow 's notes the with the addition of the following History of chronic anemia, end-stage renal disease , Wagners granulomatosis, noncompliant Significant drop in blood count Admitted with chest pain Planned for cardiac catheter would recommend follow-up of hemoglobin and hematocrit empiric PPI therapy CT of the abdomen and pelvis with only by mouth contrast EGD to rule out any peptic ulcer disease or upper GI source of bleeding Consider bare metal stent inserted of drug-eluting stent in view of the significant anemia dropping Hct and possible additional GI source of blood loss 11/08/17 22:19
[2017-11-08] MEDS ORDERED: Darbepoetin Alfa 60 mcg/ml Inj IV ONE (15:40)
[2017-11-08] MEDS ORDERED: Darbepoetin Alfa 100 mcg/ml Inj IVP ONE (15:45)
--- NOTE | 2017-11-08 16:45 | PN ---
DATE: 11/08/2017 SUBJECTIVE: The patient is currently seen with dialysis being initiated. This is the patient's first dialysis in approximately 1 year. The patient had an episode of crushing chest pain this morning. He is scheduled for cardiac catheterization on . The patient states that he plans on traveling back to [place] once he leaves the hospital. MEDICATIONS: Medication list reviewed. The patient is currently on hydralazine, aspirin, mupirocin, doxycycline, albuterol and ipratropium, Imdur, Lipitor, Maxipime, morphine, nitroglycerin drip, Norvasc, Plavix, Protonix, Solu-Medrol, sodium bicarb tablets, Trandate, and Zyvox. PHYSICAL EXAMINATION: INTAKE AND OUTPUT: Intake is 1425 and output is 1250, all urine. VITAL SIGNS: Blood pressure 147/48, temperature is 97.4, pulse is 94 with a respiratory rate of 17. Pulse ox is 98%. HEENT: Shows him to be normocephalic, atraumatic. Conjunctivae are pale. Sclerae are nonicteric. NECK: Supple. No neck vein distention. CHEST: Clear to auscultation and percussion with mild rhonchi in the right lung field. No rales or wheezing. CARDIOVASCULAR: Shows a regular rate and rhythm. AI/MR/TR. No rub. ABDOMEN: Soft. Bowel sounds normal. No rebound, guarding, or masses. EXTREMITIES: Show no lower extremity cyanosis, clubbing, or edema. Positive cannulated left upper extremity AV fistula, on dialysis. NEUROLOGIC: Shows him to be alert, oriented with no focal deficits. No asterixis. LABORATORY DATA AND IMAGING: CBC: White blood cell count 10.6; hemoglobin is 8.3, post 2 units of packed red blood cells, admitting hemoglobin was 7.7. Platelet count is 279,000. Coag show a normal PT/PTT, elevated D-dimer. V/Q scan showed low probability for pulmonary embolism. Yesterday's blood gas, pH 7.23 with a pO2 of 42 and a pCO2 of 39, that was venous blood gas. Chemistries today showed a sodium of 137; potassium 5.2, down from 5.6. Chloride is 106, CO2 is 15. Anion gap is 21. BUN 97 with a creatinine of 9.4. Glucose is 142. Calcium is 8.3. Phosphorus is elevated at 5. Magnesium is 1.8. Liver enzymes are normal. CPK values are all normal. Troponin was initially 0.01, james to 0.16 and now is 0.05. CPK-MB is nondetectable. BNP was 21,100. Albumin level was 3.4. TSH level was normal. Urine showed 2-3+ protein. Microbiology: MRSA detected in the nose. Urine cultures are negative. Blood cultures are negative at 24 hours. The patient is status post 2 units of packed red blood cells as noted above. ASSESSMENT: 1. History of chronic kidney disease stage 5. The patient apparently had been away from health care for 7 months. He did not see a steward/stewardess third for 7 months in [place] where he is living presently. He did come up to [place] for a short period of time, had the above-mentioned episode of shortness of breath and chest pain and came to the hospital. The patient once again shows renal parameters that are consistent with a need for chronic dialysis. The patient did have rapidly progressive glomerulonephritis at the time of initiation of dialysis back in [place] several years ago. The patient is agreeable to do dialysis in [place]. He states he will not remain in [place] as an outpatient. 2. History of atherosclerotic heart disease. The patient had crushing chest pain earlier this morning. He is scheduled for a cardiac catheterization. His cardiac enzymes are not consistent with an acute myocardial event. There was a mild elevation of troponin, but that might be secondary to his chronic kidney disease. CPK values were all normal. EKG showed no acute ST or T-wave changes. The patient is being followed by Cardiology, he remains on Tridil. He will receive the cardiac catheterization in 2 days. 3. History of hypertension. Blood pressure control is acceptable on current medications. Once the patient gets back into the dialysis pattern, his blood pressures will likely fall as we keep him close to his dry weight. 4. History of severe anemia. The patient is status post 2 units of packed red blood cells. The patient will receive Aranesp with dialysis. His iron saturations were 54% but this might have been done post transfusions. 5. Right lung pneumonia. The patient will continue empiric antibiotic therapy. 6. Positive methicillin-resistant Staphylococcus aureus in the nasal passages. The patient is on appropriate therapy for this. 7. Secondary hyperparathyroidism. The patient will start binder therapy and remain on a renal diet. 8. History of cataract surgery in 2016. PLAN: 1. The patient is currently receiving his first dialysis and tolerating well. Again, he was a chronic dialysis patient approximately 1 year ago. He was noncompliant with his dialysis treatments at that time. 2. Continue blood pressure medications. Over time, will likely be able to wean him off of many blood pressure medications. 3. Decrease steroids when able. 4. Complete course of antibiotics for his right lung pneumonia and for treatment of the MRSA in his nasal passages. 5. Agree with plans for cardiac catheterization in light of his crushing chest pain this morning and possible acute coronary syndrome. 6. Erythropoietin/Aranesp with dialysis. 7. Close renal followup. 8. Will assist the patient in making plans for transfer for outpatient hemodialysis to [place] as he plans on going back home post the hospitalization. Greater than 35 minutes spent in the care of this patient. Doug Vazquez MD
[2017-11-08] MEDS ORDERED: Mupirocin 2% Ointment 15 GM TUBE NS SCH (18:00)
[2017-11-08] MEDS: Mupirocin 2% Ointment 15 GM TUBE NS SCH (18:14)
[2017-11-08] MEDS: Morphine 2 mg/ml ISec IVP PRN ×2 (18:52→23:01)
[2017-11-08 21:05] LABS: TROPONIN I 0.05 ng/mL
--- NOTE | 2017-11-09 01:03 | PN ---
DATE: 11/08/2017 SUBJECTIVE: The patient was seen this Tuesday at the noontime hour in room CCU, bed 5. Apparently, quite a few events occurred during the course of this morning. Initially, yesterday, he was thought by the resident staff to be readied to go leave ICU, but then, he developed chest pain. He ruled in for myocardial infarction with positive troponins and stayed in ICU. Again, later the patient developed crushing upper chest pain. EKGs were done. Labs were repeated. Nitrates were given with relief of the symptoms. So, he was started on IV Tridil/nitroglycerin as a drip and is obviously staying in ICU. homemaking rehabilitation consultant Dr. Palumbo has been notified. PHYSICAL EXAMINATION: GENERAL: The patient was seen this Tuesday in CCU, bed 5. Awake, alert, and clear. Recognizes me and in good spirits. HEENT: Unremarkable. Conjunctivae pink. Mucous membranes are moist. NECK: Supple without masses. LUNGS: Show good aeration right and left. HEART: Regular, not tachycardiac. ABDOMEN: Soft and nontender. EXTREMITIES: Show no edema. MEDICATIONS: Review of meds shows he is still on Maxipime and Solu-Medrol 20 mg IV every 12 hours. LABORATORY DATA: Review of labs shows his white count is down to normal today at 10.6, H and H are 8.3 and 24 related to his underlying renal disease. Chemistry showed potassium of 5.2, BUN of 97, and creatinine stable at 9.4. Random glucose was 142. Troponins were normal this morning after a peak of 0.16 yesterday as mentioned above. Legionella was negative. Rheumatoid factor was negative. IMPRESSION: 1. Chest pain on presentation with positive troponin x1. 2. Severe anemia related to underlying renal disease. 3. Renal failure with a creatinine of baseline 7 due to history of Christopher granulomatosis. 4. History of Christopher granulomatosis. 5. History of chronic obstructive pulmonary disease. 6. History of tobacco use. 7. Pneumonia with hemoptysis on presentation to the office 2 days prior to this admission. PLAN: Continuing antibiotics. We will need to discuss with Cardiology about options for intervention. Obviously, there is increased risk of catheterization and use of dye given underlying frail renal state. I will need to discuss with Renal and Cardiology. We will need to lay out options for what would be our best next step. Zaki Gao MD [facility]
[2017-11-09] MEDS ORDERED: Barium Sulfate Susp 2.1% w/v, 2.0% w/w 450 mL Bottle PO ONE (06:46)
[2017-11-09] MEDS: Pantoprazole 40 mg EC Tab PO SCH (06:54)
[2017-11-09 07:00] LABS: BASO # 0.01 K/mm3 (0.0-2.0); BASO % 0.1 % (0.0-3.0); GRAN # 12.37 (1.4-6.5); GRAN % 89.2 % (50.0-68.0); HEMOGLOBIN 8.6 g/dL (14.0-18.0); LYMPH % 6.8 % (22.0-35.0); MEAN CELL VOLUME 85.9 fl (80.0-105.0); MEAN CORPUSCULAR HEMOGLOBIN 29.6 pg (25.0-35.0); MEAN CORPUSCULAR HGB CONC 34.4 g/dl (31.0-37.0); MEAN PLATELET VOLUME 8.4 fl (7.0-11.0); MONO # 0.5 (0.1-0.6); MONO % 3.9 % (1.0-6.0); RBC 2.91 10^6/uL (3.5-6.1); RED CELL DISTRIBUTION WIDTH 14.8 % (11.5-14.5)
[2017-11-09 07:19] LABS: TROPONIN I 0.06 ng/mL
[2017-11-09 07:20] LABS: WHITE BLOOD COUNT 13.9 10^3/ul (4.5-11.0)
[2017-11-09 07:27] LABS: ALB/GLOB RATIO 1.4 (1.1-1.8); ALBUMIN 3.6 g/dL (3.0-4.8); CALCIUM 8.4 mg/dL (8.4-10.5)
[2017-11-09] MEDS: Mupirocin 2% Ointment 15 GM TUBE NS SCH ×2 (09:44→18:17)
[2017-11-09] MEDS: Cefepime 1gm in NS 100ml 1 GM/100 ML BAG IVPB SCH (09:45)
[2017-11-09] MEDS: MethylPREDNISolone 40 mg Vial IVP SCH ×2 (09:46→21:05)
--- NOTE | 2017-11-09 10:48 | CT ---
Date of service: 11/09/2017 PROCEDURE: CT Chest without contrast HISTORY: Recurrent chest pain COMPARISON: 01/12/2015 TECHNIQUE: Contiguous axial images were obtained through the chest without intravenous contrast enhancement. Sagittal and coronal reconstructions were performed. Radiation dose (DLP): 335 mGy-cm. This CT exam was performed using one or more of the following dose reduction techniques: Automated exposure control, adjustment of the mA and/or kV according to patient size, and/or use of iterative reconstruction technique. FINDINGS: LUNGS: There is a right upper lobe infiltrate and bilateral lower lobe infiltrates. There are small bilateral pleural effusions. There is some chronic scarring in the lingular segment of the left upper lobe MEDIASTINUM: Unremarkable thoracic aorta. No aneurysm. Coronary artery calcifications Main pulmonary artery unremarkable. No vascular congestion. No lymphadenopathy. PLEURA: No pleural fluid. No pneumothorax. BONES: No fracture. No destructive lesion. UPPER ABDOMEN: There is a right adrenal mass measuring 2 x 4 cm. This is unchanged. OTHER FINDINGS: None. IMPRESSION: Right upper lobe and bilateral lower lobe infiltrates consistent with pneumonia versus CHF. Small pleural effusions
--- NOTE | 2017-11-09 12:10 | CARD ---
APPROVED REPORT Date of service: 11/09/2017 EKG Measurement Heart [id number] <Conclusion> Normal sinus rhythm Normal ECG
--- NOTE | 2017-11-09 12:12 | PN ---
DATE: 11/09/2017 REASON FOR CONSULTATION AND FOLLOWUP: Cardiac evaluation, admitted with chest pain, borderline first troponin positive, acute kidney injury, severe anemia. SUBJECTIVE: The patient denies any chest pain. After I saw yesterday, the patient developed chest pain on nitro. Chest pain appears to be more atypical. Subsequent troponin remains negative in spite of renal failure. No acute ST-T changes noted. Denies any chest pain, shortness of breath or any palpitations. OBJECTIVE: GENERAL: Not in apparent distress. VITAL SIGNS: Temperature afebrile, heart rate 80, blood pressure 130/80. HEENT: PERRLA. Extraocular muscles intact. NECK: Supple. No carotid bruits or thyromegaly. CHEST: Clear to auscultation. HEART: S1 and S2 regular. ABDOMEN: Soft. EXTREMITIES: Clubbing and cyanosis negative. LABORATORY DATA: Blood workup: WBC 13.9, hemoglobin 8.6, hematocrit 25, platelet count 259. Chemistry shows sodium 137, potassium 4.4, chloride 97, carbon dioxide 26, anion gap of 18, BUN 54, creatinine 5.5. Troponin remains flat. First troponin on admission 0.16 with creatinine of 9.5. Subsequent troponin is 0.09, 0.06, 0.05, 0.06 essentially negative. IMPRESSION AND PLAN: A 66-year-old male with past medical history significant for Christopher granulomatosis, chronic kidney disease, acute kidney injury secondary to granulomatosis, severe anemia, admitted with anemia, history of hemoptysis and pneumonia prior to coming here in the office with Dr. Gao, complaining of recurrent chest pain. Though troponin remains flat, but the patient has dropping hemoglobin and hematocrit. Yesterday, called [facility], discussed in length with Dr. Ornelas. He is going to do endoscopy today to see any active ulcer or bleeding. Also, I ordered CAT scan of the chest to rule out any abnormality, history of hemoptysis. If CAT scan is negative and endoscopy is negative, we will do the cardiac catheterization tomorrow, discussed with the patient and if endoscopy shows some ulcer, then we will put bare-metal stent if needed. We will discuss with you. I discussed with the patient, discussed with nursing staff and discussed with Dr. Pickard and Dr. Ornelas. For now, continue baby aspirin, continue Plavix, continue nitrate, n.p.o. after midnight for cardiac catheterization tomorrow. Eleno Palumbo MD
--- NOTE | 2017-11-09 12:49 | CARD ---
APPROVED REPORT Date of service: 11/08/2017 EKG Measurement Heart [id number] <Conclusion> Normal sinus rhythm Nonspecific ST and T wave abnormality
--- NOTE | 2017-11-09 13:03 | PN ---
DATE: 11/09/2017 PULMONARY PROGRESS NOTE SUBJECTIVE: The patient was seen in the Intensive Care Unit. He is currently on DuoNeb inhalation and multiple antibiotic including doxycycline, cefepime as well as Solu-Medrol. PHYSICAL EXAMINATION: VITAL SIGNS: Temperature is 97.9, pulse 100, respirations 24, pulse oximetry is 99 on nasal cannula, blood pressure 160/60. GENERAL: Physical findings stable. The patient is status post endoscopy to evaluate for source of acute bleeding. HEAD, EARS, NOSE AND THROAT: Within normal limits. NECK: Supple with no jugular vein distention. CARDIOVASCULAR: S1, S2, no S3. Regular. PULMONARY: Diminished breath sounds at both bases, otherwise clear. ABDOMEN: Soft, nontender, no organomegaly. EXTREMITIES: No pedal edema. SKIN: No acute skin rash. NEUROLOGICAL: Limited at present time. LABORATORY DATA: WBC is 13.9, RBC is 2.91, hemoglobin of 8.6, moderate anemia. Sodium is 137, potassium 4.4, chloride 97. I had an opportunity to review the initial films of his CT chest. The report is not available yet. His chest x-ray revealed slight elevation of both diaphragms with possible subpulmonic effusions. Review of the CT scan revealed moderate effusion on the right side with multifocal infiltrates and mild effusion on the left side. This is consistent with multifocal pneumonitis and bilateral pleural effusions. ASSESSMENT: 1. Bilateral pleural effusions. 2. Positive troponin. 3. Severe anemia. 4. Chronic renal disease. 5. Christopher's granulomatosis. 6. Chronic obstructive pulmonary disease. 7. History of tobacco use. 8. Pneumonia. I will continue his current antibiotic therapy. In my opinion, the patient's condition needs to be stabilized prior to consideration for cardiac catheterization. His chest x-ray reveals bilateral pleural effusions that could be cardiac in origin. Doubt parapneumonic effusions. The lung infiltrations are relatively modest compared to the size of effusions. BNP repeat should be ordered. Raheem Guevara MD [facility]
--- NOTE | 2017-11-09 13:16 | PN ---
DATE: 11/09/2017 SUBJECTIVE: The patient is seen and examined at bedside. He does not have any chest pain; however, he is on nitroglycerin drip. He had an uneventful night and tolerated hemodialysis yesterday well. VS 150/80, RR 18, HR 95 HEENT: head and neck is atraumatic Lungs clear to auscultation b/l abdo: soft, NT, ND MUSCULOSKELETAL: No C/C/E. NEUROLOGIC: The patient moves all extremities spontaneously. SKIN: Moist. PSYCHIATRIC: The patient is alert, awake and oriented x3. LABORATORY DATA: WBC 13.9, hemoglobin 8.6, platelet count 259. Sodium 137, potassium 4.4, chloride 97, carbon dioxide 26, BUN 54, creatinine 5.5, glucose 137. Troponin 0.06. MEDICATIONS: DuoNeb p.r.n., Norvasc, aspirin, Lipitor, PhosLo, Plavix, Aranesp, Doryx, hydralazine, isosorbide mononitrate, labetalol p.r.n., cefepime, Solu-Medrol 20 mg IV every 12 hours, morphine p.r.n., Protonix and nitroglycerin. ASSESSMENT AND PLAN: This is a 66-year-old gentleman who presented with cardiac chest pain. He was treated conservatively; however, his chest pain returned and he was started on nitroglycerin drip. At present time, he is going for endoscopy as he dropped hemoglobin at some point, even though his hemoptysis was minor and in fact stopped several days ago. Once peptic ulcer disease as a source of anemia ruled out, the patient will go to cardiac catheterization and if clinically significant coronary artery disease found, he will be stented with subsequent initiation of dual antiplatelet therapy. Currently however, patient tolerated his first hemodialysis session well. He is alert, awake, oriented, protecting airways and hemodynamically relatively stable. His respiratory status substantially improved and his pneumonia appears to be getting better. We will continue with antibiotics. Blood culture and urine culture were negative. Urine for Legionella pneumophila antigen negative. Rheumatoid factor negative. Streptococcal urine antigen is pending. Echocardiogram revealed slightly impaired left ventricular systolic function and he is on isosorbide mononitrate and hydralazine for afterload reduction. Cardiology service is following him as well. He is on Plavix, aspirin, beta-blockers, and statins. We will continue with deep venous thrombosis and gastrointestinal prophylaxis. ccm time 40 min Toro Pickard MD [facility]
--- NOTE | 2017-11-09 13:47 | CP.PCM.PN ---
Subjective - Date & Time of Evaluation Date of Evaluation: 11/09/17 Time of Evaluation: 09:20 - Subjective Subjective: Breathing better, no fevers, improved cough, no nausea or diarrhea, no more hemoptysis. Objective - Vital Signs/Intake and Output Vital Signs (last 24 hours): Temp Pulse Resp BP Pulse Ox 97.9 F 76 28 H 131/48 L 99 11/08/17 16:00 11/09/17 02:40 11/09/17 02:40 11/09/17 02:00 11/09/17 02:40 Intake and Output: 11/08/17 11/09/17 18:59 06:59 Intake Total 1125 Output Total 325 Balance 800 - Medications Medications: Current Medications Albuterol/Ipratropium (Duoneb 3 Mg/0.5 Mg (3 Ml) Ud) 3 ml IH [id number] PRN PRN Reason: Shortness of Breath Amlodipine Besylate (Norvasc) 10 mg PO DAILY [facility] Last Admin: 11/08/17 09:45 Dose: 10 mg Aspirin (Aspirin Chewable) 81 mg PO DAILY [facility] Last Admin: 11/08/17 09:45 Dose: 81 mg Atorvastatin Calcium (Lipitor) 40 mg PO DIN [facility] Last Admin: 11/08/17 18:14 Dose: 40 mg Calcium Acetate (Phoslo) 667 mg PO WM [facility] Last Admin: 11/08/17 18:28 Dose: 667 mg Clopidogrel Bisulfate (Plavix) 75 mg PO DAILY [facility] Doxycycline Hyclate (Doryx) 100 mg PO Q12 [facility] PRN Reason: Protocol Stop: 11/15/17 22:01 Last Admin: 11/08/17 23:02 Dose: 100 mg Hydralazine HCl (Apresoline) 25 mg PO TID [facility] Last Admin: 11/08/17 18:25 Dose: 25 mg Cefepime HCl (Maxipime 1gm) 1 gm in 100 mls @ 100 mls/hr IVPB Q24H [facility]MA PRN Reason: Protocol Last Admin: 11/08/17 15:03 Dose: 100 mls/hr Nitroglycerin/Dextrose (Nitroglycerin 50 Mg/250 Ml D5w) 50 mg in 250 mls @ 1.5 mls/hr IV .Q24H PRN; Protocol; 5 MCG/MIN PRN Reason: chest pain Last Admin: 11/08/17 18:23 Dose: 5 mcg/min, 1.5 mls/hr Isosorbide Mononitrate (Imdur) 60 mg PO DAILY [facility] Last Admin: 11/08/17 09:45 Dose: 60 mg Labetalol HCl (Trandate) 5 mg IV Q6H PRN PRN Reason: Systolic Blood Pressure Last Admin: 11/07/17 06:14 Dose: 5 mg Methylprednisolone (Solu-Medrol) 20 mg IVP Q12 [facility] Last Admin: 11/08/17 23:02 Dose: 20 mg Morphine Sulfate (Morphine) 2 mg IVP Q4H PRN PRN Reason: Pain, severe (8-10) Last Admin: 11/08/17 23:01 Dose: 2 mg Mupirocin (Bactroban Ointment) 0 gm NS BID [facility] Stop: 11/13/17 10:01 Last Admin: 11/08/17 18:14 Dose: 1 oin Pantoprazole Sodium (Protonix Ec Tab) 40 mg PO ACB [facility] Last Admin: 11/08/17 08:04 Dose: 40 mg - Labs Labs: 11/08/17 05:10 11/08/17 05:10 PT 10.7 SECONDS (9.4-12.5) 11/06/17 20:23 INR 0.94 (0.93-1.08) 11/06/17 20:23 APTT 31.2 Seconds (25.1-36.5) 11/06/17 20:23 - Constitutional Appears: Non-toxic, Chronically Ill - Head Exam Head Exam: NORMAL INSPECTION - ENT Exam ENT Exam: Mucous Membranes Moist - Neck Exam Neck Exam: absent: Meningismus - Respiratory Exam Respiratory Exam: Decreased Breath Sounds - Cardiovascular Exam Cardiovascular Exam: +S1, +S2 - GI/Abdominal Exam GI & Abdominal Exam: Soft. absent: Tenderness Assessment and Plan - Assessment and Plan (Free Text) Plan: Assessment Severe sepsis with hypoxic respiratory failure due to left sided severe community-acquired pneumonia, clinically improving Christopher's granulomatosis with renal failure now on dialysis history of CVA history of pneumonia CAD HTN significant smoking history Plan cultures have been negative - continue Cefepime and Doxycycline day 3 patient has blood in sputum but his history and presentation makes TB unlikely will continue to monitor clinically
[2017-11-09] MEDS ORDERED: Etomidate 20 mg/10ml Inj IV ONE (14:37)
[2017-11-09] MEDS ORDERED: Propofol 10 mg/ml Inj (20 ML) ONE (14:38)
--- NOTE | 2017-11-09 20:30 | PN ---
DATE: 11/09/2017 SUBJECTIVE: The patient is seen in the endoscopy suite. He is awake. He is alert. He appears mildly short of breath. He denies any chest pain, but he did have severe left-sided chest pain yesterday. He denies any nausea or vomiting. He did have dialysis yesterday. He is currently on a nitroglycerin drip. PHYSICAL EXAMINATION: GENERAL: Elderly male lying in bed. VITAL SIGNS: Blood pressure 153/68, heart rate 96, respiratory rate 18, temperature 98.5. HEENT: Normocephalic, atraumatic, positive pallor. NECK: Supple, no JVD. LUNGS: Bilateral equal air entry, bilateral equal expansion, no rales appreciated anteriorly. CARDIAC: S1 and S2, regular rate and rhythm, no murmur, no rub. ABDOMEN: Obese, distended, soft, nontender, bowel sounds present. EXTREMITIES: No lower extremity edema. INTAKE AND OUTPUT: 253/240. LABORATORY DATA: WBC 13.9, hemoglobin 8.6, hematocrit 25, platelets 259. Sodium 137, potassium 4.4, chloride 97, CO2 of 26, BUN 54, creatinine 5.5, glucose 137, calcium 8.4, phosphorus 5.1, magnesium 1.7. AST 25, ALT 16. Troponin 0.09, 0.06, 0.05, 0.05. Rheumatoid factor negative. EVELIA negative. Hepatitis surface antigen negative. Urinalysis: Protein 100, glucose 100, blood trace intact. CURRENT MEDICATIONS: Apresoline 25 t.i.d., aspirin, Bactroban, doxycycline 100 every 12 hours, DuoNeb, Imdur 60, Lipitor 40, cefepime 1 g daily, morphine 2 mg every 4 hours p.r.n., amlodipine 10, PhosLo 667 with meals, Plavix 75, Protonix, Solu-Medrol 20 IV every 12 hours, and Trandate p.r.n. IMAGING STUDIES: CT of the chest, right upper lobe and bilateral lower lobe infiltrates consistent with pneumonia versus CHF, right adrenal mass measuring 2 x 4 cm. Echocardiogram: Left ventricular size normal, mild concentric left ventricular hypertrophy, impaired EF 45%, [id number] mitral regurg, moderate tricuspid regurg. ASSESSMENT: 1. Chronic kidney disease stage 5 with acute kidney injury? 2. Hyperkalemia. 3. Severe anemia. 4. Left-sided chest pain,? demand ischemia. 5. History of Christopher granulomatosis. 6. History of being on dialysis a year ago. 7. Hypertension, uncontrolled. 8. Lack of insight on the patient's part. PLAN: 1. Case discussed with at bedside at length. The patient needs to be on renal replacement therapy. The patient is not accepting this recommendation. The patient thinks he can get around with dialysis once a month! 2. The patient had stable dialysis treatment yesterday. 3. Follow up endoscopy report. 4. Plan is for cardiac catheterization tomorrow. 5. Continue current antihypertensives. 6. Check ESR, ANCA, PTH levels. 7. Case discussed with Dr. Pickard. Plan is to have kidney biopsy done from 01/2015 reviewed again. More than 35 minutes was spent in the care of this critically ill patient. Diane Zacarias MD
[2017-11-10] MEDS ORDERED: Lidocaine 2 GM/50 ML Vial (4%) IV ONE (07:27)
[2017-11-10] MEDS ORDERED: Iodixanol 320 MG/ML 200 ML BOTTLE IV ONE (07:33)
[2017-11-10] MEDS ORDERED: Phenylephrine 10 mg/ml Inj ONE (08:13)
[2017-11-10] MEDS ORDERED: Midazolam 2 MG/2 ML VIAL ONE (08:16)
[2017-11-10] MEDS ORDERED: Iodixanol 320 MG/ML 100 ML BOTTLE IV ONE (08:47)
--- NOTE | 2017-11-10 09:42 | CPOSTOP ---
DATE: 11/10/2017 CARDIOVASCULAR LAB POST PROCEDURE NOTE DICTATING PHYSICIAN: Eleno Palumbo MD. 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 TYPE OF ANESTHESIA: Moderate consciousness sedation, total 2 mg of Versed, 100 of fentanyl given, periodically started at 1 mg of Versed and 50 of fentanyl. PRE-PROCEDURE DIAGNOSES: Unstable angina, [id number] myocardial infarction. PROCEDURE PERFORMED: Left heart catheterization. FINDINGS: Nonobstructive coronary artery disease. FINAL DIAGNOSIS: Nonobstructive coronary artery disease. VASCULAR ACCESS: Right femoral artery. CLOSURE DEVICE: Mynx applied. TOTAL RADIATION DOSE: 7067.68 milligray unit. FLUORO TIME: 8.8 minutes. Eleno Palumbo MD
[2017-11-10 09:49] LABS: HEMOGLOBIN 8.7 g/dL (14.0-18.0); MEAN CORPUSCULAR HEMOGLOBIN 29.8 pg (25.0-35.0); MEAN CORPUSCULAR HGB CONC 34.3 g/dl (31.0-37.0); MEAN PLATELET VOLUME 8.8 fl (7.0-11.0); RBC 2.92 10^6/uL (3.5-6.1); RED CELL DISTRIBUTION WIDTH 14.4 % (11.5-14.5); WHITE BLOOD COUNT 10.8 10^3/ul (4.5-11.0)
[2017-11-10 10:05] LABS: ALB/GLOB RATIO 1.3 (1.1-1.8); ALBUMIN 3.3 g/dL (3.0-4.8); CALCIUM 8.3 mg/dL (8.4-10.5)
[2017-11-10] MEDS: Mupirocin 2% Ointment 15 GM TUBE NS SCH ×2 (10:06→17:34)
[2017-11-10] MEDS: MethylPREDNISolone 40 mg Vial IVP SCH ×2 (10:10→21:54)
[2017-11-10] MEDS: Cefepime 1gm in NS 100ml 1 GM/100 ML BAG IVPB SCH (10:10)
[2017-11-10] MEDS: Pantoprazole 40 mg EC Tab PO SCH (10:12)
--- NOTE | 2017-11-10 10:30 | CP.CCUPN ---
<Chemo Petersen - Last Filed: 11/10/17 13:19> CCU Subjective - Physician Review Subjective (Free Text): Chemo Petersen, PGY1 Critical Care Progress Note for Dr. Grey Patient was seen and examined at bedside this morning. Patient denied fever, lightheadedness, dizziness, weakness, shortness of breath, hemoptysis, chest pain, abdominal pain, dysuria, hematuria. Chest pain was relived, no longer on nitro. No overnight changes. Patient had endoscopy yesterday, which showed gastritis. Also tolerated his recent dialysis. Patient went for cardiac cath earlier today. Patient is now s/p cardiac cath, which showed no obstructive CAD ; no stents placed. Doing well after procedure. A Full 12 point ROS was reviewed and unremarkable except as stated above. CCU Objective - Vital Signs / Intake & Output Vital Signs (Last 4 hours): Vital Signs Pulse Resp BP Pulse Ox 11/10/17 10:08 84 181/78 H 11/10/17 10:07 181/78 H 11/10/17 10:06 87 181/78 H 11/10/17 06:30 83 16 149/81 97 Intake and Output (Last 8hrs): Intake & Output 11/09/17 11/10/17 11/10/17 22:59 06:59 14:59 Intake Total 460 Output Total 120 Balance 340 Intake: Oral 460 Output: Urine 120 Urine, Voided 120 - Physical Exam Head: Positive for: Atraumatic, Normocephalic Pupils: Positive for: PERRL Extroacular Muscles: Positive for: EOMI Conjunctiva: Positive for: Normal Ears: Positive for: NORMAL TM Mouth: Positive for: Moist Mucous Membranes Pharnyx: Positive for: Normal Nose (External): Positive for: Other (Nasal cannula ) Neck: Positive for: Normal Range of Motion Respiratory/Chest: Positive for: Clear to Auscultation, Good Air Exchange. Negative for: Respiratory Distress, Accessory Muscle Use, Wheezes, Decreased Breath Sounds, Rales, Retracting, Rhonchi Cardiovascular: Positive for: Regular Rate and Rhythm, Normal S1, S2. Negative for: Murmurs Abdomen: Positive for: Normal Bowel Sounds. 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 Negative for: Cyanosis, Edema Lower Extremity: Positive for: Normal Inspection, NORMAL PULSES, Normal ROM, Neurovascularly Intact, Capillary Refill < 2 s, Other (Cardiac cath insertion site at right leg - no hematoma or bleed). Negative for: Edema, CALF TENDERNESS , Gopal's Sign, Erythema, Deformity Neurological: Positive for: Speech Normal Skin: Positive for: Warm, Dry, Normal Color. Negative for: Rashes Psychiatric: Positive for: Alert, Oriented x 3 - Medications Active Medications: Active Medications Generic Name Dose Route Start Last Admin Trade Name Freq PRN Reason Stop Dose Admin Albuterol/Ipratropium 3 ml 11/08/17 10:15 Duoneb 3 Mg/0.5 Mg (3 Ml) Ud IH [id number] PRN Shortness of Breath Amlodipine Besylate 10 mg 11/08/17 10:00 11/10/17 10:07 Norvasc PO 10 mg DAILY IRMA Administration Atorvastatin Calcium 40 mg 11/07/17 17:00 11/09/17 18:17 Lipitor PO 40 mg DIN IRMA Administration Calcium Acetate 667 mg 11/08/17 17:00 11/10/17 10:07 Phoslo PO 667 mg WM IRMA Administration Doxycycline Hyclate 100 mg 11/08/17 22:00 11/10/17 10:07 Doryx PO 11/15/17 22:01 100 mg Q12 IRMA Administration Protocol Hydralazine HCl 50 mg 11/10/17 09:20 11/10/17 10:06 Apresoline PO 50 mg TID IRMA Administration Cefepime HCl 1 gm in 100 mls @ 100 mls/hr 11/07/17 09:00 11/10/17 10:10 Maxipime 1gm IVPB 100 mls/hr Q24H IRMA Administration Protocol Linezolid 600 mg 11/10/17 10:00 11/10/17 10:07 Zyvox PO 600 mg BID IRMA Administration Protocol Methylprednisolone 20 mg 11/07/17 10:00 11/10/17 10:10 Solu-Medrol IVP 20 mg Q12 IRMA Administration Metoprolol Tartrate 25 mg 11/10/17 10:00 11/10/17 10:08 Lopressor PO 25 mg BID IRMA Administration Morphine Sulfate 2 mg 11/06/17 23:59 11/08/17 23:01 Morphine IVP 2 mg Q4H PRN Administration Pain, severe (8-10) Mupirocin 0 gm 11/08/17 18:00 11/10/17 10:06 Bactroban Ointment NS 11/13/17 10:01 1 applic BID IRMA Administration Pantoprazole Sodium 40 mg 11/08/17 07:30 11/10/17 10:12 Protonix Ec Tab PO 40 mg ACB IRMA Administration - Patient Studies Lab Studies: Microbiology Studies 11/06/17 22:20 Blood Culture - Preliminary Blood NO GROWTH AFTER 3 DAYS 11/08/17 20:30 Gram Stain - Final Sputum Lab Studies 11/10/17 11/10/17 11/09/17 Range/Units 09:30 09:30 22:13 WBC 10.8 D (4.5-11.0) 10^3/ul RBC 2.92 L (3.5-6.1) 10^6/uL Hgb 8.7 L (14.0-18.0) g/dL Hct 25.4 L (42.0-52.0) % MCV 87.0 (80.0-105.0) fl MCH 29.8 (25.0-35.0) pg MCHC 34.3 (31.0-37.0) g/dl RDW 14.4 (11.5-14.5) % Plt Count 256 (120.0-450.0) 10^3/uL MPV 8.8 (7.0-11.0) fl ESR 30 H (0.00-15.0) mm/hr Sodium 134 (132-148) mmol/L Potassium 4.5 (3.6-5.0) mmol/L Chloride 97 L (98-107) mmol/L Carbon Dioxide 24 (21-33) mmol/L Anion Gap 18 (10-20) BUN 82 H (7-21) mg/dL Creatinine 6.7 H (0.8-1.5) mg/dl Est GFR ( Amer) 10 Est GFR (Non-Af Amer) 8 Random Glucose 122 H (70-110) mg/dL Calcium 8.3 L (8.4-10.5) mg/dL Phosphorus 5.4 H (2.5-4.5) mg/dL Magnesium 1.6 L (1.7-2.2) mg/dL Total Bilirubin 0.4 (0.2-1.3) mg/dL AST 27 (17-59) U/L ALT 23 (7-56) U/L Alkaline Phosphatase 44 (38-126) U/L Total Protein 5.9 (5.8-8.3) g/dL Albumin 3.3 (3.0-4.8) g/dL Globulin 2.6 gm/dL Albumin/Globulin Ratio 1.3 (1.1-1.8) Procalcitonin (0.19-0.49) NG/ML EVELIA Screen (Negative) Hep Bs Antigen (NEGATIVE) Hep Bs Antibody (NEGATIVE) 11/08/17 11/08/17 11/08/17 Range/Units 20:30 20:30 20:30 WBC (4.5-11.0) 10^3/ul RBC (3.5-6.1) 10^6/uL Hgb (14.0-18.0) g/dL Hct (42.0-52.0) % MCV (80.0-105.0) fl MCH (25.0-35.0) pg MCHC (31.0-37.0) g/dl RDW (11.5-14.5) % Plt Count (120.0-450.0) 10^3/uL MPV (7.0-11.0) fl ESR (0.00-15.0) mm/hr Sodium (132-148) mmol/L Potassium (3.6-5.0) mmol/L Chloride (98-107) mmol/L Carbon Dioxide (21-33) mmol/L Anion Gap (10-20) BUN (7-21) mg/dL Creatinine (0.8-1.5) mg/dl Est GFR ( Amer) Est GFR (Non-Af Amer) Random Glucose (70-110) mg/dL Calcium (8.4-10.5) mg/dL Phosphorus (2.5-4.5) mg/dL Magnesium (1.7-2.2) mg/dL Total Bilirubin (0.2-1.3) mg/dL AST (17-59) U/L ALT (7-56) U/L Alkaline Phosphatase (38-126) U/L Total Protein (5.8-8.3) g/dL Albumin (3.0-4.8) g/dL Globulin gm/dL Albumin/Globulin Ratio (1.1-1.8) Procalcitonin 0.26 (0.19-0.49) NG/ML EVELIA Screen (Negative) Hep Bs Antigen Negative (NEGATIVE) Hep Bs Antibody Positive (NEGATIVE) 11/07/17 Range/Units 08:20 WBC (4.5-11.0) 10^3/ul RBC (3.5-6.1) 10^6/uL Hgb (14.0-18.0) g/dL Hct (42.0-52.0) % MCV (80.0-105.0) fl MCH (25.0-35.0) pg MCHC (31.0-37.0) g/dl RDW (11.5-14.5) % Plt Count (120.0-450.0) 10^3/uL MPV (7.0-11.0) fl ESR (0.00-15.0) mm/hr Sodium (132-148) mmol/L Potassium (3.6-5.0) mmol/L Chloride (98-107) mmol/L Carbon Dioxide (21-33) mmol/L Anion Gap (10-20) BUN (7-21) mg/dL Creatinine (0.8-1.5) mg/dl Est GFR ( Amer) Est GFR (Non-Af Amer) Random Glucose (70-110) mg/dL Calcium (8.4-10.5) mg/dL Phosphorus (2.5-4.5) mg/dL Magnesium (1.7-2.2) mg/dL Total Bilirubin (0.2-1.3) mg/dL AST (17-59) U/L ALT (7-56) U/L Alkaline Phosphatase (38-126) U/L Total Protein (5.8-8.3) g/dL Albumin (3.0-4.8) g/dL Globulin gm/dL Albumin/Globulin Ratio (1.1-1.8) Procalcitonin (0.19-0.49) NG/ML EVELIA Screen Negative (Negative) Hep Bs Antigen (NEGATIVE) Hep Bs Antibody (NEGATIVE) Laboratory Results - last 24 hr 11/07/17 11/08/17 11/08/17 08:20 20:30 20:30 WBC RBC Hgb Hct MCV MCH MCHC RDW Plt Count MPV ESR Sodium Potassium Chloride Carbon Dioxide Anion Gap BUN Creatinine Est GFR ( Amer) Est GFR (Non-Af Amer) Random Glucose Calcium Phosphorus Magnesium Total Bilirubin AST ALT Alkaline Phosphatase Total Protein Albumin Globulin Albumin/Globulin Ratio Procalcitonin EVELIA Screen Negative Hep Bs Antigen Negative Hep Bs Antibody Positive 11/08/17 11/09/17 11/10/17 20:30 22:13 09:30 WBC 10.8 D RBC 2.92 L Hgb 8.7 L Hct 25.4 L MCV 87.0 MCH 29.8 MCHC 34.3 RDW 14.4 Plt Count 256 MPV 8.8 ESR 30 H Sodium Potassium Chloride Carbon Dioxide Anion Gap BUN Creatinine Est GFR ( Amer) Est GFR (Non-Af Amer) Random Glucose Calcium Phosphorus Magnesium Total Bilirubin AST ALT Alkaline Phosphatase Total Protein Albumin Globulin Albumin/Globulin Ratio Procalcitonin 0.26 EVELIA Screen Hep Bs Antigen Hep Bs Antibody 11/10/17 09:30 WBC RBC Hgb Hct MCV MCH MCHC RDW Plt Count MPV ESR Sodium 134 Potassium 4.5 Chloride 97 L Carbon Dioxide 24 Anion Gap 18 BUN 82 H Creatinine 6.7 H Est GFR ( Amer) 10 Est GFR (Non-Af Amer) 8 Random Glucose 122 H Calcium 8.3 L Phosphorus 5.4 H Magnesium 1.6 L Total Bilirubin 0.4 AST 27 ALT 23 Alkaline Phosphatase 44 Total Protein 5.9 Albumin 3.3 Globulin 2.6 Albumin/Globulin Ratio 1.3 Procalcitonin EVELIA Screen Hep Bs Antigen Hep Bs Antibody Review of Systems - Review of Systems All systems: reviewed and no additional remarkable complaints except (as per HPI.) Critical Care Progress Note - Extremities/Vascular Does the Patient have a Central Venous Catheter?: No Does the Patient need a Central Venous Catheter?: No Does the Patient have a Riojas Catheter?: No Does the Patient need a Riojas Catheter?: No - Prophylaxis GI Prophylaxis GI: PPI - Prophylaxis DVT Prophylaxis DVT: Ambulatory - Nutrition Nutrition: Nutrition Category Date Time Status Renal Diet [DIET] Diets 11/09/17 Dinner Ordered Assessment/Plan - Assessment and Plan (Free Text) Assessment: Patient is a 66 y/o M with PMHx of Lynnette's Granulomatosis, Renal failure ( previously on HD one year ago), CAD, HTN, and history of PNA who presented to the ED c/o worsening left-sided intermittent crushing chest pain occurring at rest. Patient has also been coughing up a teaspoon of blood x3 days prior to admission. Patient was [place] [facility] [place] where he was found to be in kidney failure and received an AV fistula for hemodialysis (2x per week at [facility]). 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 During recent admission, patient had V/Q scan that indicated low probability for DVT/PE. However, CXR showed diffuse infiltrate on the right lung consistent with pneumonia and clear left lung. Patient also presented with low Hgb (7.7) and was transfused x2 pRBCs. Patient has been admitted to the ICU for management of community acquired pneumonia, renal failure, and possible ACS. During hospital course at ICU, patient tolerated dialysis well. Endoscopy was done for the hemoptysis, which showed gastritis, submucosal nodule, and small amount of clotted red blood seen at the glottis. Patient also went for cardiac cath (Dr. Palumbo) which showed non-obstructive CAD. No stents were placed. Patient is being monitored in the ICU s/p cardiac cath. Plan: Neuro: - AAOx3 - Maintain normothermia Cardio: - Chest pain resolved, off nitro - Cardiac cath (11/10): no obstructive coronary artery disease. No stents placed. Patient tolerated procedure well. - Cardio recs appreciated s/p cath: d/c asa/plavix, c/w hydralazine, lopressor for BP management, monitor distal pulses and vital signs, resume diet - EKG (11/08): NSR, no ST elevations or depression - Negative troponins (11/08) - ECHO: LV normal size. Mild LV hypertrophy. EF 45%. Mild AR. Pulm: - CAP improving: no leukocytosis (wbc 10.8), afebrile - Likely Community Acquired Pneumonia (CAP) - Chest CT (11/09): right upper lobe and bilateral lower lobe infiltrates consistent with PNA versus CHF. - Pulm consult, f/u recs - Maintain SaO2 > 92% - CXR (11/06): diffuse infiltrate on R-lung consistent with Pneumonia. Left lung clear. - V/Q scan (11/06): low probability for PE GI: - Endoscopy (11/09): gastritis, submucosal nodule, small amount of clotted red blood at glottis - Protonix ppx - Renal diet Renal: - Uremic Renal Failure - Tolerating dialysis; BUN/Cr trending down s/p dialysis - Nephro (Dr. 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 Case was reviewed and discussed with Attending Physician Dr. Grey. <Robel Grey - Last Filed: 11/10/17 13:24> CCU Objective - Vital Signs / Intake & Output Vital Signs (Last 4 hours): Vital Signs Pulse BP 11/10/17 10:08 84 181/78 H 11/10/17 10:07 181/78 H 11/10/17 10:06 87 181/78 H 11/10/17 10:00 92 H Intake and Output (Last 8hrs): Intake & Output 11/09/17 11/10/17 11/10/17 22:59 06:59 14:59 Intake Total 460 Output Total 120 Balance 340 Weight 148 lb Intake: Oral 460 Output: Urine 120 Urine, Voided 120 - Medications Active Medications: Active Medications Generic Name Dose Route Start Last Admin Trade Name Freq PRN Reason Stop Dose Admin Albuterol/Ipratropium 3 ml 11/08/17 10:15 Duoneb 3 Mg/0.5 Mg (3 Ml) Ud IH [id number] PRN Shortness of Breath Amlodipine Besylate 10 mg 11/08/17 10:00 11/10/17 10:07 Norvasc PO 10 mg DAILY IRMA Administration Atorvastatin Calcium 40 mg 11/07/17 17:00 11/09/17 18:17 Lipitor PO 40 mg DIN IRMA Administration Calcium Acetate 667 mg 11/08/17 17:00 11/10/17 10:07 Phoslo PO 667 mg WM IRMA Administration Doxycycline Hyclate 100 mg 11/08/17 22:00 11/10/17 10:07 Doryx PO 11/15/17 22:01 100 mg Q12 IRMA Administration Protocol Hydralazine HCl 50 mg 11/10/17 09:20 11/10/17 10:06 Apresoline PO 50 mg TID IRMA Administration Cefepime HCl 1 gm in 100 mls @ 100 mls/hr 11/07/17 09:00 11/10/17 10:10 Maxipime 1gm IVPB 100 mls/hr Q24H IRMA Administration Protocol Linezolid 600 mg 11/10/17 10:00 11/10/17 10:07 Zyvox PO 600 mg BID IRMA Administration Protocol Methylprednisolone 20 mg 11/07/17 10:00 11/10/17 10:10 Solu-Medrol IVP 20 mg Q12 IRMA Administration Metoprolol Tartrate 25 mg 11/10/17 10:00 11/10/17 10:08 Lopressor PO 25 mg BID IRMA Administration Morphine Sulfate 2 mg 11/06/17 23:59 11/08/17 23:01 Morphine IVP 2 mg Q4H PRN Administration Pain, severe (8-10) Mupirocin 0 gm 11/08/17 18:00 11/10/17 10:06 Bactroban Ointment NS 11/13/17 10:01 1 applic BID IRMA Administration Pantoprazole Sodium 40 mg 11/08/17 07:30 11/10/17 10:12 Protonix Ec Tab PO 40 mg ACB IRMA Administration - Patient Studies Lab Studies: Microbiology Studies 11/06/17 22:20 Blood Culture - Preliminary Blood NO GROWTH AFTER 3 DAYS 11/08/17 20:30 Gram Stain - Final Sputum Lab Studies 11/10/17 11/10/17 11/09/17 Range/Units 09:30 09:30 22:13 WBC 10.8 D (4.5-11.0) 10^3/ul RBC 2.92 L (3.5-6.1) 10^6/uL Hgb 8.7 L (14.0-18.0) g/dL Hct 25.4 L (42.0-52.0) % MCV 87.0 (80.0-105.0) fl MCH 29.8 (25.0-35.0) pg MCHC 34.3 (31.0-37.0) g/dl RDW 14.4 (11.5-14.5) % Plt Count 256 (120.0-450.0) 10^3/uL MPV 8.8 (7.0-11.0) fl ESR 30 H (0.00-15.0) mm/hr Sodium 134 (132-148) mmol/L Potassium 4.5 (3.6-5.0) mmol/L Chloride 97 L (98-107) mmol/L Carbon Dioxide 24 (21-33) mmol/L Anion Gap 18 (10-20) BUN 82 H (7-21) mg/dL Creatinine 6.7 H (0.8-1.5) mg/dl Est GFR ( Amer) 10 Est GFR (Non-Af Amer) 8 Random Glucose 122 H (70-110) mg/dL Calcium 8.3 L (8.4-10.5) mg/dL Phosphorus 5.4 H (2.5-4.5) mg/dL Magnesium 1.6 L (1.7-2.2) mg/dL Total Bilirubin 0.4 (0.2-1.3) mg/dL AST 27 (17-59) U/L ALT 23 (7-56) U/L Alkaline Phosphatase 44 (38-126) U/L Total Protein 5.9 (5.8-8.3) g/dL Albumin 3.3 (3.0-4.8) g/dL Globulin 2.6 gm/dL Albumin/Globulin Ratio 1.3 (1.1-1.8) EVELIA Screen (Negative) Ur L.pneumophila Ag (NEGATIVE) 11/09/17 11/07/17 Range/Units 17:00 08:20 WBC (4.5-11.0) 10^3/ul RBC (3.5-6.1) 10^6/uL Hgb (14.0-18.0) g/dL Hct (42.0-52.0) % MCV (80.0-105.0) fl MCH (25.0-35.0) pg MCHC (31.0-37.0) g/dl RDW (11.5-14.5) % Plt Count (120.0-450.0) 10^3/uL MPV (7.0-11.0) fl ESR (0.00-15.0) mm/hr Sodium (132-148) mmol/L Potassium (3.6-5.0) mmol/L Chloride (98-107) mmol/L Carbon Dioxide (21-33) mmol/L Anion Gap (10-20) BUN (7-21) mg/dL Creatinine (0.8-1.5) mg/dl Est GFR ( Amer) Est GFR (Non-Af Amer) Random Glucose (70-110) mg/dL Calcium (8.4-10.5) mg/dL Phosphorus (2.5-4.5) mg/dL Magnesium (1.7-2.2) mg/dL Total Bilirubin (0.2-1.3) mg/dL AST (17-59) U/L ALT (7-56) U/L Alkaline Phosphatase (38-126) U/L Total Protein (5.8-8.3) g/dL Albumin (3.0-4.8) g/dL Globulin gm/dL Albumin/Globulin Ratio (1.1-1.8) EVELIA Screen Negative (Negative) Ur L.pneumophila Ag Negative (NEGATIVE) Laboratory Results - last 24 hr 11/07/17 11/09/17 11/09/17 08:20 17:00 22:13 WBC RBC Hgb Hct MCV MCH MCHC RDW Plt Count MPV ESR 30 H Sodium Potassium Chloride Carbon Dioxide Anion Gap BUN Creatinine Est GFR ( Amer) Est GFR (Non-Af Amer) Random Glucose Calcium Phosphorus Magnesium Total Bilirubin AST ALT Alkaline Phosphatase Total Protein Albumin Globulin Albumin/Globulin Ratio EVELIA Screen Negative Ur L.pneumophila Ag Negative 11/10/17 11/10/17 09:30 09:30 WBC 10.8 D RBC 2.92 L Hgb 8.7 L Hct 25.4 L MCV 87.0 MCH 29.8 MCHC 34.3 RDW 14.4 Plt Count 256 MPV 8.8 ESR Sodium 134 Potassium 4.5 Chloride 97 L Carbon Dioxide 24 Anion Gap 18 BUN 82 H Creatinine 6.7 H Est GFR ( Amer) 10 Est GFR (Non-Af Amer) 8 Random Glucose 122 H Calcium 8.3 L Phosphorus 5.4 H Magnesium 1.6 L Total Bilirubin 0.4 AST 27 ALT 23 Alkaline Phosphatase 44 Total Protein 5.9 Albumin 3.3 Globulin 2.6 Albumin/Globulin Ratio 1.3 EVELIA Screen Ur L.pneumophila Ag Critical Care Progress Note - Nutrition Nutrition: Nutrition Category Date Time Status Renal Diet [DIET] Diets 11/09/17 Dinner Ordered Attending/Attestation - Attestation I have personally seen and examined this patient.: Yes I have fully participated in the care of the patient.: Yes I have reviewed all pertinent clinical information: Yes Notes (Text): 11/10/17 13:22 The patient was seen and examined at the bedside. Patient care was discussed with resident Medical records, lab studies, and imaging were reviewed and management issues were discussed and formulated. Last 24H events reviewed. Agree with above treatment plans as outlined in 's note Pt remains hemodynamically stable and comfortable on NC No intervention during PCI today, medical management of cardiac disease as per cardiology team Continue HD as per renal team Post-PCI monitoring as per protocol
[2017-11-10] MEDS ORDERED: Magnesium Oxide 400 mg Tab UD PO STA (10:39)
--- NOTE | 2017-11-10 12:26 | CP.PCM.PN ---
Subjective - Date & Time of Evaluation Date of Evaluation: 11/10/17 Time of Evaluation: 09:35 - Subjective Subjective: Breathing better, no fevers, no diarrhea, cough is improving. Objective - Vital Signs/Intake and Output Vital Signs (last 24 hours): Temp Pulse Resp BP Pulse Ox 98.2 F 89 23 150/82 96 11/09/17 20:00 11/09/17 22:00 11/09/17 18:20 11/09/17 18:16 11/09/17 18:20 Intake and Output: 11/09/17 11/10/17 18:59 06:59 Intake Total 713 Output Total 360 Balance 353 - Medications Medications: Current Medications Albuterol/Ipratropium (Duoneb 3 Mg/0.5 Mg (3 Ml) Ud) 3 ml IH [id number] PRN PRN Reason: Shortness of Breath Amlodipine Besylate (Norvasc) 10 mg PO DAILY [facility] Last Admin: 11/09/17 09:45 Dose: 10 mg Aspirin (Aspirin Chewable) 81 mg PO DAILY [facility] Last Admin: 11/09/17 09:44 Dose: Not Given Atorvastatin Calcium (Lipitor) 40 mg PO DIN [facility] Last Admin: 11/09/17 18:17 Dose: 40 mg Calcium Acetate (Phoslo) 667 mg PO WM [facility] Last Admin: 11/09/17 18:17 Dose: 667 mg Clopidogrel Bisulfate (Plavix) 75 mg PO DAILY [facility] Last Admin: 11/09/17 09:46 Dose: Not Given Doxycycline Hyclate (Doryx) 100 mg PO Q12 IRMA PRN Reason: Protocol Stop: 11/15/17 22:01 Last Admin: 11/09/17 21:05 Dose: 100 mg Hydralazine HCl (Apresoline) 25 mg PO TID [facility] Last Admin: 11/09/17 18:16 Dose: 25 mg Cefepime HCl (Maxipime 1gm) 1 gm in 100 mls @ 100 mls/hr IVPB Q24H IRMA PRN Reason: Protocol Last Admin: 11/09/17 09:45 Dose: 100 mls/hr Nitroglycerin/Dextrose (Nitroglycerin 50 Mg/250 Ml D5w) 50 mg in 250 mls @ 1.5 mls/hr IV .Q24H PRN; Protocol; 5 MCG/MIN PRN Reason: chest pain Last Titration: 11/09/17 09:00 Dose: 0 mcg/min, 0 mls/hr Isosorbide Mononitrate (Imdur) 60 mg PO DAILY [facility] Last Admin: 11/09/17 09:45 Dose: 60 mg Labetalol HCl (Trandate) 5 mg IV Q6H PRN PRN Reason: Systolic Blood Pressure Last Admin: 11/07/17 06:14 Dose: 5 mg Methylprednisolone (Solu-Medrol) 20 mg IVP Q12 [facility] Last Admin: 11/09/17 21:05 Dose: 20 mg Morphine Sulfate (Morphine) 2 mg IVP Q4H PRN PRN Reason: Pain, severe (8-10) Last Admin: 11/08/17 23:01 Dose: 2 mg Mupirocin (Bactroban Ointment) 0 gm NS BID [facility] Stop: 11/13/17 10:01 Last Admin: 11/09/17 18:17 Dose: 1 applic Pantoprazole Sodium (Protonix Ec Tab) 40 mg PO ACB [facility] Last Admin: 11/09/17 06:54 Dose: 40 mg - Labs Labs: 11/09/17 06:30 11/09/17 06:30 PT 10.7 SECONDS (9.4-12.5) 11/06/17 20:23 INR 0.94 (0.93-1.08) 11/06/17 20:23 APTT 31.2 Seconds (25.1-36.5) 11/06/17 20:23 - Constitutional Appears: Non-toxic, Chronically Ill - Head Exam Head Exam: NORMAL INSPECTION - ENT Exam ENT Exam: Mucous Membranes Moist - Neck Exam Neck Exam: absent: Lymphadenopathy, Meningismus - Respiratory Exam Respiratory Exam: Decreased Breath Sounds - Cardiovascular Exam Cardiovascular Exam: +S1, +S2 - GI/Abdominal Exam GI & Abdominal Exam: Soft. absent: Tenderness Assessment and Plan - Assessment and Plan (Free Text) Plan: Assessment Severe sepsis with hypoxic respiratory failure due to left sided severe community-acquired pneumonia, clinically improving Christopher's granulomatosis with renal failure now on dialysis history of CVA history of pneumonia CAD HTN significant smoking history Plan cultures have been negative - continue Cefepime and Doxycycline day 4 and add Zyvox since he has (+) MRSA nares - target 4-7 days of antibiotics patient has blood in sputum but his history and presentation makes TB unlikely and more likely due to Christopher's - follow up further plans of the medical team for this will continue to monitor clinically
--- NOTE | 2017-11-10 12:31 | CP.PCM.PN ---
<Shorty Maravilla - Last Filed: 11/10/17 12:32> Subjective - Date & Time of Evaluation Date of Evaluation: 11/10/17 Time of Evaluation: 11:00 - Subjective Subjective: PGY-4 GI Fellow Prog Note Pt lying in bed when seen this AM. Tolerated EGD well. Eager for cath results. 5 point ROS negative other than stated above Objective - Vital Signs/Intake and Output Vital Signs (last 24 hours): Temp Pulse Resp BP Pulse Ox 98.4 F 84 16 181/78 H 97 11/10/17 06:00 11/10/17 10:08 11/10/17 06:30 11/10/17 10:08 11/10/17 06:30 - Medications Medications: Current Medications Albuterol/Ipratropium (Duoneb 3 Mg/0.5 Mg (3 Ml) Ud) 3 ml IH [id number] PRN PRN Reason: Shortness of Breath Amlodipine Besylate (Norvasc) 10 mg PO DAILY [facility] Last Admin: 11/10/17 10:07 Dose: 10 mg Atorvastatin Calcium (Lipitor) 40 mg PO DIN [facility] Last Admin: 11/09/17 18:17 Dose: 40 mg Calcium Acetate (Phoslo) 667 mg PO WM [facility] Last Admin: 11/10/17 10:07 Dose: 667 mg Doxycycline Hyclate (Doryx) 100 mg PO Q12 [facility] PRN Reason: Protocol Stop: 11/15/17 22:01 Last Admin: 11/10/17 10:07 Dose: 100 mg Hydralazine HCl (Apresoline) 50 mg PO TID [facility] Last Admin: 11/10/17 10:06 Dose: 50 mg Cefepime HCl (Maxipime 1gm) 1 gm in 100 mls @ 100 mls/hr IVPB Q24H [facility] PRN Reason: Protocol Last Admin: 11/10/17 10:10 Dose: 100 mls/hr Linezolid (Zyvox) 600 mg PO BID [facility] PRN Reason: Protocol Last Admin: 11/10/17 10:07 Dose: 600 mg Methylprednisolone (Solu-Medrol) 20 mg IVP Q12 [facility] Last Admin: 11/10/17 10:10 Dose: 20 mg Metoprolol Tartrate (Lopressor) 25 mg PO BID [facility] Last Admin: 11/10/17 10:08 Dose: 25 mg Morphine Sulfate (Morphine) 2 mg IVP Q4H PRN PRN Reason: Pain, severe (8-10) Last Admin: 11/08/17 23:01 Dose: 2 mg Mupirocin (Bactroban Ointment) 0 gm NS BID [facility] Stop: 11/13/17 10:01 Last Admin: 11/10/17 10:06 Dose: 1 applic Pantoprazole Sodium (Protonix Ec Tab) 40 mg PO ACB [facility] Last Admin: 11/10/17 10:12 Dose: 40 mg - Labs Labs: 11/10/17 09:30 11/10/17 09:30 PT 10.7 SECONDS (9.4-12.5) 11/06/17 20:23 INR 0.94 (0.93-1.08) 11/06/17 20:23 APTT 31.2 Seconds (25.1-36.5) 11/06/17 20:23 - Constitutional Appears: Non-toxic, No Acute Distress - Head Exam Head Exam: ATRAUMATIC, NORMAL INSPECTION - ENT Exam ENT Exam: Mucous Membranes Dry, Normal External Ear Exam - Respiratory Exam Respiratory Exam: NORMAL BREATHING PATTERN. absent: Accessory Muscle Use, Wheezes, Respiratory Distress, Stridor - GI/Abdominal Exam GI & Abdominal Exam: Soft. absent: Distended, Rigid, Tenderness Assessment and Plan - Assessment and Plan (Free Text) Assessment: # Acute on Chronic Normocytic Anemia: Concerning for acute blood loss anemia from unclear source, but after endoscopy on 11/09, suspect may be related to hemoptysis due to Wegeners. Iron studies not consistent with Fe def anemia. Reticulocyte index 0.7% indicating an inappropriate response to anemia. Therefore, may benefit from EPO though defer to Nephrology. Pt would likely benefit from bare metal rather than drug eluding stent placement if needed given concerns for compliance and ongoing blood loss from hemoptysis, though defer to cardiology and primary team. # Esophagitis: LA-B on EGD 11/09, no biopsies due to DAPT, cont PPI daily, repeat EGD in 8 weeks. # Duodenal submucosal nodule/lesion: Needs outpatient EUS. # Possible ACS: Cardiology following and pt loading with clopidogrel and cont ASA, plans for cath on 11/10. Plan: - Cont with PPI daily - Needs OP EUS - F/u EGD 8 weeks - Cardiac Cath, further management and w/u per primary and consultants - Consider EPO - Continue with PPI ppx Thank you for the consult Pt seen and examined with Dr. Ornelas <Bernabe Ornelas V - Last Filed: 11/10/17 23:32> Objective - Vital Signs/Intake and Output Vital Signs (last 24 hours): Temp Pulse Resp BP Pulse Ox 98.1 F 74 20 118/89 99 11/10/17 16:00 11/10/17 21:19 11/10/17 17:50 11/10/17 17:35 11/10/17 17:50 Intake and Output: 11/10/17 11/11/17 18:59 06:59 Intake Total 920 Output Total 400 Balance 520 - Medications Medications: Current Medications Albuterol/Ipratropium (Duoneb 3 Mg/0.5 Mg (3 Ml) Ud) 3 ml IH [id number] PRN PRN Reason: Shortness of Breath Amlodipine Besylate (Norvasc) 10 mg PO DAILY [facility] Last Admin: 11/10/17 10:07 Dose: 10 mg Atorvastatin Calcium (Lipitor) 40 mg PO DIN [facility] Last Admin: 11/10/17 17:34 Dose: 40 mg Calcium Acetate (Phoslo) 667 mg PO WM [facility] Last Admin: 11/10/17 17:35 Dose: 667 mg Doxycycline Hyclate (Doryx) 100 mg PO Q12 [facility] PRN Reason: Protocol Stop: 11/15/17 22:01 Last Admin: 11/10/17 21:54 Dose: 100 mg Hydralazine HCl (Apresoline) 50 mg PO TID [facility] Last Admin: 11/10/17 17:34 Dose: 50 mg Cefepime HCl (Maxipime 1gm) 1 gm in 100 mls @ 100 mls/hr IVPB Q24H [facility] PRN Reason: Protocol Last Admin: 11/10/17 10:10 Dose: 100 mls/hr Linezolid (Zyvox) 600 mg PO BID [facility] PRN Reason: Protocol Last Admin: 11/10/17 17:36 Dose: 600 mg Methylprednisolone (Solu-Medrol) 20 mg IVP Q12 [facility] Last Admin: 11/10/17 21:54 Dose: 20 mg Metoprolol Tartrate (Lopressor) 25 mg PO BID [facility] Last Admin: 11/10/17 17:35 Dose: 25 mg Morphine Sulfate (Morphine) 2 mg IVP Q4H PRN PRN Reason: Pain, severe (8-10) Last Admin: 11/08/17 23:01 Dose: 2 mg Mupirocin (Bactroban Ointment) 0 gm NS BID [facility] Stop: 11/13/17 10:01 Last Admin: 11/10/17 17:34 Dose: 1 applic Pantoprazole Sodium (Protonix Ec Tab) 40 mg PO ACB [facility] Last Admin: 11/10/17 10:12 Dose: 40 mg - Labs Labs: 11/10/17 09:30 11/10/17 09:30 PT 10.7 SECONDS (9.4-12.5) 11/06/17 20:23 INR 0.94 (0.93-1.08) 11/06/17 20:23 APTT 31.2 Seconds (25.1-36.5) 11/06/17 20:23 Attending/Attestation - Attestation I have personally seen and examined this patient.: Yes I have fully participated in the care of the patient.: Yes I have reviewed all pertinent clinical information, including history, physical exam and plan: Yes Notes (Text): This is an addendum to GI progress report dictated by the GI Fellow.The patient was seen and examined earlier. Medical records, lab studies, imagings were reviewed. Last 24 hours events reviewed. Agreed with the above treatment plan as outlined in GI Fellow 's notes the with the addition of the following 11/10/17 23:31
--- NOTE | 2017-11-10 17:12 | PN ---
DATE: 11/08/2017 SUBJECTIVE: I have been asked to re-dictate this progress note from 11/08/2017 due to mechanical difficulties with dictation machine. The patient was seen earlier that day in the ICU. No fevers and no chills. No nausea or vomiting. PHYSICAL EXAMINATION: VITAL SIGNS: On exam, temperature of 98, blood pressure is 112/70, respiratory rate 18. HEENT: Unremarkable. NECK: Supple. LUNGS: Have decreased breath sounds. HEART: Normal S1, S2. ABDOMEN: Soft. LABORATORY DATA: Laboratory examinations reviewed. The white count of 10,600 and BUN of 97, creatinine of 9.4. Urinalysis is noted and serology is noted. Cultures are reported to be negative. ASSESSMENT AND PLAN: He is a 66-year-old male who was seen early that day with severe sepsis, hypoxic respiratory failure due to left-sided severe community-acquired pneumonia, clinically improving, in a patient who has a history of Christophre's granulomatosis and renal failure on dialysis, history of cerebrovascular accident, history of pneumonia and hypertension, coronary artery disease, and on cefepime and doxycycline. Continue present course. Delvis Baldwin MD
--- NOTE | 2017-11-10 18:34 | CARD ---
APPROVED REPORT Date of service: 11/10/2017 Procedure(s) performed: Left Heart Catheterization Abdomial Aortogram HISTORY The patient is a 66 year-old male with a history of : most recent EF: 43.2%. (EF Method: Echocardiogram), renal failure with dialysis, previous CVA , tobacco history() : The patient is a former smoker , hypertension , dyslipidemia , cerebrovascular disease , Admitted with ACS, severe anemia and acute kidney injury on CKD and PMhx of Eagle's granulomtosis. INDICATION The indication(s) include : unstable angina , non-STEMI , chest pain, dyspnea. CASE TECHNIQUE The patient was brought urgently to the Cardiac Catheterization Laboratory in a fasting state and was prepped and draped in a sterile manner. The right femoral groin was infiltrated with 2% Lidocaine subcutaneous anesthesia. A 6 Fr x 10 cm [place] sheath was inserted into the right femoral artery without difficulty. Coronary angiography was performed using coronary diagnostic catheters. The left coronary system was accessed and visualized with a Diagnostic ,5 Fr JL 4 catheter. The right coronary system was accessed and visualized with a Diagnostic ,5 Fr JR 4 catheter. The left ventricle was accessed and visualized with a 5 Fr JR 4 catheter. Left ventricular/Aortic Valve gradient assessed on pullback. Left ventriculogram was performed in PAYTON projection. Closure device was deployed with a 6 Fr / 7 Fr MynxGrip without any complications. The patient tolerated the procedure well and there were no complications associated with the procedure. Vessel Analysis The patient's coronary anatomy is right dominant. The left main coronary artery is a medium size vessel with diffuse calcification noted throughout this vessel and without significant stenosis. The left main bifurcates to the left anterior descending and circumflex. The left anterior descending artery is a medium size vessel with diffuse calcification noted throughout this vessel and without significant stenosis. Distal LAD is Diffusely diseased, but no focal flow limitimg stenosis. The first diagonal branch is a small size vessel with diffuse calcification noted throughout this vessel and without significant stenosis. The second diagonal branch is a medium size vessel with diffuse calcification noted throughout this vessel and without significant stenosis. The third diagonal branch is a large size vessel with diffuse calcification noted throughout this vessel and without significant stenosis. The circumflex artery is a medium size vessel with diffuse calcification noted throughout this vessel and without significant stenosis. The first obtuse marginal branch is a medium size vessel with diffuse calcification noted throughout this vessel and without significant stenosis. There is a 55-60% stenosis in the ostial segment. The second obtuse marginal branch is a small size vessel with diffuse calcification noted throughout this vessel and without significant stenosis. The third obtuse marginal branch is a small size vessel with diffuse calcification noted throughout this vessel and without significant stenosis. The right coronary artery is a large size vessel with diffuse calcification noted throughout this vessel and without significant stenosis. The right posterior descending artery is a large size vessel with diffuse calcification noted throughout this vessel and without significant stenosis. The right posterolateral branch is a medium size vessel with diffuse calcification noted throughout this vessel and without significant stenosis. Left Ventricle The left ventricle is normal in size with normal contractility. There was no cardiomyopathy. The left ventricular ejection fraction is estimated to be 55-60%. The left ventricular end diastolic pressure is 15 mmHg. There was no gradient across the aortic valve upon pullback. Conclusion Non Obstructive CAD Limited to Distal LAD Diffusely diseased and OM1 55-60 % ostial stenosis. Preserved LV FX, EF-55-60%, EDP-15 mmof hg. PAD right common Iliac Has 40-50% stenosis, Non Flow limiting stenosis but difficult to take catheter retrogradely. Pt. had CT Scan Abdomen and Pelvis with Po contrast that is giving a poor quality of Picture of abdominal aortogram and DSA of Bifurcation of aorta. Recommendations Aggressive Medical TherapyCardiac Risk Reduction Program Aggressive trteatment for Eagle's granulomatosis. CC; Dr. Tawana Gao MD.
--- NOTE | 2017-11-10 18:54 | PN ---
DATE: 11/10/2017 SUBJECTIVE: The patient is seen in the ICU. He is awake. He is alert. He underwent cardiac cath earlier. He denies any chest pain at present. He denies any shortness of breath. He is currently receiving dialysis. PHYSICAL EXAMINATION: GENERAL: Elderly male lying in bed. VITAL SIGNS: Blood pressure 135/79, heart rate 83, respiratory rate 18-20, temperature 98. HEENT: Normocephalic, atraumatic, positive pallor. NECK: Supple, no JVD. LUNGS: Bilateral equal air entry, bilateral equal expansion, bilateral scattered rhonchi, scattered rales. CARDIAC: S1 and S2, regular rate and rhythm, no murmur, no rub. ABDOMEN: Obese, distended, soft, nontender. Bowel sounds present. EXTREMITIES: No lower extremity edema. INTAKE AND OUTPUT: 713/316. LABORATORY DATA: WBC 10.8, hemoglobin 8.7, hematocrit 25, platelets 256. ESR 30. EVELIA negative. Endoscopy report shows patchy moderate inflammation characterized by erythema around the gastric body and in the gastric antrum. Small amount of clotted blood seen in the glottis area suggestive of lung sores. LA grade B mucosal breaks greater than 5 mm not extending between the tops of two mucosal folds esophagitis. Cardiac catheterization showed nonobstructive CAD. CURRENT MEDICATIONS: Hydralazine 50 t.i.d., doxycycline 100 every 12, DuoNeb, Lipitor, Lopressor 25 b.i.d., cefepime 1 g daily, morphine, amlodipine 10, PhosLo 667 t.i.d., Protonix, Solu-Medrol, Zyvox. ASSESSMENT: 1. Acute kidney injury superimposed on chronic kidney disease stage V. 2. Hyperkalemia. 3. Severe anemia, status post 2 units of blood transfusion. 4. Demand ischemia, chest pain, nonobstructive coronary artery disease on catheterization. 5. Gastritis/esophagitis plus suspicion of blood from lung in the glottic area. 6. Hypertension, severe, uncontrolled. 7. Pulmonary hemorrhage. 8. Noncompliance. 9. History of biopsy proven vasculitis. PLAN: 1. Stable dialysis today. 2. Patient is not willing for chronic dialysis. 3. Case discussed with Dr. Pickard, agree with suggestion of reviewing kidney biopsy slides. 4. Continue current antihypertensives. 5. Continue empiric antibiotics. 6. Pulmonary followup. 7. Case discussed with dialysis staff, case discussed with ICU nursing staff, case discussed with . More than 35 minutes spent in the care of this critically ill patient. Diane Zacarias MD
[2017-11-10] MEDS ORDERED: DiphenhydrAMINE 50 mg/ml Inj IVP ONE (20:32)
--- NOTE | 2017-11-11 01:45 | PN ---
DATE: 11/10/2017 SUBJECTIVE: Patient was seen this morning in Coronary Care, bed 5. He recently underwent cardiac catheterization with mild non-obstructive coronary artery disease noted. He did well postoperatively and is now in CCU, awake, alert, clear. Mental status at baseline and in good spirits. PHYSICAL EXAMINATION: Essentially unremarkable. He has good aeration in both right and left lungs. I reviewed the problems with him and diagnoses and our findings and plan so far. FINAL DIAGNOSES: 1. Chest pain with negative troponins and unremarkable cardiac catheterization. Therefore, I suspect his pain is more pleuritic in nature related to his pneumonia. 2. Chest infiltrate/pneumonia, on intravenous antibiotics, doing well. 3. Volume overload, now the dialysis has started. Patient is doing better, much more comfortable, breathing easily. 4. End-stage renal disease, dialysis has begun. Creatinine is down to 5. I reviewed the dialysis history with the patient. He underwent dialysis for approximately 2 years, but now had been off dialysis for 13 months. Apparently during the time of dialysis, his creatinine never dropped below 7, so he was quite pleased with his creatinine of 5. I explained the importance of continuing dialysis, especially today after cardiac catheterization. 5. Chronic obstructive pulmonary disease, history of tobacco use. 6. Status post Christopher granulomatosis. Zaki Gao MD [facility]
[2017-11-11 06:40] LABS: BASO # 0.01 K/mm3 (0.0-2.0); BASO % 0.1 % (0.0-3.0); GRAN # 10.39 (1.4-6.5); GRAN % 78.4 % (50.0-68.0); LYMPH # 1.3 (1.2-3.4); LYMPH % 9.4 % (22.0-35.0); MEAN CELL VOLUME 88.3 fl (80.0-105.0); MEAN CORPUSCULAR HEMOGLOBIN 30.2 pg (25.0-35.0); MEAN CORPUSCULAR HGB CONC 34.2 g/dl (31.0-37.0); MEAN PLATELET VOLUME 9.1 fl (7.0-11.0); MONO # 1.6 (0.1-0.6); MONO % 12.1 % (1.0-6.0); RBC 2.98 10^6/uL (3.5-6.1); RED CELL DISTRIBUTION WIDTH 14.5 % (11.5-14.5); WHITE BLOOD COUNT 13.3 10^3/ul (4.5-11.0)
[2017-11-11 07:06] LABS: ALB/GLOB RATIO 1.3 (1.1-1.8); ALBUMIN 3.1 g/dL (3.0-4.8); CALCIUM 8.2 mg/dL (8.4-10.5)
--- NOTE | 2017-11-11 07:33 | CP.PCM.PN ---
<AbhilashrubinmilesSepidehtere - Last Filed: 11/11/17 18:42> Subjective - Date & Time of Evaluation Date of Evaluation: 11/11/17 Time of Evaluation: 07:25 - Subjective Subjective: PGY-4 GI Fellow Prog Note Pt lying in bed sleeping when seen this AM. States he is feeling well w/o complaints. Denied CP, SOB, Abd Pain and hematemesis. 5 point ROS negative other than stated above Objective - Vital Signs/Intake and Output Vital Signs (last 24 hours): Temp Pulse Resp BP Pulse Ox 97.6 F 70 14 150/99 H 97 11/11/17 06:00 11/11/17 06:00 11/11/17 06:00 11/11/17 06:00 11/11/17 06:00 Intake and Output: 11/11/17 11/11/17 06:59 18:59 Intake Total 240 Output Total 400 Balance -160 - Medications Medications: Current Medications Albuterol/Ipratropium (Duoneb 3 Mg/0.5 Mg (3 Ml) Ud) 3 ml IH [id number] PRN PRN Reason: Shortness of Breath Amlodipine Besylate (Norvasc) 10 mg PO DAILY [facility] Last Admin: 11/10/17 10:07 Dose: 10 mg Atorvastatin Calcium (Lipitor) 40 mg PO DIN [facility] Last Admin: 11/10/17 17:34 Dose: 40 mg Calcium Acetate (Phoslo) 667 mg PO WM [facility] Last Admin: 11/10/17 17:35 Dose: 667 mg Doxycycline Hyclate (Doryx) 100 mg PO Q12 [facility] PRN Reason: Protocol Stop: 11/15/17 22:01 Last Admin: 11/10/17 21:54 Dose: 100 mg Hydralazine HCl (Apresoline) 50 mg PO TID [facility] Last Admin: 11/10/17 17:34 Dose: 50 mg Cefepime HCl (Maxipime 1gm) 1 gm in 100 mls @ 100 mls/hr IVPB Q24H [facility] PRN Reason: Protocol Last Admin: 11/10/17 10:10 Dose: 100 mls/hr Linezolid (Zyvox) 600 mg PO BID [facility] PRN Reason: Protocol Last Admin: 11/10/17 17:36 Dose: 600 mg Methylprednisolone (Solu-Medrol) 20 mg IVP DAILY [facility] Stop: 11/16/17 10:01 Metoprolol Tartrate (Lopressor) 25 mg PO BID [facility] Last Admin: 11/10/17 17:35 Dose: 25 mg Mupirocin (Bactroban Ointment) 0 gm NS BID [facility] Stop: 11/13/17 10:01 Last Admin: 11/10/17 17:34 Dose: 1 applic Pantoprazole Sodium (Protonix Ec Tab) 40 mg PO ACB [facility] Last Admin: 11/10/17 10:12 Dose: 40 mg - Labs Labs: 11/11/17 06:10 11/11/17 06:10 PT 10.7 SECONDS (9.4-12.5) 11/06/17 20:23 INR 0.94 (0.93-1.08) 11/06/17 20:23 APTT 31.2 Seconds (25.1-36.5) 11/06/17 20:23 - Constitutional Appears: Well, Non-toxic - Head Exam Head Exam: ATRAUMATIC, NORMAL INSPECTION - Eye Exam Eye Exam: EOMI. absent: Conjunctival injection, Scleral icterus - ENT Exam ENT Exam: Mucous Membranes Dry, Normal External Ear Exam - Respiratory Exam Respiratory Exam: NORMAL BREATHING PATTERN. absent: Accessory Muscle Use, Wheezes, Stridor - Cardiovascular Exam Cardiovascular Exam: REGULAR RHYTHM. absent: Bradycardia, Tachycardia - GI/Abdominal Exam GI & Abdominal Exam: Soft, Normal Bowel Sounds. absent: Distended, Firm, Guarding, Rigid, Tenderness Assessment and Plan - Assessment and Plan (Free Text) Assessment: 66 yo WM with Wegeners, CKD presenting with CP, KINGSLEY on CKD and hemoptysis. # Acute on Chronic Normocytic Anemia: Concerning for acute blood loss anemia from unclear source, but after endoscopy on 11/09, suspect may be related to hemoptysis due to Wegeners. Iron studies not consistent with Fe def anemia. Reticulocyte index 0.7% indicating an inappropriate response to anemia. Therefore, may benefit from EPO though defer to Nephrology. Pt would likely benefit from bare metal rather than drug eluding stent placement if needed given concerns for compliance and ongoing blood loss from hemoptysis, though defer to cardiology and primary team. Lastly would need Colonoscopy but can be done as outpatient. # Esophagitis: LA-B on EGD 11/09, no biopsies due to DAPT at the time, cont PPI daily, repeat EGD in 8 weeks. # Duodenal submucosal nodule/lesion: Needs outpatient EUS. # Possible ACS: Cardiology following and pt loading with clopidogrel and cont ASA, cath on 11/10 w/non-obstructive CAD Plan: - Cont with PPI daily - Needs OP EUS - F/u EGD 8 weeks - Outpatient Colonoscopy - Consider EPO - Continue with PPI ppx Thank you for the consult, OK for DC from GI standpoint but will need outpatient Colonoscopy arranged Pt seen and examined with Dr. Ornelas <Bernabe Ornelas V - Last Filed: 11/12/17 02:30> Objective - Vital Signs/Intake and Output Vital Signs (last 24 hours): Temp Pulse Resp BP Pulse Ox 98.0 F 78 20 142/62 95 11/12/17 00:01 11/12/17 00:01 11/12/17 00:01 11/12/17 00:01 11/12/17 00:01 - Medications Medications: Current Medications Albuterol/Ipratropium (Duoneb 3 Mg/0.5 Mg (3 Ml) Ud) 3 ml IH [id number] PRN PRN Reason: Shortness of Breath Amlodipine Besylate (Norvasc) 10 mg PO DAILY [facility] Last Admin: 11/11/17 10:38 Dose: 10 mg Atorvastatin Calcium (Lipitor) 40 mg PO DIN [facility] Last Admin: 11/11/17 17:32 Dose: 40 mg Calcium Acetate (Phoslo) 667 mg PO WM [facility] Last Admin: 11/11/17 17:32 Dose: 667 mg Clonidine HCl (Catapres) 0.1 mg PO TID PRN PRN Reason: for sbp>160 Doxycycline Hyclate (Doryx) 100 mg PO Q12 [facility] PRN Reason: Protocol Stop: 11/15/17 22:01 Last Admin: 11/11/17 21:36 Dose: 100 mg Hydralazine HCl (Apresoline) 50 mg PO TID [facility] Last Admin: 11/11/17 21:36 Dose: 50 mg Cefepime HCl (Maxipime 1gm) 1 gm in 100 mls @ 100 mls/hr IVPB Q24H [facility] PRN Reason: Protocol Last Admin: 11/11/17 08:34 Dose: 100 mls/hr Linezolid (Zyvox) 600 mg PO BID [facility] PRN Reason: Protocol Last Admin: 11/11/17 17:32 Dose: 600 mg Lisinopril (Zestril) 20 mg PO DAILY [facility] Methylprednisolone (Solu-Medrol) 20 mg IVP DAILY [facility] Stop: 11/16/17 10:01 Last Admin: 11/11/17 10:40 Dose: 20 mg Metoprolol Tartrate (Lopressor) 25 mg PO BID [facility] Last Admin: 11/11/17 17:32 Dose: 25 mg Mupirocin (Bactroban Ointment) 0 gm NS BID [facility] Stop: 11/13/17 10:01 Last Admin: 11/11/17 17:33 Dose: 1 applic Pantoprazole Sodium (Protonix Ec Tab) 40 mg PO ACB [facility] Last Admin: 11/11/17 08:34 Dose: 40 mg - Labs Labs: 11/11/17 06:10 11/11/17 06:10 PT 10.7 SECONDS (9.4-12.5) 11/06/17 20:23 INR 0.94 (0.93-1.08) 11/06/17 20:23 APTT 31.2 Seconds (25.1-36.5) 11/06/17 20:23 Attending/Attestation - Attestation I have personally seen and examined this patient.: Yes I have fully participated in the care of the patient.: Yes I have reviewed all pertinent clinical information, including history, physical exam and plan: Yes Notes (Text): This is an addendum to GI progress report dictated by the GI Fellow.The patient was seen and examined earlier. Medical records, lab studies, imagings were reviewed. Last 24 hours events reviewed. Agreed with the above treatment plan as outlined in GI Fellow 's notes the with the addition of the following 11/12/17 02:30
[2017-11-11] MEDS: Cefepime 1gm in NS 100ml 1 GM/100 ML BAG IVPB SCH (08:34)
[2017-11-11] MEDS: Pantoprazole 40 mg EC Tab PO SCH (08:34)
[2017-11-11] MEDS: Mupirocin 2% Ointment 15 GM TUBE NS SCH ×2 (10:30→17:33)
[2017-11-11] MEDS: MethylPREDNISolone 40 mg Vial IVP SCH (10:40)
--- NOTE | 2017-11-11 13:04 | CP.PCM.PN ---
Subjective - Date & Time of Evaluation Date of Evaluation: 11/11/17 Time of Evaluation: 10:45 - Subjective Subjective: Comfortable in bed, no fevers, improved cough and breathing. Objective - Vital Signs/Intake and Output Vital Signs (last 24 hours): Temp Pulse Resp BP Pulse Ox 97.6 F 83 14 193/78 H 97 11/11/17 06:00 11/11/17 10:37 11/11/17 06:00 11/11/17 10:38 11/11/17 06:00 Intake and Output: 11/11/17 11/11/17 06:59 18:59 Intake Total 240 Output Total 400 Balance -160 - Medications Medications: Current Medications Albuterol/Ipratropium (Duoneb 3 Mg/0.5 Mg (3 Ml) Ud) 3 ml IH [id number] PRN PRN Reason: Shortness of Breath Amlodipine Besylate (Norvasc) 10 mg PO DAILY [facility] Last Admin: 11/11/17 10:38 Dose: 10 mg Atorvastatin Calcium (Lipitor) 40 mg PO DIN [facility] Last Admin: 11/10/17 17:34 Dose: 40 mg Calcium Acetate (Phoslo) 667 mg PO WM [facility] Last Admin: 11/11/17 08:34 Dose: 667 mg Doxycycline Hyclate (Doryx) 100 mg PO Q12 IRMA PRN Reason: Protocol Stop: 11/15/17 22:01 Last Admin: 11/11/17 10:37 Dose: 100 mg Hydralazine HCl (Apresoline) 50 mg PO TID [facility] Last Admin: 11/11/17 10:29 Dose: 50 mg Cefepime HCl (Maxipime 1gm) 1 gm in 100 mls @ 100 mls/hr IVPB Q24H IRMA PRN Reason: Protocol Last Admin: 11/11/17 08:34 Dose: 100 mls/hr Linezolid (Zyvox) 600 mg PO BID [facility] PRN Reason: Protocol Last Admin: 11/11/17 10:42 Dose: 600 mg Methylprednisolone (Solu-Medrol) 20 mg IVP DAILY [facility] Stop: 11/16/17 10:01 Last Admin: 11/11/17 10:40 Dose: 20 mg Metoprolol Tartrate (Lopressor) 25 mg PO BID [facility] Last Admin: 11/11/17 10:37 Dose: 25 mg Mupirocin (Bactroban Ointment) 0 gm NS BID [facility] Stop: 11/13/17 10:01 Last Admin: 11/10/17 17:34 Dose: 1 applic Pantoprazole Sodium (Protonix Ec Tab) 40 mg PO ACB [facility] Last Admin: 11/11/17 08:34 Dose: 40 mg - Labs Labs: 11/11/17 06:10 11/11/17 06:10 PT 10.7 SECONDS (9.4-12.5) 11/06/17 20:23 INR 0.94 (0.93-1.08) 11/06/17 20:23 APTT 31.2 Seconds (25.1-36.5) 11/06/17 20:23 - Constitutional Appears: Chronically Ill - Head Exam Head Exam: NORMAL INSPECTION - Respiratory Exam Respiratory Exam: Decreased Breath Sounds - Cardiovascular Exam Cardiovascular Exam: +S1, +S2 - GI/Abdominal Exam GI & Abdominal Exam: Soft. 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
--- NOTE | 2017-11-11 20:18 | PN ---
DATE: 11/11/2017 REASON FOR CONSULTATION AND FOLLOWUP: Cardiac evaluation, admitted with chest pain, borderline positive troponin, status post cardiac catheterization, nonobstructive coronary artery disease, history of Christopher granulomatosis, anemia, acute kidney injury, and chronic CKD. SUBJECTIVE: The patient denies any chest pain, shortness of breath, or any palpitations. OBJECTIVE: GENERAL: Not in apparent distress VITAL SIGNS: Temperature afebrile, heart rate 82, blood pressure 190/73. HEENT: PERRLA. Extraocular muscles intact. NECK: Supple. No carotid bruits or thyromegaly. CHEST: Clear to auscultation. HEART: S1 and S2 regular. ABDOMEN: Soft. EXTREMITIES: Clubbing and cyanosis negative. LABORATORY DATA: Blood workup as follows: WBC 13.3, hemoglobin 9, hematocrit 26.3, platelet count 281. Chemistries show sodium , potassium 4.5, chloride 96, carbon dioxide 27, anion gap of 16, BUN 51, creatinine 4.4. IMPRESSION: Acute kidney injury, chronic renal insufficiency, on dialysis; positive troponin; non-ST segment myocardial infarction, status post cardiac evaluation, nonobstructive coronary artery disease; uncontrolled hypertension; pneumonia; Christopher granulomatosis; and bleeding and anemia. RECOMMENDATIONS: We will aggressively control blood pressure. Continue amlodipine. Since the patient started on dialysis, we will start also AGUILA inhibitors. Continue low-dose beta-yordy. Continue hydralazine 50 mg three times a day and put p.r.n. clonidine. As mentioned, we will start clonidine 0.5 mg p.o. t.i.d. p.r.n. for more than systolic 160. We will start lisinopril 20 stat dose and 20 mg from tomorrow. Continue Norvasc. Continue metoprolol and continue hydralazine. We will follow with you. Thank you, Dr. Gao, for providing us the opportunity in taking care of the patient, Robel Mckeon. Eleno Palumbo MD
--- NOTE | 2017-11-11 20:25 | PN ---
DATE: 11/11/2017 SUBJECTIVE: The patient is seen in the ICU. He is awake, he is alert. He appears mildly short of breath. He denies any chest pain. He denies any shortness of breath. He denies any abdominal pain. He denies any nausea or vomiting. PHYSICAL EXAMINATION: GENERAL: Elderly male, lying in bed in the ICU, in mild respiratory distress. VITAL SIGNS: Blood pressure 161/100, heart rate 81, respiratory rate 20, and temperature 97.6. HEENT: Normocephalic, atraumatic, positive pallor. NECK: Supple, no JVD. LUNGS: Bilateral equal air entry, bilateral rhonchi, basilar rales. CARDIAC: S1 and S2, regular rate and rhythm, no murmur, no rub. ABDOMEN: Obese, distended, soft, nontender, bowel sounds present. EXTREMITIES: No lower extremity edema. INTAKE AND OUTPUT: 1160/800 LABORATORY DATA: WBC 13.3, hemoglobin 9, hematocrit 26, and platelets 281. Sodium 136, potassium 4.5, chloride 97, CO2 of 27. BUN 51, creatinine 4.4. Glucose 131. Calcium 8.2, phosphorus 4.4, magnesium 1.8. Stool occults negative. EVELIA negative. Cultures negative. Cardiac catheterization, nonobstructive CAD, limited to distal LAD, diffusely diseased obtuse marginal, 60% ostial stenoses, preserved left function, EF 55% to 60%. CURRENT MEDICATIONS: Hydralazine 50 t.i.d., bacitracin, Catapres 0.1 t.i.d. p.r.n., doxycycline 100 every 12 hours, DuoNeb, Lipitor, Lopressor, Maxipime 1 g daily, amlodipine 10, PhosLo 657, Protonix, Solu-Medrol 20 IV daily, Zestril 20, Zyvox 600 b.i.d. ASSESSMENT: 1. Non-ST elevation myocardial infarction secondary to demand ischemia, severe anemia. 2. Nonobstructive coronary artery disease. 3. Severe anemia, multifactorial. 4. Chronic kidney disease stage V, Christopher granulomatosis, suspected pulmonary hemorrhage. 5. Acute kidney injury superimposed on chronic kidney disease stage V. 6. Severe hypertension. 7. History of noncompliance. PLAN: 1. Long discussion with the patient regarding treatment of Christopher's. The patient received Cytoxan for 2 months in the past. He stopped the medication because it is a poison and he does not want to continue taking the poison. I discussed with him a possibility of rituximab. The patient is refusing treatment of his Christopher's at this time. The patient is known for noncompliance. The patient discontinued/terminated HD his own. Has not had dialysis since 09/2016. He thinks he needs dialysis only once a month maybe. Currently, he does not want to consider chronic dialysis again. He will come to the emergency room as needed. 2. The patient had dialysis yesterday, currently stable. 3. Hemoglobin is 9, continue to monitor. 4. Continue current antihypertensives. 5. Continue empiric antibiotics. 6. Follow up ANCA. 7. Agree with plans for re-look at kidney biopsy slides. More than 35 minutes was in the care of this critically ill patient. Diane Zacarias MD
[2017-11-12] MEDS: Pantoprazole 40 mg EC Tab PO SCH ×2 (07:30→12:59)
[2017-11-12] MEDS ORDERED: Darbepoetin Alfa 60 mcg/ml Inj IV ONE (10:42)
--- NOTE | 2017-11-12 12:33 | PN ---
DATE: 11/12/2017 SUBJECTIVE: The patient is seen early this morning in room 260. He is frustrated. He was unable to get adequate sleep last night and he has had no fevers and no chills. OBJECTIVE: VITAL SIGNS: On exam, temperature is 98, blood pressure is 140/60, respiratory rate of 20. HEENT: Examination is unremarkable. NECK: Supple. LUNGS: Have decreased breath sounds. HEART: Normal S1, S2. ABDOMEN: Soft, nontender. DATA: Laboratory examination reveals a white count of 13,000, hemoglobin of 9, platelets of 281. Chemistries reveals a BUN of 51, creatinine of 4.4. Urinalysis is noted and immunology is noted. Serology is noted. Microbiology is negative. Review of orders reveals the patient to be on p.o. doxycycline. The patient is on Solu-Medrol, p.o. Zyvox and cefepime. The patient's procalcitonin is negative x2, 0.22 and 0.26. The patient's CT scan of the chest on the 11/09/2017 is noted. ASSESSMENT AND PLAN: He is a 66-year-old male who was admitted with severe sepsis, hypoxic respiratory failure due to left-sided severe community-acquired pneumonia, clinically improving in a patient with Christopher's granulomatosis; renal failure, on hemodialysis; history of cerebrovascular accident; history of pneumonia and cultures negative, day #6 of antibiotics. We will discontinue the antibiotics. The patient has had adequate antibiotics with negative procalcitonin. No further antibiotics at this point. The patient is at risk for developing nosocomial infection. Delvis Baldwin MD
[2017-11-12] MEDS: Mupirocin 2% Ointment 15 GM TUBE NS SCH ×2 (12:58→17:02)
[2017-11-12] MEDS: MethylPREDNISolone 40 mg Vial IVP SCH (13:01)
--- NOTE | 2017-11-12 13:40 | PN ---
DATE: 11/12/2017 REASON FOR THE CONSULTATION AND FOLLOWUP: Cardiac evaluation, admitted with chest pain, borderline troponin positive, anemia, status post cardiac catheterization, nonobstructive coronary artery disease, history of Christopher granuloma, anemia, acute kidney injury, and chronic CKD, on dialysis. SUBJECTIVE: The patient denies any chest pain, shortness of breath, or any palpitations. PHYSICAL EXAMINATION: GENERAL: Not in apparent distress, seen in dialysis unit, lying flat on the bed. VITAL SIGNS: Temperature afebrile, heart rate 78, blood pressure 142/62. HEENT: PERRLA. Extraocular muscles intact. NECK: Supple. No carotid bruit or thyromegaly. CHEST: Clear to auscultation. HEART: S1, S2 regular. ABDOMEN: Soft. EXTREMITIES: Clubbing and cyanosis negative. LABORATORY DATA: Blood workup: WBC is 13.3, hemoglobin 9, hematocrit 26.3, platelet count 281. Chemistry shows sodium 135, potassium 4.5, chloride 97, carbon dioxide 26, anion gap of 16, BUN 51, creatinine 4.4. IMPRESSION: A 66-year-old male with past medical history of Christopher granuloma, pulmonary granulomatosis, admitted with acute kidney injury; chronic renal insufficiency; positive troponin; chest pain, recurrent; anemia, status post endoscopy; non-ST segment elevation myocardial infarction, status post cardiac catheterization, nonobstructive coronary artery disease. RECOMMENDATIONS: Medical management, continue aggressive control for blood pressure, started on AGUILA because the patient started on dialysis. Continue hydralazine p.o. t.i.d., continue clonidine p.r.n., continue atorvastatin, off aspirin because of hemoptysis and spitting blood and also noted blood in pharynx as well as in endoscopy, so we will keep him off for 3 to 5 days and restart aspirin as tolerated. Continue lisinopril. We will follow with you. Thank you, Dr. Gao, for providing us the opportunity in taking care of Robel Mckeon. Eleno Palumbo MD
--- NOTE | 2017-11-12 14:01 | PN ---
DATE: 11/12/2017 SUBJECTIVE: The patient is currently seen receiving hemodialysis on the fourth floor of the hospital. Ultrafiltration is 1.5 L. Blood pressure was stable. The patient no longer has any shortness of breath, cough or hemoptysis. The patient states that he has agreed to continue outpatient dialysis at [facility] until a point time that he travels back to [place] where he lives. MEDICATIONS: Medication list reviewed. The patient is on Apresoline, Bactroban, Catapres, DuoNeb, Lipitor, Lopressor, Norvasc, PhosLo, Protonix, Solu-Medrol and lisinopril. OBJECTIVE: INTAKE/OUTPUT: Intake is 1160, output is 800. VITAL SIGNS: Blood pressure is 142/62, pulse of 72, temperature 98, respiratory rate of 20. HEENT: Shows him to be normocephalic, atraumatic. Conjunctivae are pale. Sclerae are nonicteric. NECK: Supple. No neck vein distention. CHEST: Clear to auscultation and percussion with scattered rhonchi in the right lung field. No rales or wheezing. CARDIOVASCULAR: Shows a regular rate and rhythm with AI/MR/TR. No S3. . No rub. ABDOMEN: Soft. Bowel sounds normal. No rebound, guarding or masses. EXTREMITIES: Show no lower extremity cyanosis, clubbing or edema. He has a cannulated left upper extremity AV fistula, on dialysis. LABORATORY DATA AND IMAGING: CBC, white blood cell count from yesterday was 13.3 with a hemoglobin of 9 and a platelet count of 281,000. Chemistries from yesterday showed a calcium of 8.2, phosphorus 4.4 with a magnesium level of 1.8. Yesterday's BUN was 51 with a creatinine of 4.4. Electrolytes were acceptable. Albumin is 3.1. Stools were negative for blood. EVELIA was negative. ANCA titers are pending. Blood bank, the patient is status post total of 2 units of packed red blood cells. Microbiology: All cultures are negative to date. ASSESSMENT: 1. History of chronic kidney disease stage V. The patient had been dialysis dependent in the past. He presented to the hospital with an elevated BUN and creatinine in the need for resumption of dialysis. 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 The patient is presently on steroids. The patient is agreeable to return to the outpatient dialysis center at [facility] until he travels down to [place], at which point in time, he will decide whether or not he wants to continue chronic dialysis. 2. History of atherosclerotic heart disease. The patient is status post an episode of crushing chest pain. He had a cardiac catheterization done this past week, which showed multivessel nonobstructive coronary artery disease with a reasonably good ejection fraction. The patient currently remains on beta-yordy therapy. 3. History of hypertension. Blood pressure control is acceptable. In all likelihood, with continued dialysis, blood pressure medications can be lowered and discontinued. 4. History of severe anemia, status post 2 units of packed red blood cells. Hemoglobin appears to be stable in the 9 range. He will continue to receive Aranesp with dialysis. Iron saturations were excellent at 54%. 5. History of possible pneumonia versus infiltrate secondary to Christopher's. Perhaps secondary to mild CHF on admission. The patient appears to have completed a course of antibiotic therapy. Cultures are negative. 6. History of secondary hyperparathyroidism. The patient is back on binder therapy. Calcium and phosphorus are now normal. PLAN: 1. Agree with the patient's decision not to come to the emergency room for acute dialysis when necessary, but to come back as a stable chronic dialysis patient. 2. For right now, continue present blood pressure medication with the hope of being able to decrease the patient's dependence on blood pressure medication with continued dialysis. 3. As per Dr. Zacarias's note, we will reevaluate the patient's initial kidney biopsy slides. For right now, he remains on steroid therapy. The patient has no plans at receiving any further therapy for treatment of Christopher's granulomatosis. He does not want Cytoxan nor is he interested in rituximab. 4. From a renal standpoint, the patient is ready for outpatient discharge to continue outpatient dialysis. Doug Vazquez MD
--- NOTE | 2017-11-12 15:23 | CP.PCM.PN ---
<Ok,Luz Marina - Last Filed: 11/12/17 15:20> Subjective - Date & Time of Evaluation Date of Evaluation: 11/12/17 Time of Evaluation: 11:30 - Subjective Subjective: GI Fellow PGY5 Consult Note Pt seen and evaluated in HD, doing well with no complaints at this time. ROS: A 12pt ROS was negative except as above Objective - Vital Signs/Intake and Output Vital Signs (last 24 hours): Temp Pulse Resp BP Pulse Ox 98.2 F 76 20 174/72 H 95 11/12/17 12:00 11/12/17 14:00 11/12/17 12:00 11/12/17 13:08 11/12/17 00:01 Intake and Output: 11/12/17 11/12/17 06:59 18:59 Intake Total 540 Balance 540 - Medications Medications: Current Medications Albuterol/Ipratropium (Duoneb 3 Mg/0.5 Mg (3 Ml) Ud) 3 ml IH [id number] PRN PRN Reason: Shortness of Breath Amlodipine Besylate (Norvasc) 10 mg PO DAILY [facility] Last Admin: 11/12/17 12:57 Dose: 10 mg Atorvastatin Calcium (Lipitor) 40 mg PO DIN [facility] Last Admin: 11/11/17 17:32 Dose: 40 mg Calcium Acetate (Phoslo) 667 mg PO WM [facility] Last Admin: 11/12/17 12:56 Dose: 667 mg Clonidine HCl (Catapres) 0.1 mg PO TID PRN PRN Reason: for sbp>160 Hydralazine HCl (Apresoline) 50 mg PO TID [facility] Last Admin: 11/12/17 13:08 Dose: 50 mg Lisinopril (Zestril) 20 mg PO DAILY [facility] Last Admin: 11/12/17 12:58 Dose: 20 mg Methylprednisolone (Solu-Medrol) 20 mg IVP DAILY [facility] Stop: 11/16/17 10:01 Last Admin: 11/12/17 13:01 Dose: 20 mg Metoprolol Tartrate (Lopressor) 25 mg PO BID [facility] Last Admin: 11/12/17 12:58 Dose: 25 mg Mupirocin (Bactroban Ointment) 0 gm NS BID [facility] Stop: 11/13/17 10:01 Last Admin: 11/12/17 12:58 Dose: 1 applic Pantoprazole Sodium (Protonix Ec Tab) 40 mg PO ACB [facility] Last Admin: 11/12/17 12:59 Dose: 40 Zolpidem Tartrate (Ambien) 5 mg PO HS PRN; Protocol PRN Reason: Insomnia - Labs Labs: 11/11/17 06:10 11/11/17 06:10 PT 10.7 SECONDS (9.4-12.5) 11/06/17 20:23 INR 0.94 (0.93-1.08) 11/06/17 20:23 APTT 31.2 Seconds (25.1-36.5) 11/06/17 20:23 - Constitutional Appears: Non-toxic, No Acute Distress - Head Exam Head Exam: ATRAUMATIC, NORMAL INSPECTION, NORMOCEPHALIC - Eye Exam Eye Exam: EOMI, Normal appearance Pupil Exam: PERRL - ENT Exam ENT Exam: Mucous Membranes Moist, Normal Exam - Neck Exam Neck Exam: Normal Inspection - Respiratory Exam Respiratory Exam: Clear to Ausculation Bilateral, NORMAL BREATHING PATTERN - Cardiovascular Exam Cardiovascular Exam: REGULAR RHYTHM, +S1, +S2 - GI/Abdominal Exam GI & Abdominal Exam: Soft, Normal Bowel Sounds. absent: Tenderness, Organomegaly - Rectal Exam Rectal Exam: Deferred - Extremities Exam Extremities Exam: Full ROM, Normal Inspection - Back Exam Back Exam: NORMAL INSPECTION - Neurological Exam Neurological Exam: Alert, Awake, Oriented x3 - Psychiatric Exam Psychiatric exam: Normal Affect, Normal Mood - Skin Skin Exam: Dry, Intact, Normal Color, Warm Assessment and Plan - Assessment and Plan (Free Text) Assessment: This is a 66 yo WM with Wegeners, CKD presenting with CP, KINGSLEY on CKD and hemoptysis. 1. Acute on Chronic Normocytic Anemia 2. Esophagitis 3. Possible ACS 4. ESRD on HD Cardiology following and pt loading with clopidogrel and cont ASA, cath on 11/10 w/non-obstructive CAD Plan: -Continue supportive care -Pt hemodynamically stable with no active GI bleeding at this time -s/p endoscopy on 11/09, suspect may be related to hemoptysis due to Wegeners -LA-B on EGD 11/09, no biopsies due to DAPT at the time, cont PPI daily, repeat EGD in 8 weeks -Colonoscopy but can be done as outpatient -Cont with PPI daily -Needs OP EUS -F/u EGD 8 weeks -Consider EPO Thank you for the consult, OK for DC from GI standpoint but will need outpatient Colonoscopy arranged Pt seen and examined with Dr. Ornelas <Bernabe Ornelas V - Last Filed: 11/13/17 09:04> Objective - Vital Signs/Intake and Output Vital Signs (last 24 hours): Temp Pulse Resp BP Pulse Ox 98.4 F 72 18 148/58 L 95 11/12/17 18:00 11/12/17 18:00 11/12/17 18:00 11/12/17 18:00 11/12/17 18:00 Intake and Output: 11/12/17 11/13/17 18:59 06:59 Intake Total 360 Output Total 500 Balance -140 - Medications Medications: Current Medications Albuterol/Ipratropium (Duoneb 3 Mg/0.5 Mg (3 Ml) Ud) 3 ml IH [id number] PRN PRN Reason: Shortness of Breath Amlodipine Besylate (Norvasc) 10 mg PO DAILY [facility] Last Admin: 11/12/17 12:57 Dose: 10 mg Atorvastatin Calcium (Lipitor) 40 mg PO DIN [facility] Last Admin: 11/12/17 17:03 Dose: 40 mg Calcium Acetate (Phoslo) 667 mg PO WM [facility] Last Admin: 11/12/17 17:03 Dose: 667 mg Clonidine HCl (Catapres) 0.1 mg PO TID PRN PRN Reason: for sbp>160 Hydralazine HCl (Apresoline) 50 mg PO TID [facility] Last Admin: 11/12/17 17:03 Dose: 50 mg Lisinopril (Zestril) 20 mg PO DAILY [facility] Last Admin: 11/12/17 12:58 Dose: 20 mg Methylprednisolone (Medrol) 16 mg PO DAILY [facility] Metoprolol Tartrate (Lopressor) 25 mg PO BID [facility] Last Admin: 11/12/17 17:03 Dose: 25 mg Mupirocin (Bactroban Ointment) 0 gm NS BID [facility] Stop: 11/13/17 10:01 Last Admin: 11/12/17 17:02 Dose: 1 applic Pantoprazole Sodium (Protonix Ec Tab) 40 mg PO ACB [facility] Last Admin: 11/12/17 12:59 Dose: 40 Zolpidem Tartrate (Ambien) 5 mg PO HS PRN; Protocol PRN Reason: Insomnia - Labs Labs: 11/11/17 06:10 11/11/17 06:10 PT 10.7 SECONDS (9.4-12.5) 11/06/17 20:23 INR 0.94 (0.93-1.08) 11/06/17 20:23 APTT 31.2 Seconds (25.1-36.5) 11/06/17 20:23 Attending/Attestation - Attestation I have personally seen and examined this patient.: Yes I have fully participated in the care of the patient.: Yes I have reviewed all pertinent clinical information, including history, physical exam and plan: Yes Notes (Text): This is an addendum to GI progress report dictated by the GI Fellow.The patient was seen and examined earlier. Medical records, lab studies, imagings were reviewed. Last 24 hours events reviewed. Agreed with the above treatment plan as outlined in GI Fellow 's notes the with the addition of the following patient was seen and evalul dialysis Denies any abdominal pain Tolerating diet Patient was reluctant to have colonoscopy now Can be considered for outpatient colonoscopy if he is agreeable Patient also needs repeat EGD for follow-up of LA grade B esophagitis 11/12/17 21:36
[2017-11-13] MEDS: Pantoprazole 40 mg EC Tab PO SCH (07:32)
--- NOTE | 2017-11-13 09:35 | CP.PCM.PN ---
Subjective - Date & Time of Evaluation Date of Evaluation: 11/13/17 Time of Evaluation: 06:05 - Subjective Subjective: Awake, sitting at side of bed, no distress,denies chest pain Reason for consultation and follow up: Cardiac evaluation for chest pain, borderline positive troponin, post cardiac catheterization, non obstructive coronary artery disease, anemia, history of Christopher granulomatosis, anemia, chronic kidney disease on hemodialysis Seen and examined by me and Dr. Palumbo Objective - Vital Signs/Intake and Output Vital Signs (last 24 hours): Temp Pulse Resp BP Pulse Ox 97.0 F L 71 20 141/66 95 11/13/17 06:00 11/13/17 06:00 11/13/17 06:00 11/13/17 06:00 11/13/17 06:00 Intake and Output: 11/13/17 11/13/17 06:59 18:59 Intake Total 720 Output Total 800 Balance -80 - Medications Medications: Current Medications Albuterol/Ipratropium (Duoneb 3 Mg/0.5 Mg (3 Ml) Ud) 3 ml IH [id number] PRN PRN Reason: Shortness of Breath Amlodipine Besylate (Norvasc) 10 mg PO DAILY [facility] Last Admin: 11/12/17 12:57 Dose: 10 mg Atorvastatin Calcium (Lipitor) 40 mg PO DIN [facility] Last Admin: 11/12/17 17:03 Dose: 40 mg Calcium Acetate (Phoslo) 667 mg PO WM [facility] Last Admin: 11/13/17 07:32 Dose: 667 mg Clonidine HCl (Catapres) 0.1 mg PO TID PRN PRN Reason: for sbp>160 Hydralazine HCl (Apresoline) 50 mg PO TID [facility] Last Admin: 11/12/17 17:03 Dose: 50 mg Lisinopril (Zestril) 20 mg PO DAILY [facility] Last Admin: 11/12/17 12:58 Dose: 20 mg Methylprednisolone (Medrol) 16 mg PO DAILY [facility] Metoprolol Tartrate (Lopressor) 25 mg PO BID [facility] Last Admin: 11/12/17 17:03 Dose: 25 mg Mupirocin (Bactroban Ointment) 0 gm NS BID [facility] Stop: 11/13/17 10:01 Last Admin: 11/12/17 17:02 Dose: 1 applic Pantoprazole Sodium (Protonix Ec Tab) 40 mg PO ACB [facility] Last Admin: 11/13/17 07:32 Dose: 40 mg Zolpidem Tartrate (Ambien) 5 mg PO HS PRN; Protocol PRN Reason: Insomnia Last Admin: 11/12/17 22:05 Dose: 5 mg - Labs Labs: 11/11/17 06:10 11/11/17 06:10 PT 10.7 SECONDS (9.4-12.5) 11/06/17 20:23 INR 0.94 (0.93-1.08) 11/06/17 20:23 APTT 31.2 Seconds (25.1-36.5) 11/06/17 20:23 - Constitutional Appears: No Acute Distress - Head Exam Head Exam: NORMAL INSPECTION - Eye Exam Eye Exam: Normal appearance - ENT Exam ENT Exam: Mucous Membranes Moist - Respiratory Exam Respiratory Exam: Clear to Ausculation Bilateral, NORMAL BREATHING PATTERN - Cardiovascular Exam Cardiovascular Exam: +S1, +S2 - GI/Abdominal Exam GI & Abdominal Exam: Soft, Normal Bowel Sounds - Extremities Exam Extremities Exam: Normal Capillary Refill Additional comments: left arm AV shunt positive bruit - Neurological Exam Neurological Exam: Alert, Awake, Oriented x3 - Psychiatric Exam Psychiatric exam: Normal Affect - Skin Skin Exam: Dry, Warm Assessment and Plan - Assessment and Plan (Free Text) Assessment: A 66 year old male who came in to the ER due to chest pain, borderline positive troponin, post cardiac catheterization, non obstructive coronary artery disease , anemia, history of Christopher granulomatosis, anemia, chronic kidney disease on hemodialysis, hypertension, ex smoker, history of pneumonia. Plan: Cardiac status stable Heart rate and blood pressure controlled Denies chest pain or shortness of breath Continue to hold Aspirin Antibiotic discontinued by ID Continue current treatment Continue current medications Discharge planning Out patient colonoscopy per GI May discharge from cardiac standpoint Will follow up Plan and treatment discussed with Dr. Palumbo
[2017-11-13] MEDS: Mupirocin 2% Ointment 15 GM TUBE NS SCH (11:37)
--- NOTE | 2017-11-13 14:53 | PN ---
DATE: 11/13/2017 SUBJECTIVE: The patient seen early this morning in room 260 bed 1, doing much better. Had a good night sleep. OBJECTIVE: GENERAL: He is awake and alert and in good mood. VITAL SIGNS: Temperature of 97, blood pressure is 150/60, respiratory rate of 16. HEENT: Examination is unremarkable. NECK: Supple. LUNGS: Have decreased breath sounds. HEART: Normal S1, S2. ABDOMEN: Soft, nontender. No organomegaly. No rebound. No guarding. No masses. DATA: Laboratory examination reveals a white count of 13,300, hemoglobin of 9, platelets of 281. Chemistries reveal the patient has a BUN of 51, creatinine of 4.4. Urinalysis is noted and serology is negative and currently, the patient is off of antibiotics. The patient is on Solu-Medrol, which may explain the leukocytosis. ASSESSMENT AND PLAN: This is a 66-year-old male who was seen early this morning, doing well. Awake and alert, nontoxic who was initially admitted with severe sepsis and hypoxic respiratory failure due to left-sided severe community-acquired pneumonia, improving in a patient with a history of Christopher's granulomatosis and renal failure and on hemodialysis and history of cerebrovascular accident, history of pneumonia and completed the antibiotic therapy. Normal procalcitonin; at this point, the patient has a mild leukocytosis, most likely secondary to a steroid therapy. He is at risk for developing nosocomial infections and we will keep the patient off of antibiotics and as of this, we will follow closely with you. Delvis Baldwin MD
--- NOTE | 2017-11-13 15:15 | CP.PCM.PN ---
<Ok,Luz Marina - Last Filed: 11/13/17 15:12> Subjective - Date & Time of Evaluation Date of Evaluation: 11/13/17 Time of Evaluation: 12:00 - Subjective Subjective: GI Fellow PGY5 Progress Note Pt seen and evaluated at bedside, pt doing well with no complaints. ROS: A 12pt ROS was negative except as above. Objective - Vital Signs/Intake and Output Vital Signs (last 24 hours): Temp Pulse Resp BP Pulse Ox 98.5 F 75 18 154/93 H 94 L 11/13/17 14:00 11/13/17 14:00 11/13/17 14:00 11/13/17 14:00 11/13/17 14:00 Intake and Output: 11/13/17 11/13/17 06:59 18:59 Intake Total 720 Output Total 800 Balance -80 - Medications Medications: Current Medications Albuterol/Ipratropium (Duoneb 3 Mg/0.5 Mg (3 Ml) Ud) 3 ml IH [id number] PRN PRN Reason: Shortness of Breath Amlodipine Besylate (Norvasc) 10 mg PO DAILY [facility] Last Admin: 11/13/17 10:01 Dose: 10 mg Atorvastatin Calcium (Lipitor) 40 mg PO DIN [facility] Last Admin: 11/12/17 17:03 Dose: 40 mg Calcium Acetate (Phoslo) 667 mg PO WM [facility] Last Admin: 11/13/17 07:32 Dose: 667 mg Clonidine HCl (Catapres) 0.1 mg PO TID PRN PRN Reason: for sbp>160 Hydralazine HCl (Apresoline) 50 mg PO TID [facility] Last Admin: 11/13/17 13:07 Dose: 50 mg Lisinopril (Zestril) 20 mg PO DAILY [facility] Last Admin: 11/13/17 10:01 Dose: 20 mg Methylprednisolone (Medrol) 16 mg PO DAILY [facility] Last Admin: 11/13/17 10:01 Dose: 16 mg Metoprolol Tartrate (Lopressor) 25 mg PO BID [facility] Last Admin: 11/13/17 10:01 Dose: 25 mg Pantoprazole Sodium (Protonix Ec Tab) 40 mg PO ACB [facility] Last Admin: 11/13/17 07:32 Dose: 40 mg Zolpidem Tartrate (Ambien) 5 mg PO HS PRN; Protocol PRN Reason: Insomnia Last Admin: 11/12/17 22:05 Dose: 5 mg - Labs Labs: 11/11/17 06:10 11/11/17 06:10 PT 10.7 SECONDS (9.4-12.5) 11/06/17 20:23 INR 0.94 (0.93-1.08) 11/06/17 20:23 APTT 31.2 Seconds (25.1-36.5) 11/06/17 20:23 - Constitutional Appears: Non-toxic, No Acute Distress - Head Exam Head Exam: ATRAUMATIC, NORMAL INSPECTION, NORMOCEPHALIC - Eye Exam Eye Exam: EOMI, Normal appearance, PERRL - ENT Exam ENT Exam: Mucous Membranes Moist - Neck Exam Neck Exam: Normal Inspection - Respiratory Exam Respiratory Exam: Clear to Ausculation Bilateral, NORMAL BREATHING PATTERN - Cardiovascular Exam Cardiovascular Exam: REGULAR RHYTHM - GI/Abdominal Exam GI & Abdominal Exam: Soft, Normal Bowel Sounds - Neurological Exam Neurological Exam: Alert, Awake, Oriented x3 - Psychiatric Exam Psychiatric exam: Normal Affect, Normal Mood - Skin Skin Exam: Dry, Intact, Normal Color, Warm Assessment and Plan - Assessment and Plan (Free Text) Assessment: This is a 66 yo WM with Wegeners, CKD presenting with CP, KINGSLEY on CKD and hemoptysis. 1. Acute on Chronic Normocytic Anemia 2. Esophagitis 3. Possible ACS 4. ESRD on HD Cardiology following and pt loading with clopidogrel and cont ASA, cath on 11/10 w/non-obstructive CAD Plan: -Continue supportive care -Pt hemodynamically stable with no active GI bleeding at this time -s/p endoscopy on 11/09, suspect may be related to hemoptysis due to Wegeners -LA-B on EGD 11/09, no biopsies due to DAPT at the time, cont PPI daily, repeat EGD in 8 weeks -Colonoscopy but can be done as outpatient -Cont with PPI daily -Needs OP EUS -F/u EGD 8 weeks -Consider EPO -Pt ok for DC from GI standpoint but will need outpatient Colonoscopy arranged <Bernabe Ornelas V - Last Filed: 11/13/17 22:54> Objective - Vital Signs/Intake and Output Vital Signs (last 24 hours): Temp Pulse Resp BP Pulse Ox 98.4 F 71 18 150/56 L 95 11/13/17 22:21 07/22/18 22:21 11/13/17 22:21 11/13/17 22:21 11/13/17 22:21 Intake and Output: 11/13/17 11/14/17 18:59 06:59 Intake Total 420 Balance 420 - Medications Medications: Current Medications Albuterol/Ipratropium (Duoneb 3 Mg/0.5 Mg (3 Ml) Ud) 3 ml IH [id number] PRN PRN Reason: Shortness of Breath Amlodipine Besylate (Norvasc) 10 mg PO DAILY [facility] Last Admin: 11/13/17 10:01 Dose: 10 mg Atorvastatin Calcium (Lipitor) 40 mg PO DIN [facility] Last Admin: 11/13/17 17:33 Dose: 40 mg Calcium Acetate (Phoslo) 667 mg PO WM [facility] Last Admin: 11/13/17 17:33 Dose: 667 mg Clonidine HCl (Catapres) 0.1 mg PO TID PRN PRN Reason: for sbp>160 Hydralazine HCl (Apresoline) 50 mg PO TID [facility] Last Admin: 11/13/17 17:33 Dose: 50 mg Lisinopril (Zestril) 20 mg PO DAILY [facility] Last Admin: 11/13/17 10:01 Dose: 20 mg Methylprednisolone (Medrol) 16 mg PO DAILY [facility] Last Admin: 11/13/17 10:01 Dose: 16 mg Metoprolol Tartrate (Lopressor) 25 mg PO BID [facility] Last Admin: 11/13/17 17:34 Dose: 25 mg Pantoprazole Sodium (Protonix Ec Tab) 40 mg PO ACB [facility] Last Admin: 11/13/17 07:32 Dose: 40 mg Zolpidem Tartrate (Ambien) 5 mg PO HS PRN; Protocol PRN Reason: Insomnia Last Admin: 11/13/17 21:57 Dose: 5 mg - Labs Labs: 11/11/17 06:10 11/11/17 06:10 PT 10.7 SECONDS (9.4-12.5) 11/06/17 20:23 INR 0.94 (0.93-1.08) 11/06/17 20:23 APTT 31.2 Seconds (25.1-36.5) 11/06/17 20:23 Attending/Attestation - Attestation I have personally seen and examined this patient.: Yes I have fully participated in the care of the patient.: Yes I have reviewed all pertinent clinical information, including history, physical exam and plan: Yes Notes (Text): This is an addendum to GI progress report dictated by the GI Fellow.The patient was seen and examined earlier. Medical records, lab studies, imagings were reviewed. Last 24 hours events reviewed. Agreed with the above treatment plan as outlined in GI Fellow 's notes the with the addition of the following patient is reluctant for inpatient colonoscopy Continue PPI Would need a repeat EGD and colonoscopy as an outpatient the patient is agreeable 11/13/17 22:51
[2017-11-13 22:28] VITALS: O2SAT 95
--- NOTE | 2017-11-14 07:14 | CP.PCM.PN ---
Subjective - Date & Time of Evaluation Date of Evaluation: 11/14/17 Time of Evaluation: 06:05 - Subjective Subjective: Awake, sitting at side of bed, no distress,denies chest pain Reason for consultation and follow up: Cardiac evaluation for chest pain, borderline positive troponin, post cardiac catheterization, non obstructive coronary artery disease, anemia, history of Christopher granulomatosis, anemia, chronic kidney disease on hemodialysis Seen and examined by me and Dr. Palumbo Objective - Vital Signs/Intake and Output Vital Signs (last 24 hours): Temp Pulse Resp BP Pulse Ox 98.4 F 71 18 150/56 L 95 11/13/17 22:21 11/13/17 22:21 11/13/17 22:21 11/13/17 22:21 11/13/17 22:21 Intake and Output: 11/14/17 11/14/17 06:59 18:59 Intake Total 660 Balance 660 - Medications Medications: Current Medications Albuterol/Ipratropium (Duoneb 3 Mg/0.5 Mg (3 Ml) Ud) 3 ml IH [id number] PRN PRN Reason: Shortness of Breath Amlodipine Besylate (Norvasc) 10 mg PO DAILY [facility] Last Admin: 11/13/17 10:01 Dose: 10 mg Atorvastatin Calcium (Lipitor) 40 mg PO DIN [facility] Last Admin: 11/13/17 17:33 Dose: 40 mg Calcium Acetate (Phoslo) 667 mg PO WM [facility] Last Admin: 11/13/17 17:33 Dose: 667 mg Clonidine HCl (Catapres) 0.1 mg PO TID PRN PRN Reason: for sbp>160 Hydralazine HCl (Apresoline) 50 mg PO TID [facility] Last Admin: 11/13/17 17:33 Dose: 50 mg Lisinopril (Zestril) 20 mg PO DAILY [facility] Last Admin: 11/13/17 10:01 Dose: 20 mg Methylprednisolone (Medrol) 16 mg PO DAILY [facility] Last Admin: 11/13/17 10:01 Dose: 16 mg Metoprolol Tartrate (Lopressor) 25 mg PO BID [facility] Last Admin: 11/13/17 17:34 Dose: 25 mg Pantoprazole Sodium (Protonix Ec Tab) 40 mg PO ACB [facility] Last Admin: 11/13/17 07:32 Dose: 40 mg Zolpidem Tartrate (Ambien) 5 mg PO HS PRN; Protocol PRN Reason: Insomnia Last Admin: 11/13/17 21:57 Dose: 5 mg - Labs Labs: 11/11/17 06:10 11/11/17 06:10 PT 10.7 SECONDS (9.4-12.5) 11/06/17 20:23 INR 0.94 (0.93-1.08) 11/06/17 20:23 APTT 31.2 Seconds (25.1-36.5) 11/06/17 20:23 - Constitutional Appears: No Acute Distress - Eye Exam Eye Exam: Normal appearance - ENT Exam ENT Exam: Mucous Membranes Moist - Respiratory Exam Respiratory Exam: Decreased Breath Sounds, Clear to Ausculation Bilateral, NORMAL BREATHING PATTERN - Cardiovascular Exam Cardiovascular Exam: +S1, +S2 - GI/Abdominal Exam GI & Abdominal Exam: Soft, Normal Bowel Sounds - Exam Additional comments: hemodialysis - Extremities Exam Additional comments: left AV shunt positive bruit - Neurological Exam Neurological Exam: Alert, Awake, Oriented x3 - Psychiatric Exam Psychiatric exam: Normal Affect - Skin Skin Exam: Dry, Warm Assessment and Plan - Assessment and Plan (Free Text) Assessment: A 66 year old male who came in to the ER due to chest pain, borderline positive troponin, post cardiac catheterization, non obstructive coronary artery disease , anemia, history of Christopher granulomatosis, anemia, chronic kidney disease on hemodialysis, hypertension, ex smoker, history of pneumonia. Plan: On contact isolation (MRSA nasal swab) Cardiac status stable Heart rate and blood pressure controlled Denies chest pain or shortness of breath Continue current treatment Continue current medications Leukocytosis, ID on consult/follow up Discharge planning Repeat nasal swab Will follow up Plan and treatment discussed with Dr. Palumbo
[2017-11-14 07:29] VITALS: RESP 20; TEMP 98.5
[2017-11-14] MEDS: Pantoprazole 40 mg EC Tab PO SCH (07:59)
--- NOTE | 2017-11-14 09:44 | PN ---
DATE: 11/12/2017 DAILY PROGRESS NOTE SUBJECTIVE: The patient is a 66-year-old male with chronic renal failure, history of Christopher's granulomatosis, who presented to the emergency room complaining of chest pain. During his hospital stay, he was started on hemodialysis, which he is tolerating well and his renal functions seemed to be responding nicely. He underwent endoscopy, which showed duodenitis and esophageal ulcer with some fresh blood in the pharynx. Chest x-ray showed bibasilar pneumonia and a right upper lobe pneumonia. The patient underwent coronary catheterization, which showed nonobstructing coronary disease. 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 He is being treated with antibiotics for his pneumonia. Arrangements were made for him to be continue hemodialysis as an outpatient. The patient insists on having hemodialysis here at the [facility] as an outpatient. His current medications include hydralazine 50 mg three times a day, Bactroban twice a day to the nares, clonidine 0.1 mg three times a day, Solu-Medrol 20 mg intravenously, Zestril 20 mg, Norvasc 10 mg, Lopressor 25 mg twice a day, Lipitor 40 mg and DuoNeb nebulizer treatments. At this point, as per Infectious Disease specialist, we will be discontinuing his antibiotics. I will be changing his intravenous Solu-Medrol to oral tablets and we are continuing to follow the patient closely. John Gao MD
[2017-11-14 12:29] LABS: ANCA SCREEN NEGATIVE (NEGATIVE)
[2017-11-14 13:37] VITALS: BP 140/60; PULSE 68
--- NOTE | 2017-11-14 14:14 | CP.PCM.PN ---
<Shorty Maravilla - Last Filed: 11/14/17 14:20> Subjective - Date & Time of Evaluation Date of Evaluation: 11/14/17 Time of Evaluation: 07:15 - Subjective Subjective: PGY-4 GI Fellow Prog Note Pt lying in bed when seen this AM. Denies any complaints at this time. Denied CP, SOB, Abd Pain, melena nor hematochezia. 5 point ROS negative other than stated above Objective - Vital Signs/Intake and Output Vital Signs (last 24 hours): Temp Pulse Resp BP Pulse Ox 98.5 F 68 20 140/60 95 11/14/17 06:00 11/14/17 13:32 11/14/17 06:00 11/14/17 13:32 11/14/17 06:00 Intake and Output: 11/14/17 11/14/17 06:59 18:59 Intake Total 660 Balance 660 - Medications Medications: Current Medications Albuterol/Ipratropium (Duoneb 3 Mg/0.5 Mg (3 Ml) Ud) 3 ml IH [id number] PRN PRN Reason: Shortness of Breath Amlodipine Besylate (Norvasc) 10 mg PO DAILY [facility] Last Admin: 11/14/17 09:58 Dose: 10 mg Atorvastatin Calcium (Lipitor) 40 mg PO DIN [facility] Last Admin: 11/13/17 17:33 Dose: 40 mg Calcium Acetate (Phoslo) 667 mg PO WM [facility] Last Admin: 11/14/17 11:35 Dose: 667 mg Clonidine HCl (Catapres) 0.1 mg PO TID PRN PRN Reason: for sbp>160 Hydralazine HCl (Apresoline) 50 mg PO TID [facility] Last Admin: 11/14/17 13:32 Dose: 50 mg Lisinopril (Zestril) 20 mg PO DAILY [facility] Last Admin: 11/14/17 09:57 Dose: 20 mg Methylprednisolone (Medrol) 16 mg PO DAILY [facility] Last Admin: 11/14/17 09:53 Dose: 16 mg Metoprolol Tartrate (Lopressor) 25 mg PO BID [facility] Last Admin: 11/14/17 09:58 Dose: 25 mg Pantoprazole Sodium (Protonix Ec Tab) 40 mg PO ACB [facility] Last Admin: 11/14/17 07:59 Dose: 40 mg Zolpidem Tartrate (Ambien) 5 mg PO HS PRN; Protocol PRN Reason: Insomnia Last Admin: 11/13/17 21:57 Dose: 5 mg - Labs Labs: 11/11/17 06:10 11/11/17 06:10 PT 10.7 SECONDS (9.4-12.5) 11/06/17 20:23 INR 0.94 (0.93-1.08) 11/06/17 20:23 APTT 31.2 Seconds (25.1-36.5) 11/06/17 20:23 Assessment and Plan - Assessment and Plan (Free Text) Assessment: 66 yo WM with Wegeners, CKD presenting with CP, KINGSLEY on CKD and hemoptysis. # Acute on Chronic Normocytic Anemia: Concerning for acute blood loss anemia from unclear source, but after endoscopy on 11/09, suspect may be related to hemoptysis due to Wegeners. Iron studies not consistent with Fe def anemia. Reticulocyte index 0.7% indicating an inappropriate response to anemia. Therefore, may benefit from EPO though defer to Nephrology. Need Colonoscopy but can be done as outpatient. # Esophagitis: LA-B on EGD 11/09, no biopsies due to DAPT at the time, cont PPI daily, repeat EGD in 8 weeks. # Duodenal submucosal nodule/lesion: Needs outpatient EUS. # Possible ACS: Cardiology following and pt loading with clopidogrel and cont ASA, cath on 11/10 w/non-obstructive CAD Plan: - Cont with PPI daily - Needs OP EUS - F/u EGD 8 weeks - Outpatient Colonoscopy - Consider EPO - Continue with PPI ppx Pt seen and examined with Dr. Ornelas <Bernabe Ornelas V - Last Filed: 11/14/17 23:54> Objective - Vital Signs/Intake and Output Vital Signs (last 24 hours): Temp Pulse Resp BP Pulse Ox 98.5 F 68 20 140/60 95 11/14/17 06:00 11/14/17 13:32 11/14/17 06:00 11/14/17 13:32 11/14/17 06:00 Intake and Output: 11/14/17 11/15/17 18:59 06:59 Intake Total 600 Balance 600 - Labs Labs: 11/11/17 06:10 11/11/17 06:10 PT 10.7 SECONDS (9.4-12.5) 11/06/17 20:23 INR 0.94 (0.93-1.08) 11/06/17 20:23 APTT 31.2 Seconds (25.1-36.5) 11/06/17 20:23 Attending/Attestation - Attestation I have personally seen and examined this patient.: Yes I have fully participated in the care of the patient.: Yes I have reviewed all pertinent clinical information, including history, physical exam and plan: Yes Notes (Text): This is an addendum to GI progress report dictated by the GI Fellow.The patient was seen and examined earlier. Medical records, lab studies, imagings were reviewed. Last 24 hours events reviewed. Agreed with the above treatment plan as outlined in GI Fellow 's notes the with the addition of the following 11/14/17 23:54
--- NOTE | 2017-11-14 14:28 | PN ---
DATE: 11/11/2017 SUBJECTIVE: The patient is a 66-year-old in male with a history of chronic renal failure and Christopher granulomatosis of the lung. He is also status post cerebrovascular accident and has a history of coronary artery disease who was complaining of chest pain and was admitted to [facility] days ago. His EKG showed regular sinus rhythm. His troponins were negative. Chest x-ray showed a right upper lobe infiltrate and bilateral lower lobe infiltrates. This is thought to be secondary to his Christopher's. Nasal swab was positive for MRSA. The patient underwent hemodialysis. His BUN and creatinine have subsided this morning. His blood urea nitrogen is 54, creatinine is 5.5, sodium is 137, potassium is 4.4. White blood cell count is 13.9, hemoglobin and hematocrit are 8.6 and 25. During his hospital stay, he was treated with antibiotics for the suspected pneumonia versus Christopher's. The patient underwent esophagogastroduodenoscopy. This showed an esophageal ulcer and also showed fresh blood in the pharynx which raises suspicion of possible hemoptysis from the Christopher's; however, the patient did not seem that clinically ill to be he was also diagnosed with duodenitis on endoscopy. The patient underwent coronary catheterization for ongoing chest pain and he was found to have nonobstructive coronary artery disease. When seen today in the Intensive Care Unit, the patient is awake, alert, and oriented. His appetite is good. We are continuing to follow the patient closely, especially following the hemoglobin and hematocrit, which this morning were 9 and 26.3 respectively. We are continuing with his hemodialysis, which the patient is tolerating very well. John Gao MD
--- NOTE | 2017-11-14 14:40 | CP.PCM.PN ---
Subjective - Date & Time of Evaluation Date of Evaluation: 11/14/17 Time of Evaluation: 13:00 - Subjective Subjective: No fevers, not in distress. Objective - Vital Signs/Intake and Output Vital Signs (last 24 hours): Temp Pulse Resp BP Pulse Ox 98.5 F 79 20 155/66 H 95 11/14/17 06:00 11/14/17 09:58 11/14/17 06:00 11/14/17 09:58 11/14/17 06:00 Intake and Output: 11/14/17 11/14/17 06:59 18:59 Intake Total 660 Balance 660 - Medications Medications: Current Medications Albuterol/Ipratropium (Duoneb 3 Mg/0.5 Mg (3 Ml) Ud) 3 ml IH [id number] PRN PRN Reason: Shortness of Breath Amlodipine Besylate (Norvasc) 10 mg PO DAILY [facility] Last Admin: 11/14/17 09:58 Dose: 10 mg Atorvastatin Calcium (Lipitor) 40 mg PO DIN [facility] Last Admin: 11/13/17 17:33 Dose: 40 mg Calcium Acetate (Phoslo) 667 mg PO WM [facility] Last Admin: 11/14/17 11:35 Dose: 667 mg Clonidine HCl (Catapres) 0.1 mg PO TID PRN PRN Reason: for sbp>160 Hydralazine HCl (Apresoline) 50 mg PO TID [facility] Last Admin: 11/14/17 09:58 Dose: 50 mg Lisinopril (Zestril) 20 mg PO DAILY [facility] Last Admin: 11/14/17 09:57 Dose: 20 mg Methylprednisolone (Medrol) 16 mg PO DAILY [facility] Last Admin: 11/14/17 09:53 Dose: 16 mg Metoprolol Tartrate (Lopressor) 25 mg PO BID [facility] Last Admin: 11/14/17 09:58 Dose: 25 mg Pantoprazole Sodium (Protonix Ec Tab) 40 mg PO ACB [facility] Last Admin: 11/14/17 07:59 Dose: 40 mg Zolpidem Tartrate (Ambien) 5 mg PO HS PRN; Protocol PRN Reason: Insomnia Last Admin: 11/13/17 21:57 Dose: 5 mg - Labs Labs: 11/11/17 06:10 11/11/17 06:10 PT 10.7 SECONDS (9.4-12.5) 11/06/17 20:23 INR 0.94 (0.93-1.08) 11/06/17 20:23 APTT 31.2 Seconds (25.1-36.5) 11/06/17 20:23 - Constitutional Appears: Chronically Ill - Head Exam Head Exam: NORMAL INSPECTION - Respiratory Exam Respiratory Exam: Decreased Breath Sounds - Cardiovascular Exam Cardiovascular Exam: +S1, +S2 - GI/Abdominal Exam GI & Abdominal Exam: Soft. absent: Tenderness Assessment and Plan - Assessment and Plan (Free Text) Plan: Assessment S/P Severe sepsis with hypoxic respiratory failure due to left sided severe community-acquired pneumonia Chrsitopher's granulomatosis with renal failure now on dialysis history of CVA history of pneumonia CAD HTN significant smoking history Plan completed course of antibiotics and will monitor clinically since he is at risk for nosocomial infections
--- NOTE | 2017-11-15 07:52 | PN ---
DATE: 11/14/2017 SUBJECTIVE: The patient is seen sitting in bed. He is awake, he is alert, he is comfortable. He denies any chest pain. He denies any shortness of breath. He denies any abdominal pain, nausea, vomiting, or diarrhea. PHYSICAL EXAMINATION: GENERAL: Elderly male, sitting in bed. VITAL SIGNS: Blood pressure 140/60, heart rate 68, respiratory rate 20, and temperature 98.5. HEENT: Normocephalic, atraumatic, positive pallor. NECK: Supple, no JVD. LUNGS: Bilateral equal air entry, bilateral equal expansion. CARDIAC: S1 and S2, regular rate and rhythm, no murmur, no rub. ABDOMEN: Soft, nondistended, nontender, bowel sounds present. EXTREMITIES: No lower extremity edema. INTAKE AND OUTPUT: Not charted. LABORATORY DATA: No new labs available. Hemoglobin was 9. BUN was 51 and creatinine was 4.4 on 11/11/2017. The patient was last dialyzed on 11/11/2017. CURRENT MEDICATIONS: Ambien, Apresoline 50 t.i.d., Catapres 0.1 t.i.d., DuoNeb, Lipitor, Lopressor 25 b.i.d., Medrol 16 mg p.o. daily, amlodipine 10, PhosLo, Protonix, and lisinopril 20 ASSESSMENT: 1. Acute kidney injury superimposed on chronic kidney disease stage V. 2. Severe anemia, [id number]? 3. Nonobstructive coronary artery disease. 4. Hypertension. 5. History of biopsy-proven Christopher granulomatosis with incomplete treatment. 6. Secondary hyperparathyroidism. PLAN: 1. The patient is unwilling for chronic dialysis. Unclear what his GFR really is at this time, check labs in a.m. 2. Case discussed with Dr. Gao. We will not make arrangement for chronic dialysis. 3. We will follow up closely as outpatient. 4. We will re-dose Aranesp and Venofer as needed. Diane Zacarias MD
--- NOTE | 2017-11-15 12:41 | DS ---
HISTORY OF PRESENT ILLNESS: The patient is an 84-year-old male with chronic renal failure, history of Christopher's granulomatosis, who presented to the emergency room complaining of chest pain and he was admitted on 11/06/2017. He was started on the hemodialysis during this hospital stay, which he tolerated very well. He underwent endoscopy, which showed duodenitis and esophageal ulcer with some fresh blood in the pharynx. Chest x-ray showed bibasilar pneumonia and a right upper lobe pneumonia. The patient underwent cough coronary catheterization, which showed nonobstructing coronary disease. He was being treated for MRSA of the nares. He received antibiotics for his pneumonia. As the patient improved, it became noticeable that he required physical therapy. He not has been able to receive dialysis from the Transitional Care Unit at [facility]; however, the case was discussed with Dr. Zacarias and it was felt we could discontinue dialysis and transfer the patient to Transitional Care Unit for physical therapy and if needed after physical therapy when the patient is discharged to home, he could be reevaluated to resume hemodialysis. The patient is aware of the fact that he will require 6-8 week followup endoscopy to further evaluate the esophageal ulcer. Question was raised with the fresh blood in the pharynx, if this was from his Christopher's granulomatosis versus a reflux from his esophageal ulcer. So at this point, the patient is improved. He is discharged to the Transitional Care Unit where he will continue to be followed. FINAL DIAGNOSES: 1. Chest pain. 2. Nonobstructing coronary disease. 3. Chronic renal failure. 4. Christopher's granulomatosis of the lung. John Gao MD
== END 2017-11-14 15:34 | DRG 286 ==
LOC: ED 19:49 → ERH 22:05 → CCU 23:48 → 2RNO 11-11 15:58 → 5RNO 11-13 12:47
PROVIDERS: ADMIT Internal Medicine; ATTEND Internal Medicine
PROC: 05H533Z Insertion of Infusion Device into Right Subclavian Vein, Percutaneous Approach (ICD-10-PCS; 2017-11-07)
PROC: B546ZZA Ultrasonography of Right Subclavian Vein, Guidance (ICD-10-PCS; 2017-11-07)
PROC: 30233N1 Transfusion of Nonautologous Red Blood Cells into Peripheral Vein, Percutaneous Approach (ICD-10-PCS; 2017-11-07)
PROC: 0DJ08ZZ Inspection of Upper Intestinal Tract, Via Natural or Artificial Opening Endoscopic (ICD-10-PCS; 2017-11-09)
PROC: 4A023N7 Measurement of Cardiac Sampling and Pressure, Left Heart, Percutaneous Approach (ICD-10-PCS; principal; 2017-11-10)
PROC: B2151ZZ Fluoroscopy of Left Heart using Low Osmolar Contrast (ICD-10-PCS; 2017-11-10)
PROC: B2111ZZ Fluoroscopy of Multiple Coronary Arteries using Low Osmolar Contrast (ICD-10-PCS; 2017-11-10)
PROC: B4101ZZ Fluoroscopy of Abdominal Aorta using Low Osmolar Contrast (ICD-10-PCS; 2017-11-10)
PROC: 5A1D70Z Performance of Urinary Filtration, Intermittent, Less than 6 Hours Per Day (ICD-10-PCS; 2017-11-10)
DX: I25.110 Atherosclerotic heart disease of native coronary artery with unstable angina pectoris (principal); J18.9 Pneumonia, unspecified organism; A41.9 Sepsis, unspecified organism; N18.6 End stage renal disease; J96.91 Respiratory failure, unspecified with hypoxia; R65.20 Severe sepsis without septic shock; I12.0 Hypertensive chronic kidney disease with stage 5 chronic kidney disease or end stage renal disease; J44.0 Chronic obstructive pulmonary disease with (acute) lower respiratory infection; M31.30 Wegener's granulomatosis without renal involvement; E87.2 Acidosis; J90 Pleural effusion, not elsewhere classified; R04.2 Hemoptysis; N17.9 Acute kidney failure, unspecified; R04.89 Hemorrhage from other sites in respiratory passages; K22.10 Ulcer of esophagus without bleeding; N25.81 Secondary hyperparathyroidism of renal origin; D63.1 Anemia in chronic kidney disease; E11.22 Type 2 diabetes mellitus with diabetic chronic kidney disease; E78.5 Hyperlipidemia, unspecified; E87.70 Fluid overload, unspecified; K29.70 Gastritis, unspecified, without bleeding; K20.9 Esophagitis, unspecified; K29.80 Duodenitis without bleeding; N05.9 Unspecified nephritic syndrome with unspecified morphologic changes; E87.5 Hyperkalemia; K27.9 Peptic ulcer, site unspecified, unspecified as acute or chronic, without hemorrhage or perforation; Z99.2 Dependence on renal dialysis; Z79.02 Long term (current) use of antithrombotics/antiplatelets; Z91.19 Patient's noncompliance with other medical treatment and regimen; Z86.73 Personal history of transient ischemic attack (TIA), and cerebral infarction without residual deficits; Z79.82 Long term (current) use of aspirin

== ENCOUNTER 2017-11-14 15:34 | Inpatient (IN) | payer OTHER ==
[2017-11-14 17:20] VITALS: BMI 23.1
[2017-11-14] MEDS ORDERED: Pneumococcal 23-Valent Vaccine IM ONE (17:20)
[2017-11-14] MEDS: Albuterol-Ipratrop 3 mg / 0.5 (3 ml) UD IH SCH (20:13)
[2017-11-15] MEDS: Pantoprazole 40 mg EC Tab PO SCH (05:20)
[2017-11-15] MEDS: Albuterol-Ipratrop 3 mg / 0.5 (3 ml) UD IH SCH ×5 (07:21→19:54)
--- NOTE | 2017-11-15 08:15 | CP.PCM.PN ---
Subjective - Date & Time of Evaluation Date of Evaluation: 11/15/17 Time of Evaluation: 06:20 - Subjective Subjective: Sleeping but easily awaken, alert, no distress Reason for consultation: Continuity of care to TCU, Cardiac evaluation and follow up of chest pain, non-obstructive coronary artery disease,anemia, histroy of Christopher granuloma, chronic kidney disease Brief history of present illness: A 66 year old male who came in to the ER due to chest pain. NSTEMI, cardiac cath done and showed non obstructive coronary artery disease.history of Christopher granuloma, chronic kidney disease, anemia, pulmonary granulomatosis, post EGD. now transferred to TCU for reconditioning and physical therapy. Seen and examined by me and Dr. Palumbo Objective - Vital Signs/Intake and Output Vital Signs (last 24 hours): Temp Pulse Resp BP Pulse Ox 98.1 F 75 18 166/61 H 11/14/17 16:57 11/14/17 20:17 11/14/17 16:57 11/14/17 17:08 Intake and Output: 11/15/17 11/15/17 06:59 18:59 Intake Total 380 Balance 380 - Medications Medications: Current Medications Albuterol/Ipratropium (Duoneb 3 Mg/0.5 Mg (3 Ml) Ud) 3 ml IH [id number] [facility] PRN Reason: Protocol Last Admin: 11/15/17 07:21 Dose: 3 ml Amlodipine Besylate (Norvasc) 10 mg PO DAILY [facility] Atorvastatin Calcium (Lipitor) 40 mg PO DIN [facility] Last Admin: 11/14/17 17:08 Dose: 40 mg Calcium Acetate (Phoslo) 667 mg PO WM [facility] Last Admin: 11/14/17 17:08 Dose: 667 mg Clonidine HCl (Catapres) 0.1 mg PO TID PRN PRN Reason: Other Hydralazine HCl (Apresoline) 50 mg PO TID [facility] PRN Reason: Protocol Last Admin: 11/14/17 17:08 Dose: 50 mg Lisinopril (Zestril) 20 mg PO DAILY [facility] PRN Reason: Protocol Methylprednisolone (Medrol) 16 mg PO DAILY [facility] Metoprolol Tartrate (Lopressor) 25 mg PO 0800,1800 [facility] Last Admin: 11/14/17 17:08 Dose: 25 mg Pantoprazole Sodium (Protonix Ec Tab) 40 mg PO 0600 [facility] Last Admin: 11/15/17 05:20 Dose: 40 mg Zolpidem Tartrate (Ambien) 5 mg PO HS PRN; Protocol PRN Reason: Insomnia Last Admin: 11/14/17 22:10 Dose: 5 mg
--- NOTE | 2017-11-15 08:19 | CP.PCM.CON ---
History of Present Illness - History of Present Illness History of Present Illness: Sleeping but easily awaken, alert, no distress Reason for consultation: Continuity of care to TCU, Cardiac evaluation and follow up of chest pain, non-obstructive coronary artery disease,anemia, history of Christopher granuloma, chronic kidney disease,hypertension, former smoker ,pneumonia,CVA. Brief history of present illness: A 66 year old male who came in to the ER due to chest pain. NSTEMI, cardiac cath done and showed non obstructive coronary artery disease.history of Christopher granuloma, chronic kidney disease, anemia, pulmonary granulomatosis, hypertension, former smoker,pneumonia,CVA. post EGD. now transferred to TCU for reconditioning and physical therapy. Seen and examined by me and Dr. Palumbo Review of Systems - Review of Systems All systems: reviewed and no additional remarkable complaints except Review of Systems: from HPI Past Patient History - Infectious Disease Hx of Infectious Diseases: None - Tetanus Immunizations Tetanus Immunization: Unknown - Past Social History Smoking Status: Former Smoker - CARDIAC Hx Hypertension: Yes - PULMONARY Hx Respiratory Disorders: Yes Hx Pneumonia: Yes (DOUBLE PNEUMONIA 10-17-14) - NEUROLOGICAL HX Cerebrovascular Accident: Yes - HEENT Hx HEENT Problems: (WEARS RX GLASSES) - RENAL Hx Renal Failure: Yes - HEMATOLOGICAL/ONCOLOGICAL Hx Blood Transfusions: Yes Hx Blood Transfusion Reaction: No - INTEGUMENTARY Hx Dermatological Problems: No - MUSCULOSKELETAL/RHEUMATOLOGICAL Hx Falls: No - GASTROINTESTINAL Hx Gastrointestinal Disorders: No - GENITOURINARY/GYNECOLOGICAL Hx Genitourinary Disorders: Yes (esrd not on regular HD.Last hd was yesterday ) Hx Reproductive Disorders: No - PSYCHIATRIC Hx Emotional Abuse: No Hx Physical Abuse: No Hx Substance Use: No - SURGICAL HISTORY Hx Surgeries: Yes - ANESTHESIA Hx Anesthesia Reactions: No Hx Malignant Hyperthermia: No Meds Allergies/Adverse Reactions: Allergies Allergy/AdvReac Type Severity Reaction Status Date / Time azithromycin [From Zithromax] Allergy Severe SWELLING Verified 07/29/15 09:57 UNKNOWN ANTIBIOTIC Allergy SHORTNESS Uncoded 08/07/15 07:03 OF BREATH - Medications Medications: Current Medications Albuterol/Ipratropium (Duoneb 3 Mg/0.5 Mg (3 Ml) Ud) 3 ml IH [id number] [facility] PRN Reason: Protocol Last Admin: 11/15/17 07:21 Dose: 3 ml Amlodipine Besylate (Norvasc) 10 mg PO DAILY [facility] Atorvastatin Calcium (Lipitor) 40 mg PO DIN [facility] Last Admin: 11/14/17 17:08 Dose: 40 mg Calcium Acetate (Phoslo) 667 mg PO WM [facility] Last Admin: 11/15/17 08:06 Dose: 667 mg Clonidine HCl (Catapres) 0.1 mg PO TID PRN PRN Reason: Other Hydralazine HCl (Apresoline) 50 mg PO TID [facility] PRN Reason: Protocol Last Admin: 11/14/17 17:08 Dose: 50 mg Lisinopril (Zestril) 20 mg PO DAILY [facility] PRN Reason: Protocol Methylprednisolone (Medrol) 16 mg PO DAILY [facility] Last Admin: 11/15/17 08:06 Dose: 16 mg Metoprolol Tartrate (Lopressor) 25 mg PO 0800,1800 [facility] Last Admin: 11/15/17 08:05 Dose: 25 mg Pantoprazole Sodium (Protonix Ec Tab) 40 mg PO 0600 [facility] Last Admin: 11/15/17 05:20 Dose: 40 mg Zolpidem Tartrate (Ambien) 5 mg PO HS PRN; Protocol PRN Reason: Insomnia Last Admin: 11/14/17 22:10 Dose: 5 mg Physical Exam - Constitutional Appears: No Acute Distress - Head Exam Head Exam: NORMOCEPHALIC - Eye Exam Eye Exam: Normal appearance - ENT Exam ENT Exam: Mucous Membranes Moist - Respiratory Exam Respiratory Exam: Clear to Auscultation Bilateral, NORMAL BREATHING PATTERN - Cardiovascular Exam Cardiovascular Exam: +S1, +S2 - GI/Abdominal Exam GI & Abdominal Exam: Normal Bowel Sounds, Soft - Extremities Exam Additional comments: left AV shunt positive bruit - Neurological Exam Neurological exam: Alert, Normal Gait, Oriented x3 - Psychiatric Exam Psychiatric exam: Normal Affect - Skin Skin Exam: Dry, Intact, Warm Results - Vital Signs Recent Vital Signs: Last Vital Signs Temp 98.1 F 11/14/17 16:57 Pulse 75 11/15/17 08:05 Resp 18 11/14/17 16:57 BP 143/60 11/15/17 08:05 Pulse Ox Assessment & Plan - Assessment and Plan (Free Text) Assessment: A 66 year old male who came in to the ER due to chest pain. NSTEMI, cardiac cath done and showed non obstructive coronary artery disease.history of Christopher granuloma, chronic kidney disease, anemia,pulmonary granulomatosis, hypertension , former smoker,pneumonia,CVA. post EGD. now transferred to TCU for reconditioning and physical therapy. Plan: Cardiac status stable Stable blood pressure and heart rate Physical therapy If H/H stable will start Aspirin CBC in am Continue current treatment Continue current medications discharge planning Will follow up Plan and treatment discussed with Dr. Palumbo Thank you Dr. Gao for the opportunity of taking care of Mr. Robel Mckeon - Date & Time Date: 11/15/17 Time: 06:30
--- NOTE | 2017-11-15 10:57 | CP.PCM.PN ---
Subjective - Date & Time of Evaluation Date of Evaluation: 11/15/17 Time of Evaluation: 09:10 - Subjective Subjective: S&E at bedside, chart reviewed, no acute overnight events reported. No BM since yesterday, tolerating oral intake, no N/V or abdominal pain. No report of bleeding/hematemesis. Objective - Vital Signs/Intake and Output Vital Signs (last 24 hours): Temp Pulse Resp BP Pulse Ox 98.1 F 72 18 141/51 L 11/14/17 16:57 11/15/17 09:53 11/14/17 16:57 11/15/17 09:53 Intake and Output: 11/15/17 11/15/17 06:59 18:59 Intake Total 380 Balance 380 - Medications Medications: Current Medications Albuterol/Ipratropium (Duoneb 3 Mg/0.5 Mg (3 Ml) Ud) 3 ml IH [id number] [facility] PRN Reason: Protocol Last Admin: 11/15/17 07:21 Dose: 3 ml Amlodipine Besylate (Norvasc) 10 mg PO DAILY [facility] Last Admin: 11/15/17 09:52 Dose: Not Given Atorvastatin Calcium (Lipitor) 40 mg PO DIN [facility] Last Admin: 11/14/17 17:08 Dose: 40 mg Calcium Acetate (Phoslo) 667 mg PO WM [facility] Last Admin: 11/15/17 08:06 Dose: 667 mg Clonidine HCl (Catapres) 0.1 mg PO TID PRN PRN Reason: Other Hydralazine HCl (Apresoline) 50 mg PO TID [facility] PRN Reason: Protocol Last Admin: 11/15/17 09:53 Dose: Not Given Lisinopril (Zestril) 20 mg PO DAILY [facility] PRN Reason: Protocol Last Admin: 11/15/17 09:53 Dose: Not Given Methylprednisolone (Medrol) 16 mg PO DAILY [facility] Last Admin: 11/15/17 09:34 Dose: Not Given Metoprolol Tartrate (Lopressor) 25 mg PO 0800,1800 [facility] Last Admin: 11/15/17 08:05 Dose: 25 mg Pantoprazole Sodium (Protonix Ec Tab) 40 mg PO 0600 [facility] Last Admin: 11/15/17 05:20 Dose: 40 mg Zolpidem Tartrate (Ambien) 5 mg PO HS PRN; Protocol PRN Reason: Insomnia Last Admin: 11/14/17 22:10 Dose: 5 mg - Constitutional Appears: No Acute Distress - Head Exam Head Exam: NORMOCEPHALIC - Eye Exam Eye Exam: Normal appearance. absent: Scleral icterus - ENT Exam ENT Exam: Mucous Membranes Moist - Neck Exam Neck Exam: Normal Inspection - Respiratory Exam Respiratory Exam: Clear to Ausculation Bilateral, NORMAL BREATHING PATTERN. absent: Respiratory Distress - Cardiovascular Exam Cardiovascular Exam: +S1, +S2 - GI/Abdominal Exam GI & Abdominal Exam: Soft, Normal Bowel Sounds. absent: Guarding, Tenderness, Organomegaly, Rebound - Extremities Exam Extremities Exam: absent: Calf Tenderness, Pedal Edema - Neurological Exam Neurological Exam: Alert, Awake, Oriented x3 Assessment and Plan - Assessment and Plan (Free Text) Assessment: ASSESMENT: Anemia S/P hemoptysis may be due to [place]ers S/P EGD: MAKEDA GR B Esophagitis/Duodenal submucosal nodule/lesion, no bx on anticoagulants CKD, HD Possible ACS, s/p cardiac cath 11/10,found to have CAD, non obstructive on ASA and Plavix Plan: Continue with PPI daily diet as tolerated recommend outpatient EUS further evaluation of submucosal lesion duodneum and repeat EGD 8 weeks, discussed w/ patient elective outpt colon, patient reluctant to be done inpt. monitor H/H and for overt GI bleeding Seen and discussed w/ Dr. Ornelas.
--- NOTE | 2017-11-15 12:14 | HP ---
HISTORY OF PRESENT ILLNESS: The patient is a 66-year-old male, who was admitted to the [facility] on 11/06/2017 complaining of chest pain. He is known to have a history of Christopher's granulomatosis, chronic kidney disease, hypertension. During his hospital stay, he was started on hemodialysis and tolerated this well. He underwent coronary catheterization, which showed nonobstructive coronary artery disease. He received antibiotics for bilateral pneumonia seen on CAT scan. He also received steroids for his Christopher's granulomatosis. As the patient improved, arrangements made for him to be transferred to the Transitional Care Unit for much needed physical therapy. The hemodialysis was discontinued at least for the time he would be in the Transitional Care Unit. Other medications were transcribed from the medical floor. These include DuoNeb nebulizer treatments, Norvasc, Lipitor, PhosLo, Catapres, Apresoline, Zestril, Medrol, Lopressor, Protonix and Ambien. PHYSICAL EXAMINATION: GENERAL: When seen on the Transitional Care Unit, the patient is awake, alert and oriented. He is in good spirits. HEENT: Examination of the head, eyes, ears, nose and throat is unremarkable. NECK: Supple with no lymphadenopathy and no goiter. LUNGS: Clear to auscultation and percussion. HEART: Regular. No murmurs are appreciated. ABDOMEN: Soft, nontender with no organomegaly. EXTREMITIES: Free of cyanosis, clubbing or edema. NEUROLOGICAL: The patient is awake, alert and oriented with no focal neurological signs. VITAL SIGNS: His blood pressure is 143/60, heart rate is 75 beats per minute. IMPRESSION: The patient admitted to the Transitional Care Unit for physical therapy. We will continue to follow his cardiopulmonary status as well as his hemostasis from what seems to be a bleeding esophageal ulcer. We will continue to follow the patient closely. John Gao MD
--- NOTE | 2017-11-15 14:28 | PN ---
DATE: 11/15/2017 SUBJECTIVE: The patient is currently seen exercising in the gym in the TCU. The patient states he has no interest in doing chronic dialysis, his last dialysis was done on 11/12/2017. The patient is willing to do a 24-hour urine to check his residual kidney function. MEDICATIONS: Medication list reviewed. The patient is on Ambien, Apresoline, clonidine, DuoNeb, Lipitor, Lopressor, Medrol, Norvasc, PhosLo, Protonix and lisinopril. OBJECTIVE: VITAL SIGNS: Blood pressure 141/51, temperature 98.1, pulse 72, respiratory rate is 18. HEENT: Exam shows him to be normocephalic, atraumatic. Conjunctivae are pale. Sclerae are nonicteric. NECK: Supple. No neck vein distention. CHEST: Clear to auscultation and percussion with no rhonchi, wheezing or rales. CARDIOVASCULAR: Shows a regular rate and rhythm with AI/MR/TR. No S3, no S4, no rub. ABDOMEN: Soft. Bowel sounds normal. No rebound, guarding or masses. EXTREMITIES: Show a left upper extremity AV fistula. Positive thrill. Positive bruit. No lower extremity cyanosis, clubbing or edema. LABORATORY DATA AND IMAGING: No recent CBC or chemistries were done. The patient's ANCA screen was negative for both ANCA-C and ANCA-P. ASSESSMENT: 1. History of chronic kidney disease stage V. The patient had been dialysis dependent up until approximately six months ago, at which time he stopped dialysis. He initially went to dialysis when he lived in [place], but this was discontinued by the patient because he felt he no longer needed it. He states his creatinine had been elevated but he was asymptomatic. The patient needed to start dialysis here and received several dialysis treatments. He once again would like to discontinue dialysis and see how he can do on his own. The patient is agreeable to do a 24-hour urine for creatinine clearance to check his renal reserve. 2. History of atherosclerotic heart disease, status post an episode of chest pain, status post cardiac catheterization, showed multivessel nonobstructive coronary artery disease. Reasonably good ejection fraction. The patient remains on low-dose beta-yordy therapy. 3. History of hypertension. Blood pressure control is acceptable at the upper range of normal. He remains on hydralazine, Lopressor and Norvasc. 4. History of secondary hyperparathyroidism. The patient was receiving PhosLo along with a renal diet. 5. History of severe anemia, status post transfusion. The patient may continue to receive Aranesp on an as-needed basis along with oral iron supplements. 6. Past history of Christopher's granulomatosis, history of possible pneumonia, history of possible congestive heart failure on admission. These issues all seemed to have resolved. In terms of his Christopher's pancreatitis, currently remains negative. PLAN: 1. The patient agreeable to do a 24-hour urine for creatinine clearance and protein. 2. The patient should continue steroid therapy with taper. 3. Continue exercise in the TCU. 4. The patient's wish is not to go back on dialysis. 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 Doug Vazquez MD
--- NOTE | 2017-11-15 15:49 | CON ---
DATE: 11/15/2017 LOCATION: The patient is seen in room 302 earlier today. CHIEF COMPLAINT: Weakness times several days. HISTORY OF PRESENT ILLNESS: This is a 66-year-old male with past medical history of chronic renal failure, on hemodialysis, history of Christopher's and history of cerebrovascular accident, history of pneumonia, coronary artery disease, hypertension, history of smoking, who is admitted to the acute care and was treated with antibiotics. The patient was initially admitted with severe sepsis with hypoxic respiratory failure due to the left-sided healthcare-associated pneumonia in a patient with Lynnette's disease and dialysis, had completed the antibiotic therapy. Now, transferred to transitional care. REVIEW OF SYSTEMS: Reveals no fevers, no chills. No nausea, no vomiting. He is weak. PAST MEDICAL HISTORY: Significant for Christopher's and chronic renal failure, on hemodialysis, cerebrovascular accident, pneumonia, coronary artery disease, hypertension. PAST SURGICAL HISTORY: Significant for tonsillectomy. ALLERGIES: THE PATIENT IS ALLERGIC TO AZITHROMYCIN. MEDICATIONS AT HOME: Lorazepam, carvedilol. PHYSICAL EXAMINATION: GENERAL: The patient is in bed, in no acute distress. VITAL SIGNS: Temperature of 98, pulse of 76, blood pressure is 160/60. HEENT: Examination of HEENT is unremarkable. NECK: Supple. LUNGS: Have decreased breath sounds. HEART: Normal S1 and S2. ABDOMEN: Soft, nontender. LABORATORY DATA: Laboratory examination reveals the patient's last white count of 13,300 on 11/11/2017. Chemistries reveals the patient's BUN of 51, creatinine of 4.1. The microbiology reveals the blood cultures have been negative. Urine culture is negative. Sputum culture has normal zackary, nasal MRSA is detected. ASSESSMENT AND PLAN: A 66-year-old male with Christopher's granulomatosis; chronic renal failure, on hemodialysis; cerebrovascular accident; pneumonia; coronary artery disease; hypertension; who was initially admitted with severe sepsis with healthcare-associated pneumonia, status post antibiotic treatment, currently off of antibiotics and afebrile. We will order a CBC because of the leukocytosis. The patient is on Solu-Medrol, which may explain the CBC, elevated WBCs. We will follow with you. The patient is at risk for developing nosocomial infections. Delvis Baldwin MD [facility] # [id number]
[2017-11-16] MEDS: Albuterol-Ipratrop 3 mg / 0.5 (3 ml) UD IH SCH ×7 (01:35→23:40)
--- NOTE | 2017-11-16 02:39 | PN ---
DATE: 11/15/2017 DAILY PROGRESS NOTE SUBJECTIVE: Patient was seen this Tuesday in transitional care unit room 302, bed 1, with his /spouse-equivalent on the bedside. He is awake, alert, clear and in good spirits. He is now a few days without diagnosis and feels quite well. He says he had owned the conversation with his renal consultants over the course of last two days and is hoping he will no longer need dialysis, as he has been without it for almost a year and a half while in [place]. PHYSICAL EXAMINATION: GENERAL: Essentially unremarkable, . LUNGS: Show good aeration. EXTREMITIES: Show no edema. IMPRESSION: 1. Pneumonia. 2. Chest pain, probably pleuritic in nature, related to pneumonia. 3. Chronic renal insufficiency, status post Christopher's granulomatosis. 4. Chronic obstructive pulmonary disease/history of tobacco use. Zaki Gao MD
[2017-11-16] MEDS: Pantoprazole 40 mg EC Tab PO SCH (05:52)
--- NOTE | 2017-11-16 07:12 | CP.PCM.PN ---
Subjective - Date & Time of Evaluation Date of Evaluation: 11/16/17 Time of Evaluation: 06:55 - Subjective Subjective: No distress,Sleeping but easily awaken, alert, Reason for consultation: Continuity of care to TCU, Cardiac evaluation and follow up of chest pain, non-obstructive coronary artery disease,anemia, history of Christopher granuloma, chronic kidney disease,hypertension, former smoker ,pneumonia,CVA. Seen and examined by me and Dr. Palumbo Objective - Vital Signs/Intake and Output Vital Signs (last 24 hours): Temp Pulse Resp BP Pulse Ox 98.6 F 73 20 128/45 L 97 11/15/17 16:00 11/15/17 17:29 11/15/17 16:00 11/15/17 17:29 11/15/17 16:00 Intake and Output: 11/16/17 11/16/17 06:59 18:59 Intake Total 420 Balance 420 - Medications Medications: Current Medications Albuterol/Ipratropium (Duoneb 3 Mg/0.5 Mg (3 Ml) Ud) 3 ml IH [id number] [facility] PRN Reason: Protocol Last Admin: 11/16/17 05:08 Dose: Not Given Amlodipine Besylate (Norvasc) 10 mg PO DAILY [facility] Last Admin: 11/15/17 09:52 Dose: Not Given Atorvastatin Calcium (Lipitor) 40 mg PO DIN [facility] Last Admin: 11/15/17 17:29 Dose: 40 mg Calcium Acetate (Phoslo) 667 mg PO WM [facility] Last Admin: 11/15/17 17:31 Dose: 667 mg Clonidine HCl (Catapres) 0.1 mg PO TID PRN PRN Reason: Other Hydralazine HCl (Apresoline) 50 mg PO TID [facility] PRN Reason: Protocol Last Admin: 11/15/17 17:29 Dose: Not Given Lisinopril (Zestril) 20 mg PO DAILY [facility] PRN Reason: Protocol Last Admin: 11/15/17 09:53 Dose: Not Given Methylprednisolone (Medrol) 16 mg PO 0800 [facility] Metoprolol Tartrate (Lopressor) 25 mg PO 0800,1800 [facility] Last Admin: 11/15/17 17:29 Dose: Not Given Pantoprazole Sodium (Protonix Ec Tab) 40 mg PO 0600 [facility] Last Admin: 11/16/17 05:52 Dose: 40 mg Zolpidem Tartrate (Ambien) 5 mg PO HS PRN; Protocol PRN Reason: Insomnia Last Admin: 11/16/17 01:59 Dose: 5 mg - Constitutional Appears: No Acute Distress - Eye Exam Eye Exam: Normal appearance - ENT Exam ENT Exam: Mucous Membranes Moist - Respiratory Exam Respiratory Exam: Clear to Ausculation Bilateral, NORMAL BREATHING PATTERN - Cardiovascular Exam Cardiovascular Exam: +S1, +S2 - GI/Abdominal Exam GI & Abdominal Exam: Soft, Normal Bowel Sounds - Extremities Exam Extremities Exam: Normal Capillary Refill Additional comments: left arm AV shunt positive bruit - Neurological Exam Neurological Exam: Alert, Awake, Oriented x3 - Psychiatric Exam Psychiatric exam: Normal Affect, Normal Mood - Skin Skin Exam: Intact, Warm Assessment and Plan - Assessment and Plan (Free Text) Assessment: A 66 year old male who came in to the ER due to chest pain. NSTEMI, cardiac cath done and showed non obstructive coronary artery disease.history of Christopher granuloma, chronic kidney disease, anemia,pulmonary granulomatosis, hypertension , former smoker,pneumonia,CVA. post EGD. now transferred to TCU for reconditioning and physical therapy. Plan: For CBC today If hemoglobin stable will start Aspirin Cardiac status stable Stable blood pressure and heart rate Physical therapy in progress Continue current treatment Continue current medications discharge planning Will follow up Plan and treatment discussed with Dr. Palumbo
--- NOTE | 2017-11-16 14:18 | PN ---
DATE: 11/16/2017 SUBJECTIVE: The patient is seen earlier today, in no acute distress. PHYSICAL EXAMINATION: VITAL SIGNS: Temperature is 98, blood pressure is 120/40, respiratory rate of 20, heart rate of 73. HEENT: Examination is unremarkable. NECK: Supple. LUNGS: Have decreased breath sounds. HEART: Normal S1, S2. ABDOMEN: Soft, nontender. DATA: Laboratory examination is noted and reviewed. ASSESSMENT AND PLAN: This is a 66-year-old male with Christopher granulomatosis; chronic renal failure, on hemodialysis; cerebrovascular accident; pneumonia; coronary artery disease; hypertension, initially admitted with severe sepsis and healthcare associated pneumonia, status post antibiotic therapy and currently off of antibiotics. The patient does have mild leukocytosis and white count of 13,300. We will check on today's white count, which is pending. The patient is also on Solu-Medrol, which may be responsible for leukocytosis. We will follow closely with you. Delvis Baldwin MD
--- NOTE | 2017-11-16 17:19 | PN ---
DATE: 11/16/2017 SUBJECTIVE: The patient is seen walking in his room. He is awake, he is alert, and he is comfortable. He denies any shortness of breath. He denies any nausea or vomiting. Appetite is good. PHYSICAL EXAMINATION: GENERAL: Elderly male, walking in the room. VITAL SIGNS: Blood pressure 137/58, heart rate 77, respiratory rate 18, and temperature 97.5. HEENT: Normocephalic, atraumatic, positive pallor. NECK: Supple, no JVD. LUNGS: Bilateral equal air entry, decreased breath sounds at bases. CARDIAC: S1 and S2, regular rate and rhythm, no murmur, no rub. ABDOMEN: Soft, nondistended, nontender, bowel sounds present. EXTREMITIES: No lower extremity edema. INTAKE AND OUTPUT: Not charted. LABORATORY DATA: No new labs. MEDICATIONS: Ambien, hydralazine 50 t.i.d., Catapres, DuoNeb, Lipitor, Lopressor 25 b.i.d., Solu-Medrol, amlodipine, PhosLo, Protonix, and Zestril. ASSESSMENT: 1. Status post acute anemia. 2. Nonobstructive coronary artery disease. 3. Hypertension. 4. History of Christopher's. PLAN: 1. Continue physical therapy. 2. Continue current medications. 3. I have discussed with the patient the need for followup as outpatient. Diane Zacarias MD
--- NOTE | 2017-11-17 02:43 | PN ---
DATE: 11/16/2017 SUBJECTIVE: The patient is a 66-year-old male who was admitted to the [facility] on November 06 complaining of chest pain. He is known to have a history of Christopher's granulomatosis, chronic kidney disease, hypertension. During his hospital stay, he was started on hemodialysis and tolerated it well. He underwent coronary catheterization which showed nonobstructive coronary artery disease. He received antibiotics for bilateral pneumonia seen on CAT scan, and received steroids for his Christopher's granulomatosis. As the patient improved, he was transferred to the Transitional Care Unit for physical therapy. Hemodialysis was discontinued, which was cleared by Dr. Zacarias, the buoy tender. When seen today, the patient is in good spirits. He is awake, alert and oriented. He was standing up at the bedside. He seems steady on his feet, and his gait was stable. He offered no complaints, was feeling well. Physical exam was unremarkable. He had been receiving antibiotic swabs to the nares for a positive MRSA which was noted on 11/07/2017. Followup nasal swab was negative for MRSA on 11/14/2017. The patient initially walked 150 feet x2 with some guarding. However, the patient said that over the past 2 days, this had improved markedly. So, we are continuing to follow the patient closely. We will be slowly tapering down his oral steroids during his hospital stay. His antibiotics have been discontinued. Laboratory studies are ordered for the morning to follow up on his renal functions without dialysis. John Gao MD
[2017-11-17] MEDS: Albuterol-Ipratrop 3 mg / 0.5 (3 ml) UD IH SCH ×6 (03:35→23:42)
[2017-11-17] MEDS: Pantoprazole 40 mg EC Tab PO SCH (05:47)
[2017-11-17 06:54] LABS: URINE CREATININE 45.5 mg/dL
--- NOTE | 2017-11-17 07:25 | CP.PCM.PN ---
Subjective - Date & Time of Evaluation Date of Evaluation: 11/17/17 Time of Evaluation: 07:00 - Subjective Subjective: No distress,sleeping but easily awaken Reason for consultation: Continuity of care to TCU, Cardiac evaluation and follow up of chest pain, non-obstructive coronary artery disease,anemia, history of Christopher granuloma, chronic kidney disease,hypertension, former smoker ,pneumonia,CVA. Seen and examined by me and Dr. Palumbo Objective - Vital Signs/Intake and Output Vital Signs (last 24 hours): Temp Pulse Resp BP Pulse Ox 97.5 F L 75 18 130/57 L 96 11/16/17 10:00 11/16/17 17:24 11/16/17 10:00 11/16/17 17:24 11/16/17 10:00 Intake and Output: 11/17/17 11/17/17 06:59 18:59 Intake Total 420 Output Total 650 Balance -230 - Medications Medications: Current Medications Albuterol/Ipratropium (Duoneb 3 Mg/0.5 Mg (3 Ml) Ud) 3 ml IH [id number] [facility] PRN Reason: Protocol Last Admin: 11/17/17 07:00 Dose: 3 ml Amlodipine Besylate (Norvasc) 10 mg PO DAILY [facility] Last Admin: 11/16/17 10:06 Dose: Not Given Atorvastatin Calcium (Lipitor) 40 mg PO DIN [facility] Last Admin: 11/15/17 17:29 Dose: 40 mg Calcium Acetate (Phoslo) 667 mg PO WM [facility] Last Admin: 11/16/17 17:27 Dose: 667 mg Clonidine HCl (Catapres) 0.1 mg PO TID PRN PRN Reason: Other Hydralazine HCl (Apresoline) 50 mg PO TID [facility] PRN Reason: Protocol Last Admin: 11/16/17 17:24 Dose: Not Given Lisinopril (Zestril) 20 mg PO DAILY [facility] PRN Reason: Protocol Last Admin: 11/16/17 10:06 Dose: Not Given Methylprednisolone (Medrol) 16 mg PO 0800 [facility] Last Admin: 11/16/17 07:48 Dose: 16 mg Metoprolol Tartrate (Lopressor) 25 mg PO 0800,1800 [facility] Last Admin: 11/16/17 07:47 Dose: 25 mg Pantoprazole Sodium (Protonix Ec Tab) 40 mg PO 0600 [facility] Last Admin: 11/17/17 05:47 Dose: 40 mg Zolpidem Tartrate (Ambien) 5 mg PO HS PRN; Protocol PRN Reason: Insomnia Last Admin: 11/16/17 21:30 Dose: 5 mg - Constitutional Appears: No Acute Distress - Eye Exam Eye Exam: Normal appearance - ENT Exam ENT Exam: Mucous Membranes Moist - Respiratory Exam Respiratory Exam: Clear to Ausculation Bilateral, NORMAL BREATHING PATTERN - Cardiovascular Exam Cardiovascular Exam: +S1, +S2 - GI/Abdominal Exam GI & Abdominal Exam: Soft, Normal Bowel Sounds - Extremities Exam Extremities Exam: Normal Capillary Refill Additional comments: left AV shunt positive bruit - Neurological Exam Neurological Exam: Alert, Awake, Oriented x3 - Psychiatric Exam Psychiatric exam: Normal Affect, Normal Mood - Skin Skin Exam: Dry, Intact, Warm Assessment and Plan - Assessment and Plan (Free Text) Assessment: A 66 year old male who came in to the ER due to chest pain. NSTEMI, cardiac cath done and showed non obstructive coronary artery disease.history of Christopher granuloma, chronic kidney disease, anemia,pulmonary granulomatosis, hypertension , former smoker,pneumonia,CVA. post EGD. now transferred to TCU for reconditioning and physical therapy. Plan: Refusing blood stick for the past 2 days Ordered CBC but refusing blood draw Will start Aspirin low dose Cardiac status stable Stable blood pressure and heart rate Physical therapy in progress on 24 hour urine collection Continue current treatment Continue current medications discharge planning Will follow up Plan and treatment discussed with Dr. Palumbo
[2017-11-17 10:03] VITALS: RESP 20; O2SAT 97
[2017-11-17 10:25] LABS: MEAN CELL VOLUME 92.1 fl (80.0-105.0); MEAN CORPUSCULAR HEMOGLOBIN 30.8 pg (25.0-35.0); MEAN CORPUSCULAR HGB CONC 33.5 g/dl (31.0-37.0); MEAN PLATELET VOLUME 8.4 fl (7.0-11.0); RBC 2.53 10^6/uL (3.5-6.1); RED CELL DISTRIBUTION WIDTH 17.2 % (11.5-14.5); WHITE BLOOD COUNT 10.7 10^3/ul (4.5-11.0)
[2017-11-17 10:27] LABS: ALB/GLOB RATIO 1.4 (1.1-1.8); ALBUMIN 3.1 g/dL (3.0-4.8); CALCIUM 7.6 mg/dL (8.4-10.5); HEMOGLOBIN 7.8 g/dL (14.0-18.0)
--- NOTE | 2017-11-17 11:40 | CP.PCM.PN ---
Subjective - Date & Time of Evaluation Date of Evaluation: 11/17/17 Time of Evaluation: 10:45 - Subjective Subjective: No fevers, comfortable in bed, no diarrhea. Objective - Vital Signs/Intake and Output Vital Signs (last 24 hours): Temp Pulse Resp BP Pulse Ox 97.5 F L 75 18 130/57 L 96 11/16/17 10:00 11/16/17 17:24 11/16/17 10:00 11/16/17 17:24 11/16/17 10:00 Intake and Output: 11/17/17 11/17/17 06:59 18:59 Intake Total 420 Output Total 650 Balance -230 - Medications Medications: Current Medications Albuterol/Ipratropium (Duoneb 3 Mg/0.5 Mg (3 Ml) Ud) 3 ml IH [id number] [facility] PRN Reason: Protocol Last Admin: 11/17/17 07:00 Dose: 3 ml Amlodipine Besylate (Norvasc) 10 mg PO DAILY [facility] Last Admin: 11/16/17 10:06 Dose: Not Given Aspirin (Ecotrin) 81 mg PO 0800 [facility] Atorvastatin Calcium (Lipitor) 40 mg PO DIN [facility] Last Admin: 11/15/17 17:29 Dose: 40 mg Calcium Acetate (Phoslo) 667 mg PO WM [facility] Last Admin: 11/16/17 17:27 Dose: 667 mg Clonidine HCl (Catapres) 0.1 mg PO TID PRN PRN Reason: Other Hydralazine HCl (Apresoline) 50 mg PO TID [facility] PRN Reason: Protocol Last Admin: 11/16/17 17:24 Dose: Not Given Lisinopril (Zestril) 20 mg PO DAILY [facility] PRN Reason: Protocol Last Admin: 11/16/17 10:06 Dose: Not Given Methylprednisolone (Medrol) 16 mg PO 0800 [facility] Last Admin: 11/16/17 07:48 Dose: 16 mg Metoprolol Tartrate (Lopressor) 25 mg PO 0800,1800 [facility] Last Admin: 11/16/17 07:47 Dose: 25 mg Pantoprazole Sodium (Protonix Ec Tab) 40 mg PO 0600 [facility] Last Admin: 11/17/17 05:47 Dose: 40 mg Zolpidem Tartrate (Ambien) 5 mg PO HS PRN; Protocol PRN Reason: Insomnia Last Admin: 11/16/17 21:30 Dose: 5 mg - Constitutional Appears: Non-toxic, Chronically Ill - Head Exam Head Exam: NORMAL INSPECTION - Respiratory Exam Respiratory Exam: Decreased Breath Sounds - Cardiovascular Exam Cardiovascular Exam: +S1, +S2 - GI/Abdominal Exam GI & Abdominal Exam: Soft. absent: Tenderness Assessment and Plan - Assessment and Plan (Free Text) Plan: Assessment S/P Severe sepsis with hypoxic respiratory failure due to left sided severe community-acquired pneumonia Christopher's granulomatosis with renal failure now on dialysis history of CVA history of pneumonia CAD HTN significant smoking history Plan completed course of antibiotics and will monitor clinically since he is at risk for hospital-acquired infections
[2017-11-17 16:25] VITALS: TEMP 98.1
--- NOTE | 2017-11-17 18:17 | PN ---
DATE: 11/17/2017 SUBJECTIVE: The patient is seen sitting in chair. He is awake, he is alert, he is mildly short of breath. PHYSICAL EXAMINATION: GENERAL: Elderly male sitting in chair. VITAL SIGNS: Blood pressure 170/70, heart rate 76, respiratory rate 20, and temperature 98. HEENT: Normocephalic, atraumatic, positive pallor. NECK: Supple, no JVD. LUNGS: Bilateral equal air entry, bilateral equal expansion, decreased breath sounds at bases. CARDIAC: S1 and S2, regular rate and rhythm, no murmur, no rub. ABDOMEN: Obese, distended, soft, nontender, bowel sounds present. EXTREMITIES: 1+ pitting edema. INTAKE AND OUTPUT: Not charted. LABORATORY DATA: Hemoglobin 7.8. Potassium 3.8. BUN 106, creatinine 8.4. Creatinine clearance 3. 24-hour urine protein 760. CURRENT MEDICATIONS: List reviewed. ASSESSMENT: 1. Chronic kidney disease stage V, long discussion with the patient. The patient is now agreeable for dialysis two times per week. 2. Severe anemia, [id number]. 3. Hypertension. 4. History of anti-glomerular basement membrane antibody disease? 4. Secondary hyperparathyroidism. PLAN: 1. Arrange for dialysis two times a week. 2. Transfuse 1 unit of PRBC on dialysis. 3. Continue current antihypertensives. 4. Continue physical therapy. Diane Zacarias MD
--- NOTE | 2017-11-18 06:40 | CP.PCM.PN ---
Subjective - Date & Time of Evaluation Date of Evaluation: 11/18/17 Time of Evaluation: 06:30 - Subjective Subjective: No distress,no complaints Reason for consultation: Continuity of care to TCU, Cardiac evaluation and follow up of chest pain, non-obstructive coronary artery disease,anemia, history of Christopher granuloma, chronic kidney disease,hypertension, former smoker ,pneumonia,CVA. Seen and examined by me and Dr. Palumbo Objective - Vital Signs/Intake and Output Vital Signs (last 24 hours): Temp Pulse Resp BP Pulse Ox 98.1 F 76 20 170/70 H 97 11/17/17 16:00 11/17/17 17:13 11/17/17 16:00 11/17/17 17:13 11/17/17 16:00 Intake and Output: 11/17/17 11/18/17 18:59 06:59 Intake Total 360 Output Total 550 Balance -190 - Medications Medications: Current Medications Albuterol/Ipratropium (Duoneb 3 Mg/0.5 Mg (3 Ml) Ud) 3 ml IH [id number] [facility] PRN Reason: Protocol Last Admin: 11/17/17 23:42 Dose: Not Given Amlodipine Besylate (Norvasc) 10 mg PO DAILY [facility] Last Admin: 11/17/17 14:39 Dose: 10 mg Aspirin (Ecotrin) 81 mg PO 0800 [facility] Last Admin: 11/17/17 10:46 Dose: Not Given Atorvastatin Calcium (Lipitor) 40 mg PO DIN [facility] Last Admin: 11/17/17 17:13 Dose: 40 mg Calcium Acetate (Phoslo) 667 mg PO WM [facility] Last Admin: 11/17/17 17:14 Dose: 667 mg Clonidine HCl (Catapres) 0.1 mg PO TID PRN PRN Reason: Other Hydralazine HCl (Apresoline) 50 mg PO TID [facility] PRN Reason: Protocol Last Admin: 11/17/17 17:12 Dose: 50 mg Lisinopril (Zestril) 20 mg PO DAILY [facility] PRN Reason: Protocol Last Admin: 11/17/17 14:40 Dose: Not Given Methylprednisolone (Medrol) 16 mg PO 0800 [facility] Last Admin: 11/17/17 10:47 Dose: Not Given Metoprolol Tartrate (Lopressor) 25 mg PO 0800,1800 [facility] Last Admin: 11/17/17 17:13 Dose: 25 mg Pantoprazole Sodium (Protonix Ec Tab) 40 mg PO 0600 [facility] Last Admin: 11/17/17 05:47 Dose: 40 mg Zolpidem Tartrate (Ambien) 5 mg PO HS PRN; Protocol PRN Reason: Insomnia Last Admin: 11/17/17 21:15 Dose: 5 mg - Labs Labs: 11/17/17 10:00 11/17/17 10:00 - Constitutional Appears: No Acute Distress - Eye Exam Eye Exam: Normal appearance - ENT Exam ENT Exam: Mucous Membranes Moist - Respiratory Exam Respiratory Exam: Clear to Ausculation Bilateral, NORMAL BREATHING PATTERN - Cardiovascular Exam Cardiovascular Exam: +S1, +S2 - GI/Abdominal Exam GI & Abdominal Exam: Soft, Normal Bowel Sounds - Exam Additional comments: left AV shunt positive bruit - Extremities Exam Extremities Exam: Normal Capillary Refill - Neurological Exam Neurological Exam: Alert, Awake, Oriented x3 - Psychiatric Exam Psychiatric exam: Normal Affect - Skin Skin Exam: Intact, Warm Assessment and Plan - Assessment and Plan (Free Text) Assessment: A 66 year old male who came in to the ER due to chest pain. NSTEMI, cardiac cath done and showed non obstructive coronary artery disease.history of Christopher granuloma, chronic kidney disease, anemia,pulmonary granulomatosis, hypertension , former smoker,pneumonia,CVA. post EGD. now transferred to TCU for reconditioning and physical therapy. Refusing blood draw for past few day and finally agreed yesterday. Low H/H, elevated BUN/creatine, for hemodialysis. Plan: Agreed for blood to be drawn Low H/H-7.8/23.3 For blood transfusion of 1 unit PRBC as ordered. Elevated BUN/Creatinine-106/8.4 For out patient hemodialysis Started Aspirin low dose Cardiac status stable Stable blood pressure and heart rate Physical therapy in progress Continue current treatment Continue current medications discharge planning Will follow up Plan and treatment discussed with Dr. Palumbo
[2017-11-18] MEDS: Pantoprazole 40 mg EC Tab PO SCH (06:49)
[2017-11-18] MEDS: Albuterol-Ipratrop 3 mg / 0.5 (3 ml) UD IH SCH ×6 (07:00→20:40)
--- NOTE | 2017-11-18 09:10 | PN ---
DATE: 11/17/2017 SUBJECTIVE: Robel was on the Transitional Care Unit, apparently doing well, engage in the activity in unit; however, today's blood work shows increase in his BUN to over 100 and some other electrolytes abnormalities. He has been trying his best to delay or not resume dialysis. We will talk to him again in followup and discuss with Renal as our plan going forward. At worst, dialysis would need to begin and at best, we will follow his labs in another day or two to see the state of his renal function. Zaki Gao MD
--- NOTE | 2017-11-18 10:07 | CP.PCM.PN ---
Subjective - Date & Time of Evaluation Date of Evaluation: 11/18/17 Time of Evaluation: 09:30 - Subjective Subjective: S&E at bedside, chart reviewed, no acute overnight events reported. Patient been refusing blood draws, hbg noted to be 7.8 from yesterday, patient having formed BM,no melena or BRBPR. No N/V or abdominal pain. Andrew SOB or chest pain. Objective - Vital Signs/Intake and Output Vital Signs (last 24 hours): Temp Pulse Resp BP Pulse Ox 98.1 F 81 20 168/83 H 97 11/17/17 16:00 11/18/17 07:53 11/17/17 16:00 11/18/17 07:53 11/17/17 16:00 Intake and Output: 11/18/17 11/18/17 06:59 18:59 Intake Total 360 Output Total 550 Balance -190 - Medications Medications: Current Medications Albuterol/Ipratropium (Duoneb 3 Mg/0.5 Mg (3 Ml) Ud) 3 ml IH [id number] [facility] PRN Reason: Protocol Last Admin: 11/18/17 07:33 Dose: Not Given Amlodipine Besylate (Norvasc) 10 mg PO DAILY [facility] Last Admin: 11/17/17 14:39 Dose: 10 mg Aspirin (Ecotrin) 81 mg PO 0800 [facility] Last Admin: 11/18/17 07:52 Dose: 81 mg Atorvastatin Calcium (Lipitor) 40 mg PO DIN [facility] Last Admin: 11/17/17 17:13 Dose: 40 mg Calcium Acetate (Phoslo) 667 mg PO WM [facility] Last Admin: 11/18/17 07:54 Dose: 667 mg Clonidine HCl (Catapres) 0.1 mg PO TID PRN PRN Reason: Other Hydralazine HCl (Apresoline) 100 mg PO TID [facility] PRN Reason: Protocol Methylprednisolone (Medrol) 16 mg PO 0800 [facility] Last Admin: 11/18/17 07:54 Dose: 16 mg Metoprolol Tartrate (Lopressor) 25 mg PO 0800,1800 [facility] Last Admin: 11/18/17 07:53 Dose: 25 mg Pantoprazole Sodium (Protonix Ec Tab) 40 mg PO 0600 [facility] Last Admin: 11/18/17 06:49 Dose: 40 mg Zolpidem Tartrate (Ambien) 5 mg PO HS PRN; Protocol PRN Reason: Insomnia Last Admin: 11/17/17 21:15 Dose: 5 mg - Labs Labs: 11/17/17 10:00 11/17/17 10:00 - Constitutional Appears: No Acute Distress - Eye Exam Eye Exam: Normal appearance. absent: Scleral icterus - ENT Exam ENT Exam: Mucous Membranes Moist - Respiratory Exam Respiratory Exam: NORMAL BREATHING PATTERN. absent: Respiratory Distress - Cardiovascular Exam Cardiovascular Exam: +S1, +S2 - GI/Abdominal Exam GI & Abdominal Exam: Soft, Normal Bowel Sounds. absent: Guarding, Tenderness, Rebound - Extremities Exam Extremities Exam: absent: Calf Tenderness, Pedal Edema - Neurological Exam Neurological Exam: Alert, Awake, Oriented x3 - Skin Skin Exam: Dry, Warm Assessment and Plan - Assessment and Plan (Free Text) Assessment: ASSESMENT: Anemia, drop in hgb maybe multifactoral, acute renal failure S/P hemoptysis may be due to [place] S/P EGD: LA GR B Esophagitis/Duodenal submucosal nodule/lesion, no bx on anticoagulants Acute on chronic CKD, on HD in the past Possible ACS, s/p cardiac cath 11/10,found to have CAD, non obstructive on ASA and Plavix Plan: Continue with PPI daily diet as tolerated started on Aspirin recommend outpatient EUS further evaluation of submucosal lesion duodneum and repeat EGD 8 weeks, discussed w/ patient elective outpt colon, patient reluctant to be done inpt. monitor H/H and for overt GI bleeding, transfuse as necessary Nephrology following plans for hemodialysis in progress and receive blood transfusion w/ dialysis Seen and discussed w/ Dr. Ornelas.
--- NOTE | 2017-11-18 11:13 | PN ---
DATE: 11/18/2017 SUBJECTIVE: The patient is seen sitting in chair. He is awake, he is alert, he is comfortable. He denies any shortness of breath. He denies any nausea or vomiting. He reports his appetite is good. PHYSICAL EXAMINATION: GENERAL: Elderly male sitting in chair. VITAL SIGNS: Blood pressure 168/83, heart rate 81, respiratory rate 20, temperature 98. HEENT: Normocephalic, atraumatic, positive pallor. NECK: Supple, no JVD. LUNGS: Bilateral equal air entry, no rales. CARDIAC: S1, S2, regular rate and rhythm, no murmur, no rub. ABDOMEN: Obese, distended, soft, nontender, bowel sounds present. EXTREMITIES: Trace lower extremity edema. INTAKE AND OUTPUT: Not charted. LABORATORY DATA: No new labs. CURRENT MEDICATIONS: Ambien, hydralazine 50 t.i.d., Catapres 0.1 t.i.d. p.r.n., DuoNeb, Ecotrin, Lipitor, Lopressor 25 b.i.d., Solu-Medrol 16 mg, amlodipine 10, PhosLo 667 with meals, Protonix 40, Zestril 20. ASSESSMENT AND PLAN: 1. Chronic kidney disease stage V. 2. Uncontrolled hypertension. 3. History of vasculitis. 4. Status post severe acute on chronic anemia. 5. Hyperphosphatemia/secondary hyperparathyroidism. PLAN: 1. Discontinue Zestril. 2. Increase hydralazine to 100 three times a day 3. Long discussion with the patient and PMD. The patient needs renal replacement therapy. The patient has finally agreed to do renal replacement therapy two times per week. His first outpatient treatment will be on 11/24/2017. Currently, he is not symptomatic, so therefore, we will continue physical therapy. Diane Zacarias MD
--- NOTE | 2017-11-18 14:30 | CP.PCM.PN ---
Subjective - Date & Time of Evaluation Date of Evaluation: 11/18/17 Time of Evaluation: 12:45 - Subjective Subjective: Comfortable, no fevers. Objective - Vital Signs/Intake and Output Vital Signs (last 24 hours): Temp Pulse Resp BP Pulse Ox 98.1 F 74 20 151/60 H 97 11/17/17 16:00 11/18/17 10:05 11/17/17 16:00 11/18/17 10:06 11/17/17 16:00 Intake and Output: 11/18/17 11/18/17 06:59 18:59 Intake Total 360 Output Total 550 Balance -190 - Medications Medications: Current Medications Albuterol/Ipratropium (Duoneb 3 Mg/0.5 Mg (3 Ml) Ud) 3 ml IH [id number] [facility] PRN Reason: Protocol Last Admin: 11/18/17 07:33 Dose: Not Given Amlodipine Besylate (Norvasc) 10 mg PO DAILY [facility] Last Admin: 11/18/17 10:06 Dose: 10 mg Aspirin (Ecotrin) 81 mg PO 0800 [facility] Last Admin: 11/18/17 07:52 Dose: 81 mg Atorvastatin Calcium (Lipitor) 40 mg PO DIN [facility] Last Admin: 11/17/17 17:13 Dose: 40 mg Calcium Acetate (Phoslo) 667 mg PO WM [facility] Last Admin: 11/18/17 07:54 Dose: 667 mg Clonidine HCl (Catapres) 0.1 mg PO TID PRN PRN Reason: Other Hydralazine HCl (Apresoline) 100 mg PO TID [facility] PRN Reason: Protocol Last Admin: 11/18/17 10:05 Dose: 100 mg Methylprednisolone (Medrol) 16 mg PO 0800 [facility] Last Admin: 11/18/17 07:54 Dose: 16 mg Metoprolol Tartrate (Lopressor) 25 mg PO 0800,1800 [facility] Last Admin: 11/18/17 07:53 Dose: 25 mg Pantoprazole Sodium (Protonix Ec Tab) 40 mg PO 0600 [facility] Last Admin: 11/18/17 06:49 Dose: 40 mg Zolpidem Tartrate (Ambien) 5 mg PO HS PRN; Protocol PRN Reason: Insomnia Last Admin: 11/17/17 21:15 Dose: 5 mg - Labs Labs: 11/17/17 10:11/17/17 10:00 - Constitutional Appears: Chronically Ill - Head Exam Head Exam: NORMAL INSPECTION - Respiratory Exam Respiratory Exam: Decreased Breath Sounds - Cardiovascular Exam Cardiovascular Exam: +S1, +S2 - GI/Abdominal Exam GI & Abdominal Exam: Soft. 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
[2017-11-19] MEDS: Albuterol-Ipratrop 3 mg / 0.5 (3 ml) UD IH SCH ×3 (00:30→07:03)
[2017-11-19] MEDS: Pantoprazole 40 mg EC Tab PO SCH (05:34)
--- NOTE | 2017-11-19 07:25 | CP.PCM.PCO ---
Physician Communication Note - Physician Communication Note Physician Communication Note: Midline removed from right arm, catheter length 13 cm
--- NOTE | 2017-11-19 09:11 | PN ---
DATE: 11/19/2017 SUBJECTIVE: The patient is in bed, in no acute distress, nontoxic. PHYSICAL EXAMINATION: VITAL SIGNS: On exam, temperature is 98, blood pressure is 120/50, respiratory rate of 18. HEENT: Examination of HEENT is unremarkable. NECK: Supple. LUNGS: Have decreased breath sounds. HEART: Normal S1, S2. ABDOMEN: Soft. LABORATORY DATA: Laboratory examination reveals a white count of 10,000, hemoglobin of 7, platelets of 257. BUN of 106, creatinine of 8.4. Urinalysis is noted. Microbiology is noted. ASSESSMENT AND PLAN: A 66-year-old with severe sepsis with hypoxic respiratory failure due to left-sided severe community-acquired pneumonia, Christopher's granulomatosis, cerebrovascular accident, coronary artery disease, hypertension, history of smoking and renal failure and dialysis. Currently, off of antibiotics, afebrile. The patient is seen in [facility], comfortable.. The patient is at risk for developing nosocomial infections. Delvis Baldwin MD
[2017-11-19 10:10] VITALS: BP 178/73; PULSE 74
--- NOTE | 2017-11-19 10:51 | PN ---
DATE: 11/18/2017 DAILY PROGRESS NOTE SUBJECTIVE: The patient is a 66-year-old male with a history of Christopher's granulomatosis of the lungs, chronic kidney disease, hypertension, who was admitted on 11/06/2017 complaining of chest pain. During his hospital stay, hemodialysis was started on the patient because of his renal functions. He underwent coronary catheterization, which showed nonobstructive coronary disease. Received IV antibiotics for bilateral pneumonia as seen on CAT scan and received steroids for his Christopher's granulomatosis. As the patient improved, he was transferred to the Transitional Care Unit for physical therapy where he did quite well. For his stay in the Transitional Care Unit, his hemodialysis had to be discontinued. I followed up with a blood work after 6 days and found that his hemoglobin had dropped over the past 6 days from 9 to 7.8. His BUN james from up to 106 and creatinine james from 4.4 up to 8.4. The patient remains asymptomatic; however, when seen today, he looked rather pale. He did admit to being too tired for physical therapy in the morning. So arrangements are being made for the patient to be discharged from the Transitional Care Unit in the morning followed by a round of hemodialysis. At which time, he will receive 1 unit of packed cells at least in transfusion, after which the patient may chose to be discharged to home or be readmitted for further physical therapy and close followup of his renal function in [facility]. I spoke with Dr. Zacarias and seen that the patient is on schedule for hemodialysis, but that is to start on 11/24/2017. So the patient will have to be monitored as a bridge from now to 11/24/2017. John Gao MD
--- NOTE | 2017-11-19 11:06 | CP.PCM.PN ---
Subjective - Date & Time of Evaluation Date of Evaluation: 11/19/17 Time of Evaluation: 07:00 - Subjective Subjective: Awake, ambulatory to bathroom, No distress,no complaints Reason for consultation: Continuity of care to TCU, Cardiac evaluation and follow up of chest pain, non-obstructive coronary artery disease,anemia, history of Christopher granuloma, chronic kidney disease,hypertension, former smoker ,pneumonia,CVA. Seen and examined by me and Dr. Massey Objective - Vital Signs/Intake and Output Vital Signs (last 24 hours): Temp Pulse Resp BP Pulse Ox 98.1 F 74 20 178/73 H 97 11/17/17 16:00 11/19/17 10:09 11/17/17 16:00 11/19/17 10:11 11/17/17 16:00 Intake and Output: 11/19/17 11/19/17 06:59 18:59 Intake Total 360 360 Output Total 650 650 Balance -290 -290 - Medications Medications: Current Medications Albuterol/Ipratropium (Duoneb 3 Mg/0.5 Mg (3 Ml) Ud) 3 ml IH [id number] [facility] PRN Reason: Protocol Last Admin: 11/19/17 07:03 Dose: Not Given Amlodipine Besylate (Norvasc) 10 mg PO DAILY [facility] Last Admin: 11/19/17 10:11 Dose: Not Given Aspirin (Ecotrin) 81 mg PO 0800 [facility] Last Admin: 11/19/17 07:59 Dose: 81 mg Atorvastatin Calcium (Lipitor) 40 mg PO DIN [facility] Last Admin: 11/18/17 17:14 Dose: 40 mg Calcium Acetate (Phoslo) 667 mg PO WM [facility] Last Admin: 11/19/17 08:00 Dose: 667 mg Clonidine HCl (Catapres) 0.1 mg PO TID PRN PRN Reason: Other Last Admin: 11/19/17 10:09 Dose: 0.1 mg Hydralazine HCl (Apresoline) 100 mg PO TID [facility] PRN Reason: Protocol Last Admin: 11/19/17 10:08 Dose: 100 mg Methylprednisolone (Medrol) 16 mg PO 0800 [facility] Last Admin: 11/19/17 08:00 Dose: 16 mg Metoprolol Tartrate (Lopressor) 25 mg PO 0800,1800 [facility] Last Admin: 11/19/17 07:59 Dose: Not Given Pantoprazole Sodium (Protonix Ec Tab) 40 mg PO 0600 [facility] Last Admin: 11/19/17 05:34 Dose: 40 mg Zolpidem Tartrate (Ambien) 5 mg PO HS PRN; Protocol PRN Reason: Insomnia Last Admin: 11/18/17 21:50 Dose: 5 mg - Labs Labs: 11/17/17 10:00 11/17/17 10:00 - Constitutional Appears: No Acute Distress - Eye Exam Eye Exam: Normal appearance - ENT Exam ENT Exam: Mucous Membranes Moist - Respiratory Exam Respiratory Exam: Clear to Ausculation Bilateral, NORMAL BREATHING PATTERN - Cardiovascular Exam Cardiovascular Exam: +S1, +S2 - GI/Abdominal Exam GI & Abdominal Exam: Soft, Normal Bowel Sounds - Extremities Exam Extremities Exam: Normal Capillary Refill Additional comments: left AV shunt + bruit/thrill - Neurological Exam Neurological Exam: Alert, Awake, Oriented x3 - Psychiatric Exam Psychiatric exam: Normal Affect - Skin Skin Exam: Intact, Warm Assessment and Plan - Assessment and Plan (Free Text) Assessment: A 66 year old male who came in to the ER due to chest pain. NSTEMI, cardiac cath done and showed non obstructive coronary artery disease.history of Christopher granuloma, chronic kidney disease, anemia,pulmonary granulomatosis, hypertension , former smoker,pneumonia,CVA. post EGD. now transferred to TCU for reconditioning and physical therapy. Refusing blood draw for past few day and finally agreed yesterday. Low H/H, elevated BUN/creatine, for hemodialysis. Plan: Cardiac status stable BP has been stable but today elevated, give morning antihypertensive medications For hemodialysis Low H/H-7.8/23.3 For blood transfusion of 1 unit PRBC as ordered. Elevated BUN/Creatinine-106/8.4 Physical therapy in progress Continue current treatment Continue current medications Discharge planning Will follow up Plan and treatment discussed with Dr. Massey
== END 2017-11-19 11:12 | disposition home or self-care (01) | DRG 193 ==
LOC: TRCU 15:34
PROVIDERS: ADMIT Internal Medicine; ATTEND Internal Medicine
PROC: F07Z9ZZ Gait Training/Functional Ambulation Treatment (ICD-10-PCS; principal; 2017-11-16)
PROC: F07L6YZ Therapeutic Exercise Treatment of Musculoskeletal System - Lower Back / Lower Extremity using Other Equipment (ICD-10-PCS; 2017-11-16)
PROC: F08Z4ZZ Home Management Treatment (ICD-10-PCS; 2017-11-16)
DX: J18.9 Pneumonia, unspecified organism (principal); N18.6 End stage renal disease; K22.11 Ulcer of esophagus with bleeding; M31.30 Wegener's granulomatosis without renal involvement; I12.0 Hypertensive chronic kidney disease with stage 5 chronic kidney disease or end stage renal disease; N25.81 Secondary hyperparathyroidism of renal origin; J44.0 Chronic obstructive pulmonary disease with (acute) lower respiratory infection; I25.10 Atherosclerotic heart disease of native coronary artery without angina pectoris; D64.9 Anemia, unspecified; E83.39 Other disorders of phosphorus metabolism; Z99.2 Dependence on renal dialysis; Z86.73 Personal history of transient ischemic attack (TIA), and cerebral infarction without residual deficits; Z87.891 Personal history of nicotine dependence

== ENCOUNTER 2017-11-19 15:01 | Emergency (ER) | payer MEDICARE ==
[2017-11-19 15:16] VITALS: BMI 22.1
--- NOTE | 2017-11-19 15:18 | ED PDOC ---
Arrival/HPI - General Time Seen by Provider: 11/19/17 15:03 Historian: Patient - History of Present Illness Narrative History of Present Illness (Text): 11/19/17 15:15 66yo male with past medical history of anemia, ESRD (dialysis TTHS), ACS referred to Emergency department from dialysis for hemoglobin of 7.8. Patient has been admitted for ACS. He denies any current shortness of breath, chest pain , dizziness, nausea, vomiting, focal weakness, any other complaint. Past Medical History - Provider Review Nursing Documentation Reviewed: Yes - Infectious Disease Hx of Infectious Diseases: None - Tetanus Immunization Tetanus Immunization: Unknown - Cardiac Hx Hypertension: Yes - Pulmonary Hx Respiratory Disorders: Yes Hx Pneumonia: Yes (DOUBLE PNEUMONIA 10-17-14) - Neurological HX Cerebrovascular Accident: Yes - HEENT Hx HEENT Disorder: (WEARS RX GLASSES) - Renal Hx Renal Failure: Yes - Hematological/Oncological Hx Blood Transfusions: Yes Hx Blood Transfusion Reaction: No - Integumentary Hx Dermatological Disorder: No - Musculoskeletal/Rheumatological Hx Falls: No - Gastrointestinal Hx Gastrointestinal Disorders: No - Genitourinary/Gynecological Hx Genitourinary Disorders: Yes (esrd not on regular HD.Last hd was yesterday ) Hx Reproductive Disorders: No - Psychiatric Hx Emotional Abuse: No Hx Physical Abuse: No Hx Substance Use: No - Past Surgical History Past Surgical History: No Previous - Surgical History Hx Mastectomy: No - Anesthesia Hx Anesthesia Reactions: No Hx Malignant Hyperthermia: No - Suicidal Assessment Feels Threatened In Home Enviroment: No Family/Social History - Physician Review Nursing Documentation Reviewed: Yes Family/Social History: Unknown Family HX Smoking Status: Former Smoker Hx Alcohol Use: No Hx Substance Use: No Hx Substance Use Treatment: No Allergies/Home Meds Allergies/Adverse Reactions: Allergies azithromycin [From Zithromax] Allergy (Severe, Verified 11/19/17 15:16) SWELLING UNKNOWN ANTIBIOTIC Allergy (Uncoded 11/19/17 15:16) SHORTNESS OF BREATH Home Medications: Home Meds Medication Instructions Recorded Confirmed Carvedilol [Coreg] 6.25 mg PO BID 07/29/15 11/19/17 LORazepam [Ativan] 0.5 mg PO DAILY PRN 08/07/15 11/19/17 Calcium Acetate [Phoslo] 667 mg PO DAILY 08/17/17 11/19/17 Sodium Bicarbonate 325 mg PO DAILY 08/17/17 11/19/17 Review of Systems - Physician Review All systems were reviewed & negative as marked: Yes - Review of Systems Constitutional: Normal, Other (Low hemoglobin) Eyes: Normal ENT: Normal Respiratory: Normal Cardiovascular: Normal Gastrointestinal: Normal Genitourinary Male: Normal Musculoskeletal: Normal Skin: Normal Neurological: Normal Endocrine: Normal Hemo/Lymphatic: Normal Psychiatric: Normal Physical Exam Vital Signs Reviewed: Yes Vital Signs Temp Pulse Resp BP Pulse Ox 11/19/17 19:35 83 18 137/74 98 11/19/17 15:24 97.7 F 93 H 16 178/83 H 98 Temperature: Afebrile Blood Pressure: Normal Pulse: Regular Respiratory Rate: Normal Appearance: Positive for: Well-Appearing, Non-Toxic, Comfortable Pain Distress: None Mental Status: Positive for: Alert and Oriented X 3 - Systems Exam Head: Present: Atraumatic, Normocephalic Pupils: Present: PERRL Extroacular Muscles: Present: EOMI Conjunctiva: Present: Normal Mouth: Present: Moist Mucous Membranes Neck: Present: Normal Range of Motion Respiratory/Chest: Present: Clear to Auscultation, Good Air Exchange. No: Respiratory Distress, Accessory Muscle Use Cardiovascular: Present: Regular Rate and Rhythm, Normal S1, S2. No: Murmurs Abdomen: No: Tenderness, Distention, Peritoneal Signs Back: Present: Normal Inspection Upper Extremity: Present: Normal Inspection, Other (Fistula noted in place to left upper arm). No: Cyanosis, Edema Lower Extremity: Present: Normal Inspection. No: Edema Neurological: Present: GCS=15, CN II-XII Intact, Speech Normal Skin: Present: Warm, Dry, Normal Color. No: Rashes Psychiatric: Present: Alert, Oriented x 3, Normal Insight, Normal Concentration Medical Decision Making ED Course and Treatment: 11/20/17 01:10 PT presented for stated history. He was not in any distress in Emergency department. Hemodynamically stable. Lab was ordered, reviewed and H/H was 9.5. Pt does not need transfusion at this time. Case was DW Dr. Martin and he agreed . States pt should be DC home to f/u with him on Tuesday or Tuesday. - Lab Interpretations Lab Results: 11/19/17 17:56 11/19/17 17:56 Lab Results 11/19/17 17:56: PT 10.5, INR 0.92 L, APTT 24.5 L 11/19/17 17:56: Sodium 139, Potassium 4.0, Chloride 95 L, Carbon Dioxide 30, Anion Gap 19, BUN 53 H, Creatinine 4.2 H, Est GFR ( Amer) 17, Est GFR ( Non-Af Amer) 14, Random Glucose 109, Calcium 8.4, Total Bilirubin 0.8, AST 24, ALT 34, Alkaline Phosphatase 65, Total Protein 6.6, Albumin 4.0, Globulin 2.6, Albumin/Globulin Ratio 1.6 11/19/17 17:56: WBC 10.7, RBC 3.13 L, Hgb 9.5 L, Hct 28.7 L, MCV 91.7, MCH 30.4 , MCHC 33.1, RDW 17.6 H, Plt Count 275, MPV 8.8, Gran % 83.9 H, Lymph % (Auto) 11.0 L, [facility] % (Auto) 5.0, Eos % (Auto) 0.0 L, Baso % (Auto) 0.1, Gran # 8.97 H , Lymph # (Auto) 1.2, [facility] # (Auto) 0.5, Eos # (Auto) 0.0, Baso # (Auto) 0.01 11/19/17 17:50: Blood Type B POSITIVE, Antibody Screen Negative, Crossmatch See Detail, BBK History Checked Patient has bt Disposition/Present on Arrival - Present on Arrival Any Indicators Present on Arrival: No History of DVT/PE: No History of Uncontrolled Diabetes: No Urinary Catheter: No History Surgical Site Infection Following: None - Disposition Have Diagnosis and Disposition been Completed?: Yes Diagnosis: Anemia Disposition: HOME/ ROUTINE Disposition Time: 19:00 Patient Plan: Discharge Condition: STABLE Discharge Instructions (ExitCare): Normocytic Normochromic Anemia Additional Instructions: Follow up with your doctor on Tuesday or Tuesday Return to Emergency department for any new or worsening symptoms Referrals: Zaki Gao MD [Primary Care Provider] - Follow up with primary Forms: [place] (Azeri)
[2017-11-19 15:25] VITALS: TEMP 97.7; O2SAT 98
[2017-11-19 18:08] LABS: BASO # 0.01 K/mm3 (0.0-2.0); BASO % 0.1 % (0.0-3.0); GRAN # 8.97 (1.4-6.5); GRAN % 83.9 % (50.0-68.0); HEMOGLOBIN 9.5 g/dL (14.0-18.0); LYMPH # 1.2 (1.2-3.4); MEAN CELL VOLUME 91.7 fl (80.0-105.0); MEAN CORPUSCULAR HEMOGLOBIN 30.4 pg (25.0-35.0); MEAN CORPUSCULAR HGB CONC 33.1 g/dl (31.0-37.0); MEAN PLATELET VOLUME 8.8 fl (7.0-11.0); MONO # 0.5 (0.1-0.6); RBC 3.13 10^6/uL (3.5-6.1); RED CELL DISTRIBUTION WIDTH 17.6 % (11.5-14.5); WHITE BLOOD COUNT 10.7 10^3/ul (4.5-11.0)
[2017-11-19 18:15] LABS: INR 0.92 (0.93-1.08); PARTIAL THROMBOPLASTIN TIME 24.5 Seconds (25.1-36.5); PROTHROMBIN TIME 10.5 SECONDS (9.4-12.5)
[2017-11-19 18:56] LABS: ALB/GLOB RATIO 1.6 (1.1-1.8); CALCIUM 8.4 mg/dL (8.4-10.5)
[2017-11-19 20:10] VITALS: BP 137/74; PULSE 83; RESP 18
== END 2017-11-19 19:35 | disposition home or self-care (01) ==
LOC: ED 15:01
DX: D63.1 Anemia in chronic kidney disease (principal); I12.0 Hypertensive chronic kidney disease with stage 5 chronic kidney disease or end stage renal disease; N18.6 End stage renal disease; Z87.891 Personal history of nicotine dependence; Z99.2 Dependence on renal dialysis; Z86.73 Personal history of transient ischemic attack (TIA), and cerebral infarction without residual deficits